=== PATIENT | male | born 1990 | race Caucasian/White ===

== ENCOUNTER 2017-06-06 12:36 | Emergency (ER) | payer MEDICARE, MEDICAID ==
[2017-06-06 12:52] VITALS: BP 115/78
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
== END 2017-06-06 13:30 | disposition home or self-care (01) ==
LOC: ER 12:36
DX: Z20.2 Contact with and (suspected) exposure to infections with a predominantly sexual mode of transmission (principal)
CPT/HCPCS: 99281

== ENCOUNTER 2018-03-08 15:38 | Emergency (ER) | payer MEDICARE, MEDICAID ==
--- NOTE | 2018-03-08 17:32 | ER Document Report ---
ED Medical Screen (RME) - General Chief Complaint: Diarrhea Stated Complaint: ABDOMINAL PAIN Time Seen by Provider: 03/08/18 17:25 Mode of Arrival: Ambulatory Information source: Patient, Parent Notes: 27 yr old male with developmental delays presents with mother kendrick baker of not feeling well and diarrhea I have greeted and performed a rapid initial assessment of this patient. A comprehensive ED assessment and evaluation of the patient, analysis of test results and completion of the medical decision making process will be conducted by additional ED providers. PHYSICAL EXAMINATION: GENERAL: Well-appearing, well-nourished and in no acute distress. HEAD: Atraumatic, normocephalic. EYES: Pupils equal round extraocular movements intact, conjunctiva are normal. ENT: Nares patent NECK: Normal range of motion LUNGS: No respiratory distress Musculoskeletal: Normal range of motion NEUROLOGICAL: pt is unable ot communicate at baseline PSYCH: Normal mood, normal affect. SKIN: Warm, Dry, normal turgor, no rashes or lesions noted. TRAVEL OUTSIDE OF THE [place] IN LAST 30 DAYS: No - Related Data Allergies/Adverse Reactions: amoxicillin trihydrate [From Augmentin] Allergy (Mild, Verified 06/06/17 13:25) rash cefaclor [Cefaclor] Allergy (Mild, Verified 06/06/17 13:25) rash Penicillins Allergy (Mild, Verified 06/06/17 13:25) rash Potassium Clavulanate * [From Augmentin] Allergy (Mild, Verified 06/06/17 13:25) rash codeine Allergy (Verified 03/08/18 17:26) Past Medical History - Social History Chew tobacco use (# tins/day): No Frequency of alcohol use: None Drug Abuse: None - Past Medical History Cardiac Medical History: Denies: Hx Heart Attack, Hx Hypertension Pulmonary Medical History: Reports: Hx Pneumonia Denies: Hx Asthma, Hx Tuberculosis Neurological Medical History: Reports: Hx Seizures - LAST SEIZURE 5 YRS. Denies : Hx Cerebrovascular Accident Renal/ Medical History: Denies: Hx Peritoneal Dialysis GI Medical History: Denies: Hx Hepatitis, Hx Hiatal Hernia, Hx Ulcer Musculoskeltal Medical History: Reports Hx Muscle Spasm, Reports Hx Muscle Weakness, Reports Hx Musculoskeletal Deformity Infectious Medical History: Denies: Hx Hepatitis Past Surgical History: Reports: Hx Abdominal Surgery - PEG Tube, multiple abdominal surgeries rt peg tube for scar tissue., Hx Appendectomy, Hx Open Heart Surgery - repair hole in heart, AN INFANT. Denies: Hx Pacemaker - Immunizations Hx Diphtheria, Pertussis, Tetanus Vaccination: Yes Physical Exam - Vital signs Vitals: Pulse Resp BP Pulse Ox 91 16 110/72 96 03/08/18 15:45 03/08/18 15:45 03/08/18 15:45 03/08/18 15:45 Course - Vital Signs Vital signs: Temp Pulse Resp BP Pulse Ox 91 16 110/72 96 03/08/18 15:45 03/08/18 15:45 03/08/18 15:45 03/08/18 15:45 Doctor's Discharge - Discharge Referrals: NICK PHILLIP PA-C [Primary Care Provider] - Follow up as needed
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
[2018-03-08 20:16] VITALS: BP 118/73
== END 2018-03-08 20:10 | disposition home or self-care (01) ==
LOC: ER 15:38
DX: B35.4 Tinea corporis (principal); L25.9 Unspecified contact dermatitis, unspecified cause; R19.7 Diarrhea, unspecified; G80.9 Cerebral palsy, unspecified; F84.0 Autistic disorder; Z93.1 Gastrostomy status; Z88.0 Allergy status to penicillin; Z88.1 Allergy status to other antibiotic agents; Z88.5 Allergy status to narcotic agent
CPT/HCPCS: 99283

== ENCOUNTER 2019-10-31 09:15 | Inpatient (IN) | payer MEDICARE, MEDICAID ==
[2019-10-31] MEDS ORDERED: NORMAL SALINE 1000 ML 1,000 ML IV ONE (10:12)
[2019-10-31] MEDS ORDERED: ONDANSETRON HCL INJ/PF 4 MG/2 ML SDV IV ONE ×2 (10:12→13:40)
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
[2019-10-31 11:32] LABS: HEMATOCRIT 48.2 % (37.9-51.0); HEMOGLOBIN 17.2 g/dL (13.5-17.0); MEAN CORPUSCULAR HEMOGLOBIN 32.3 pg (27.0-33.4); MEAN CORPUSCULAR HGB CONC 35.7 g/dL (32.0-36.0); MEAN CORPUSCULAR VOLUME 91 fl (80-97); PLATELET COUNT 324 10^3/uL (150-450); RED BLOOD COUNT 5.32 10^6/uL (4.35-5.55); WHITE BLOOD COUNT 14.9 10^3/uL (4.0-10.5)
[2019-10-31 11:37] LABS: ALBUMIN 5.3 g/dL (3.5-5.0); ALKALINE PHOSPHATASE 106 U/L (38-126); ANION GAP 16 (5-19); ASPARTATE AMINO TRANSFERASE 38 U/L (17-59); BILIRUBIN,DIRECT 0.3 mg/dL (0.0-0.4); BILIRUBIN,TOTAL 0.7 mg/dL (0.2-1.3); BLOOD UREA NITROGEN 17 mg/dL (7-20); CALCIUM 10.3 mg/dL (8.4-10.2); CARBON DIOXIDE 25 mmol/L (22-30); CHLORIDE 89 mmol/L (98-107); GLUCOSE 151 mg/dL (75-110); POTASSIUM 4.3 mmol/L (3.6-5.0); TOTAL PROTEIN 8.9 g/dL (6.3-8.2)
[2019-10-31 11:48] LABS: ABSOLUTE LYMPHOCYTES# (MANUAL) 0.4 10^3/uL (0.5-4.7); ABSOLUTE MONOCYTES # (MANUAL) 2.8 10^3/uL (0.1-1.4); BASOPHILS % (MANUAL) 0 % (0-2); EOSINOPHILS % (MANUAL) 0 % (0-6); LYMPHOCYTES % (MANUAL) 3 % (13-45); MONOCYTES % (MANUAL) 19 % (3-13); SEGMENTED NEUTROPHILS % (MAN) 78 % (42-78); TOTAL CELLS COUNTED 100
[2019-10-31 11:49] LABS: PLATELET COMMENT ADEQUATE; RBC MORPHOLOGY COMMENT NORMO-CYTIC/CHROMIC
--- NOTE | 2019-10-31 13:22 | ER Document Report ---
ED General - General Chief Complaint: Vomiting Stated Complaint: VOMITING Time Seen by Provider: 10/31/19 10:09 Information source: Parent, Relative Notes: 28-year-old male with history of severe autism and cerebral palsy presents emergency department with his mother for complaints of vomiting this morning. Patient has a G-tube and does not take anything by mouth. Patient is nonverbal. Mother reports he vomited this morning brown foul-smelling emesis. Mom reports he had at least 4 normal bowel movements yesterday. Reports patient is not acting himself more quiet. Unknown fever. Voiding as normal. Mother reports slight cough that started after he vomited. TRAVEL OUTSIDE OF THE [place] IN LAST 30 DAYS: No - HPI Onset: This morning Onset/Duration: Sudden Quality of pain: Other - Unsure Associated symptoms: Vomiting Exacerbated by: Denies Relieved by: Denies Similar symptoms previously: Yes - History of bowel obstruction Recently seen / treated by doctor: No - Related Data Allergies/Adverse Reactions: amoxicillin trihydrate [From Augmentin] Allergy (Mild, Verified 10/31/19 10:09) rash cefaclor [Cefaclor] Allergy (Mild, Verified 10/31/19 10:09) rash Penicillins Allergy (Mild, Verified 10/31/19 10:09) rash Potassium Clavulanate * [From Augmentin] Allergy (Mild, Verified 10/31/19 10:09) rash codeine Allergy (Verified 10/31/19 10:09) Past Medical History - General Information source: Parent, Relative - Social History Smoking Status: Unknown if Ever Smoked Frequency of alcohol use: None Drug Abuse: None Lives with: Family Family History: Reviewed & Not Pertinent Patient has suicidal ideation: No Patient has homicidal ideation: No - Past Medical History Cardiac Medical History: Denies: Hx Heart Attack, Hx Hypertension Pulmonary Medical History: Reports: Hx Pneumonia Denies: Hx Asthma, Hx Tuberculosis Neurological Medical History: Reports: Hx Seizures - LAST SEIZURE 5 YRS. Denies: Hx Cerebrovascular Accident Renal/ Medical History: Denies: Hx Peritoneal Dialysis GI Medical History: Denies: Hx Hepatitis, Hx Hiatal Hernia, Hx Ulcer Musculoskeletal Medical History: Reports Hx Muscle Spasm, Reports Hx Muscle Weakness, Reports Hx Musculoskeletal Deformity, Reports Other - Cerebral palsy Psychiatric Medical History: Reports: Other - Autism Infectious Medical History: Denies: Hx Hepatitis Past Surgical History: Reports: Hx Abdominal Surgery - PEG Tube, multiple abdominal surgeries rt peg tube for scar tissue., Hx Appendectomy, Hx Open Heart Surgery - repair hole in heart, AN . Denies: Hx Pacemaker - Immunizations Hx Diphtheria, Pertussis, Tetanus Vaccination: Yes Hx Pneumococcal Vaccination: 10/08/13 Review of Systems - Review of Systems Notes: Review HPI for review of systems., All other systems negative Physical Exam - Vital signs Vitals: Temp Pulse Resp BP Pulse Ox 97.5 F 118 H 18 128/64 H 97 10/31/19 09:56 10/31/19 09:56 10/31/19 09:56 10/31/19 09:56 10/31/19 09:56 - General General appearance: Alert In distress: None - HEENT Head: Normocephalic Eyes: Normal Neck: Normal, Supple. No: Lymphadenopathy - Respiratory Respiratory status: No respiratory distress Chest status: Nontender Breath sounds: Normal Chest palpation: Normal - Cardiovascular Rhythm: Regular, Tachycardia Heart sounds: Normal auscultation Murmur: No - Abdominal Inspection: Other - G-tube intact site benign, no erythema, no warmth Distension: No distension Bowel sounds: Normal Tenderness: Nontender Organomegaly: No organomegaly - Back Back: Normal - Neurological Kristy Coma Scale Eye Opening: Spontaneous - Psychological Associated symptoms: Normal affect, Normal mood - Skin Skin Temperature: Warm Skin Moisture: Dry Course - Re-evaluation Re-evalutation: 10/31/19 15:34 28-year-old severely autistic with CP male presents emergency department with his mom for reports he vomited brown emesis this morning with a foul smell. Mom was worried that he may have another bowel obstruction because he has had that in the past. She reports yesterday he had 4 large bowel movements as normal. Patient is n.p.o. takes nothing by mouth. He has a G-tube. CBC shows white count 14.9. Chemistry with sodium 129. CT of the abdomen is suggestive of a small bowel obstruction. CT of the chest shows aspiration pneumonia. Mom requested transfer to [facility] at first. I did contact [facility] contacted Dr. Radha Carrillo who accepted transfer. After that mom changed her mind and requested patient stay here if possible. I contacted Dr. Horne who reports he will be consulting surgeon for small bowel obstruction. Also contacted the hospitalist for admission. Dr. Davis accepted admission. Dr. Davis updated on patient's rectal temperature of 101 with increased tachycardia tachypneic and O2 sat of 89%. Patient was placed on 2 L nasal cannula. LR maintenance fluids ordered. I am worried this patient is becoming septic due to aspiration pneumonia and past medical history. , admitting hospitalist, advised antibiotics meropenem. Lactic acid along with blood cultures have been ordered. Mom updated on plan of care to include fluids antibiotics. Feeding tube hooked to G-tube and drained 500 mils of fluid. Abdomen/Pelvis CT 10/31/19 00:00 IMPRESSION: 1. Findings as above are suggestive of a high-grade obstruction with a focal point of transition in the mid abdomen (image 52 of series 203). There is no pneumatosis or portal venous gas. 2. Pneumobilia. 3. 9 x 9 mm caliceal calculus in the upper pole of the left kidney. Chest CT 10/31/19 13:40 IMPRESSION: Alveolar opacities in a tree-in-bud pattern in the lingula and left lower lobe. Given the distention of the thoracic esophagus correlation for an aspiration bronchopneumonia is recommended. Laboratory 10/31/19 10/31/19 10:44 10:44 WBC 14.9 H RBC 5.32 Hgb 17.2 H Hct 48.2 MCV 91 MCH 32.3 MCHC 35.7 RDW 12.0 Plt Count 324 Lymph % (Auto) Not Reportable Thomas % (Auto) Not Reportable Eos % (Auto) Not Reportable Baso % (Auto) Not Reportable Absolute Neuts (auto) Not Reportable Absolute Lymphs (auto) Not Reportable Absolute Monos (auto) Not Reportable Absolute Eos (auto) Not Reportable Absolute Basos (auto) Not Reportable Total Counted 100 Seg Neutrophils % Not Reportable Seg Neuts % (Manual) 78 Lymphocytes % (Manual) 3 L Monocytes % (Manual) 19 H Eosinophils % (Manual) 0 Basophils % (Manual) 0 Abs Neuts (Manual) 11.6 H Abs Lymphs (Manual) 0.4 L Abs Monocytes (Manual) 2.8 H Absolute Eos (Manual) 0.0 Abs Basophils (Manual) 0.0 Platelet Comment ADEQUATE RBC Morph Comment NORMO-CYTIC/CHROMIC Sodium 129.6 L Potassium 4.3 Chloride 89 L Carbon Dioxide 25 Anion Gap 16 BUN 17 Creatinine 0.47 L Est GFR ( Amer) > 60 Est GFR (MDRD) Non-Af > 60 Glucose 151 H Calcium 10.3 H Total Bilirubin 0.7 Direct Bilirubin 0.3 Neonat Total Bilirubin Not Reportable Neonat Direct Bilirubin Not Reportable Neonat Indirect Bili Not Reportable AST 38 ALT 30 Alkaline Phosphatase 106 Total Protein 8.9 H Albumin 5.3 H Lipase 106.4 10/31/19 16:[address] Horne [address] Dr. Davis in the emergency department to assess patient. Dockery ordered per Dr. Horne suggestion. - Vital Signs Vital signs: Temp Pulse Resp BP Pulse Ox 101.0 F H 132 H 32 H 139/64 H 89 L 10/31/19 15:58 10/31/19 15:58 10/31/19 15:58 10/31/19 15:58 10/31/19 15:58 - Laboratory Result Diagrams: 10/31/19 10:44 10/31/19 10:44 Laboratory results interpreted by me: 10/31/19 10/31/19 10/31/19 10:44 10:44 16:33 WBC 14.9 H Hgb 17.2 H Lymphocytes % (Manual) 3 L Monocytes % (Manual) 19 H Abs Neuts (Manual) 11.6 H Abs Lymphs (Manual) 0.4 L Abs Monocytes (Manual) 2.8 H Sodium 129.6 L Chloride 89 L Creatinine 0.47 L Glucose 151 H Lactic Acid 2.3 H Calcium 10.3 H Total Protein 8.9 H Albumin 5.3 H - Diagnostic Test Radiology reviewed: Image reviewed, Reports reviewed - Consults DR HORNE Time consulted: 16:00 Reason for consultation: 10/31/19 16:14 SBO, Consulted provider: will come to ER DR DAVIS Time consulted: 16:15 Reason for consultation: 10/31/19 16:15 SBO CP AUTISM, PNEUMONIA Consulted provider: will come to ER Discharge - Discharge Clinical Impression: Small bowel obstruction Sepsis Qualifiers: Sepsis type: sepsis due to unspecified organism Sepsis acute organ dysfunction status: unspecified Qualified Code(s): A41.9 - Sepsis, unspecified organism Condition: Stable Disposition: ADMITTED INPATIENT Unit Admitted: [facility]
[2019-10-31] MEDS ORDERED: IBUPROFEN SUSP 100 MG/5 ML ORAL SYRINGE PO ONE (13:41)
--- NOTE | 2019-10-31 14:50 | RADIOLOGY REPORT (SQ) ---
EXAM DESCRIPTION: CT ABD/PELVIS WITH IV ORAL COMPLETED DATE/TIME: 10/31/2019 2:25 pm REASON FOR STUDY: possible obstruction, vomiting COMPARISON: CT of the abdomen pelvis without contrast from 11/18/2013. TECHNIQUE: CT scan of the abdomen and pelvis performed using helical scanning technique with dynamic intravenous contrast injection. No oral contrast. Images reviewed with lung, soft tissue, and bone windows. Reconstructed coronal and sagittal MPR images reviewed. Delayed images for evaluation of the urinary system also acquired. All images stored on PACS. All CT scanners at this facility use dose modulation, iterative reconstruction, and/or weight based d osing when appropriate to reduce radiation dose to as low as reasonably achievable (ALARA). [facility]: Dose Right [facility]: CareDose [facility]: Dose Right [facility]: Teradose 4D [facility]: LogFire CONTRAST TYPE AND DOSE: Contrast/concentration: Isovue 350.00 mg/ml; Total Contrast Delivered: 62.0 ml; Total Saline Delivered: 37.3 ml RENAL FUNCTION: Creatinine 0.47 milligrams/deciliter. RADIATION DOSE: DLP 1548.87 mGy cm. LIMITATIONS: None. FINDINGS: LOWER CHEST: Refer to the separate report of the CT of the chest. LIVER: Pneumobilia. The portal veins are patent. There is no hepatic mass. SPLEEN: No splenomegaly. PANCREAS: No acute abnormality of the pancreas. GALLBLADDER: The gallbladder is either surgically absent or contracted. ADRENAL GLANDS: No abnormality of the adrenal glands RIGHT KIDNEY AND URETER: No solid mass, hydronephrosis, nephrolithiasis, hydroureter or ureterolithia sis. LEFT KIDNEY AND URETER: 9 x 9 mm calculus in an upper pole calyx. There is no solid mass, hydronephr osis, hydroureter or ureterolithiasis. AORTA AND VESSELS: No aneurysm or dissection of the abdominal aorta. The abdominopelvic vasculature is patent. RETROPERITONEUM: No retroperitoneal adenopathy, hemorrhage or mass. BOWEL AND PERITONEAL CAVITY: There is a gastrostomy tube in place. The stomach is dilated. There ar e several fluid-filled and dilated loops of bowel that measure up to 3 cm in diameter ; there is an a brupt point a transition between the dilated and nondilated bowel in the mid abdomen (image 52 of ser ies 203). There is no pneumatosis or portal venous gas. There is also no free intraperitoneal air/f luid or mesenteric/omental inflammation. APPENDIX: Unable to identify the appendix. PELVIS: Urinary bladder is distended. The prostate gland is normal in size. ABDOMINAL WALL: No masses or hernias. BONES: No acute findings. OTHER: No other finding. IMPRESSION: 1. Findings as above are suggestive of a high-grade obstruction with a focal point of tr ansition in the mid abdomen (image 52 of series 203). There is no pneumatosis or portal venous gas. 2. Pneumobilia. 3. 9 x 9 mm caliceal calculus in the upper pole of the left kidney. TECHNICAL DOCUMENTATION: JOB ID: [id number] Quality ID # [id number]: Final reports with documentation of one or more dose reduction techniques (e.g., Au tomated exposure control, adjustment of the mA and/or kV according to patient size, use of iterative reconstruction technique) 2010 [employer]- All Rights Reserved Reading location - IP/workstation name: [email or web address]
--- NOTE | 2019-10-31 14:59 | RADIOLOGY REPORT (SQ) ---
EXAM DESCRIPTION: CT CHEST WITH COMPLETED DATE/TIME: 10/31/2019 2:25 pm REASON FOR STUDY: cough fever COMPARISON: None. TECHNIQUE: CT scan of the chest performed using helical scanning technique with dynamic intravenous contrast injection. Images reviewed with lung, soft tissue and bone windows. Reconstructed coronal and sagittal MPR and MIP images reviewed. All images stored on PACS. All CT scanners at this facility use dose modulation, iterative reconstruction, and/or weight based d osing when appropriate to reduce radiation dose to as low as reasonably achievable (ALARA). [facility]: Dose Right [facility]: CareDose [facility]: Dose Right [facility]: Teradose 4D [facility]: [employer]arki CONTRAST TYPE AND DOSE: 62 mL Omnipaque 350- low osmolar. RENAL FUNCTION: Creatinine 0.47 milligrams/deciliter RADIATION DOSE: CT Rad equipment meets quality standard of care and radiation dose reduction techniq ues were employed. CTDIvol: 11.9 - 12.5 mGy. DLP: 1549 mGy-cm. LIMITATIONS: Evaluation is limited due to motion artifact. FINDINGS: LUNGS AND PLEURA: The trachea main bronchi are patent. There are alveolar opacities in a tree-in-bud pattern in the lingula and left lower lobe. There are no other areas of parenchymal abno rmality. There is also no pleural effusion or pneumothorax. HILAR AND MEDIASTINAL STRUCTURES: The esophagus is distended with fluid up to the thoracic inlet. Th ere is no mediastinal adenopathy or mass. HEART AND VASCULAR STRUCTURES: No cardiomegaly or pericardial effusion. No thoracic aortic dissectio n or aneurysm. HARDWARE: None in the chest. UPPER ABDOMEN: Refer to the separate report of the CT of the abdomen. THYROID AND OTHER SOFT TISSUES: No masses or adenopathy BONES: Dextroconvex scoliotic curvature of the thoracic spine OTHER: No other finding. IMPRESSION: Alveolar opacities in a tree-in-bud pattern in the lingula and left lower lobe. Given t he distention of the thoracic esophagus correlation for an aspiration bronchopneumonia is recommended . TECHNICAL DOCUMENTATION: JOB ID: [id number] Quality ID # [id number]: Final reports with documentation of one or more dose reduction techniques (e.g., Au tomated exposure control, adjustment of the mA and/or kV according to patient size, use of iterative reconstruction technique) 2010 [employer]- All Rights Reserved Reading location - IP/workstation name: [email or web address]
[2019-10-31] MEDS ORDERED: RINGERS SOLUTION,LACTATED 1,000 ML IV PRN (15:44)
[2019-10-31] MEDS ORDERED: MEROPENEM 1 GM VIAL IV ONE (16:05)
--- NOTE | 2019-10-31 16:49 | PDOC CONSULTATION ---
Consultation Consult Date: 10/31/19 Attending physician:: NAYELI RIBEIRO Provider Consulted: LILIANA HORNE Consult reason:: sbo History of Present Illness Admission Date/PCP: SAMIA MONTANO MD History of Present Illness: RASHI TOMPKINS is a 28 year old [id number] history of severe autism and cerebral palsy presents emergency department with his mother for complaints of vomiting this morning. Patient has a G-tube and does not take anything by mouth. Patient is nonverbal. Mother reports he vomited this morning brown foul-smelling emesis. Mom reports he had at least 4 normal bowel movements yesterday. Reports patient is not acting himself more quiet. Unknown fever. Voiding as normal. Mother reports slight cough that started after he vomited. States that he has had numerous bowel obstructions in the past and required previous surgery last one last year at [facility]. Patient's mother now states that he does have some coughing after vomiting this morning. Past Medical History Cardiac Medical History: Denies: Myocardial Infarction, Hypertension Pulmonary Medical History: Reports: Pneumonia Denies: Asthma, Tuberculosis Neurological Medical History: Reports: Seizures - LAST SEIZURE 5 YRS GI Medical History: Denies: Hepatitis, Hiatal Hernia Musculoskeltal Medical History: Reports: Other - Cerebral palsy Psychiatric Medical History: Reports: Other - Autism Hematology: Denies: Anemia, Sickle Cell Disease Past Surgical History Past Surgical History: Reports: Appendectomy, Other - Exploratory laparotomy for small bowel obstructions. PEG tube. Denies: Pacemaker Social History Lives with: Family Smoking Status: Unknown if Ever Smoked Family History Family History: Reviewed & Not Pertinent Parental Family History Reviewed: No Children Family History Reviewed: NA Sibling(s) Family History Reviewed.: NA Medication/Allergy Allergies/Adverse Reactions: amoxicillin trihydrate [From Augmentin] Allergy (Mild, Verified 10/31/19 10:09) rash cefaclor [Cefaclor] Allergy (Mild, Verified 10/31/19 10:09) rash Penicillins Allergy (Mild, Verified 10/31/19 10:09) rash Potassium Clavulanate * [From Augmentin] Allergy (Mild, Verified 10/31/19 10:09) rash codeine Allergy (Verified 10/31/19 10:09) Review of Systems ROS unobtainable: Due to mental status Eyes: ABSENT: as per HPI, visual disturbances, other Ears: ABSENT: as per HPI, hearing changes, other Nose, Mouth, and Throat: ABSENT: as per HPI, headache(s), mouth pain, sore throat, vertigo, other Breasts: ABSENT: as per HPI, other Cardiovascular: PRESENT: chest pain - With deep inspiration Gastrointestinal: PRESENT: other - Dental pain and bloating according to the mother intermittently with legs drawn up Genitourinary: ABSENT: as per HPI, difficulty urinating, dysuria, hematuria, nocturia, other Musculoskeletal: PRESENT: other - Section secondary to cerebral palsy Integumentary: ABSENT: as per HPI, diaphoresis, erythema, lesions, pruritus, rash, wounds, other Neurological: PRESENT: other - Mental status cerebral palsy with developmental delay obtain Hematologic/Lymphatic: ABSENT: easy bleeding, easy bruising Allergic/Immunologic: ABSENT: as per HPI, seasonal rhinorrhea, other Physical Exam Vital Signs: Temp Pulse Resp BP Pulse Ox 101.0 F H 132 H 32 H 139/64 H 89 L 10/31/19 15:58 10/31/19 15:58 10/31/19 15:58 10/31/19 15:58 10/31/19 15:58 Intake & Output 10/30/19 10/31/19 11/01/19 06:59 06:59 06:59 Intake Total 1000 Balance 1000 Weight 54.6 kg General appearance: PRESENT: mild distress Head exam: PRESENT: normocephalic Eye exam: PRESENT: EOMI Ear exam: PRESENT: normal external ear exam Mouth exam: PRESENT: moist Neck exam: PRESENT: full ROM Respiratory exam: PRESENT: clear to auscultation ashu Cardiovascular exam: PRESENT: tachycardia Pulses: PRESENT: normal radial pulses, normal femoral pulses Vascular exam: PRESENT: normal capillary refill Breast: PRESENT: Normal GI/Abdominal exam: PRESENT: distended, hypoactive bowel sounds, soft Rectal exam: PRESENT: deferred Extremities exam: PRESENT: full ROM Musculoskeletal exam: PRESENT: deformity Neurological exam: PRESENT: awake Psychiatric exam: PRESENT: agitated Skin exam: PRESENT: dry Results Laboratory Results: 10/31/19 10:44 10/31/19 10:44 10/31/19 10/31/19 10:44 10:44 WBC 14.9 H RBC 5.32 Hgb 17.2 H Hct 48.2 MCV 91 MCH 32.3 MCHC 35.7 RDW 12.0 Plt Count 324 Seg Neutrophils % Not Reportable Sodium 129.6 L Potassium 4.3 Chloride 89 L Carbon Dioxide 25 Anion Gap 16 BUN 17 Creatinine 0.47 L Est GFR ( Amer) > 60 Glucose 151 H Calcium 10.3 H Total Bilirubin 0.7 AST 38 Alkaline Phosphatase 106 Total Protein 8.9 H Albumin 5.3 H Lipase 106.4 Impressions: Abdomen/Pelvis CT 10/31/19 00:00 IMPRESSION: 1. Findings as above are suggestive of a high-grade obstruction with a focal point of transition in the mid abdomen (image 52 of series 203). There is no pneumatosis or portal venous gas. 2. Pneumobilia. 3. 9 x 9 mm caliceal calculus in the upper pole of the left kidney. Chest CT 10/31/19 13:40 IMPRESSION: Alveolar opacities in a tree-in-bud pattern in the lingula and left lower lobe. Given the distention of the thoracic esophagus correlation for an aspiration bronchopneumonia is recommended. Assessment & Plan - Plan Summary Plan Summary: Patient cerebral palsy with developmental delay status post multiple previous small bowel obstructions now with a gastrostomy tube History of exploratory laparotomy with lysis of adhesions and small bowel resection last year at [facility]. Now presenting with increasing abdominal distention and vomiting however passed for normal bowel movements yesterday. CT scan here shows dilated small bowel loops with air in the colon consistent with a possible transition point in the mid abdomen Surgical recommendations 1 admit the patient for IV hydration. And treatment of aspiration pneumonia 2. G-tube should be placed on intermittent suction. 3. Dockery catheter for over distended urinary bladder seen on CT scan. 4. Surgery will follow
[2019-10-31] MEDS ORDERED: ACETAMINOPHEN 650 MG SUPP.RECT PR PRN (17:02)
[2019-10-31] MEDS ORDERED: LEVALBUTEROL HCL NEB 1.25 MG/3 ML AMPUL NEB PRN (17:02)
[2019-10-31] MEDS ORDERED: METOCLOPRAMIDE HCL INJ/PF 10 MG/2 ML SDV IV PRN (17:09)
[2019-10-31] MEDS ORDERED: ONDANSETRON HCL INJ/PF 4 MG/2 ML SDV IV PRN (17:09)
[2019-10-31] MEDS ORDERED: RINGERS SOLUTION,LACTATED 1,000 ML IV ONE ×2 (17:15→17:21)
[2019-10-31] MEDS ORDERED: LORAZEPAM INJ 2 MG/1 ML VIAL IV PRN (17:17)
[2019-10-31] MEDS ORDERED: RINGERS SOLUTION,LACTATED 500 ML IV ONE (17:21)
--- NOTE | 2019-10-31 17:37 | PDOC H&P ---
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 Patient had had no irregularities in bowel movements for the past several days until yesterday night when patient was reported to have 4 bowel movement. The first 2 were described as formed and of moderate amount while the last 2 with loose movements. Today patient began having bilious nonbloody vomiting and was thus brought for evaluation. Patient's mom notes that patient has been having some cough as well. She denies any changes to his urinary habits per patient is incontinent and usually wets himself. Patient unable to partake in conversation given his severe autism and cerebral palsy. Of note, he takes nothing by mouth and everything goes via G-tube. Noted to have high-grade bowel obstruction, possible pneumonia in ER as well as fever and subsequently referred to hospitalist service for admission. Past Medical History Cardiac Medical History: Denies: Myocardial Infarction, Hypertension Pulmonary Medical History: Reports: Pneumonia Denies: Asthma, Tuberculosis Neurological Medical History: Reports: Seizures - LAST SEIZURE 5 YRS GI Medical History: Denies: Hepatitis, Hiatal Hernia Musculoskeltal Medical History: Reports: Other - Cerebral palsy Psychiatric Medical History: Reports: Other - Autism Hematology: Denies: Anemia, Sickle Cell Disease Past Surgical History Past Surgical History: Reports: Appendectomy, Other - Exploratory laparotomy for small bowel obstructions. PEG tube. Denies: Pacemaker Social History Lives with: Family Smoking Status: Never Smoker Electronic Cigarette use?: No Frequency of Alcohol Use: None Hx Recreational Drug Use: No - Advance Directive Resuscitation Status: Full Code Family History Family History: Reviewed & Not Pertinent, Other Parental Family History Reviewed: Yes Children Family History Reviewed: NA Sibling(s) Family History Reviewed.: NA Medication/Allergy Allergies/Adverse Reactions: amoxicillin trihydrate [From Augmentin] Allergy (Mild, Verified 10/31/19 10:09) rash cefaclor [Cefaclor] Allergy (Mild, Verified 10/31/19 10:09) rash Penicillins Allergy (Mild, Verified 10/31/19 10:09) rash Potassium Clavulanate * [From Augmentin] Allergy (Mild, Verified 10/31/19 10:09) rash codeine Allergy (Verified 10/31/19 10:09) Review of Systems ROS unobtainable: Due to mental status Physical Exam Vital Signs: Temp Pulse Resp BP Pulse Ox 101.0 F H 132 H 32 H 139/64 H 89 L 10/31/19 15:58 10/31/19 15:58 10/31/19 15:58 10/31/19 15:58 10/31/19 15:58 Intake & Output 10/30/19 10/31/19 11/01/19 06:59 06:59 06:59 Intake Total 1000 Balance 1000 Weight 54.6 kg General appearance: PRESENT: no acute distress, cooperative Mouth exam: PRESENT: neck supple Neck exam: ABSENT: JVD Respiratory exam: PRESENT: clear to auscultation ashu, tachypnea - mildly, unlabored. ABSENT: wheezes Cardiovascular exam: PRESENT: +S1, +S2, tachycardia. ABSENT: irregular rhythm GI/Abdominal exam: PRESENT: distended, hyperactive bowel sounds, soft, other - G tube present. ABSENT: firm, guarding, rebound, rigid Extremities exam: ABSENT: pedal edema Musculoskeletal exam: PRESENT: deformity - contracted lower extremities Neurological exam: PRESENT: alert, awake, aphasic - nonverbal, other - does not follow commands Psychiatric exam: ABSENT: agitated, anxious Focused psych exam: ABSENT: internal stimuli Skin exam: ABSENT: jaundice Results Laboratory Results: 10/31/19 10:44 10/31/19 10:44 10/31/19 10/31/19 10:44 10:44 WBC 14.9 H RBC 5.32 Hgb 17.2 H Hct 48.2 MCV 91 MCH 32.3 MCHC 35.7 RDW 12.0 Plt Count 324 Seg Neutrophils % Not Reportable Sodium 129.6 L Potassium 4.3 Chloride 89 L Carbon Dioxide 25 Anion Gap 16 BUN 17 Creatinine 0.47 L Est GFR ( Amer) > 60 Glucose 151 H Calcium 10.3 H Total Bilirubin 0.7 AST 38 Alkaline Phosphatase 106 Total Protein 8.9 H Albumin 5.3 H Lipase 106.4 Impressions: Abdomen/Pelvis CT 10/31/19 00:00 IMPRESSION: 1. Findings as above are suggestive of a high-grade obstruction with a focal point of transition in the mid abdomen (image 52 of series 203). There is no pneumatosis or portal venous gas. 2. Pneumobilia. 3. 9 x 9 mm caliceal calculus in the upper pole of the left kidney. Chest CT 10/31/19 13:40 IMPRESSION: Alveolar opacities in a tree-in-bud pattern in the lingula and left lower lobe. Given the distention of the thoracic esophagus correlation for an aspiration bronchopneumonia is recommended. Assessment and Plan - Diagnosis (1) SBO (small bowel obstruction) Is this a current diagnosis for this admission?: Yes Plan: Patient presents with vomiting and CT scanning showing high-grade obstruction with transition likely mid abdomen. Likely partial sbo. I had conversation with surgicalist who is recommending placing G-tube to suction and conservative management at this time I will continue to follow. Some question about if truly a small bowel obstruction given Bowel movement last night. D5 LR Check lactic acid given fever and tachycardia Monitor electrolytes and replete as needed (2) Fever Qualifiers: Fever type: unspecified Qualified Code(s): R50.9 - Fever, unspecified Is this a current diagnosis for this admission?: Yes Plan: Possibly due to some underlying infection/inflammation. Chest CT does show some trabecular opacities in left lower lobe however it appears only mild. We will currently give antibiotics to cover for pneumonia or intra-abdominal process and check urinalysis, urine culture as well as blood cultures to look for alternative source of fever. Patient is not able to voice symptoms given his severe cognitive impairment. Monitor abdomen closely. (3) Pneumonia Qualifiers: Pneumonia type: aspiration pneumonia Aspiration pneumonia type: due to vomit Laterality: left Lung location: lower lobe of lung Qualified Code(s): J69.0 - Pneumonitis due to inhalation of food and vomit Is this a current diagnosis for this admission?: Yes Plan: Noted on chest CT. However pneumonia seems mild on the imaging to cause this clinical picture of severe tachycardia, fever and leukocytosis. I will start patient on Levaquin and Flagyl for coverage of possible aspiration pneumonia. Check sputum culture. (4) Distended bladder Is this a current diagnosis for this admission?: Yes Plan: Noted incidentally on imaging. Place Dockery. (5) Tachycardia Is this a current diagnosis for this admission?: Yes Plan: Patient has severe tachycardia into the 130s to 140s. Appears dehydrated. Check EKG. Will give IV fluid boluses and run on continuous infusion of fluids. Monitor on telemetry. (6) Seizure disorder Is this a current diagnosis for this admission?: Yes Plan: At home, patient takes oxcarbazepine, carbamazepine, clonazepam and lorazepam all 3 times a day. This is not an ideal regimen given similar classes of medications. While inpatient, I will place patient on only carbamazepine and increased dose rather to 200 mg 3 times daily as well as Ativan only. (7) Cerebral palsy Qualifiers: Cerebral palsy type: unspecified type Qualified Code(s): G80.9 - Cerebral palsy, unspecified Is this a current diagnosis for this admission?: Yes Plan: Patient is n.p.o. and nonverbal at baseline and gets feeding through G tube. Mother reports Nutren 1.5 boluses 4 times a day. Continue seizure prophylaxis. Dietitian consulted. (8) Hyponatremia Is this a current diagnosis for this admission?: Yes Plan: Monitor metabolic panel for improvement with hydration. If hyponatremia persists, will check serum and urine osmolarity. We will also hold off on oxcarbazepine while continuing carbamazepine. Ideally patient should not be on both medications together which he has been on at home, as this increases his risk of SIADH. - Time Time Spent with patient: 35 or more minutes
[2019-10-31] MEDS ORDERED: LORAZEPAM INJ 2 MG/1 ML VIAL IV SCH (22:00)
[2019-10-31] MEDS ORDERED: LEVOFLOXACIN 500 MG/D5W RTU 500 MG/100 ML RTUPB IV SCH (22:00)
--- NOTE | 2019-10-31 22:00 | EKG REPORT ---
SEVERITY:- ABNORMAL ECG - SINUS TACHYCARDIA CONSIDER RIGHT VENTRICULAR HYPERTROPHY INFERIOR Q WAVES, PROBABLY NORMAL VARIATION NONSPECIFIC T ABNORMALITIES, INFERIOR LEADS : Confirmed by: Jossie Bonilla MD 31-Oct-2019 21:59:47
[2019-10-31] MEDS: ACETAMINOPHEN 650 MG SUPP.RECT PR PRN (23:03)
[2019-11-01] MEDS ORDERED: LEVETIRACETAM 1000 MG/NACL-ISO 1,000 MG/100 ML RTUPB IV ONE
[2019-11-01] MEDS ORDERED: METRONIDAZOLE 500 MG/NS RTU 500 MG/100 ML RTUPB IV SCH
[2019-11-01] MEDS ORDERED: MEROPENEM 1 GM VIAL IV SCH
[2019-11-01] MEDS: LORAZEPAM INJ 2 MG/1 ML VIAL IV SCH ×4 (00:12→21:14)
[2019-11-01] MEDS: CARBAMAZEPINE 100 MG TAB.CHEW PEG SCH ×2 (00:35→05:29)
[2019-11-01] MEDS ORDERED: MEROPENEM 1 GM VIAL ONE (00:40)
[2019-11-01] MEDS ORDERED: MEROPENEM 1 GM in NORMAL SALINE 50 ML IV SCH (01:00)
[2019-11-01] MEDS: DEXTROSE 5%-LACTATED RINGERS 1,000 ML IV PRN ×3 (02:28→21:33)
[2019-11-01] MEDS: ACETAMINOPHEN 650 MG SUPP.RECT PR PRN (02:44)
[2019-11-01 06:43] LABS: ALBUMIN 3.4 g/dL (3.5-5.0); ALKALINE PHOSPHATASE 45 U/L (38-126); ANION GAP 11 (5-19); ASPARTATE AMINO TRANSFERASE 36 U/L (17-59); BILIRUBIN,TOTAL 0.5 mg/dL (0.2-1.3); BLOOD UREA NITROGEN 12 mg/dL (7-20); CALCIUM 9.1 mg/dL (8.4-10.2); CARBON DIOXIDE 28 mmol/L (22-30); CHLORIDE 98 mmol/L (98-107); GLUCOSE 117 mg/dL (75-110); PHOSPHORUS 3.4 mg/dL (2.5-4.5); POTASSIUM 3.9 mmol/L (3.6-5.0)
[2019-11-01 07:01] LABS: HEMATOCRIT 41.4 % (37.9-51.0); MEAN CORPUSCULAR HEMOGLOBIN 32.6 pg (27.0-33.4); MEAN CORPUSCULAR HGB CONC 36.4 g/dL (32.0-36.0); MEAN CORPUSCULAR VOLUME 90 fl (80-97); PLATELET COUNT 221 10^3/uL (150-450); RED BLOOD COUNT 4.61 10^6/uL (4.35-5.55); RED CELL DISTRIBUTION WIDTH 12.1 % (11.5-14.0); WHITE BLOOD COUNT 15.8 10^3/uL (4.0-10.5)
[2019-11-01 07:15] LABS: ABSOLUTE LYMPHOCYTES# (MANUAL) 1.3 10^3/uL (0.5-4.7); ABSOLUTE MONOCYTES # (MANUAL) 5.8 10^3/uL (0.1-1.4); BASOPHILS % (MANUAL) 0 % (0-2); EOSINOPHILS % (MANUAL) 0 % (0-6); LYMPHOCYTES % (MANUAL) 6 % (13-45); SEGMENTED NEUTROPHILS % (MAN) 34 % (42-78); TOTAL CELLS COUNTED 100
[2019-11-01 07:17] LABS: OVALOCYTES SLIGHT; POIKILOCYTOSIS SLIGHT; TOXIC GRANULATION 1+
[2019-11-01 07:18] LABS: BAND NEUTROPHILS % (MANUAL) 21 % (3-5); MONOCYTES % (MANUAL) 37 % (3-13)
[2019-11-01 07:21] LABS: PLATELET COMMENT ADEQUATE
[2019-11-01] MEDS ORDERED: VANCOMYCIN HCL INJ 1000 MG VIAL IV SCH (10:00)
[2019-11-01] MEDS ORDERED: METHYLPREDNISOLONE INJ 125 MG/2 ML SDV IV ONE (10:00)
[2019-11-01] MEDS ORDERED: DIPHENHYDRAMINE HCL 50 MG/ML VIAL IV ONE (10:00)
[2019-11-01] MEDS: LEVETIRACETAM 500 MG/NACL-ISO 500 MG/100 ML RTUPB IV SCH ×2 (10:27→21:15)
[2019-11-01 10:56] LABS: PATH REVIEW PATHOLOGIST REVIEWED
[2019-11-01] MEDS: DOCUSATE SODIUM 100 MG/10 ML UDC PEG SCH (11:16)
[2019-11-01] MEDS: ENOXAPARIN SODIUM INJ 40 MG/0.4 ML DISP.SYRIN SUBCUT SCH (12:29)
[2019-11-01] MEDS: MEROPENEM 1 GM in NORMAL SALINE 50 ML IV SCH ×2 (12:35→17:46)
[2019-11-01] MEDS: CARBAMAZEPINE SUSP 200 MG/10 ML UDCUP PO SCH ×2 (13:48→21:14)
[2019-11-01] MEDS: KETOROLAC TROMETHAMINE INJ/PF 30 MG/1 ML SDV IV PRN ×2 (13:48→20:00)
[2019-11-01] MEDS: VANCOMYCIN HCL 1,000 MG in DEXTROSE 5%-WATER 250 ML IV SCH ×2 (13:49→21:15)
--- NOTE | 2019-11-01 14:06 | PDOC PROGRESS REPORT ---
Subjective Progress Note for:: 11/01/19 Subjective:: Overnight, patient's lactic acid continue to trend up. Patient remained tachycardic though heart rate is somewhat better than on presentation. Patient has been receiving fluids. Patient is nonverbal and unable to provide subjective. Reason For Visit: SBO, FEVER PNA Physical Exam Vital Signs: Temp Pulse Resp BP Pulse Ox 99.0 F 116 H 16 108/62 95 11/01/19 12:03 11/01/19 12:03 11/01/19 12:03 11/01/19 12:03 11/01/19 12:03 Intake & Output 10/31/19 11/01/19 11/02/19 06:59 06:59 06:59 Intake Total 2650 1477 Output Total 1000 Balance 2650 477 Weight 52 kg General appearance: PRESENT: no acute distress, cooperative Neck exam: ABSENT: JVD Respiratory exam: PRESENT: rhonchi, tachypnea, unlabored. ABSENT: wheezes Cardiovascular exam: PRESENT: +S1, +S2, tachycardia. ABSENT: irregular rhythm GI/Abdominal exam: PRESENT: distended, soft. ABSENT: firm, guarding, rebound, rigid Neurological exam: PRESENT: alert, awake, motor sensory deficit, aphasic - Nonverbal Results Laboratory Results: 11/01/19 05:55 11/01/19 05:55 10/31/19 10/31/19 11/01/19 16:33 22:13 05:55 WBC RBC Hgb Hct MCV MCH MCHC RDW Plt Count Seg Neutrophils % Sodium Potassium Chloride Carbon Dioxide Anion Gap BUN Creatinine Est GFR ( Amer) Glucose Lactic Acid 2.3 H 2.7 H 3.8 H Calcium Phosphorus Magnesium Total Bilirubin AST Alkaline Phosphatase Total Protein Albumin 11/01/19 11/01/19 05:55 05:55 WBC 15.8 H RBC 4.61 Hgb 15.0 D Hct 41.4 MCV 90 MCH 32.6 MCHC 36.4 H RDW 12.1 Plt Count 221 Seg Neutrophils % Not Reportable Sodium 137.1 Potassium 3.9 Chloride 98 Carbon Dioxide 28 Anion Gap 11 BUN 12 Creatinine 0.37 L Est GFR ( Amer) > 60 Glucose 117 H Lactic Acid Calcium 9.1 Phosphorus 3.4 Magnesium 1.7 Total Bilirubin 0.5 AST 36 Alkaline Phosphatase 45 Total Protein 6.0 L Albumin 3.4 L Impressions: Abdomen/Pelvis CT 10/31/19 00:00 IMPRESSION: 1. Findings as above are suggestive of a high-grade obstruction with a focal point of transition in the mid abdomen (image 52 of series 203). There is no pneumatosis or portal venous gas. 2. Pneumobilia. 3. 9 x 9 mm caliceal calculus in the upper pole of the left kidney. Chest CT 10/31/19 13:40 IMPRESSION: Alveolar opacities in a tree-in-bud pattern in the lingula and left lower lobe. Given the distention of the thoracic esophagus correlation for an aspiration bronchopneumonia is recommended. Assessment and Plan - Diagnosis (1) SBO (small bowel obstruction) Is this a current diagnosis for this admission?: Yes Plan: Patient presents with vomiting and CT scanning showing high-grade obstruction with transition likely mid abdomen. Likely partial sbo. G-tube placed to suction and suctioning a whole lot of fluid Surgicalist following and obtain abdominal series with small bowel follow- through this morning Continue D5 LR I am concerned given lactic acid continues to trend up and persistence of tachycardia. We will continue to trend lactic acid. Monitor electrolytes and replete as needed (2) Fever Qualifiers: Fever type: unspecified Qualified Code(s): R50.9 - Fever, unspecified Is this a current diagnosis for this admission?: Yes Plan: Possibly due to some underlying infection/inflammation. Chest CT does show some trabecular opacities in left lower lobe however it appears only mild. We will currently give antibiotics to cover for pneumonia or intra-abdominal process. Follow-up blood culture. Unfortunately urine sample was unable to be obtained yesterday because of difficulty with catheterization and patient's incontinence. Patient is not able to voice symptoms given his severe cognitive impairment. Monitor abdomen closely. (3) Pneumonia Qualifiers: Pneumonia type: aspiration pneumonia Aspiration pneumonia type: due to vomit Laterality: left Lung location: lower lobe of lung Qualified Code(s): J69.0 - Pneumonitis due to inhalation of food and vomit Is this a current diagnosis for this admission?: Yes Plan: Noted on chest CT. However pneumonia seems mild on the imaging to cause this clinical picture of severe tachycardia, fever and leukocytosis. Antibiotics changed to vancomycin and meropenem for broader coverage. (4) Distended bladder Is this a current diagnosis for this admission?: Yes Plan: Noted incidentally on imaging. Given difficulty in Dockery placement by staff, I will opt to hold off on Dockery placement at this time and monitor with frequent bladder scans every 8 hours. (5) Tachycardia Is this a current diagnosis for this admission?: Yes Plan: EKG showing sinus tachycardia. Rate improved from 140s yesterday to 110-120s today. Possible sepsis or anxiety or pain. Continue IV fluids and pain control. (6) Seizure disorder Is this a current diagnosis for this admission?: Yes Plan: At home, patient takes oxcarbazepine, carbamazepine, clonazepam and lorazepam all 3 times a day. This is not an ideal regimen given similar classes of medications. While inpatient, I will continue patient on only carbamazepine suspension and increased dose rather to 200 mg 3 times daily as well as Ativan only. Patient is also been placed on Keppra IV given SBO. (7) Cerebral palsy Qualifiers: Cerebral palsy type: unspecified type Qualified Code(s): G80.9 - Cerebral palsy, unspecified Is this a current diagnosis for this admission?: Yes Plan: Patient is n.p.o. and nonverbal at baseline and gets feeding through G tube. Mother reports Nutren 1.5 boluses 4 times a day. Continue seizure prophylaxis. Dietitian consulted. (8) Hyponatremia Is this a current diagnosis for this admission?: Yes Plan: Likely secondary to dehydration as has completely resolved with adequate IV fluid hydration. - Time Time Spent with patient: Less than 15 minutes
--- NOTE | 2019-11-01 16:31 | RADIOLOGY REPORT (SQ) ---
EXAM DESCRIPTION: SMALL BOWEL SERIES COMPLETED DATE/TIME: 11/01/2019 4:15 pm REASON FOR STUDY: possible bowel obstruction COMPARISON: None. FLUOROSCOPY TIME: Performed without fluoroscopy. 6 images saved to PACS. LIMITATIONS: None. PROCEDURE: Initial talent scout image of abdomen acquired, followed by administration of Gastrografin throu gh the gastrostomy tube. Serial radiographic images acquired. All images stored on PACS. FINDINGS: ANALYTICAL STATISTICIAN KUB: Dilated gas-filled small bowel. No abnormal calcifications. Soft tissue plane s normal. STOMACH: Small amount of gastroesophageal reflux. Normal distention without abnormality. DUODENUM: Dilated. SMALL BOWEL: Dilated proximal small bowel. Contrast progresses through the small bowel and is prese nt in the distal colon and rectum at 4 hours 15 minutes. OTHER: No other significant finding. IMPRESSION: DILATED SMALL BOWEL. CONTRAST PRESENT IN THE DISTAL COLON AND RECTUM AT 4 HOURS AND 15 MINUTES. SIGNIFICANT MECHANICAL OBSTRUCTION NOT LIKELY TO BE PRESENT. COMMENT: Quality ID [id number]: Final reports for procedures using fluoroscopy that document radiation exp osure indices, or exposure time and number of fluorographic images (if radiation exposure indices are not available) TECHNICAL DOCUMENTATION: JOB ID: [id number] 2010 [employer]- All Rights Reserved Reading location - IP/workstation name: [email or web address]
[2019-11-01 18:08] LABS: HEMATOCRIT 41.1 % (37.9-51.0); HEMOGLOBIN 14.7 g/dL (13.5-17.0); MEAN CORPUSCULAR HEMOGLOBIN 32.6 pg (27.0-33.4); MEAN CORPUSCULAR HGB CONC 35.8 g/dL (32.0-36.0); MEAN CORPUSCULAR VOLUME 91 fl (80-97); PLATELET COUNT 220 10^3/uL (150-450); RED BLOOD COUNT 4.51 10^6/uL (4.35-5.55); RED CELL DISTRIBUTION WIDTH 12.3 % (11.5-14.0)
[2019-11-01 18:30] LABS: ANION GAP 12 (5-19); BLOOD UREA NITROGEN 15 mg/dL (7-20); CALCIUM 9.5 mg/dL (8.4-10.2); CARBON DIOXIDE 29 mmol/L (22-30); CHLORIDE 99 mmol/L (98-107); GLUCOSE 106 mg/dL (75-110); POTASSIUM 3.7 mmol/L (3.6-5.0)
--- NOTE | 2019-11-01 18:47 | PDOC PROGRESS REPORT ---
Subjective Progress Note for:: 11/01/19 Subjective:: No apparent abdominal pains. Reason For Visit: SBO, FEVER PNA Physical Exam Vital Signs: Temp Pulse Resp BP Pulse Ox 97.7 F 130 H 16 117/76 90 L 11/01/19 15:33 11/01/19 15:33 11/01/19 15:33 11/01/19 15:33 11/01/19 15:33 Intake & Output 10/31/19 11/01/19 11/02/19 06:59 06:59 06:59 Intake Total 2650 2230 Output Total 1000 Balance 2650 1230 Weight 52 kg 52 kg Exam: Abdomen is not distended soft with mild tenderness around the umbilical area. Gastrostomy tube is been draining dark greenish material. Results Laboratory Results: 11/01/19 17:59 11/01/19 17:59 10/31/19 11/01/19 11/01/19 22:13 05:55 05:55 WBC 15.8 H RBC 4.61 Hgb 15.0 D Hct 41.4 MCV 90 MCH 32.6 MCHC 36.4 H RDW 12.1 Plt Count 221 Seg Neutrophils % Not Reportable Sodium Potassium Chloride Carbon Dioxide Anion Gap BUN Creatinine Est GFR ( Amer) Glucose Lactic Acid 2.7 H 3.8 H Calcium Phosphorus Magnesium Total Bilirubin AST Alkaline Phosphatase Total Protein Albumin 11/01/19 11/01/19 11/01/19 05:55 15:51 17:59 WBC RBC Hgb Hct MCV MCH MCHC RDW Plt Count Seg Neutrophils % Sodium 137.1 140.0 Potassium 3.9 3.7 Chloride 98 99 Carbon Dioxide 28 29 Anion Gap 11 12 BUN 12 15 Creatinine 0.37 L 0.49 L Est GFR ( Amer) > 60 > 60 Glucose 117 H 106 Lactic Acid 2.2 H Calcium 9.1 9.5 Phosphorus 3.4 Magnesium 1.7 Total Bilirubin 0.5 AST 36 Alkaline Phosphatase 45 Total Protein 6.0 L Albumin 3.4 L 11/01/19 17:59 WBC 16.0 H RBC 4.51 Hgb 14.7 Hct 41.1 MCV 91 MCH 32.6 MCHC 35.8 RDW 12.3 Plt Count 220 Seg Neutrophils % Sodium Potassium Chloride Carbon Dioxide Anion Gap BUN Creatinine Est GFR ( Amer) Glucose Lactic Acid Calcium Phosphorus Magnesium Total Bilirubin AST Alkaline Phosphatase Total Protein Albumin 10/31/19 16:33 Blood Blood Culture (PCR) - Final Staphylococcus Aureus Impressions: Abdomen/Pelvis CT 10/31/19 00:00 IMPRESSION: 1. Findings as above are suggestive of a high-grade obstruction with a focal point of transition in the mid abdomen (image 52 of series 203). There is no pneumatosis or portal venous gas. 2. Pneumobilia. 3. 9 x 9 mm caliceal calculus in the upper pole of the left kidney. Chest CT 10/31/19 13:40 IMPRESSION: Alveolar opacities in a tree-in-bud pattern in the lingula and left lower lobe. Given the distention of the thoracic esophagus correlation for an aspiration bronchopneumonia is recommended. Small Bowel X-Ray 11/01/19 08:33 IMPRESSION: DILATED SMALL BOWEL. CONTRAST PRESENT IN THE DISTAL COLON AND RECTUM AT 4 HOURS AND 15 MINUTES. SIGNIFICANT MECHANICAL OBSTRUCTION NOT LIKELY TO BE PRESENT. Assessment & Plan - Diagnosis (1) Cerebral palsy Qualifiers: Cerebral palsy type: unspecified type Qualified Code(s): G80.9 - Cerebral palsy, unspecified Is this a current diagnosis for this admission?: Yes (2) Distended bladder Is this a current diagnosis for this admission?: Yes (3) Hyponatremia Is this a current diagnosis for this admission?: Yes (4) SBO (small bowel obstruction) Is this a current diagnosis for this admission?: Yes (5) Seizure disorder Is this a current diagnosis for this admission?: Yes (6) Tachycardia Is this a current diagnosis for this admission?: Yes - Time Critical Time spent with patient: 15-24 minutes - Inpatient Certification Medical Necessity: Need For IV Fluids, Need for IV Antibiotics, Risk of Complication if Not Cared For in Hospital - Plan Summary Plan Summary: Had a small bowel follow-through the G tube which showed no small bowel obstruction since the dye got into the large bowel in about 4 hours. Gastrostomy tube placed back to suction when patient came back from x-ray and it drained about 700 cc of greenish material.Patient also had BM after SBFT. Plans: Continue n.p.o. and gastrostomy to gravity tonight. Patient did have a bowel movement according to the nurses. However since the G-tube drained about 700cc will hold off giving tube feedings tonight and possibly start in a.m.
[2019-11-02] MEDS: MEROPENEM 1 GM in NORMAL SALINE 50 ML IV SCH (01:30)
[2019-11-02] MEDS: LORAZEPAM INJ 2 MG/1 ML VIAL IV SCH ×3 (05:25→22:56)
[2019-11-02] MEDS: CARBAMAZEPINE SUSP 200 MG/10 ML UDCUP PO SCH ×3 (05:25→22:56)
[2019-11-02] MEDS: DEXTROSE 5%-LACTATED RINGERS 1,000 ML IV PRN ×3 (05:36→23:48)
[2019-11-02] MEDS: KETOROLAC TROMETHAMINE INJ/PF 30 MG/1 ML SDV IV PRN (07:04)
[2019-11-02 07:13] LABS: ABSOLUTE MONOCYTES (AUTO) 0.9 10^3/uL (0.1-1.4); BASOPHILS % (AUTO) 0.2 % (0-2); EOSINOPHILS % (AUTO) 0.3 % (0-6); HEMATOCRIT 38.1 % (37.9-51.0); HEMOGLOBIN 13.8 g/dL (13.5-17.0); LYMPHOCYTES % (AUTO) 8.4 % (13-45); MEAN CORPUSCULAR HEMOGLOBIN 32.8 pg (27.0-33.4); MEAN CORPUSCULAR HGB CONC 36.2 g/dL (32.0-36.0); MEAN CORPUSCULAR VOLUME 91 fl (80-97); MONOCYTES % (AUTO) 7.2 % (3-13); PLATELET COUNT 195 10^3/uL (150-450); RED BLOOD COUNT 4.21 10^6/uL (4.35-5.55); RED CELL DISTRIBUTION WIDTH 12.3 % (11.5-14.0); SEGMENTED NEUTROPHILS % (AUTO) 83.9 % (42-78); TOTAL CELLS COUNTED % (AUTO) 100 %; WHITE BLOOD COUNT 11.9 10^3/uL (4.0-10.5)
[2019-11-02 08:39] LABS: ALBUMIN 3.2 g/dL (3.5-5.0); ALKALINE PHOSPHATASE 45 U/L (38-126); ANION GAP 11 (5-19); ASPARTATE AMINO TRANSFERASE 31 U/L (17-59); BILIRUBIN,DIRECT 0.3 mg/dL (0.0-0.4); BILIRUBIN,TOTAL 0.5 mg/dL (0.2-1.3); BLOOD UREA NITROGEN 15 mg/dL (7-20); CALCIUM 8.7 mg/dL (8.4-10.2); CARBON DIOXIDE 26 mmol/L (22-30); CHLORIDE 103 mmol/L (98-107); GLUCOSE 106 mg/dL (75-110); POTASSIUM 3.1 mmol/L (3.6-5.0); TOTAL PROTEIN 6.2 g/dL (6.3-8.2)
[2019-11-02] MEDS: LEVETIRACETAM 500 MG/NACL-ISO 500 MG/100 ML RTUPB IV SCH ×2 (09:49→22:56)
[2019-11-02] MEDS: DOCUSATE SODIUM 100 MG/10 ML UDC PEG SCH (09:50)
[2019-11-02] MEDS: ENOXAPARIN SODIUM INJ 40 MG/0.4 ML DISP.SYRIN SUBCUT SCH (09:50)
[2019-11-02] MEDS: CEFTRIAXONE 1 GM/D5W RTU 1 GM/50 ML RTUPB IV SCH (10:17)
--- NOTE | 2019-11-02 11:07 | RADIOLOGY REPORT (SQ) ---
EXAM DESCRIPTION: KUB/ABDOMEN (SINGLE VIEW) COMPLETED DATE/TIME: 11/02/2019 10:57 am REASON FOR STUDY: abdominal pain COMPARISON: None. NUMBER OF VIEWS: One view. TECHNIQUE: Supine radiographic image of the abdomen acquired. LIMITATIONS: None. FINDINGS: BOWEL GAS PATTERN: Dilated central bowel loops. Contrast present in the colon and rectum. CALCIFICATIONS: No suspicious calcifications. SOFT TISSUES: No gross mass or suggestion of organomegaly. HARDWARE: Gastrostomy tube. Surgical clips. BONES: No acute fracture. Chronic scoliosis. No worrisome bone lesions. OTHER: No other significant finding. IMPRESSION: DILATED CENTRAL BOWEL LOOPS. RESIDUAL CONTRAST IN THE COLON AND RECTUM. TECHNICAL DOCUMENTATION: JOB ID: [id number] 2010 [employer]- All Rights Reserved Reading location - IP/workstation name: [email or web address]
[2019-11-02] MEDS: VANCOMYCIN HCL 1,000 MG in DEXTROSE 5%-WATER 250 ML IV SCH ×2 (11:23→22:56)
[2019-11-02] MEDS: METRONIDAZOLE 500 MG/NS RTU 500 MG/100 ML RTUPB IV SCH ×2 (13:26→17:11)
--- NOTE | 2019-11-02 14:49 | PDOC PROGRESS REPORT ---
Subjective Progress Note for:: 11/02/19 Subjective:: 28-year-old male with cerebral palsy, presenting with nausea, vomiting, and distention. Originally his CT scan was suggestive of a small bowel obstruction. The patient currently is stooling. The nursing staff denies any active vomiting. The patient is nonverbal, and unable to relate portions of the recent medical history. Reason For Visit: SBO, FEVER PNA Physical Exam Vital Signs: Temp Pulse Resp BP Pulse Ox 98.1 F 114 H 16 110/72 96 11/02/19 11:42 11/02/19 14:00 11/02/19 11:42 11/02/19 11:42 11/02/19 11:42 Intake & Output 11/01/19 11/02/19 11/03/19 06:59 06:59 06:59 Intake Total 2650 3850 980 Output Total 2750 Balance 2650 1100 980 Weight 52 kg 57.4 kg General appearance: PRESENT: no acute distress Head exam: PRESENT: atraumatic Mouth exam: PRESENT: moist Neck exam: ABSENT: meningismus, tenderness, thyromegaly, tracheal deviation Respiratory exam: PRESENT: unlabored. ABSENT: tachypnea, wheezes Cardiovascular exam: PRESENT: tachycardia GI/Abdominal exam: PRESENT: distended - Mild, soft. ABSENT: firm, guarding, hernia, rebound, rigid, tenderness Rectal exam: PRESENT: deferred Extremities exam: ABSENT: clubbing Neurological exam: PRESENT: awake Psychiatric exam: PRESENT: other - Nonverbal Skin exam: ABSENT: cyanosis, erythema, jaundice Results Laboratory Results: 11/02/19 06:44 11/02/19 08:01 11/01/19 11/01/19 11/01/19 05:55 15:51 17:59 WBC RBC Hgb 15.0 D Hct MCV MCH MCHC RDW Plt Count Seg Neutrophils % Sodium 140.0 Potassium 3.7 Chloride 99 Carbon Dioxide 29 Anion Gap 12 BUN 15 Creatinine 0.49 L Est GFR ( Amer) > 60 Glucose 106 Lactic Acid 2.2 H Calcium 9.5 Magnesium Total Bilirubin AST Alkaline Phosphatase Total Protein Albumin 11/01/19 11/02/19 11/02/19 17:59 06:44 06:44 WBC 16.0 H 11.9 H RBC 4.51 4.21 L Hgb 14.7 13.8 Hct 41.1 38.1 MCV 91 91 MCH 32.6 32.8 MCHC 35.8 36.2 H RDW 12.3 12.3 Plt Count 220 195 Seg Neutrophils % 83.9 H Sodium Potassium Chloride Carbon Dioxide Anion Gap BUN Creatinine Est GFR ( Amer) Glucose Lactic Acid 2.2 H Calcium Magnesium Total Bilirubin AST Alkaline Phosphatase Total Protein Albumin 11/02/19 08:01 WBC RBC Hgb Hct MCV MCH MCHC RDW Plt Count Seg Neutrophils % Sodium 139.5 Potassium 3.1 L Chloride 103 Carbon Dioxide 26 Anion Gap 11 BUN 15 Creatinine 0.40 L Est GFR ( Amer) > 60 Glucose 106 Lactic Acid Calcium 8.7 Magnesium 1.9 Total Bilirubin 0.5 AST 31 Alkaline Phosphatase 45 Total Protein 6.2 L Albumin 3.2 L 10/31/19 16:33 Blood Blood Culture (PCR) - Final Staphylococcus Aureus Impressions: Abdomen/Pelvis CT 10/31/19 00:00 IMPRESSION: 1. Findings as above are suggestive of a high-grade obstruction with a focal point of transition in the mid abdomen (image 52 of series 203). There is no pneumatosis or portal venous gas. 2. Pneumobilia. 3. 9 x 9 mm caliceal calculus in the upper pole of the left kidney. Chest CT 10/31/19 13:40 IMPRESSION: Alveolar opacities in a tree-in-bud pattern in the lingula and left lower lobe. Given the distention of the thoracic esophagus correlation for an aspiration bronchopneumonia is recommended. Small Bowel X-Ray 11/01/19 08:33 IMPRESSION: DILATED SMALL BOWEL. CONTRAST PRESENT IN THE DISTAL COLON AND RECTUM AT 4 HOURS AND 15 MINUTES. SIGNIFICANT MECHANICAL OBSTRUCTION NOT LIKELY TO BE PRESENT. KUB X-Ray 11/02/19 00:00 IMPRESSION: DILATED CENTRAL BOWEL LOOPS. RESIDUAL CONTRAST IN THE COLON AND RECTUM. Assessment & Plan - Diagnosis (1) Nausea and vomiting Qualifiers: Vomiting type: bilious vomiting Qualified Code(s): R11.14 - Bilious vomiting Is this a current diagnosis for this admission?: Yes - Plan Summary Plan Summary: This is a 28-year-old male with recent history of abdominal distention, nausea, and vomiting. His original CT scan was suggestive of a small bowel obstruction. Currently, the patient is stooling. He has a small bowel series which shows passage of air and contrast into the colon. X-rays today show air and contrast within the colon, having moved completely through the small intestine. At this time, I do not believe the patient is suffering from a small bowel or colonic obstruction. The patient still has a leukocytosis, lactic acidosis, and tachycardia. I believe that his source of systemic inflammation resides elsewhere. If the patient does have a UTI or pneumonia, an ileus would certainly be a reasonable accompaniment to this. At this time, no surgical intervention is planned. I will restart tube feedings today, at a slow rate. Hopefully they can be advanced slowly. Continue work-up to identify the source of the patient's sepsis.
--- NOTE | 2019-11-02 15:43 | PDOC PROGRESS REPORT ---
Subjective Progress Note for:: 11/02/19 Subjective:: Patient having bowel movements today. Mostly all very loose stools. No episodes of vomiting overnight or yesterday. Fever seems to have resolved at this time. Patient's mom is agreeable with restarting tube feeds this morning. Patient is nonverbal. Reason For Visit: SBO, FEVER PNA Physical Exam Vital Signs: Temp Pulse Resp BP Pulse Ox 98.1 F 114 H 16 110/72 96 11/02/19 11:42 11/02/19 14:00 11/02/19 11:42 11/02/19 11:42 11/02/19 11:42 Intake & Output 11/01/19 11/02/19 11/03/19 06:59 06:59 06:59 Intake Total 2650 3850 980 Output Total 2750 Balance 2650 1100 980 Weight 52 kg 57.4 kg General appearance: PRESENT: no acute distress, cooperative Neck exam: ABSENT: JVD Respiratory exam: PRESENT: symmetrical, unlabored. ABSENT: tachypnea, wheezes Cardiovascular exam: PRESENT: +S1, +S2, tachycardia. ABSENT: irregular rhythm GI/Abdominal exam: PRESENT: normal bowel sounds, soft, other - G-tube in place. ABSENT: rebound, rigid, tenderness Neurological exam: PRESENT: alert, awake, motor sensory deficit, aphasic - Patient is nonverbal Results Laboratory Results: 11/02/19 06:44 11/02/19 08:01 11/01/19 11/01/19 11/01/19 05:55 15:51 17:59 WBC RBC Hgb 15.0 D Hct MCV MCH MCHC RDW Plt Count Seg Neutrophils % Sodium 140.0 Potassium 3.7 Chloride 99 Carbon Dioxide 29 Anion Gap 12 BUN 15 Creatinine 0.49 L Est GFR ( Amer) > 60 Glucose 106 Lactic Acid 2.2 H Calcium 9.5 Magnesium Total Bilirubin AST Alkaline Phosphatase Total Protein Albumin 11/01/19 11/02/19 11/02/19 17:59 06:44 06:44 WBC 16.0 H 11.9 H RBC 4.51 4.21 L Hgb 14.7 13.8 Hct 41.1 38.1 MCV 91 91 MCH 32.6 32.8 MCHC 35.8 36.2 H RDW 12.3 12.3 Plt Count 220 195 Seg Neutrophils % 83.9 H Sodium Potassium Chloride Carbon Dioxide Anion Gap BUN Creatinine Est GFR ( Amer) Glucose Lactic Acid 2.2 H Calcium Magnesium Total Bilirubin AST Alkaline Phosphatase Total Protein Albumin 11/02/19 08:01 WBC RBC Hgb Hct MCV MCH MCHC RDW Plt Count Seg Neutrophils % Sodium 139.5 Potassium 3.1 L Chloride 103 Carbon Dioxide 26 Anion Gap 11 BUN 15 Creatinine 0.40 L Est GFR ( Amer) > 60 Glucose 106 Lactic Acid Calcium 8.7 Magnesium 1.9 Total Bilirubin 0.5 AST 31 Alkaline Phosphatase 45 Total Protein 6.2 L Albumin 3.2 L 10/31/19 16:33 Blood Blood Culture (PCR) - Final Staphylococcus Aureus Impressions: Abdomen/Pelvis CT 10/31/19 00:00 IMPRESSION: 1. Findings as above are suggestive of a high-grade obstruction with a focal point of transition in the mid abdomen (image 52 of series 203). There is no pneumatosis or portal venous gas. 2. Pneumobilia. 3. 9 x 9 mm caliceal calculus in the upper pole of the left kidney. Chest CT 10/31/19 13:40 IMPRESSION: Alveolar opacities in a tree-in-bud pattern in the lingula and left lower lobe. Given the distention of the thoracic esophagus correlation for an aspiration bronchopneumonia is recommended. Small Bowel X-Ray 11/01/19 08:33 IMPRESSION: DILATED SMALL BOWEL. CONTRAST PRESENT IN THE DISTAL COLON AND RECTUM AT 4 HOURS AND 15 MINUTES. SIGNIFICANT MECHANICAL OBSTRUCTION NOT LIKELY TO BE PRESENT. KUB X-Ray 11/02/19 00:00 IMPRESSION: DILATED CENTRAL BOWEL LOOPS. RESIDUAL CONTRAST IN THE COLON AND RECTUM. Assessment and Plan - Diagnosis (1) Pneumonia Qualifiers: Pneumonia type: aspiration pneumonia Aspiration pneumonia type: due to vomit Laterality: left Lung location: lower lobe of lung Qualified Code(s): J69.0 - Pneumonitis due to inhalation of food and vomit Is this a current diagnosis for this admission?: Yes Plan: Noted on chest CT. However pneumonia seems mild on the imaging to cause this clinical picture of severe tachycardia, fever and leukocytosis. Unfortunately we have been unable to obtain sputum cultures. Day 3 of broad-spectrum antibiotics. Meropenem discontinued given seizure history. Continue vancomycin given MRSA and blood cultures. Continue ceftriaxone for potential pneumonia and Flagyl to cover in case of aspiration. (2) MRSA bacteremia Is this a current diagnosis for this admission?: Yes Plan: 1 set of blood cultures positive for MRSA. Other infectious sites include mild pneumonia on chest CT. No evidence of occult abscesses/infection in the CT of the abdomen. Continue vancomycin. Infectious diseases consulted (3) Tachycardia Is this a current diagnosis for this admission?: Yes Plan: Sinus tachycardia has persisted to now in the 110s. This is despite resolution of fever and hydration. Does not appear to be in any pain. Possible sepsis or anxiety. Continue IV fluids and pain control. Resume tube feeds. (4) Fever Qualifiers: Fever type: unspecified Qualified Code(s): R50.9 - Fever, unspecified Is this a current diagnosis for this admission?: Yes Plan: Currently resolved. Etiologies include pneumonia or potential bacteremia. (5) SBO (small bowel obstruction) Is this a current diagnosis for this admission?: Yes Plan: Patient presents with vomiting and CT scanning showing high-grade obstruction with transition likely mid abdomen. Likely partial sbo. At this point, patient is currently not having small bowel obstruction and is having bowel movements. Possibly resolved bowel obstruction or his bowel distention may have been due to ileus amongst other reasons. Either way this is currently resolved and patient has been restarted on tube feedings this afternoon. (6) Distended bladder Is this a current diagnosis for this admission?: Yes Plan: Noted incidentally on imaging. Bladder scans have shown appropriate voiding with only very little residuals. (7) Seizure disorder Is this a current diagnosis for this admission?: Yes Plan: At home, patient takes oxcarbazepine, carbamazepine, clonazepam and lorazepam all 3 times a day. This is not an ideal regimen given similar classes of medications. While inpatient, I will continue patient on only carbamazepine suspension, started on Keppra and continue Ativan (8) Cerebral palsy Qualifiers: Cerebral palsy type: unspecified type Qualified Code(s): G80.9 - Cerebral palsy, unspecified Is this a current diagnosis for this admission?: Yes Plan: Patient is n.p.o. and nonverbal at baseline and gets feeding through G tube. Continue seizure prophylaxis. Tube feeds restarted today. (9) Hyponatremia Is this a current diagnosis for this admission?: Yes Plan: Resolved. - Time Time Spent with patient: 15-24 minutes
[2019-11-02] MEDS: POTASSIUM CHLORIDE 20 MEQ PACKET PO SCH (22:57)
[2019-11-02 23:37] LABS: APPEARANCE,URINE CLEAR; BILIRUBIN,URINE NEGATIVE (NEGATIVE); COLOR,URINE YELLOW; GLUCOSE, URINE NEGATIVE (NEGATIVE); KETONES,URINE NEGATIVE (NEGATIVE); LEUKOCYTE ESTERASE,URINE NEGATIVE (NEGATIVE); NITRITE,URINE NEGATIVE (NEGATIVE); PROTEIN,URINE NEGATIVE (NEGATIVE); URINE SPECIFIC GRAVITY 1.013; UROBILINOGEN,URINE NEGATIVE mg/dL (<2.0)
[2019-11-03] MEDS: METRONIDAZOLE 500 MG/NS RTU 500 MG/100 ML RTUPB IV SCH ×4 (01:28→17:53)
[2019-11-03 03:22] LABS: C DIFFICILE GDH NEGATIVE (NEGATIVE)
[2019-11-03 05:09] LABS: ABSOLUTE LYMPHOCYTES (AUTO) 0.9 10^3/uL (0.5-4.7); ABSOLUTE MONOCYTES (AUTO) 0.6 10^3/uL (0.1-1.4); ABSOLUTE NEUT (AUTO) 5.8 10^3/uL (1.7-8.2); BASOPHILS % (AUTO) 0.4 % (0-2); EOSINOPHILS % (AUTO) 0.2 % (0-6); HEMATOCRIT 33.2 % (37.9-51.0); HEMOGLOBIN 12.1 g/dL (13.5-17.0); LYMPHOCYTES % (AUTO) 12.7 % (13-45); MEAN CORPUSCULAR HEMOGLOBIN 32.9 pg (27.0-33.4); MEAN CORPUSCULAR HGB CONC 36.5 g/dL (32.0-36.0); MEAN CORPUSCULAR VOLUME 90 fl (80-97); MONOCYTES % (AUTO) 7.9 % (3-13); PLATELET COUNT 186 10^3/uL (150-450); RED BLOOD COUNT 3.68 10^6/uL (4.35-5.55); RED CELL DISTRIBUTION WIDTH 11.2 % (11.5-14.0); SEGMENTED NEUTROPHILS % (AUTO) 78.8 % (42-78); TOTAL CELLS COUNTED % (AUTO) 100 %; WHITE BLOOD COUNT 7.4 10^3/uL (4.0-10.5)
[2019-11-03 05:30] LABS: ALBUMIN 3.2 g/dL (3.5-5.0); ALKALINE PHOSPHATASE 45 U/L (38-126); ANION GAP 9 (5-19); ASPARTATE AMINO TRANSFERASE 27 U/L (17-59); BILIRUBIN,TOTAL 0.2 mg/dL (0.2-1.3); BLOOD UREA NITROGEN 4 mg/dL (7-20); CALCIUM 8.8 mg/dL (8.4-10.2); CARBON DIOXIDE 23 mmol/L (22-30); CHLORIDE 103 mmol/L (98-107); GLUCOSE 105 mg/dL (75-110); POTASSIUM 3.5 mmol/L (3.6-5.0); TOTAL PROTEIN 5.8 g/dL (6.3-8.2)
[2019-11-03] MEDS: DEXTROSE 5%-LACTATED RINGERS 1,000 ML IV PRN (06:42)
[2019-11-03] MEDS: CARBAMAZEPINE SUSP 200 MG/10 ML UDCUP PO SCH ×3 (06:42→22:43)
[2019-11-03] MEDS: LORAZEPAM INJ 2 MG/1 ML VIAL IV SCH ×2 (06:43→13:51)
[2019-11-03] MEDS: POTASSIUM CHLORIDE 20 MEQ PACKET PO SCH ×3 (06:43→22:43)
[2019-11-03] MEDS: DOCUSATE SODIUM 100 MG/10 ML UDC PEG SCH (09:01)
[2019-11-03] MEDS: LEVETIRACETAM 500 MG/NACL-ISO 500 MG/100 ML RTUPB IV SCH (09:04)
[2019-11-03] MEDS: VANCOMYCIN HCL 1,250 MG in DEXTROSE 5%-WATER 250 ML IV SCH ×2 (09:04→17:53)
[2019-11-03] MEDS: CEFTRIAXONE 1 GM/D5W RTU 1 GM/50 ML RTUPB IV SCH (09:04)
[2019-11-03] MEDS: ENOXAPARIN SODIUM INJ 40 MG/0.4 ML DISP.SYRIN SUBCUT SCH (09:04)
--- NOTE | 2019-11-03 09:55 | Progress Note ---
Provider Note Provider Note: [facility] ID Telephone Advice Consultation Chart reviewed. Patient is a [id number] with autism, cerebral palsy, seizure disorder, non verbal, he has a PEG tube for feeding. In 2019 he had surgery for lysis of adhesions. This time he presented with fever and vomiting. CT scan of abdomen and pelvis was suggestive of small bowel obstruction. CT of chest suggestive of aspiration pneumonia. Blood cultures are positive for MRSA in 1 set. He was evaluated by surgery, obstruction has resolved and patient is clinically improving, leukocytosis improved, afebrile now. Renal function sta ble. ID consulted for recommendations. PMH: Seizure disorder Autism Cerebral Palsy PSH: Adhesion lysis Allergies: amoxicillin trihydrate [From Augmentin] Allergy (Mild, Verified 10/31/19 10:09) rash cefaclor [Cefaclor] Allergy (Mild, Verified 10/31/19 10:09) rash Penicillins Allergy (Mild, Verified 10/31/19 10:09) rash Potassium Clavulanate * [From Augmentin] Allergy (Mild, Verified 10/31/19 10:09) rash codeine Allergy (Verified 10/31/19 10:09) iodine Allergy (Verified 11/01/19 00:39) levofloxacin [From Levaquin] Allergy (Verified 11/01/19 00:37) Medications: Carbamazepine [Tegretol Susp 200 mg/10 ml Udcup] 100 mg PEG Q8 10/31/19 Clonazepam [Klonopin 1 mg Tablet] 1.5 mg PEG Q8 10/31/19 Ibuprofen [Motrin 800 mg Tablet] 800 mg PEG Q8HP PRN 10/31/19 Lorazepam [Ativan] 2 mg PEG Q6HP PRN 20 Oxcarbazepine [Trileptal Susp 300 mg/5 ml 250 ml/Bottle] 300 mg PEG Q8 10/31/19 Vital Signs: Temp Pulse Resp BP Pulse Ox 98.1 F 88 16 112/68 100 11/03/19 03:51 11/03/19 07:31 11/03/19 07:31 11/03/19 07:31 11/03/19 07:31 Intake & Output 11/02/19 11/03/19 11/04/19 06:59 06:59 06:59 Intake Total 3850 4962 250 Output Total 2750 500 Balance 1100 4462 250 Weight 57.4 kg 56.9 kg Weight/Height Weight 56.9 kg Height 5 ft 2 in Laboratories: 11/03/19 04:22 11/03/19 04:22 MCV 90 fl (80-97) 11/03/19 04:22 MCH 32.9 pg (27.0-33.4) 11/03/19 04:22 MCHC 36.5 g/dL (32.0-36.0) H 11/03/19 04:22 RDW 11.2 % (11.5-14.0) L 11/03/19 04:22 Seg Neutrophils % 78.8 % (42-78) H 11/03/19 04:22 Chloride 103 mmol/L (98-107) 11/03/19 04:22 Carbon Dioxide 23 mmol/L (22-30) 11/03/19 04:22 Anion Gap 9 (5-19) 11/03/19 04:22 Est GFR ( Amer) > 60 (>60) 11/03/19 04:22 Glucose 105 mg/dL (75-110) 11/03/19 04:22 Lactic Acid 2.2 mmol/L (0.7-2.1) H 11/02/19 06:44 Calcium 8.8 mg/dL (8.4-10.2) 11/03/19 04:22 Phosphorus 3.4 mg/dL (2.5-4.5) 11/01/19 05:55 Magnesium 1.9 mg/dL (1.6-2.3) 11/02/19 08:01 Total Bilirubin 0.2 mg/dL (0.2-1.3) 11/03/19 04:22 AST 27 U/L (17-59) 11/03/19 04:22 Alkaline Phosphatase 45 U/L (38-126) 11/03/19 04:22 Total Protein 5.8 g/dL (6.3-8.2) L 11/03/19 04:22 Albumin 3.2 g/dL (3.5-5.0) L 11/03/19 04:22 Lipase 106.4 U/L (23-300) 10/31/19 10:44 Urine Color YELLOW 11/02/19 23:15 Urine Appearance CLEAR 11/02/19 23:15 Urine pH 9.0 (5.0-9.0) 11/02/19 23:15 Ur Specific [place] 1.013 11/02/19 23:15 Urine Protein NEGATIVE mg/dL (NEGATIVE) 11/02/19 23:15 Urine Glucose (UA) NEGATIVE mg/dL (NEGATIVE) 11/02/19 23:15 Urine Ketones NEGATIVE mg/dL (NEGATIVE) 11/02/19 23:15 Urine Blood SMALL (NEGATIVE) H 11/02/19 23:15 Urine Nitrite NEGATIVE (NEGATIVE) 11/02/19 23:15 Ur Leukocyte Esterase NEGATIVE (NEGATIVE) 11/02/19 23:15 Urine WBC (Auto) 0 /HPF 11/02/19 23:15 Urine RBC (Auto) 2 /HPF 11/02/19 23:15 10/31/19 16:33 Blood Blood Culture (PCR) - Final Staphylococcus Aureus 11/01/2019 NGTD 11/02/2019 NGTD Radiology: Abdomen/Pelvis CT 10/31/19 00:00 IMPRESSION: 1. Findings as above are suggestive of a high-grade obstruction with a focal point of transition in the mid abdomen (image 52 of series 203). There is no pneumatosis or portal venous gas. 2. Pneumobilia. 3. 9 x 9 mm caliceal calculus in the upper pole of the left kidney. Chest CT 10/31/19 13:40 IMPRESSION: Alveolar opacities in a tree-in-bud pattern in the lingula and left lower lobe. Given the distention of the thoracic esophagus correlation for an aspiration bronchopneumonia is recommended. Small Bowel X-Ray 11/01/19 08:33 IMPRESSION: DILATED SMALL BOWEL. CONTRAST PRESENT IN THE DISTAL COLON AND RECTUM AT 4 HOURS AND 15 MINUTES. SIGNIFICANT MECHANICAL OBSTRUCTION NOT LIKELY TO BE PRESENT. KUB X-Ray 11/02/19 00:00 IMPRESSION: DILATED CENTRAL BOWEL LOOPS. RESIDUAL CONTRAST IN THE COLON AND RECTUM. Assessment and Recommendations: Patient evaluated for low grade MRSA bacteremia in the setting of aspiration pneumonia and SBO. SBO has resolved and patient is clinically improving. MRSA was isolated from only 1 set which represents small inoculum. He is unable to collect a sputum sample for cultures, will have to treat empirically for aspiration pneumonia and MRSA. He has multiple allergies to penicillin, cephalosporins, and now levofloxacin. He was switched to ceftriaxone and continues on vancomycin. As SBO has resolved, will recommend 7 days of therapy for pneumonia with ceftriaxone (if tolerated) + metronidazole (counting levofloxacin) and to continue vancomycin to complete 2 weeks from negative blood cultures. TTE recommended. If positive, he will need a longer course (6 weeks), but low suspicion. Please call back if questions. Sylvia Burdick MD [facility] [phone]
--- NOTE | 2019-11-03 13:56 | PDOC PROGRESS REPORT ---
Subjective Progress Note for:: 11/03/19 Subjective:: Appears to be tolerating tube feedings well. Agreed to resume tube feedings slowly. Reason For Visit: SBO, FEVER PNA Physical Exam Vital Signs: Temp Pulse Resp BP Pulse Ox 98.4 F 75 16 119/74 99 11/03/19 11:32 11/03/19 11:32 11/03/19 11:32 11/03/19 11:32 11/03/19 11:32 Intake & Output 11/02/19 11/03/19 11/04/19 06:59 06:59 06:59 Intake Total 3850 4962 1850 Output Total 2750 500 Balance 1100 4462 1850 Weight 57.4 kg 56.9 kg General appearance: PRESENT: no acute distress, well-developed, well-nourished Exam: Abdomen is soft and nontender. Head exam: PRESENT: atraumatic, normocephalic Eye exam: PRESENT: conjunctiva pink, EOMI, PERRLA. ABSENT: scleral icterus Ear exam: PRESENT: normal external ear exam Mouth exam: PRESENT: moist, tongue midline Neck exam: ABSENT: carotid bruit, JVD, lymphadenopathy, thyromegaly Respiratory exam: PRESENT: clear to auscultation ashu. ABSENT: rales, rhonchi, wheezes Cardiovascular exam: PRESENT: RRR. ABSENT: diastolic murmur, rubs, systolic murmur Pulses: PRESENT: normal dorsalis pedis pul Vascular exam: PRESENT: normal capillary refill GI/Abdominal exam: PRESENT: normal bowel sounds, soft. ABSENT: distended, guarding, mass, organolmegaly, rebound, tenderness Rectal exam: PRESENT: deferred Extremities exam: PRESENT: full ROM. ABSENT: calf tenderness, clubbing, pedal edema Neurological exam: PRESENT: alert, awake, oriented to person, oriented to place, oriented to time, oriented to situation, CN II-XII grossly intact. ABSENT: motor sensory deficit Psychiatric exam: PRESENT: appropriate affect, normal mood. ABSENT: homicidal ideation, suicidal ideation Skin exam: PRESENT: dry, intact, warm. ABSENT: cyanosis, rash Results Laboratory Results: 11/03/19 04:22 11/03/19 04:22 11/02/19 11/03/19 11/03/19 23:15 04:22 04:22 WBC 7.4 RBC 3.68 L Hgb 12.1 L Hct 33.2 L MCV 90 MCH 32.9 MCHC 36.5 H RDW 11.2 L Plt Count 186 Seg Neutrophils % 78.8 H Sodium 135.0 L Potassium 3.5 L Chloride 103 Carbon Dioxide 23 Anion Gap 9 BUN 4 L Creatinine 0.35 L Est GFR ( Amer) > 60 Glucose 105 Calcium 8.8 Total Bilirubin 0.2 AST 27 Alkaline Phosphatase 45 Total Protein 5.8 L Albumin 3.2 L Urine Color YELLOW Urine Appearance CLEAR Urine pH 9.0 Ur Specific [place] 1.013 Urine Protein NEGATIVE Urine Glucose (UA) NEGATIVE Urine Ketones NEGATIVE Urine Blood SMALL H Urine Nitrite NEGATIVE Ur Leukocyte Esterase NEGATIVE Urine WBC (Auto) 0 Urine RBC (Auto) 2 10/31/19 16:33 Blood Blood Culture (PCR) - Final Staphylococcus Aureus 10/31/19 16:33 Blood Blood Culture - Final Mrsa (Meth Resis Staph Aureus) Staphylococcus Epidermidis Impressions: Abdomen/Pelvis CT 10/31/19 00:00 IMPRESSION: 1. Findings as above are suggestive of a high-grade obstruction with a focal point of transition in the mid abdomen (image 52 of series 203). There is no pneumatosis or portal venous gas. 2. Pneumobilia. 3. 9 x 9 mm caliceal calculus in the upper pole of the left kidney. Chest CT 10/31/19 13:40 IMPRESSION: Alveolar opacities in a tree-in-bud pattern in the lingula and left lower lobe. Given the distention of the thoracic esophagus correlation for an a spiration bronchopneumonia is recommended. Small Bowel X-Ray 11/01/19 08:33 IMPRESSION: DILATED SMALL BOWEL. CONTRAST PRESENT IN THE DISTAL COLON AND RECTUM AT 4 HOURS AND 15 MINUTES. SIGNIFICANT MECHANICAL OBSTRUCTION NOT LIKELY TO BE PRESENT. KUB X-Ray 11/02/19 00:00 IMPRESSION: DILATED CENTRAL BOWEL LOOPS. RESIDUAL CONTRAST IN THE COLON AND RECTUM. Assessment & Plan - Diagnosis (1) Cerebral palsy Qualifiers: Cerebral palsy type: unspecified type Qualified Code(s): G80.9 - Cerebral palsy, unspecified Is this a current diagnosis for this admission?: Yes (2) Distended bladder Is this a current diagnosis for this admission?: Yes (3) Hyponatremia Is this a current diagnosis for this admission?: Yes (4) SBO (small bowel obstruction) Is this a current diagnosis for this admission?: Yes (5) Seizure disorder Is this a current diagnosis for this admission?: Yes (6) Tachycardia Is this a current diagnosis for this admission?: Yes - Time Time Spent: 30 to 50 Minutes - Plan Summary Plan Summary: The partial small bowel obstruction appears to have been resolved. Continue with gradual increase in tube feedings. We will sign off call for any other concerns.
[2019-11-03] MEDS ORDERED: IBUPROFEN 800 MG TABLET PEG PRN (14:31)
[2019-11-03] MEDS ORDERED: LORAZEPAM 1 MG TABLET PEG PRN (14:31)
--- NOTE | 2019-11-03 14:34 | PDOC PROGRESS REPORT ---
Subjective Progress Note for:: 11/03/19 Subjective:: Patient was started on diet yesterday. No issues at the moment. Having bowel movements. Afebrile. Reason For Visit: SBO, FEVER PNA Physical Exam Vital Signs: Temp Pulse Resp BP Pulse Ox 98.4 F 75 16 119/74 99 11/03/19 11:32 11/03/19 11:32 11/03/19 11:32 11/03/19 11:32 11/03/19 11:32 Intake & Output 11/02/19 11/03/19 11/04/19 06:59 06:59 06:59 Intake Total 3850 4962 1850 Output Total 2750 500 Balance 1100 4462 1850 Weight 57.4 kg 56.9 kg General appearance: PRESENT: no acute distress, cooperative Neck exam: ABSENT: JVD Respiratory exam: PRESENT: clear to auscultation ashu, unlabored. ABSENT: tachypnea, wheezes Cardiovascular exam: PRESENT: RRR, +S1, +S2. ABSENT: tachycardia GI/Abdominal exam: PRESENT: normal bowel sounds, soft. ABSENT: rebound, rigid, tenderness Neurological exam: PRESENT: alert, awake, aphasic, other - Contracted legs Results Laboratory Results: 11/03/19 04:22 11/03/19 04:22 11/02/19 11/03/19 11/03/19 23:15 04:22 04:22 WBC 7.4 RBC 3.68 L Hgb 12.1 L Hct 33.2 L MCV 90 MCH 32.9 MCHC 36.5 H RDW 11.2 L Plt Count 186 Seg Neutrophils % 78.8 H Sodium 135.0 L Potassium 3.5 L Chloride 103 Carbon Dioxide 23 Anion Gap 9 BUN 4 L Creatinine 0.35 L Est GFR ( Amer) > 60 Glucose 105 Calcium 8.8 Total Bilirubin 0.2 AST 27 Alkaline Phosphatase 45 Total Protein 5.8 L Albumin 3.2 L Urine Color YELLOW Urine Appearance CLEAR Urine pH 9.0 Ur Specific Williams 1.013 Urine Protein NEGATIVE Urine Glucose (UA) NEGATIVE Urine Ketones NEGATIVE Urine Blood SMALL H Urine Nitrite NEGATIVE Ur Leukocyte Esterase NEGATIVE Urine WBC (Auto) 0 Urine RBC (Auto) 2 10/31/19 16:33 Blood Blood Culture (PCR) - Final Staphylococcus Aureus 10/31/19 16:33 Blood Blood Culture - Final Mrsa (Meth Resis Staph Aureus) Staphylococcus Epidermidis Impressions: Abdomen/Pelvis CT 10/31/19 00:00 IMPRESSION: 1. Findings as above are suggestive of a high-grade obstruction with a focal point of transition in the mid abdomen (image 52 of series 203). There is no pneumatosis or portal venous gas. 2. Pneumobilia. 3. 9 x 9 mm caliceal calculus in the upper pole of the left kidney. Chest CT 10/31/19 13:40 IMPRESSION: Alveolar opacities in a tree-in-bud pattern in the lingula and left lower lobe. Given the distention of the thoracic esophagus correlation for an aspiration bronchopneumonia is recommended. Small Bowel X-Ray 11/01/19 08:33 IMPRESSION: DILATED SMALL BOWEL. CONTRAST PRESENT IN THE DISTAL COLON AND RECTUM AT 4 HOURS AND 15 MINUTES. SIGNIFICANT MECHANICAL OBSTRUCTION NOT LIKELY TO BE PRESENT. KUB X-Ray 11/02/19 00:00 IMPRESSION: DILATED CENTRAL BOWEL LOOPS. RESIDUAL CONTRAST IN THE COLON AND RECTUM. Assessment and Plan - Diagnosis (1) Pneumonia Qualifiers: Pneumonia type: aspiration pneumonia Aspiration pneumonia type: due to vomit Laterality: left Lung location: lower lobe of lung Qualified Code(s): J69.0 - Pneumonitis due to inhalation of food and vomit Is this a current diagnosis for this admission?: Yes Plan: Unfortunately we have been unable to obtain sputum cultures. Day 4 of broad-spectrum antibiotics. Continue ceftriaxone for potential pneumonia and Flagyl to cover in case of aspiration for 3 more days. (2) MRSA bacteremia Is this a current diagnosis for this admission?: Yes Plan: 1 set of blood cultures positive for MRSA. Other infectious sites include mild pneumonia on chest CT. No evidence of occult abscesses/infection in the CT of the abdomen. Infectious disease consulted and recommending TTE as well as 14 days on vancomycin starting from 11/02/2019 if TTE is negative for vegetation. We will plan for PICC line once blood cultures have been negative for 48 hours. (3) Cerebral palsy Qualifiers: Cerebral palsy type: unspecified type Qualified Code(s): G80.9 - Cerebral palsy, unspecified Is this a current diagnosis for this admission?: Yes Plan: Patient is n.p.o. and nonverbal at baseline and gets feeding through G tube. Continue seizure prophylaxis with carbamazepine. Continue tube feeding. (4) Seizure disorder Is this a current diagnosis for this admission?: Yes Plan: At home, patient takes oxcarbazepine, carbamazepine, clonazepam and lorazepam all 3 times a day. This is not an ideal regimen given similar classes of medications. While inpatient, I will continue patient on only carbamazepine suspension, started on Keppra and continue Ativan (5) Fever Qualifiers: Fever type: unspecified Qualified Code(s): R50.9 - Fever, unspecified Is this a current diagnosis for this admission?: Yes Plan: Currently resolved. (6) Tachycardia Is this a current diagnosis for this admission?: Yes Plan: Sinus tachycardia resolved (7) SBO (small bowel obstruction) Is this a current diagnosis for this admission?: Yes Plan: Resolved (8) Distended bladder Is this a current diagnosis for this admission?: Yes Plan: Urinary retention ruled out. (9) Hyponatremia Is this a current diagnosis for this admission?: Yes - Time Time Spent with patient: 15-24 minutes
[2019-11-03] MEDS: CLONAZEPAM 1 MG TABLET PEG SCH (22:43)
[2019-11-04] MEDS: METRONIDAZOLE 500 MG/NS RTU 500 MG/100 ML RTUPB IV SCH ×4 (01:34→21:43)
[2019-11-04] MEDS: VANCOMYCIN HCL 1,250 MG in DEXTROSE 5%-WATER 250 ML IV SCH ×2 (03:55→11:35)
[2019-11-04 05:38] LABS: ANION GAP 9 (5-19); BLOOD UREA NITROGEN 5 mg/dL (7-20); CARBON DIOXIDE 25 mmol/L (22-30); CHLORIDE 103 mmol/L (98-107); GLUCOSE 88 mg/dL (75-110); POTASSIUM 3.9 mmol/L (3.6-5.0)
[2019-11-04] MEDS: CLONAZEPAM 1 MG TABLET PEG SCH ×3 (06:34→21:43)
[2019-11-04] MEDS: CARBAMAZEPINE SUSP 200 MG/10 ML UDCUP PO SCH ×3 (06:35→21:44)
[2019-11-04] MEDS: CEFTRIAXONE 1 GM/D5W RTU 1 GM/50 ML RTUPB IV SCH (09:46)
[2019-11-04] MEDS: ENOXAPARIN SODIUM INJ 40 MG/0.4 ML DISP.SYRIN SUBCUT SCH (09:46)
[2019-11-04] MEDS: DOCUSATE SODIUM 100 MG/10 ML UDC PEG SCH (09:47)
--- NOTE | 2019-11-04 11:06 | PDOC PROGRESS REPORT ---
Subjective Progress Note for:: 11/04/19 Subjective:: No issues today though patient seems a little bit agitated. Discussed plan with patient's mother about placing a central venous catheter which she is agreeable to and she states that she has managed this in the past for him. Reason For Visit: SBO, FEVER PNA Physical Exam Vital Signs: Temp Pulse Resp BP Pulse Ox 97.2 F 111 H 18 118/78 93 11/04/19 08:38 11/04/19 08:38 11/04/19 08:38 11/04/19 08:38 11/04/19 08:38 Intake & Output 11/03/19 11/04/19 11/05/19 06:59 06:59 06:59 Intake Total 4962 3205 250 Output Total 500 Balance 4462 3205 250 Weight 56.9 kg 57.2 kg General appearance: PRESENT: no acute distress, cooperative Neck exam: ABSENT: JVD Respiratory exam: PRESENT: clear to auscultation ashu, unlabored. ABSENT: tachypnea, wheezes Cardiovascular exam: PRESENT: RRR, +S1, +S2. ABSENT: tachycardia GI/Abdominal exam: PRESENT: soft. ABSENT: rebound, rigid, tenderness Neurological exam: PRESENT: alert, awake, aphasic, other - Nonverbal. Results Laboratory Results: 11/03/19 04:22 11/04/19 04:13 11/04/19 04:13 Sodium 137.1 Potassium 3.9 Chloride 103 Carbon Dioxide 25 Anion Gap 9 BUN 5 L Creatinine 0.47 L Est GFR ( Amer) > 60 Glucose 88 Calcium 9.0 Magnesium 1.8 10/31/19 16:33 Blood Blood Culture (PCR) - Final Staphylococcus Aureus 10/31/19 16:33 Blood Blood Culture - Final Mrsa (Meth Resis Staph Aureus) Staphylococcus Epidermidis Impressions: Abdomen/Pelvis CT 10/31/19 00:00 IMPRESSION: 1. Findings as above are suggestive of a high-grade obstruction with a focal point of transition in the mid abdomen (image 52 of series 203). There is no pneumatosis or portal venous gas. 2. Pneumobilia. 3. 9 x 9 mm caliceal calculus in the upper pole of the left kidney. Chest CT 10/31/19 13:40 IMPRESSION: Alveolar opacities in a tree-in-bud pattern in the lingula and left lower lobe. Given the distention of the thoracic esophagus correlation for an aspiration bronchopneumonia is recommended. Small Bowel X-Ray 11/01/19 08:33 IMPRESSION: DILATED SMALL BOWEL. CONTRAST PRESENT IN THE DISTAL COLON AND RECTUM AT 4 HOURS AND 15 MINUTES. SIGNIFICANT MECHANICAL OBSTRUCTION NOT LIKELY TO BE PRESENT. KUB X-Ray 11/02/19 00:00 IMPRESSION: DILATED CENTRAL BOWEL LOOPS. RESIDUAL CONTRAST IN THE COLON AND RECTUM. Assessment and Plan - Diagnosis (1) Pneumonia Qualifiers: Pneumonia type: aspiration pneumonia Aspiration pneumonia type: due to vomit Laterality: left Lung location: lower lobe of lung Qualified Code(s): J69.0 - Pneumonitis due to inhalation of food and vomit Is this a current diagnosis for this admission?: Yes Plan: Unfortunately we have been unable to obtain sputum cultures. Day 5/7 of broad-spectrum antibiotics. Continue ceftriaxone for potential pneumonia and Flagyl. Will transition to oral upon discharge. (2) MRSA bacteremia Is this a current diagnosis for this admission?: Yes Plan: 1 set of blood cultures positive for MRSA. Other infectious sites include mild pneumonia on chest CT. No evidence of occult abscesses/infection in the CT of the abdomen. Infectious disease consulted and recommending TTE as well as 14 days on vancomycin starting from 11/02/2019 if TTE is negative for vegetation. We will proceed with CVC placement today. Have discussed with radiologist who feels that given patient's propensity to grab at items, it would be safer and more appropriate for placement of a tunneled CVC instead which I am agreeable with. Awaiting Vanco today to determine the dose of vancomycin for patient to be discharged on. (3) Cerebral palsy Qualifiers: Cerebral palsy type: unspecified type Qualified Code(s): G80.9 - Cerebral palsy, unspecified Is this a current diagnosis for this admission?: Yes Plan: Patient is n.p.o. and nonverbal at baseline and gets feeding through G tube. Continue seizure prophylaxis with carbamazepine. Continue tube feeding. (4) Seizure disorder Is this a current diagnosis for this admission?: Yes Plan: At home, patient takes oxcarbazepine, carbamazepine, clonazepam and lorazepam all 3 times a day. This is not an ideal regimen given similar classes of m edications. While inpatient, I will continue patient on only carbamazepine suspension, and continue Ativan (5) Fever Qualifiers: Fever type: unspecified Qualified Code(s): R50.9 - Fever, unspecified Is this a current diagnosis for this admission?: Yes Plan: Currently resolved. (6) Tachycardia Is this a current diagnosis for this admission?: Yes Plan: Sinus tachycardia resolved (7) SBO (small bowel obstruction) Is this a current diagnosis for this admission?: Yes Plan: Resolved (8) Distended bladder Is this a current diagnosis for this admission?: Yes Plan: Urinary retention ruled out. (9) Hyponatremia Is this a current diagnosis for this admission?: Yes - Time Time Spent with patient: 15-24 minutes
[2019-11-04] MEDS ORDERED: LIDOCAINE 0.5% INJ-PF (5 MG/ML) 50 ML SDV ONE (11:19)
[2019-11-04] MEDS ORDERED: BACITRACIN INJ 50,000 UNIT VIAL ONE (11:20)
[2019-11-04] MEDS: LORAZEPAM INJ 2 MG/1 ML VIAL IV PRN ×2 (11:35→19:38)
[2019-11-04] MEDS ORDERED: MIDAZOLAM 2 MG/2 ML INJ ONE (11:54)
[2019-11-04] MEDS ORDERED: FENTANYL CITRATE INJ/PF 100 MCG/2 ML AMPUL ONE (11:55)
[2019-11-04] MEDS: VANCOMYCIN HCL 1,000 MG in DEXTROSE 5%-WATER 250 ML IV SCH (18:00)
[2019-11-05] MEDS: METRONIDAZOLE 500 MG/NS RTU 500 MG/100 ML RTUPB IV SCH ×3 (02:15→12:47)
[2019-11-05] MEDS: LORAZEPAM INJ 2 MG/1 ML VIAL IV PRN (03:22)
[2019-11-05] MEDS: VANCOMYCIN HCL 1,000 MG in DEXTROSE 5%-WATER 250 ML IV SCH ×2 (03:23→11:00)
[2019-11-05] MEDS: CARBAMAZEPINE SUSP 200 MG/10 ML UDCUP PO SCH (06:32)
[2019-11-05] MEDS: CLONAZEPAM 1 MG TABLET PEG SCH ×2 (06:33→13:10)
[2019-11-05] MEDS: ENOXAPARIN SODIUM INJ 40 MG/0.4 ML DISP.SYRIN SUBCUT SCH (09:12)
[2019-11-05] MEDS: DOCUSATE SODIUM 100 MG/10 ML UDC PEG SCH (09:12)
[2019-11-05] MEDS ORDERED: FUROSEMIDE INJ/PF 40 MG/4 ML SDV IV ONE (09:15)
[2019-11-05] MEDS: CEFTRIAXONE 1 GM/D5W RTU 1 GM/50 ML RTUPB IV SCH (09:18)
[2019-11-05] MEDS ORDERED: MIDODRINE HCL 5 MG TABLET PO SCH (10:00)
--- NOTE | 2019-11-05 10:23 | PDOC DISCHARGE SUMMARY ---
Impression - Admit/DC Date/PCP Admission Date/Primary Care Provider: 10/31/19 17:30 SAMIA MONTANO MD Discharge Date: 11/05/19 - Discharge Diagnosis (1) Pneumonia Is this a current diagnosis for this admission?: Yes (2) MRSA bacteremia Is this a current diagnosis for this admission?: Yes (3) Cerebral palsy Is this a current diagnosis for this admission?: Yes (4) Seizure disorder Is this a current diagnosis for this admission?: Yes (5) Fever Is this a current diagnosis for this admission?: Yes (6) Tachycardia Is this a current diagnosis for this admission?: Yes (7) SBO (small bowel obstruction) Is this a current diagnosis for this admission?: Yes (8) Distended bladder Is this a current diagnosis for this admission?: Yes (9) Hyponatremia Is this a current diagnosis for this admission?: Yes - Assessment Summary: On presentation, patient was noted to have some abdominal distention. Vital signs were significant for fever. Labs revealed leukocytosis. Chest imaging revealed pneumonia in his left lung on chest CT. Abdominal CT revealed high- grade small bowel obstruction which was deemed to be partial given patient had some bowel movements. Patient was evaluated by surgery who deemed no surgical intervention needed. Patient's PEG tube was initially placed to suction suctioning out large amounts of fluid [bilious]. Repeat KUBs showed resolution of the bowel obstruction. Patient was restarted on his tube feedings and has been tolerating his diet ever since without any episodes of vomiting. Residuals have remained low including this morning. Patient was also treated for pneumonia which is suspected to be likely bacterial. This was thought to be the source of patient's fever. He received treatment with 5 days of IV ceftriaxone and Flagyl with possible concerns for aspiration. Patient's fever has resolved and patient has been afebrile for the past several days. Patient's blood culture grew MRSA in 1 bottle. Infectious disease was consulted who recommended treatment for MRSA bacteremia. Patient was initially scheduled for IV vancomycin through 6 central venous catheter but could not seat study for central venous catheter placement. Given his cerebral palsy and severe autism is a high risk that patient will pull this catheter out of place especially as he is always reaching for items including items on his body. After conversation with ID, will discharge patient on Linezolid 600mg q12 for 11 days to complete 14 days since negative blood cultures. Echocardiogram was done and preliminary result reviewed. Patient will also be continued on Flagyl for 2 more days to complete treatment for aspiration pneumonia. Patient has been discharged with stool softeners as well. I have also instructed patient's mother to follow-up with her primary care provider to discuss patient's current regimen for cerebral palsy and seizure disorder as he is on both oxcarbazepine and carbamazepine as well as Klonopin and lorazepam. Patient is being discharged safely. - Additional Information Resuscitation Status: Full Code Discharge Diet: As Tolerated Discharge Activity: Activity As Tolerated Referrals: SAMIA MONTANO MD [Primary Care Provider] - Follow up as needed Prescriptions: Docusate Sodium [Colace Udc 100 mg/10 ml Oral Soln] 100 mg PEG DAILY #30 udc Metronidazole [Flagyl 500 mg Tablet] 500 mg PO TID 2 Days #6 tablet Linezolid 600 mg PO BID 11 Days #22 ml Home Medications: Carbamazepine [Tegretol Susp 200 mg/10 ml Udcup] 100 mg PEG Q8 10/31/19 Clonazepam [Klonopin 1 mg Tablet] 1.5 mg PEG Q8 10/31/19 Ibuprofen [Motrin 800 mg Tablet] 800 mg PEG Q8HP PRN 10/31/19 Lorazepam [Ativan] 2 mg PEG Q6HP PRN 10/31/19 Oxcarbazepine [Trileptal Susp 300 mg/5 ml 250 ml/Bottle] 300 mg PEG Q8 10/31/19 Linezolid 600 mg PO BID 11 Days #22 ml 11/04/19 Docusate Sodium [Colace Udc 100 mg/10 ml Oral Soln] 100 mg PEG DAILY #30 udc 11/05/19 Metronidazole [Flagyl 500 mg Tablet] 500 mg PO TID 2 Days #6 tablet 11/05/19 History of Present Illiness History of Present Illness: RASHI TOMPKINS is a 28 year old male with a history of small bowel obstruction with laparotomy, cerebral palsy and autism, asthma, seizure disorder, Tourette's, who presented to the hospital by lens blocker after being observed to have 2 episodes of bilious vomiting. Patient had had no irregularities in bowel movements for the past several days until yesterday night when patient was reported to have 4 bowel movement. The first 2 were described as formed and of moderate amount while the last 2 with loose movements. Today patient began having bilious nonbloody vomiting and was thus brought for evaluation. Patient's mom notes that patient has been having some cough as well. She denies any changes to his urinary habits per patient is incontinent and usually wets himself. Patient unable to partake in conversation given his severe autism and cerebral palsy. Of note, he takes nothing by mouth and everything goes via G-tube. Noted to have high-grade bowel obstruction, possible pneumonia in ER as well as fever and subsequently referred to hospitalist service for admission. Physical Exam Vital Signs: Temp Pulse Resp BP Pulse Ox 97.5 F 78 20 100/71 93 11/05/19 00:52 11/05/19 07:00 11/05/19 00:52 11/05/19 00:52 11/05/19 00:52 Intake & Output 11/04/19 11/05/19 11/06/19 06:59 06:59 06:59 Intake Total 3305 1750 100 Balance 3305 1750 100 Weight 57.2 kg 57.4 kg General appearance: PRESENT: no acute distress, cooperative Neurological exam: PRESENT: alert Psychiatric exam: ABSENT: agitated Results Laboratory Results: WBC 7.4 10^3/uL (4.0-10.5) 11/03/19 04:22 RBC 3.68 10^6/uL (4.35-5.55) L 11/03/19 04:22 Hgb 12.1 g/dL (13.5-17.0) L 11/03/19 04:22 Hct 33.2 % (37.9-51.0) L 11/03/19 04:22 MCV 90 fl (80-97) 11/03/19 04:22 MCH 32.9 pg (27.0-33.4) 11/03/19 04:22 MCHC 36.5 g/dL (32.0-36.0) H 11/03/19 04:22 RDW 11.2 % (11.5-14.0) L 11/03/19 04:22 Plt Count 186 10^3/uL (150-450) 11/03/19 04:22 Lymph % (Auto) 12.7 % (13-45) L 11/03/19 04:22 [place] % (Auto) 7.9 % (3-13) 11/03/19 04:22 Eos % (Auto) 0.2 % (0-6) 11/03/19 04:22 Baso % (Auto) 0.4 % (0-2) 11/03/19 04:22 Absolute Neuts (auto) 5.8 10^3/uL (1.7-8.2) 11/03/19 04:22 Absolute Lymphs (auto) 0.9 10^3/uL (0.5-4.7) 11/03/19 04:22 Absolute Monos (auto) 0.6 10^3/uL (0.1-1.4) 11/03/19 04:22 Absolute Eos (auto) 0.0 10^3/uL (0.0-0.6) 11/03/19 04:22 Absolute Basos (auto) 0.0 10^3/uL (0.0-0.2) 11/03/19 04:22 Total Counted 100 11/01/19 05:55 Seg Neutrophils % 78.8 % (42-78) H 11/03/19 04:22 Seg Neuts % (Manual) 34 % (42-78) L 11/01/19 05:55 Band Neutrophils % 21 % (3-5) H 11/01/19 05:55 Lymphocytes % (Manual) 6 % (13-45) L 11/01/19 05:55 Atypical Lymphs % 2 % (0) 11/01/19 05:55 Monocytes % (Manual) 37 % (3-13) H 11/01/19 05:55 Eosinophils % (Manual) 0 % (0-6) 11/01/19 05:55 Basophils % (Manual) 0 % (0-2) 11/01/19 05:55 Abs Neuts (Manual) 8.7 10^3/uL (1.7-8.2) H 11/01/19 05:55 Abs Lymphs (Manual) 1.3 10^3/uL (0.5-4.7) 11/01/19 05:55 Abs Monocytes (Manual) 5.8 10^3/uL (0.1-1.4) H 11/01/19 05:55 Absolute Eos (Manual) 0.0 10^3/uL (0.0-0.6) 11/01/19 05:55 Abs Basophils (Manual) 0.0 10^3/uL (0.0-0.2) 11/01/19 05:55 Toxic Granulation 1+ 11/01/19 05:55 Platelet Comment ADEQUATE 11/01/19 05:55 Poikilocytosis SLIGHT 11/01/19 05:55 Ovalocytes SLIGHT 11/01/19 05:55 RBC Morph Comment NORMO-CYTIC/CHROMIC 10/31/19 10:44 Sodium 137.1 mmol/L (137-145) 11/04/19 04:13 Potassium 3.9 mmol/L (3.6-5.0) 11/04/19 04:13 Chloride 103 mmol/L (98-107) 11/04/19 04:13 Carbon Dioxide 25 mmol/L (22-30) 11/04/19 04:13 Anion Gap 9 (5-19) 11/04/19 04:13 BUN 5 mg/dL (7-20) L 11/04/19 04:13 Creatinine 0.47 mg/dL (0.52-1.25) L 11/04/19 04:13 Est GFR ( Amer) > 60 (>60) 11/04/19 04:13 Est GFR (MDRD) Non-Af > 60 (>60) 11/04/19 04:13 Glucose 88 mg/dL (75-110) 11/04/19 04:13 Lactic Acid 2.2 mmol/L (0.7-2.1) H 11/02/19 06:44 Calcium 9.0 mg/dL (8.4-10.2) 11/04/19 04:13 Phosphorus 3.4 mg/dL (2.5-4.5) 11/01/19 05:55 Magnesium 1.8 mg/dL (1.6-2.3) 11/04/19 04:13 Total Bilirubin 0.2 mg/dL (0.2-1.3) 11/03/19 04:22 Direct Bilirubin 0.0 mg/dL (0.0-0.4) 11/03/19 04:22 Neonat Total Bilirubin Not Reportable 11/03/19 04:22 Neonat Direct Bilirubin Not Reportable 11/03/19 04:22 Neonat Indirect Bili Not Reportable 11/03/19 04:22 AST 27 U/L (17-59) 11/03/19 04:22 ALT 24 U/L (<50) 11/03/19 04:22 Alkaline Phosphatase 45 U/L (38-126) 11/03/19 04:22 Total Protein 5.8 g/dL (6.3-8.2) L 11/03/19 04:22 Albumin 3.2 g/dL (3.5-5.0) L 11/03/19 04:22 Lipase 106.4 U/L (23-300) 10/31/19 10:44 Urine Color YELLOW 11/02/19 23:15 Urine Appearance CLEAR 11/02/19 23:15 Urine pH 9.0 (5.0-9.0) 11/02/19 23:15 Ur Specific [place] 1.013 11/02/19 23:15 Urine Protein NEGATIVE mg/dL (NEGATIVE) 11/02/19 23:15 Urine Glucose (UA) NEGATIVE mg/dL (NEGATIVE) 11/02/19 23:15 Urine Ketones NEGATIVE mg/dL (NEGATIVE) 11/02/19 23:15 Urine Blood SMALL (NEGATIVE) H 11/02/19 23:15 Urine Nitrite NEGATIVE (NEGATIVE) 11/02/19 23:15 Urine Bilirubin NEGATIVE (NEGATIVE) 11/02/19 23:15 Urine Urobilinogen NEGATIVE mg/dL (<2.0) 11/02/19 23:15 Ur Leukocyte Esterase NEGATIVE (NEGATIVE) 11/02/19 23:15 Urine WBC (Auto) 0 /HPF 11/02/19 23:15 Urine RBC (Auto) 2 /HPF 11/02/19 23:15 Squamous Epi Cells Auto 1 /HPF 11/02/19 23:15 Urine Mucus (Auto) RARE /LPF 11/02/19 23:15 Urine Ascorbic Acid NEGATIVE (NEGATIVE) 11/02/19 23:15 Stl C. Difficile GDH Ag NEGATIVE (NEGATIVE) 11/02/19 21:00 Stl C.difficile Tox A&B NEGATIVE (NEGATIVE) 11/02/19 21:00 Time Trough Drawn 1014 11/04/19 10:14 Vancomycin Trough 20.0 ug/mL (5.0-20.0) 11/04/19 10:14 Slides for Path Review PATHOLOGIST REVIEWED 11/01/19 05:55 Impressions: Abdomen/Pelvis CT 10/31/19 00:00 IMPRESSION: 1. Findings as above are suggestive of a high-grade obstruction with a focal point of transition in the mid abdomen (image 52 of series 203). There is no pneumatosis or portal venous gas. 2. Pneumobilia. 3. 9 x 9 mm caliceal calculus in the upper pole of the left kidney. Chest CT 10/31/19 13:40 IMPRESSION: Alveolar opacities in a tree-in-bud pattern in the lingula and left lower lobe. Given the distention of the thoracic esophagus correlation for an aspiration bronchopneumonia is recommended. Small Bowel X-Ray 11/01/19 08:33 IMPRESSION: DILATED SMALL BOWEL. CONTRAST PRESENT IN THE DISTAL COLON AND RECTUM AT 4 HOURS AND 15 MINUTES. SIGNIFICANT MECHANICAL OBSTRUCTION NOT LIKELY TO BE PRESENT. KUB X-Ray 11/02/19 00:00 IMPRESSION: DILATED CENTRAL BOWEL LOOPS. RESIDUAL CONTRAST IN THE COLON AND RECTUM. Plan Time Spent: Less than 30 Minutes Stroke Is this a Stroke Patient?: No Acute Heart Failure - Is this a Heart Failure Patient?: No
[2019-11-05 13:39] VITALS: BP 96/76
--- NOTE | 2019-11-05 17:45 | XCELERA REPORT ---
[address] [address] Transthoracic Echocardiogram Report Name: RASHI TOMPKINS Age: 28 yrs Gender: Male : 1990 Patient Status: Inpatient Patient Location: [address] [place], [place] [address]A Study Date: 11/04/2019 03:05 PM Height: 62 in Weight: 125 lb BSA: 1.6 m2 Procedure: A two-dimensional transthoracic echocardiogram with color flow and Doppler was performed. The study was technically limited with all images being suboptimal in quality. Images were not obtained from all of the standard acoustic windows due to the limited scope of the study. Reason For Study: MRSA BACTEREMIA / VALVULAR VEGETATIONS. History: MRSA BACTEREMIA / VALVULAR VEGETATIONS. Ordering Physician: CARI GUTIERREZ Performed By: Francie Yousif Interpretation Summary The left ventricle is normal in size. There is normal left ventricular wall thickness. No True apical 2 chamber views obtained.Hence cannot comment on the apical anterior , the basal anterior, the basal inferior and apical inferior patrick.The mid anterior , the mid inferior and the rest of the LV patrick contract normally. .Normal LVEF is normal and is greater than 55% in the limited views. Doppler measurements suggest impaired left ventricular relaxation, which is associated with grade I/IV or mild diastolic dysfunction There is no thrombus. Probably no ASD,VS , or PFO seen The right ventricle is not well visualized secondary to technical limitations Right atrium not well visualized secondary to technical limitations The left atrial size is normal. There is no evidence of mitral valve prolapse. There is no vegetation seen on the mitral valve. There is no mitral valve stenosis. There is a trace amount of mitral regurgitation There is no aortic valvular vegetation. There is no aortic valve stenosis There is no LVOT obstruction. No aortic regurgitation is present. There is no tricuspid stenosis. There is a trace amount of tricuspid regurgitation Tricuspid regurgitation jet envelope not well defined to measure RV systolic pressure accurately. There is no vegetation on the pulmonic valve. There is no pulmonic valvular stenosis. There is no pulmonic valvular regurgitation. The aortic root is not well visualized. The inferior vena cava was not visualized There is no pericardial effusion. MMode/2D Measurements & Calculations RVDd: 2.0 cm LVIDd: 4.4 cm FS: 28.1 % Ao root diam: 3.3 cm IVSd: 0.89 cm LVIDs: 3.2 cm EDV(Teich): 87.1 ml Ao root area: 8.8 cm2 LVPWd: 0.76 cm ESV(Teich): 39.5 ml EF(Teich): 54.6 % Doppler Measurements & Calculations MV E max otilia: MV dec slope: Ao V2 max: LV V1 max P.3 cm/sec 210.4 cm/sec2 91.3 cm/sec 3.9 mmHg MV A max otilia: MV dec time: 0.24 sec Ao max PG: LV V1 max: 57.8 cm/sec 3.3 mmHg 98.2 cm/sec MV E/A: 0.89 PA V2 max: 129.7 cm/sec PA max P.7 mmHg Left Ventricle The left ventricle is normal in size. There is normal left ventricular wall thickness. No True apical 2 chamber views obtained.Hence cannot comment on the apical anterior , the basal anterior, the basal inferior and apical inferior patrick.The mid anterior , the mid inferior and the rest of the LV patrick contract normally. .Normal LVEF is normal and is greater than 55% in the limited views. Doppler measurements suggest impaired left ventricular relaxation, which is associated with grade I/IV or mild diastolic dysfunction. There is no thrombus. Probably no ASD,VS , or PFO seen. Right Ventricle The right ventricle is not well visualized secondary to technical limitations. Atria Right atrium not well visualized secondary to technical limitations. The left atrial size is normal. Mitral Valve There is no evidence of mitral valve prolapse. There is no vegetation seen on the mitral valve. There is no mitral valve stenosis. There is a trace amount of mitral regurgitation. Aortic Valve There is no aortic valvular vegetation. There is no aortic valve stenosis. There is no LVOT obstruction. No aortic regurgitation is present. Tricuspid Valve There is no tricuspid stenosis. There is a trace amount of tricuspid regurgitation. Tricuspid regurgitation jet envelope not well defined to measure RV systolic pressure accurately. Pulmonic Valve There is no vegetation on the pulmonic valve. There is no pulmonic valvular stenosis. There is no pulmonic valvular regurgitation. Great Vessels The aortic root is not well visualized. The inferior vena cava was not visualized. Effusions There is no pericardial effusion. : CARI GUTIERREZ Lakshmi
== END 2019-11-05 14:10 | disposition home or self-care (01) | DRG 388 ==
LOC: ER 09:15 → EH 17:30 → 3N 11-01 02:18
PROVIDERS: ADMIT Internal Medicine; ATTEND Internal Medicine
DX: K56.600 Partial intestinal obstruction, unspecified as to cause (principal); J69.0 Pneumonitis due to inhalation of food and vomit; F84.0 Autistic disorder; E87.1 Hypo-osmolality and hyponatremia; R78.81 Bacteremia; B95.62 Methicillin resistant Staphylococcus aureus infection as the cause of diseases classified elsewhere; Z93.1 Gastrostomy status; G80.9 Cerebral palsy, unspecified; G40.909 Epilepsy, unspecified, not intractable, without status epilepticus; J45.909 Unspecified asthma, uncomplicated; N32.89 Other specified disorders of bladder; F95.2 Tourette's disorder; Z79.899 Other long term (current) drug therapy; Z90.49 Acquired absence of other specified parts of digestive tract; Z88.0 Allergy status to penicillin; Z88.5 Allergy status to narcotic agent; Z88.8 Allergy status to other drugs, medicaments and biological substances
CPT/HCPCS: 36415; 51702; 71260; 74018; 74177; 74250; 80048; 80053; 80202; 81001; 83605; 83690; 83735; 84100; 85025; 87040; 87077; 87150; 87186; 87324; 87449; 93005; 93010; 93306; 96361; 96365; 96375; 96376; 99285; J0696; J1200; J1644; J1650; J1885; J1953; J2060; J2185; J2250; J2405; J2930; J3010; J3370; J3490; J7030; J7060; J7120; J7121

== ENCOUNTER 2019-12-29 13:08 | Inpatient (IN) | payer MEDICARE, MEDICAID ==
--- NOTE | 2019-12-29 13:34 | ER Document Report ---
ED Medical Screen (RME) - General Chief Complaint: Abdominal Pain Stated Complaint: ABDOMINAL PAIN history of multiple bowel blockages removing stool from feeding tube Time Seen by Provider: 12/29/19 13:30 Primary Care Provider: SAMIA MONTANO MD [Primary Care Provider] - Follow up as needed Mode of Arrival: Ambulatory Information source: Parent Notes: 29-year-old male presented to ED for complaint of generalized severe abdominal pain. Mother states that she has already called his primary care doctor. He has a history of multiple bowel blockages. He does have a feeding tube due to cerebral palsy. Mother states that he was complaining of upset stomach yesterday and then vomited up stool. She states that she has been removing stool from his feeding tube all day today. States when she called Samia Montano MD he told her to bring him right into the emergency room and he would be getting admitted. I have ordered CBC chemistry urine and a CAT scan abdomen pelvis with IV and oral contrast. Patient is physically and mentally disabled and mother does answer all questions for him. I have greeted and performed a rapid initial assessment of this patient. A comprehensive ED assessment and evaluation of the patient, analysis of test results and completion of medical decision making process will be conducted by an additional ED providers. TRAVEL OUTSIDE OF THE [place] IN LAST 30 DAYS: No - Related Data Allergies/Adverse Reactions: amoxicillin trihydrate [From Augmentin] Allergy (Mild, Verified 10/31/19 10:09) rash cefaclor [Cefaclor] Allergy (Mild, Verified 10/31/19 10:09) rash Penicillins Allergy (Mild, Verified 10/31/19 10:09) rash Potassium Clavulanate * [From Augmentin] Allergy (Mild, Verified 10/31/19 10:09) rash codeine Allergy (Verified 10/31/19 10:09) iodine Allergy (Verified 11/01/19 00:39) levofloxacin [From Levaquin] Allergy (Verified 11/01/19 00:37) Past Medical History - Past Medical History Cardiac Medical History: Denies: Hx Heart Attack, Hx Hypertension Pulmonary Medical History: Reports: Hx Pneumonia Denies: Hx Asthma, Hx Tuberculosis Neurological Medical History: Reports: Hx Seizures - LAST SEIZURE 5 YRS. Denies: Hx Cerebrovascular Accident Renal/ Medical History: Denies: Hx Peritoneal Dialysis GI Medical History: Denies: Hx Hepatitis, Hx Hiatal Hernia, Hx Ulcer Musculoskeltal Medical History: Reports Hx Muscle Spasm, Reports Hx Muscle Weakness, Reports Hx Musculoskeletal Deformity Psychiatric Medical History: Reports: Hx Depression Infectious Medical History: Denies: Hx Hepatitis Past Surgical History: Reports: Hx Abdominal Surgery - PEG Tube, multiple abdominal surgeries rt peg tube for scar tissue., Hx Appendectomy, Hx Open Heart Surgery - repair hole in heart, AN , Other - Exploratory laparotomy for small bowel obstructions. PEG tube.. Denies: Hx Pacemaker - Immunizations Hx Diphtheria, Pertussis, Tetanus Vaccination: Yes Physical Exam - Vital signs Vitals: Temp Pulse Resp BP Pulse Ox 97.6 F 154 H 28 H 130/88 H 92 12/29/19 13:17 12/29/19 13:17 12/29/19 13:17 12/29/19 13:17 12/29/19 13:17 Course - Vital Signs Vital signs: Temp Pulse Resp BP Pulse Ox 97.6 F 154 H 28 H 130/88 H 92 12/29/19 13:17 12/29/19 13:17 12/29/19 13:17 12/29/19 13:17 12/29/19 13:17 Doctor's Discharge - Discharge Referrals: SAMIA MONTANO MD [Primary Care Provider] - Follow up as needed
[2019-12-29] MEDS ORDERED: NORMAL SALINE 1000 ML 1,000 ML IV ONE ×2 (13:37→16:52)
--- NOTE | 2019-12-29 14:20 | ER Document Report ---
ED GI/ - General Mode of Arrival: Ambulatory Information source: Parent - Mother Cannot obtain history due to: Mentally challenged TRAVEL OUTSIDE OF THE [place] IN LAST 30 DAYS: No <ROGELIO OSUNA - Last Filed: 12/29/19 15:32> <YONNY KEYS - Last Filed: 12/29/19 18:39> - General Chief Complaint: Problem with Feeding Tube Stated Complaint: ABDOMINAL PAIN history of multiple bowel blockages removing stool from feeding tube Time Seen by Provider: 12/29/19 13:30 Primary Care Provider: SAMIA MONTANO MD [Primary Care Provider] - Follow up as needed Notes: 29-year-old man who presents with a unfortunate history of cerebral palsy and autism, asthma, seizure disorder, Tourette's with history of small bowel obstruction in the past. He has a gastrostomy tube which according to his mother started to drain bilious material after he had a vomiting episode. He had been tolerating feedings through the tube as regular until 4 AM this morning when he began having vomiting episodes. The mom notes that he had 2 episodes of bilious vomiting. She then began to suction the NG tube noting that he had a large amount of bilious material coming through the tube. He is brought to the emergency department with concerns for possible small bowel obstruction. (ROGELIO BARR) - Related Data Allergies/Adverse Reactions: amoxicillin trihydrate [From Augmentin] Allergy (Mild, Verified 10/31/19 10:09) rash cefaclor [Cefaclor] Allergy (Mild, Verified 10/31/19 10:09) rash Penicillins Allergy (Mild, Verified 10/31/19 10:09) rash Potassium Clavulanate * [From Augmentin] Allergy (Mild, Verified 10/31/19 10:09) rash codeine Allergy (Verified 10/31/19 10:09) iodine Allergy (Verified 11/01/19 00:39) levofloxacin [From Levaquin] Allergy (Verified 11/01/19 00:37) Past Medical History - General Information source: Parent - Social History Smoking Status: Never Smoker Family History: Reviewed & Not Pertinent Patient has suicidal ideation: No Patient has homicidal ideation: No - Past Medical History Cardiac Medical History: Denies: Hx Heart Attack, Hx Hypertension Pulmonary Medical History: Reports: Hx Pneumonia Denies: Hx Asthma, Hx Tuberculosis Neurological Medical History: Reports: Hx Seizures - LAST SEIZURE 5 YRS. De nies: Hx Cerebrovascular Accident Renal/ Medical History: Denies: Hx Peritoneal Dialysis GI Medical History: Denies: Hx Hepatitis, Hx Hiatal Hernia, Hx Ulcer Musculoskeletal Medical History: Reports Hx Muscle Spasm, Reports Hx Muscle Weakness, Reports Hx Musculoskeletal Deformity Psychiatric Medical History: Reports: Hx Depression Infectious Medical History: Denies: Hx Hepatitis Past Surgical History: Reports: Hx Abdominal Surgery - PEG Tube, multiple abdominal surgeries rt peg tube for scar tissue., Hx Appendectomy, Hx Open Heart Surgery - repair hole in heart, AN , Other - Exploratory laparotomy for small bowel obstructions. PEG tube.. Denies: Hx Pacemaker - Immunizations Hx Diphtheria, Pertussis, Tetanus Vaccination: Yes Hx Pneumococcal Vaccination: 10/08/13 <ROGELIO OSUNA - Last Filed: 12/29/19 15:32> Review of Systems - Review of Systems -: Yes ROS unobtainable due to patient's medical condition - Cerebral palsy and autism <ROGELIO OSUNA - Last Filed: 12/29/19 15:32> Physical Exam <ROGELIO OSUNA - Last Filed: 12/29/19 15:32> - Vital signs Vitals: Temp Pulse Resp BP Pulse Ox 97.6 F 154 H 28 H 130/88 H 92 12/29/19 13:17 12/29/19 13:17 12/29/19 13:17 12/29/19 13:17 12/29/19 13:17 - Notes Notes: PHYSICAL EXAMINATION: Physical Exam: General: Alert responsive 29-year-old male in no acute distress HEENT: NC/AT, pupils equal round and reactive to light, MM moist,nares clear, oropharynx clear, airway patent Neck: supple, no adenopathy, no masses. Good range of motion Lungs: clear, no wheezing, no rales no rhonchi CVS: Regular rate and rhythm no murmur gallop or rub Abdomen: Soft, active, distended, gastrostomy tube in place, abdomen is nontender, no masses Ext: No edema, clubbing or cyanosis. Neuro: Alert and responsive, moving all 4 extremities spontaneously Skin: Intact no open lesions, no rash (ROGELIO OSUNA) Course - Laboratory Result Diagrams: 12/29/19 14:30 04/23/20 14:30 <ROGELIO OSUNA - Last Filed: 12/29/19 15:32> - Laboratory Result Diagrams: 12/29/19 14:30 12/29/19 15:40 <YONNY KEYS - Last Filed: 12/29/19 18:39> - Re-evaluation Re-evalutation: 12/29/19 15:43 Patient apparently had acute abdominal series which does reveal a small bowel obstruction with multiple dilated loops of bowel, no free air. Dr. Page was contacted, he notes that he would like to have the CT scan results before seeing the patient. Once the CT is completed call Dr. Parker back. Patient is receiving contrast via the PEG tube. (ROGELIO OSUNA) 12/29/19 18:30 CBC shows mild leukocytosis at 22.6, he does have hyponatremia with a sodium of 126.9, lactic acid was initially elevated 7.6, it is down to 2.5 approximately 3 hours later and after 2 L of normal saline, lipase is normal, urinalysis has moderate leukocyte esterase, it has been sent for culture along with blood cultures, Tegretol level has been sent. CT scan of the abdomen pelvis reveals both a high-grade mid small bowel obstruction as well as bilateral pneumonia, suspect aspiration pneumonia. Patient's abdomen is benign, no indication that he needs emergent surgery. Discussed with Dr. Page who agrees to consult on the case and come to the emergency department to see the patient. He agrees with my assessment that patient should be admitted by medicine as he is medically complicated and quite complex. Discussed patient with Dr. Wan from the hospitalist service who agrees to admit the patient to his service on the [facility]. Recommend cefepime and vancomycin for possible aspiration pneumonia as well as history of MRSA bacteremia. I agree with Dr. Wan and his request that the patient's mother be allowed to stay with the patient as an integral member of the care team and support person given his history of autism and cerebral palsy. (YONNY KEYS) - Vital Signs Vital signs: Temp Pulse Resp BP Pulse Ox 99.5 F 154 H 26 H 110/66 98 12/29/19 18:02 12/29/19 13:17 12/29/19 18:01 12/29/19 18:01 12/29/19 17:00 - Laboratory Laboratory results interpreted by me: 12/29/19 12/29/19 12/29/19 14:30 14:30 14:50 WBC 22.6 H MCHC 36.1 H Seg Neuts % (Manual) 39 L Band Neutrophils % 47 H Lymphocytes % (Manual) 1 L Monocytes % (Manual) 2 L Metamyelocytes % 9 H Abs Neuts (Manual) 21.5 H Sodium Chloride Creatinine Lactic Acid 7.6 H Urine Protein 100 H Urine Bilirubin SMALL H Urine Urobilinogen 4.0 H Leukocyte Esterase Rfl MODERATE H 12/29/19 12/29/19 15:40 17:50 WBC MCHC Seg Neuts % (Manual) Band Neutrophils % Lymphocytes % (Manual) Monocytes % (Manual) Metamyelocytes % Abs Neuts (Manual) Sodium 126.9 L Chloride 86 L Creatinine 0.38 L Lactic Acid 2.5 H Urine Protein Urine Bilirubin Urine Urobilinogen Leukocyte Esterase Rfl Critical Care Note - Critical Care Note Total time excluding time spent on procedures (mins): 45 <YONNY KEYS - Last Filed: 12/29/19 18:39> Discharge <ROGELIO OSUNA - Last Filed: 12/29/19 15:32> - Discharge Admitting Provider: Savage (Hospitalist) Unit Admitted: [facility] <YONNY KEYS - Last Filed: 12/29/19 18:39> - Discharge Clinical Impression: SBO (small bowel obstruction), Hyponatremia Cerebral palsy Qualifiers: Cerebral palsy type: unspecified type Qualified Code(s): G80.9 - Cerebral palsy, unspecified Aspiration pneumonia Qualifiers: Aspiration pneumonia type: due to gastric secretions Laterality: bilateral Lung location: lower lobe of lung Qualified Code(s): J69.0 - Pneumonitis due to inhalation of food and vomit Condition: Serious Disposition: ADMITTED INPATIENT Referrals: SAMIA MONTANO MD [Primary Care Provider] - Follow up as needed
[2019-12-29] MEDS ORDERED: METHYLPREDNISOLONE INJ 125 MG/2 ML SDV IV ONE (14:21)
[2019-12-29] MEDS ORDERED: DIPHENHYDRAMINE HCL 50 MG/ML VIAL IV ONE (14:22)
--- NOTE | 2019-12-29 14:29 | RADIOLOGY REPORT (SQ) ---
EXAM DESCRIPTION: ACUTE ABDOMEN SERIES IMAGES COMPLETED DATE/TIME: 12/29/2019 1:53 pm REASON FOR STUDY: Stool draining from feeding tube COMPARISON: 11/04/2019 NUMBER OF VIEWS: Three views. TECHNIQUE: Frontal chest, supine abdomen and upright/decubitus abdomen radiographic images acquired. LIMITATIONS: None. FINDINGS: CHEST: Lungs clear of infiltrates. FREE AIR: None. No abnormal gas collections. BOWEL GAS PATTERN: Dilated loops of small bowel with gas fluid levels lower abdomen and right upper q uadrant. CALCIFICATIONS: No suspicious calcifications. HARDWARE: None in the abdomen. SOFT TISSUES: No gross mass or suggestion of organomegaly. BONES: No acute fracture. No worrisome bone lesions. OTHER: Gastrostomy. IMPRESSION: Small bowel obstruction. TECHNICAL DOCUMENTATION: JOB ID: [id number] 2010 [employer]- All Rights Reserved Reading location - IP/workstation name: [email or web address]
[2019-12-29 15:12] LABS: APPEARANCE,URINE SLIGHTLY-CLOUDY; BILIRUBIN,URINE SMALL (NEGATIVE); COLOR,URINE AMBER; GLUCOSE, URINE NEGATIVE (NEGATIVE); KETONES,URINE NEGATIVE (NEGATIVE); PROTEIN,URINE 100 mg/dL (NEGATIVE); URINE SPECIFIC GRAVITY 1.027
[2019-12-29 15:14] LABS: HEMATOCRIT 46.8 % (37.9-51.0); HEMOGLOBIN 16.9 g/dL (13.5-17.0); MEAN CORPUSCULAR HEMOGLOBIN 32.4 pg (27.0-33.4); MEAN CORPUSCULAR HGB CONC 36.1 g/dL (32.0-36.0); MEAN CORPUSCULAR VOLUME 90 fl (80-97); PLATELET COUNT 445 10^3/uL (150-450); RED BLOOD COUNT 5.22 10^6/uL (4.35-5.55); RED CELL DISTRIBUTION WIDTH 12.5 % (11.5-14.0); WHITE BLOOD COUNT 22.6 10^3/uL (4.0-10.5)
[2019-12-29 15:42] LABS: ABSOLUTE LYMPHOCYTES# (MANUAL) 0.7 10^3/uL (0.5-4.7); ABSOLUTE MONOCYTES # (MANUAL) 0.5 10^3/uL (0.1-1.4); BASOPHILS % (MANUAL) 0 % (0-2); EOSINOPHILS % (MANUAL) 0 % (0-6); LYMPHOCYTES % (MANUAL) 1 % (13-45); MONOCYTES % (MANUAL) 2 % (3-13); TOTAL CELLS COUNTED 100
[2019-12-29 15:45] LABS: OVALOCYTES SLIGHT; PLATELET COMMENT ADEQUATE; POIKILOCYTOSIS SLIGHT
[2019-12-29] MEDS ORDERED: ONDANSETRON HCL INJ/PF 4 MG/2 ML SDV IV ONE (15:45)
[2019-12-29 15:47] LABS: METAMYELOCYTES % (MANUAL) 9 % (0-1)
[2019-12-29 15:48] LABS: PLATELET LARGE PRESENT; TOXIC VACUOLATION PRESENT
[2019-12-29 15:50] LABS: BAND NEUTROPHILS % (MANUAL) 47 % (3-5); SEGMENTED NEUTROPHILS % (MAN) 39 % (42-78)
[2019-12-29 16:11] LABS: INTERNATIONAL RATION (INR) 1.16; PARTIAL THROMBOPLASTIN TIME 29.5 SEC (23.5-35.8); PROTHROMBIN TIME 14.9 SEC (11.4-15.4)
[2019-12-29 16:36] LABS: ALBUMIN 4.5 g/dL (3.5-5.0); ALKALINE PHOSPHATASE 70 U/L (38-126); ANION GAP 16 (5-19); ASPARTATE AMINO TRANSFERASE 42 U/L (17-59); BLOOD UREA NITROGEN 17 mg/dL (7-20); CALCIUM 10.1 mg/dL (8.4-10.2); CARBON DIOXIDE 25 mmol/L (22-30); CHLORIDE 86 mmol/L (98-107); GLUCOSE 108 mg/dL (75-110); POTASSIUM 4.4 mmol/L (3.6-5.0); TOTAL PROTEIN 7.7 g/dL (6.3-8.2)
--- NOTE | 2019-12-29 17:26 | RADIOLOGY REPORT (SQ) ---
EXAM DESCRIPTION: CT ABD/PELVIS WITH IV ORAL IMAGES COMPLETED DATE/TIME: 12/29/2019 5:01 pm REASON FOR STUDY: Abdominal pain vomiting stool COMPARISON: CT abdomen pelvis 10/31/2019, 11/01/2019 Abdominal films 12/29/2019, 11/02/2019 CT chest 10/31/2019 TECHNIQUE: CT scan of the abdomen and pelvis performed using helical scanning technique with dynamic intravenous contrast injection. No oral contrast. Images reviewed with lung, soft tissue, and bone windows. Reconstructed coronal and sagittal MPR images reviewed. Delayed images for evaluation of the urinary system also acquired. All images stored on PACS. All CT scanners at this facility use dose modulation, iterative reconstruction, and/or weight based d osing when appropriate to reduce radiation dose to as low as reasonably achievable (ALARA). [facility]: Dose Right [facility]: CareDose [facility]: Dose Right [facility]: Teradose 4D [facility]: Map Decisions CONTRAST TYPE AND DOSE: contrast/concentration: Isovue 300.00 mg/ml; Total Contrast Delivered: 67.0 ml; Total Saline Delivered: 65.0 ml History of iodine allergy. No immediate complication post contrast injection after IV steroid prep RENAL FUNCTION: None required. The patient is less than 50 years old. RADIATION DOSE: CT Rad equipment meets quality standard of care and radiation dose reduction techniq ues were employed. CTDIvol: 10.1 - 13.9 mGy. DLP: 1676 mGy-cm.. LIMITATIONS: None. FINDINGS: Oral contrast was administered through the patient's gastrostomy. There is marked gastric distention and proximal small bowel distention. Distal decompressed small bowel loops in the pelvis , colon is decompressed. Findings are worrisome for high-grade mid small bowel obstruction. LOWER CHEST: Right middle lobe, superior segment right lower lobe, diffuse left lower lobe pneumonia is present. This is more prominent than on CT chest 10/31/2019. There is reflux of oral contrast int o the distal esophagus. Aspiration pneumonia should be considered. LIVER: Normal size. No masses. No dilated ducts. SPLEEN: Normal size. No focal lesions. PANCREAS: No masses. No significant calcifications. No adjacent inflammation or peripancreatic fluid collections. Pancreatic duct not dilated. GALLBLADDER: No identified stones by CT criteria. No inflammatory changes to suggest cholecystitis. ADRENAL GLANDS: No significant masses or asymmetry. RIGHT KIDNEY AND URETER: No solid masses. No significant calcifications. No hydronephrosis or hyd roureter. LEFT KIDNEY AND URETER: No solid masses. 12 mm left upper pole intrarenal nonobstructive kidney sto ne, 1,136 Hounsfield units in density, best shown on coronal image 37. No hydronephrosis or hydrour eter. AORTA AND VESSELS: No aneurysm. No dissection. Renal arteries, SMA, celiac without stenosis. RETROPERITONEUM: No retroperitoneal adenopathy, hemorrhage or masses. BOWEL AND PERITONEAL CAVITY: Old Yinka fundoplication. Gastroesophageal reflux into the distal esop hagus. Gastrostomy tube in good positioning. Distension of stomach and proximal small bowel loops w ith oral contrast. Mid and distal small bowel loops, colon are decompressed. Findings are worrisome for small-bowel obstruction. APPENDIX: Not identified. PELVIS: No mass. No free fluid. Normal bladder. ABDOMINAL WALL: No masses. No hernias. BONES: No significant or acute findings. OTHER: No other significant finding. IMPRESSION: Findings worrisome for small bowel obstruction Gastroesophageal reflux. Bilateral lung base infiltrates worrisome for aspiration pneumonia. TECHNICAL DOCUMENTATION: JOB ID: [id number] Quality ID # [id number]: Final reports with documentation of one or more dose reduction techniques (e.g., Au tomated exposure control, adjustment of the mA and/or kV according to patient size, use of iterative reconstruction technique) 2010 [employer]- All Rights Reserved Reading location - IP/workstation name: [email or web address]
[2019-12-29] MEDS ORDERED: CEFEPIME 2 GM/D5W RTU 2 GM/50 ML RTUPB IV ONE (18:07)
[2019-12-29] MEDS ORDERED: ACETAMINOPHEN 650 MG SUPP.RECT PR PRN (18:36)
[2019-12-29] MEDS ORDERED: ONDANSETRON 4 MG TAB.RAPDIS PO PRN (18:36)
[2019-12-29] MEDS ORDERED: MORPHINE SULFATE 10 MG/ML INJ IV ONE (18:38)
[2019-12-29] MEDS ORDERED: VANCOMYCIN HCL INJ 1000 MG VIAL IV ONE (18:38)
[2019-12-29] MEDS ORDERED: VANCOMYCIN HCL INJ 1000 MG VIAL IV SCH (19:00)
[2019-12-29] MEDS: NORMAL SALINE 1000 ML 1,000 ML IV PRN (19:02)
--- NOTE | 2019-12-29 19:04 | PDOC H&P ---
History of Present Illness Admission Date/PCP: 12/29/19 18:44 SAMIA MONTANO MD History of Present Illness: RASHI TOMPKINS is a 29 year old male with past medical history significant for cerebral palsy, autism spectrum disorder, seizure disorder, Tourette's syndrome, chronic G-tube since who presents with 1 day history of progressive severe worsening vomiting started on morning of admission and resulted in aspiration pneumonitis/pneumonia per CT results in ED. Per patie nt's mother patient has recurrent small bowel obstructions and this is how he typically presents, he has been admitted to the hospital multiple times in the past with similar/same presentation. CT abdomen/pelvis in ED showed high-grade bowel obstruction as well as multilobar right-sided pneumonia. Patient's lactate initially was over 7 but came down to approximately 2 after a few hours in the ED. General surgery was consulted and they will be seeing the patient in the ED and following while inpatient. Patient be admitted to IMCU, started on normal saline for mild hyponatremia, antiseizure medications will be stopped while he is n.p.o. and he will be switched to IV Keppra twice daily in the meantime. We will start vancomycin/cefepime for aspiration pneumonia and a history of MRSA bacteremia in the past. Past Medical History Cardiac Medical History: Denies: Myocardial Infarction, Hypertension Pulmonary Medical History: Reports: Pneumonia Denies: Asthma, Tuberculosis Neurological Medical History: Reports: Seizures - LAST SEIZURE 5 YRS GI Medical History: Denies: Hepatitis, Hiatal Hernia Psychiatric Medical History: Reports: Depression Hematology: Denies: Anemia, Sickle Cell Disease Infectious Medical History: Reports: Methicillin-Resistant Staph Aureus Past Surgical History Past Surgical History: Reports: Appendectomy, Other - Exploratory laparotomy for small bowel obstructions. PEG tube. Denies: Pacemaker Social History Smoking Status: Never Smoker Frequency of Alcohol Use: None Hx Recreational Drug Use: No Hx Prescription Drug Abuse: No - Advance Directive Resuscitation Status: Full Code Surrogate healthcare decision maker:: Mother Family History Family History: Reviewed & Not Pertinent Parental Family History Reviewed: Yes Children Family History Reviewed: NA Sibling(s) Family History Reviewed.: NA Medication/Allergy Home Medications: Carbamazepine [Tegretol Susp 200 mg/10 ml Udcup] 100 mg PEG Q8 10/31/19 Clonazepam [Klonopin 1 mg Tablet] 1.5 mg PEG Q8 10/31/19 Ibuprofen [Motrin 800 mg Tablet] 800 mg PEG Q8HP PRN 10/31/19 Lorazepam [Ativan] 2 mg PEG Q6HP PRN 10/31/19 Oxcarbazepine [Trileptal Susp 300 mg/5 ml 250 ml/Bottle] 300 mg PEG Q8 10/31/19 Linezolid 600 mg PO BID 11 Days #22 ml 11/04/19 Docusate Sodium [Colace Udc 100 mg/10 ml Oral Soln] 100 mg PEG DAILY #30 udc 0 11/05/19 Metronidazole [Flagyl 500 mg Tablet] 500 mg PO TID 2 Days #6 tablet 11/05/19 Allergies/Adverse Reactions: amoxicillin trihydrate [From Augmentin] Allergy (Mild, Verified 10/31/19 10:09) rash cefaclor [Cefaclor] Allergy (Mild, Verified 10/31/19 10:09) rash Penicillins Allergy (Mild, Verified 10/31/19 10:09) rash Potassium Clavulanate * [From Augmentin] Allergy (Mild, Verified 10/31/19 10:09) rash codeine Allergy (Verified 10/31/19 10:09) iodine Allergy (Verified 11/01/19 00:39) levofloxacin [From Levaquin] Allergy (Verified 11/01/19 00:37) Review of Systems ROS unobtainable: Due to mental status Physical Exam Vital Signs: Temp Pulse Resp BP Pulse Ox 99.5 F 154 H 26 H 110/66 98 12/29/19 18:02 12/29/19 13:17 12/29/19 18:01 12/29/19 18:01 12/29/19 17:00 Intake & Output 12/28/19 12/29/19 12/30/19 06:59 06:59 06:59 Intake Total 1000 Balance 1000 Weight 50.1 kg General appearance: PRESENT: no acute distress, thin Head exam: PRESENT: atraumatic, normocephalic Eye exam: PRESENT: conjunctiva pink Mouth exam: PRESENT: moist Respiratory exam: PRESENT: crackles - Perhaps very minimal scant crackles at right lung base otherwise clear. ABSENT: rales, rhonchi, wheezes Cardiovascular exam: PRESENT: tachycardia. ABSENT: diastolic murmur, rubs, systolic murmur GI/Abdominal exam: PRESENT: normal bowel sounds, soft, other - G-tube in left upper quadrant in good position, no skin breakdown around tube and no leakage noted. ABSENT: distended, guarding, mass, organolmegaly, rebound, tenderness Rectal exam: PRESENT: deferred Extremities exam: ABSENT: pedal edema Neurological exam: PRESENT: alert, awake. ABSENT: oriented to person, oriented to place, oriented to time, oriented to situation Psychiatric exam: PRESENT: appropriate affect, normal mood Skin exam: PRESENT: dry, intact, warm Results Laboratory Results: 12/29/19 14:30 12/29/19 15:40 12/29/19 12/29/19 12/29/19 14:30 14:30 14:30 WBC 22.6 H RBC 5.22 Hgb 16.9 Hct 46.8 MCV 90 MCH 32.4 MCHC 36.1 H RDW 12.5 Plt Count 445 Seg Neutrophils % Not Reportable Sodium Cancelled Potassium Cancelled Chloride Cancelled Carbon Dioxide Cancelled Anion Gap Cancelled BUN Cancelled Creatinine Cancelled Est GFR ( Amer) Cancelled Est GFR (Non-Af Amer) Cancelled Glucose Cancelled Lactic Acid Calcium Cancelled Total Bilirubin Cancelled AST Cancelled Alkaline Phosphatase Cancelled Total Protein Cancelled Albumin Cancelled Lipase Cancelled Urine Color MARTHA Urine Appearance SLIGHTLY-CLOUDY Urine pH 5.0 Ur Specific [place] 1.027 Urine Protein 100 H Urine Glucose (UA) NEGATIVE Urine Ketones NEGATIVE Urine Blood NEGATIVE Urine RBC (Auto) 2 12/29/19 12/29/19 12/29/19 14:50 15:40 17:50 WBC RBC Hgb Hct MCV MCH MCHC RDW Plt Count Seg Neutrophils % Sodium 126.9 L Potassium 4.4 Chloride 86 L Carbon Dioxide 25 Anion Gap 16 BUN 17 Creatinine 0.38 L Est GFR ( Amer) > 60 Est GFR (Non-Af Amer) Glucose 108 Lactic Acid 7.6 H 2.5 H Calcium 10.1 Total Bilirubin 1.0 AST 42 Alkaline Phosphatase 70 Total Protein 7.7 Albumin 4.5 Lipase 75.4 Urine Color Urine Appearance Urine pH Ur Specific [place] Urine Protein Urine Glucose (UA) Urine Ketones Urine Blood Urine RBC (Auto) Impressions: Abdomen/Pelvis CT 12/29/19 13:30 IMPRESSION: Findings worrisome for small bowel obstruction Gastroesophageal reflux. Bilateral lung base infiltrates worrisome for aspiration pneumonia. Acute Abdomen Series 12/29/19 13:37 IMPRESSION: Small bowel obstruction. Assessment and Plan - Diagnosis (1) SBO (small bowel obstruction) Is this a current diagnosis for this admission?: Yes Plan: CT abdomen/pelvis consistent with high-grade bowel obstruction, also showed aspiration pneumonia General surgery consulted by ED N.p.o. Hold all oral medications G-tube still in place (2) Aspiration pneumonia Qualifiers: Aspiration pneumonia type: due to gastric secretions Laterality: bilateral Lung location: lower lobe of lung Qualified Code(s): J69.0 - Pneumonitis due to inhalation of food and vomit Is this a current diagnosis for this admission?: Yes Plan: Due to forceful vomiting from bowel obstruction Seen on CT Vancomycin/cefepime; has penicillin allergy per mother Blood cultures; has history of MRSA bacteremia in the past Bronchial hygiene, supplemental oxygen as needed (3) Hyponatremia Is this a current diagnosis for this admission?: Yes Plan: Sodium less than 130 on admission Trend BMP daily Normal saline (4) Nausea and vomiting Qualifiers: Vomiting type: bilious vomiting Qualified Code(s): R11.14 - Bilious vomiting Is this a current diagnosis for this admission?: Yes Plan: Antiemetics (5) Cerebral palsy Qualifiers: Cerebral palsy type: unspecified type Qualified Code(s): G80.9 - Cerebral palsy, unspecified Is this a current diagnosis for this admission?: Yes (6) Seizure disorder Is this a current diagnosis for this admission?: Yes Plan: While n.p.o., hold all AEDs Give Keppra IV twice daily in the meantime restart orals when able IV Ativan as needed for anxiety/agitation/seizure activity - Time Time Spent with patient: 35 or more minutes Medications reviewed and adjusted accordingly: Yes - Inpatient Certification Based on my medical assessment, after consideration of the patient's comorbidities, presenting symptoms, or acuity I expect that the services needed warrant INPATIENT care.: Yes I certify that my determination is in accordance with my understanding of Medicare's requirements for reasonable and necessary INPATIENT services [42 CFR 412.3e].: Yes Medical Necessity: Significant Comorbidiites Make Outpatient Treatment Too Risky, Need Close Monitoring Due to Risk of Patient Decompensation, Need for IV Antibiotics, Risk of Complication if Not Cared For in Hospital, Risk of Diagnosis Which Will Require Inpatient Eval/Care/Monitoring
--- NOTE | 2019-12-29 19:12 | PDOC CONSULTATION ---
Consultation Consult Date: 12/29/19 Provider Consulted: KOBY GOMEZ History of Present Illness Admission Date/PCP: 12/29/19 18:44 SAMIA MONTANO MD Patient complains of: Patient noted with emesis History of Present Illness: RASHI TOMPKINS is a 29 year old male with cerebral palsy with history of multiple small bowel obstructions in the past with 6 prior laparotomies, last one 5 years ago and an episode of small bowel obstruction couple months ago that resolved with conservative measures, now presenting with 1 day history of dark bilious emesis along with abdominal pain. Patient had several bowel movements last night. None today. Patient has a history of aspiration pneumonia in the past as well. Patient has a G-tube in place for his feedings. Past Medical History Past Medical History: Cerebral palsy Cardiac Medical History: Denies: Myocardial Infarction, Hypertension Pulmonary Medical History: Reports: Pneumonia Denies: Asthma, Tuberculosis Neurological Medical History: Reports: Seizures - LAST SEIZURE 5 YRS GI Medical History: Denies: Hepatitis, Hiatal Hernia Psychiatric Medical History: Reports: Depression Hematology: Denies: Anemia, Sickle Cell Disease Past Surgical History Past Surgical History: Reports: Appendectomy, Other - Exploratory laparotomy for small bowel obstructions. Gastrostomy tube Denies: Pacemaker Social History Smoking Status: Never Smoker Frequency of Alcohol Use: None Hx Recreational Drug Use: No Hx Prescription Drug Abuse: No Family History Family History: Reviewed & Not Pertinent Parental Family History Reviewed: No Children Family History Reviewed: No Sibling(s) Family History Reviewed.: No Medication/Allergy Home Medications: Carbamazepine [Tegretol Susp 200 mg/10 ml Udcup] 100 mg PEG Q8 10/31/19 Clonazepam [Klonopin 1 mg Tablet] 1.5 mg PEG Q8 10/31/19 Ibuprofen [Motrin 800 mg Tablet] 800 mg PEG Q8HP PRN 10/31/19 Lorazepam [Ativan] 2 mg PEG Q6HP PRN 10/31/19 Oxcarbazepine [Trileptal Susp 300 mg/5 ml 250 ml/Bottle] 300 mg PEG Q8 10/31/19 Linezolid 600 mg PO BID 11 Days #22 ml 11/04/19 Docusate Sodium [Colace Udc 100 mg/10 ml Oral Soln] 100 mg PEG DAILY #30 udc 11/05/19 Metronidazole [Flagyl 500 mg Tablet] 500 mg PO TID 2 Days #6 tablet 11/05/19 Allergies/Adverse Reactions: amoxicillin trihydrate [From Augmentin] Allergy (Mild, Verified 10/31/19 10:09) rash cefaclor [Cefaclor] Allergy (Mild, Verified 10/31/19 10:09) rash Penicillins Allergy (Mild, Verified 10/31/19 10:09) rash Potassium Clavulanate * [From Augmentin] Allergy (Mild, Verified 10/31/19 10:09) rash codeine Allergy (Verified 10/31/19 10:09) iodine Allergy (Verified 11/01/19 00:39) levofloxacin [From Levaquin] Allergy (Verified 11/01/19 00:37) Physical Exam Vital Signs: Temp Pulse Resp BP Pulse Ox 99.5 F 154 H 26 H 110/66 98 12/29/19 18:02 12/29/19 13:17 12/29/19 18:01 12/29/19 18:01 12/29/19 17:00 Intake & Output 12/28/19 12/29/19 12/30/19 06:59 06:59 06:59 Intake Total 1000 Balance 1000 Weight 50.1 kg General appearance: PRESENT: other - Does not speak. Eye exam: PRESENT: conjunctiva pink Respiratory exam: PRESENT: decreased breath sounds Cardiovascular exam: PRESENT: tachycardia GI/Abdominal exam: PRESENT: other - Abdomen is distended but soft. Unable to determine whether he has tenderness due to his cerebral palsy. There is no obvi ous peritoneal signs. Extremities exam: PRESENT: other - Contractures. Results Laboratory Results: 12/29/19 14:30 12/29/19 15:40 12/29/19 12/29/19 12/29/19 14:30 14:30 14:30 WBC 22.6 H RBC 5.22 Hgb 16.9 Hct 46.8 MCV 90 MCH 32.4 MCHC 36.1 H RDW 12.5 Plt Count 445 Seg Neutrophils % Not Reportable Sodium Cancelled Potassium Cancelled Chloride Cancelled Carbon Dioxide Cancelled Anion Gap Cancelled BUN Cancelled Creatinine Cancelled Est GFR ( Amer) Cancelled Est GFR (Non-Af Amer) Cancelled Glucose Cancelled Lactic Acid Calcium Cancelled Total Bilirubin Cancelled AST Cancelled Alkaline Phosphatase Cancelled Total Protein Cancelled Albumin Cancelled Lipase Cancelled Urine Color MARTHA Urine Appearance SLIGHTLY-CLOUDY Urine pH 5.0 Ur Specific [place] 1.027 Urine Protein 100 H Urine Glucose (UA) NEGATIVE Urine Ketones NEGATIVE Urine Blood NEGATIVE Urine RBC (Auto) 2 12/29/19 12/29/19 12/29/19 14:50 15:40 17:50 WBC RBC Hgb Hct MCV MCH MCHC RDW Plt Count Seg Neutrophils % Sodium 126.9 L Potassium 4.4 Chloride 86 L Carbon Dioxide 25 Anion Gap 16 BUN 17 Creatinine 0.38 L Est GFR ( Amer) > 60 Est GFR (Non-Af Amer) Glucose 108 Lactic Acid 7.6 H 2.5 H Calcium 10.1 Total Bilirubin 1.0 AST 42 Alkaline Phosphatase 70 Total Protein 7.7 Albumin 4.5 Lipase 75.4 Urine Color Urine Appearance Urine pH Ur Specific [place] Urine Protein Urine Glucose (UA) Urine Ketones Urine Blood Urine RBC (Auto) Impressions: Abdomen/Pelvis CT 12/29/19 13:30 IMPRESSION: Findings worrisome for small bowel obstruction Gastroesophageal reflux. Bilateral lung base infiltrates worrisome for aspiration pneumonia. Acute Abdomen Series 12/29/19 13:37 IMPRESSION: Small bowel obstruction. Assessment & Plan - Diagnosis (1) SBO (small bowel obstruction) Is this a current diagnosis for this admission?: Yes Plan: Likely due to adhesions. Patient with multiple prior laparotomies in the past. Would prefer to try conservative management in light of the potential morbidity of a seventh laparotomy. His tachycardia and leukocytosis is concerning; however I do not see evidence of bowel compromise by CT (I have reviewed the CT scan with the on-call radiologist and there is no pneumatosis, no mesenteric swirl, no bowel wall thickening, no free fluid. Furthermore the CT scan looks very similar to his presentation couple of months ago.) and he does have aspira tion pneumonia and he has not received any pain medication and has not been fluid resuscitated yet. Patient also had a very similar presentation with his last small bowel obstruction that was managed successfully conservatively 2 months ago. In consideration of all of the above, I think it would be prudent to try conservative management first with decompression via G-tube, fluid resuscitation, IV pain control, and antibiotics for his pneumonia.
[2019-12-29] MEDS ORDERED: MORPHINE SULFATE 10 MG/ML INJ IV PRN (19:13)
[2019-12-29 19:23] LABS: ANION GAP 15 (5-19); BLOOD UREA NITROGEN 14 mg/dL (7-20); CARBON DIOXIDE 28 mmol/L (22-30); CHLORIDE 86 mmol/L (98-107); GLUCOSE 121 mg/dL (75-110); POTASSIUM 4.1 mmol/L (3.6-5.0)
[2019-12-29] MEDS: ONDANSETRON HCL INJ/PF 4 MG/2 ML SDV IV PRN (20:54)
[2019-12-29] MEDS ORDERED: LEVETIRACETAM INJ/PF 500 MG/5 ML SDV IV SCH (22:00)
[2019-12-29] MEDS: VANCOMYCIN HCL 750 MG in DEXTROSE 5%-WATER 250 ML IV SCH (22:26)
[2019-12-29] MEDS ORDERED: LEVETIRACETAM 500 MG/NACL-ISO 500 MG/100 ML RTUPB IV ONE (22:38)
[2019-12-30] MEDS: CEFEPIME 1 GM/D5W RTU 1 GM/50 ML RTUPB IV SCH ×2 (05:15→19:30)
[2019-12-30 05:26] LABS: HEMATOCRIT 40.8 % (37.9-51.0); MEAN CORPUSCULAR HEMOGLOBIN 32.3 pg (27.0-33.4); MEAN CORPUSCULAR HGB CONC 36.8 g/dL (32.0-36.0); MEAN CORPUSCULAR VOLUME 88 fl (80-97); PLATELET COUNT 333 10^3/uL (150-450); RED BLOOD COUNT 4.66 10^6/uL (4.35-5.55); RED CELL DISTRIBUTION WIDTH 12.3 % (11.5-14.0); WHITE BLOOD COUNT 15.7 10^3/uL (4.0-10.5)
[2019-12-30] MEDS ORDERED: VANCOMYCIN HCL INJ 1000 MG VIAL ONE (05:56)
[2019-12-30] MEDS: VANCOMYCIN HCL 750 MG in DEXTROSE 5%-WATER 250 ML IV SCH ×4 (06:18→22:27)
[2019-12-30 06:31] LABS: ABSOLUTE LYMPHOCYTES# (MANUAL) 0.5 10^3/uL (0.5-4.7); ABSOLUTE MONOCYTES # (MANUAL) 0.9 10^3/uL (0.1-1.4); BAND NEUTROPHILS % (MANUAL) 7 % (3-5); BASOPHILS % (MANUAL) 0 % (0-2); EOSINOPHILS % (MANUAL) 0 % (0-6); LYMPHOCYTES % (MANUAL) 2 % (13-45); MONOCYTES % (MANUAL) 6 % (3-13); SEGMENTED NEUTROPHILS % (MAN) 84 % (42-78); TOTAL CELLS COUNTED 100
[2019-12-30 06:33] LABS: PLATELET COMMENT ADEQUATE
[2019-12-30 06:36] LABS: TOXIC GRANULATION SLIGHT; TOXIC VACUOLATION PRESENT
[2019-12-30] MEDS: ONDANSETRON HCL INJ/PF 4 MG/2 ML SDV IV PRN (06:50)
[2019-12-30 07:30] LABS: ANION GAP 15 (5-19); BLOOD UREA NITROGEN 20 mg/dL (7-20); CALCIUM 9.9 mg/dL (8.4-10.2); CARBON DIOXIDE 26 mmol/L (22-30); CHLORIDE 95 mmol/L (98-107); GLUCOSE 102 mg/dL (75-110); POTASSIUM 3.9 mmol/L (3.6-5.0)
--- NOTE | 2019-12-30 09:12 | RADIOLOGY REPORT (SQ) ---
EXAM DESCRIPTION: ABDOMEN 2 VIEWS IMAGES COMPLETED DATE/TIME: 12/30/2019 8:53 am REASON FOR STUDY: f/u sbo COMPARISON: 12/29/2019 NUMBER OF VIEWS: Two views. TECHNIQUE: Supine and erect/decubitus radiographic images of the abdomen acquired. LIMITATIONS: None. FINDINGS: FREE AIR: None. No abnormal gas collections. LUNG BASES: Persistent left lower lobe consolidation with air bronchograms, stable. BOWEL GAS PATTERN: Persistent but decreased dilated loops of small bowel measuring up to 3.5 cm. CALCIFICATIONS: No suspicious calcifications. SOFT TISSUES: No gross mass or suggestion of organomegaly. HARDWARE: Gastrostomy tube overlies left upper quadrant. BONES: Serpiginous thoracolumbar curvature. No acute findings. OTHER: Contrast within the urinary bladder. Additional ill-defined contrast over the left upper quad rant which is felt to be within the PEG tube dressing. IMPRESSION: Improved but persistent dilated small bowel loops measuring up to 3.5 cm. Persistent left lower lobe consolidation with air bronchograms. TECHNICAL DOCUMENTATION: JOB ID: [id number] 2010 [employer]- All Rights Reserved Reading location - IP/workstation name: [email or web address]
--- NOTE | 2019-12-30 10:10 | PDOC PROGRESS REPORT ---
Subjective Progress Note for:: 12/30/19 Reason For Visit: SBO ASPIRATION PNA VOMITING Physical Exam Vital Signs: Temp Pulse Resp BP Pulse Ox 97.9 F 113 H 22 H 112/79 96 12/30/19 03:27 12/30/19 07:00 12/30/19 03:27 12/30/19 03:27 12/30/19 03:27 Intake & Output 12/29/19 12/30/19 12/31/19 06:59 06:59 06:59 Intake Total 2049 Output Total 1699 Balance 350 Weight 53.2 kg General appearance: PRESENT: no acute distress Head exam: PRESENT: normocephalic Eye exam: PRESENT: EOMI Mouth exam: PRESENT: moist Teeth exam: PRESENT: poor dentation Neck exam: PRESENT: full ROM Respiratory exam: PRESENT: clear to auscultation ashu Cardiovascular exam: PRESENT: RRR Pulses: PRESENT: normal radial pulses, normal femoral pulses Breast: PRESENT: Normal GI/Abdominal exam: PRESENT: soft Rectal exam: PRESENT: deferred Extremities exam: PRESENT: full ROM Musculoskeletal exam: PRESENT: full ROM Neurological exam: PRESENT: other Psychiatric exam: PRESENT: appropriate affect Skin exam: PRESENT: dry Results Laboratory Results: 12/30/19 04:39 12/30/19 04:39 12/29/19 12/29/19 12/29/19 14:30 14:30 14:30 WBC 22.6 H RBC 5.22 Hgb 16.9 Hct 46.8 MCV 90 MCH 32.4 MCHC 36.1 H RDW 12.5 Plt Count 445 Seg Neutrophils % Not Reportable Sodium Cancelled Potassium Cancelled Chloride Cancelled Carbon Dioxide Cancelled Anion Gap Cancelled BUN Cancelled Creatinine Cancelled Est GFR ( Amer) Cancelled Est GFR (Non-Af Amer) Cancelled Glucose Cancelled Lactic Acid Calcium Cancelled Magnesium Total Bilirubin Cancelled AST Cancelled Alkaline Phosphatase Cancelled Total Protein Cancelled Albumin Cancelled Lipase Cancelled Urine Color MARTHA Urine Appearance SLIGHTLY-CLOUDY Urine pH 5.0 Ur Specific [place] 1.027 Urine Protein 100 H Urine Glucose (UA) NEGATIVE Urine Ketones NEGATIVE Urine Blood NEGATIVE Urine RBC (Auto) 2 12/29/19 12/29/19 12/29/19 14:50 15:40 17:50 WBC RBC Hgb Hct MCV MCH MCHC RDW Plt Count Seg Neutrophils % Sodium 126.9 L Potassium 4.4 Chloride 86 L Carbon Dioxide 25 Anion Gap 16 BUN 17 Creatinine 0.38 L Est GFR ( Amer) > 60 Est GFR (Non-Af Amer) Glucose 108 Lactic Acid 7.6 H 2.5 H Calcium 10.1 Magnesium Total Bilirubin 1.0 AST 42 Alkaline Phosphatase 70 Total Protein 7.7 Albumin 4.5 Lipase 75.4 Urine Color Urine Appearance Urine pH Ur Specific [place] Urine Protein Urine Glucose (UA) Urine Ketones Urine Blood Urine RBC (Auto) 12/29/19 12/30/19 12/30/19 18:20 04:39 04:39 WBC 15.7 H RBC 4.66 Hgb 15.0 Hct 40.8 MCV 88 MCH 32.3 MCHC 36.8 H RDW 12.3 Plt Count 333 Seg Neutrophils % Not Reportable Sodium 128.5 L Potassium 4.1 Chloride 86 L Carbon Dioxide 28 Anion Gap 15 BUN 14 Creatinine 0.45 L Est GFR ( Amer) > 60 Est GFR (Non-Af Amer) Glucose 121 H Lactic Acid Calcium 10.0 Magnesium 1.9 Total Bilirubin AST Alkaline Phosphatase Total Protein Albumin Lipase Urine Color Urine Appearance Urine pH Ur Specific [place] Urine Protein Urine Glucose (UA) Urine Ketones Urine Blood Urine RBC (Auto) 12/30/19 04:39 WBC RBC Hgb Hct MCV MCH MCHC RDW Plt Count Seg Neutrophils % Sodium 136.1 L Potassium 3.9 Chloride 95 L Carbon Dioxide 26 Anion Gap 15 BUN 20 Creatinine 0.52 Est GFR ( Amer) > 60 Est GFR (Non-Af Amer) Glucose 102 Lactic Acid Calcium 9.9 Magnesium Total Bilirubin AST Alkaline Phosphatase Total Protein Albumin Lipase Urine Color Urine Appearance Urine pH Ur Specific [place] Urine Protein Urine Glucose (UA) Urine Ketones Urine Blood Urine RBC (Auto) Impressions: Abdomen/Pelvis CT 12/29/19 13:30 IMPRESSION: Findings worrisome for small bowel obstruction Gastroesophageal reflux. Bilateral lung base infiltrates worrisome for aspirati on pneumonia. Acute Abdomen Series 12/29/19 13:37 IMPRESSION: Small bowel obstruction. Abdomen X-Ray 12/30/19 00:00 IMPRESSION: Improved but persistent dilated small bowel loops measuring up to 3.5 cm. Persistent left lower lobe consolidation with air bronchograms. Assessment & Plan - Plan Summary Plan Summary: gtube in place draining approx 700cc overngiht bilious fluid required a cuadra this am for very distended bladder no flatus or stool as yet plan cont gtube drainage npo will cont to follow.
[2019-12-30] MEDS: LORAZEPAM INJ 2 MG/1 ML VIAL IV PRN ×2 (10:27→14:53)
[2019-12-30] MEDS: ENOXAPARIN SODIUM INJ 30 MG/0.3 ML DISP.SYRIN SUBCUT SCH (10:34)
[2019-12-30] MEDS: NORMAL SALINE 1000 ML 1,000 ML IV PRN (11:00)
[2019-12-30] MEDS: LEVETIRACETAM 500 MG/NACL-ISO 500 MG/100 ML RTUPB IV SCH ×2 (12:39→21:35)
[2019-12-30 12:50] LABS: PATH REVIEW PATHOLOGIST REVIEWED
--- NOTE | 2019-12-30 14:04 | ADVANCED CARE ---
- Diagnosis (1) SBO (small bowel obstruction) Diagnosis Current: Yes (2) Aspiration pneumonia Diagnosis Current: Yes (3) Hyponatremia Diagnosis Current: Yes (4) Nausea and vomiting Diagnosis Current: Yes (5) Cerebral palsy Diagnosis Current: Yes (6) Seizure disorder Diagnosis Current: Yes Attendance: Patient and mother Resuscitation Status: Full Code Discussion: All aspects of CODE STATUS discussed including chest compressions/intubation/c ardioversion in the patient's mother who is his power of glaze grinder states she would like him to be full code. Time Spent: 17 minutes
--- NOTE | 2019-12-30 14:10 | PDOC PROGRESS REPORT ---
Subjective Progress Note for:: 12/30/19 Subjective:: 12/30/2019 Patient seems to be doing better today, notably white blood cell count is lower. Still has very high volume output from G-tube suction. Large amount of green mucus material coming out of it. General surgery plans conservative measures rather than taking patient back to surgery to avoid further development of adhesions. UA showed likely infection along with his pneumonia that he was admitted with. Blood and urine cultures are pending. He has not had any seizures since being put on IV Keppra while his oral medications are held. Reason For Visit: SBO ASPIRATION PNA VOMITING Physical Exam Vital Signs: Temp Pulse Resp BP Pulse Ox 97.4 F 127 H 16 119/53 L 93 12/30/19 11:54 12/30/19 11:54 12/30/19 11:54 12/30/19 11:54 12/30/19 11:54 Intake & Output 12/29/19 12/30/19 12/31/19 06:59 06:59 06:59 Intake Total 3050 Output Total 1700 Balance 1350 Weight 53.2 kg General appearance: PRESENT: no acute distress, cooperative, thin Head exam: PRESENT: atraumatic, normocephalic Eye exam: PRESENT: conjunctiva pink Mouth exam: PRESENT: moist Respiratory exam: PRESENT: crackles, unlabored. ABSENT: rales, rhonchi, tachypnea, wheezes Cardiovascular exam: PRESENT: RRR. ABSENT: diastolic murmur, rubs, systolic murmur GI/Abdominal exam: PRESENT: normal bowel sounds, soft, other - G-tube to suction draining green liquid, entry site on abdomen is clean and healed and nontender. ABSENT: distended, guarding, mass, organolmegaly, rebound, tenderness Rectal exam: PRESENT: deferred Extremities exam: ABSENT: pedal edema Neurological exam: PRESENT: alert, awake. ABSENT: oriented to person, oriented to place, oriented to time, oriented to situation Psychiatric exam: PRESENT: appropriate affect, normal mood Skin exam: PRESENT: dry, intact, warm Results Laboratory Results: 12/30/19 04:39 12/30/19 04:39 12/29/19 12/29/19 12/29/19 14:30 14:30 14:30 WBC 22.6 H RBC 5.22 Hgb 16.9 Hct 46.8 MCV 90 MCH 32.4 MCHC 36.1 H RDW 12.5 Plt Count 445 Seg Neutrophils % Not Reportable Sodium Cancelled Potassium Cancelled Chloride Cancelled Carbon Dioxide Cancelled Anion Gap Cancelled BUN Cancelled Creatinine Cancelled Est GFR ( Amer) Cancelled Est GFR (Non-Af Amer) Cancelled Glucose Cancelled Lactic Acid Calcium Cancelled Magnesium Total Bilirubin Cancelled AST Cancelled Alkaline Phosphatase Cancelled Total Protein Cancelled Albumin Cancelled Lipase Cancelled Urine Color MARTHA Urine Appearance SLIGHTLY-CLOUDY Urine pH 5.0 Ur Specific [place] 1.027 Urine Protein 100 H Urine Glucose (UA) NEGATIVE Urine Ketones NEGATIVE Urine Blood NEGATIVE Urine RBC (Auto) 2 12/29/19 12/29/19 12/29/19 14:50 15:40 17:50 WBC RBC Hgb Hct MCV MCH MCHC RDW Plt Count Seg Neutrophils % Sodium 126.9 L Potassium 4.4 Chloride 86 L Carbon Dioxide 25 Anion Gap 16 BUN 17 Creatinine 0.38 L Est GFR ( Amer) > 60 Est GFR (Non-Af Amer) Glucose 108 Lactic Acid 7.6 H 2.5 H Calcium 10.1 Magnesium Total Bilirubin 1.0 AST 42 Alkaline Phosphatase 70 Total Protein 7.7 Albumin 4.5 Lipase 75.4 Urine Color Urine Appearance Urine pH Ur Specific [place] Urine Protein Urine Glucose (UA) Urine Ketones Urine Blood Urine RBC (Auto) 12/29/19 12/30/19 12/30/19 18:20 04:39 04:39 WBC 15.7 H RBC 4.66 Hgb 15.0 Hct 40.8 MCV 88 MCH 32.3 MCHC 36.8 H RDW 12.3 Plt Count 333 Seg Neutrophils % Not Reportable Sodium 128.5 L Potassium 4.1 Chloride 86 L Carbon Dioxide 28 Anion Gap 15 BUN 14 Creatinine 0.45 L Est GFR ( Amer) > 60 Est GFR (Non-Af Amer) Glucose 121 H Lactic Acid Calcium 10.0 Magnesium 1.9 Total Bilirubin AST Alkaline Phosphatase Total Protein Albumin Lipase Urine Color Urine Appearance Urine pH Ur Specific [place] Urine Protein Urine Glucose (UA) Urine Ketones Urine Blood Urine RBC (Auto) 12/30/19 04:39 WBC RBC Hgb Hct MCV MCH MCHC RDW Plt Count Seg Neutrophils % Sodium 136.1 L Potassium 3.9 Chloride 95 L Carbon Dioxide 26 Anion Gap 15 BUN 20 Creatinine 0.52 Est GFR ( Amer) > 60 Est GFR (Non-Af Amer) Glucose 102 Lactic Acid Calcium 9.9 Magnesium Total Bilirubin AST Alkaline Phosphatase Total Protein Albumin Lipase Urine Color Urine Appearance Urine pH Ur Specific [place] Urine Protein Urine Glucose (UA) Urine Ketones Urine Blood Urine RBC (Auto) Impressions: Abdomen/Pelvis CT 12/29/19 13:30 IMPRESSION: Findings worrisome for small bowel obstruction Gastroesophageal reflux. Bilateral lung base infiltrates worrisome for aspiration pneumonia. Acute Abdomen Series 12/29/19 13:37 IMPRESSION: Small bowel obstruction. Abdomen X-Ray 12/30/19 00:00 IMPRESSION: Improved but persistent dilated small bowel loops measuring up to 3.5 cm. Persistent left lower lobe consolidation with air bronchograms. Assessment and Plan - Diagnosis (1) SBO (small bowel obstruction) Is this a current diagnosis for this admission?: Yes Plan: CT abdomen/pelvis consistent with high-grade bowel obstruction, also showed aspiration pneumonia General surgery consulted by ED N.p.o. Hold all oral medications G-tube still in place 12/29/2021 General surgery following, they wanted to try conservative measures and are not planning any immediate surgery Still high output from G-tube with green material, continues to be n.p.o. (2) Aspiration pneumonia Qualifiers: Aspiration pneumonia type: due to gastric secretions Laterality: bilateral Lung location: lower lobe of lung Qualified Code(s): J69.0 - Pneumonitis due to inhalation of food and vomit Is this a current diagnosis for this admission?: Yes Plan: Due to forceful vomiting from bowel obstruction Seen on CT Vancomycin/cefepime; has penicillin allergy per mother Blood cultures; has history of MRSA bacteremia in the past Bronchial hygiene, supplemental oxygen as needed 12/30/2019 WBC lower, tolerating antibiotics very well, continue these to complete 5 to 7 days total (3) Hyponatremia Is this a current diagnosis for this admission?: Yes Plan: Sodium less than 130 on admission Trend BMP daily Normal saline 12/30/2019 Sodium up to 136.1 after getting saline, continue given he is at risk for dehydration Trend BMP (4) Nausea and vomiting Qualifiers: Vomiting type: bilious vomiting Qualified Code(s): R11.14 - Bilious vomiting Is this a current diagnosis for this admission?: Yes Plan: Antiemetics No further vomiting after admission (5) Cerebral palsy Qualifiers: Cerebral palsy type: unspecified type Qualified Code(s): G80.9 - Cerebral palsy, unspecified Is this a current diagnosis for this admission?: Yes (6) Seizure disorder Is this a current diagnosis for this admission?: Yes Plan: While n.p.o., hold all AEDs Give Keppra IV twice daily in the meantime restart orals when able IV Ativan as needed for anxiety/agitation/seizure activity 12/29/2022 No seizures since admission while on IV Keppra - Time Time Spent with patient: 25-34 minutes Medications reviewed and adjusted accordingly: Yes - Inpatient Certification Medical Necessity: Significant Comorbidiites Make Outpatient Treatment Too Risky , Need Close Monitoring Due to Risk of Patient Decompensation, Need for IV Antibiotics, Risk of Complication if Not Cared For in Hospital, Risk of Diagnosis Which Will Require Inpatient Eval/Care/Monitoring
[2019-12-30] MEDS: NYSTATIN CREAM 15 GM TP SCH (19:31)
[2019-12-30 22:19] LABS: VANCOMYCIN,TROUGH 6.2 ug/mL (5.0-20.0)
[2019-12-31] MEDS: NORMAL SALINE 1000 ML 1,000 ML IV PRN ×2 (00:51→12:31)
[2019-12-31] MEDS: LORAZEPAM INJ 2 MG/1 ML VIAL IV PRN ×3 (00:52→23:33)
[2019-12-31] MEDS: VANCOMYCIN HCL 750 MG in DEXTROSE 5%-WATER 250 ML IV SCH (05:51)
[2019-12-31] MEDS: CEFEPIME 1 GM/D5W RTU 1 GM/50 ML RTUPB IV SCH ×2 (05:51→17:35)
[2019-12-31] MEDS: LEVETIRACETAM 500 MG/NACL-ISO 500 MG/100 ML RTUPB IV SCH ×2 (09:00→21:33)
[2019-12-31] MEDS: ENOXAPARIN SODIUM INJ 30 MG/0.3 ML DISP.SYRIN SUBCUT SCH (09:00)
[2019-12-31] MEDS: NYSTATIN CREAM 15 GM TP SCH ×2 (09:00→17:44)
--- NOTE | 2019-12-31 09:22 | RADIOLOGY REPORT (SQ) ---
EXAM DESCRIPTION: KUB/ABDOMEN (SINGLE VIEW) IMAGES COMPLETED DATE/TIME: 12/31/2019 8:42 am REASON FOR STUDY: sbo COMPARISON: 12/30/2019 NUMBER OF VIEWS: One view. TECHNIQUE: Supine radiographic image of the abdomen acquired. LIMITATIONS: None. FINDINGS: BOWEL GAS PATTERN: Pancreas caliber small bowel loops compared to previous. Contrast in t he left quadrant likely related to peg catheter. CALCIFICATIONS: No suspicious calcifications. SOFT TISSUES: No gross mass or suggestion of organomegaly. HARDWARE: None in the abdomen. BONES: No acute fracture. No worrisome bone lesions. OTHER: No other significant finding. IMPRESSION: Slight improvement. TECHNICAL DOCUMENTATION: JOB ID: [id number] 2010 [email or web address] All Rights Reserved Reading location - IP/workstation name: [email or web address]
--- NOTE | 2019-12-31 09:30 | PDOC PROGRESS REPORT ---
Subjective Progress Note for:: 12/31/19 Subjective:: 29-year-old male with multiple abdominal surgeries, now with evidence of small bowel obstruction on CT scan. Patient has his G-tube to suction at the moment. I will place the G-tube to gravity (to diminish his risk of damage to the gastric mucosa). The patient is awake and alert today. He is nonverbal. Per the nursing staff, he has not had a bowel movement overnight. The nursing staff reports that he has no significant complaints. He does not appear to have abdominal pain. He has not vomited. He does have bilious output from his gastrostomy. Reason For Visit: SBO ASPIRATION PNA VOMITING Physical Exam Vital Signs: Temp Pulse Resp BP Pulse Ox 98.9 F 103 H 16 112/74 97 12/31/19 08:05 12/31/19 08:05 12/31/19 08:05 12/31/19 08:05 12/31/19 08:05 Intake & Output 12/30/19 12/31/19 01/01/20 06:59 06:59 06:59 Intake Total 3050 1750 Output Total 1700 1325 Balance 1350 425 Weight 53.2 kg 53 kg General appearance: PRESENT: no acute distress, thin Head exam: PRESENT: atraumatic, normocephalic Eye exam: PRESENT: EOMI, PERRLA. ABSENT: scleral icterus Mouth exam: PRESENT: moist Neck exam: ABSENT: meningismus, tenderness, thyromegaly, tracheal deviation Respiratory exam: PRESENT: unlabored. ABSENT: chest wall tenderness, tachypnea, wheezes Cardiovascular exam: PRESENT: tachycardia - mild Pulses: PRESENT: normal radial pulses Vascular exam: PRESENT: normal capillary refill GI/Abdominal exam: PRESENT: soft, other - Gastrostomy in place. ABSENT: distended, guarding, tenderness Rectal exam: PRESENT: deferred Extremities exam: ABSENT: clubbing Neurological exam: PRESENT: alert, awake Psychiatric exam: ABSENT: agitated, anxious Skin exam: ABSENT: erythema, jaundice Results Laboratory Results: 12/30/19 04:39 12/30/19 21:29 12/30/19 21:29 Creatinine 0.56 Est GFR ( Amer) > 60 Impressions: Abdomen/Pelvis CT 12/29/19 13:30 IMPRESSION: Findings worrisome for small bowel obstruction Gastroesophageal reflux. Bilateral lung base infiltrates worrisome for aspiration pneumonia. Acute Abdomen Series 12/29/19 13:37 IMPRESSION: Small bowel obstruction. Abdomen X-Ray 12/30/19 00:00 IMPRESSION: Improved but persistent dilated small bowel loops measuring up to 3.5 cm. Persistent left lower lobe consolidation with air bronchograms. KUB X-Ray 12/31/19 00:00 IMPRESSION: Slight improvement. Assessment & Plan - Diagnosis (1) SBO (small bowel obstruction) Is this a current diagnosis for this admission?: Yes - Plan Summary Plan Summary: 29-year-old male with small bowel obstruction, seen on CT scan. His KUB this morning still shows dilated small bowel, without significant air in the colon. Continue with G-tube to gravity, in hopes that his small bowel obstruction will resolve conservatively. If no improvement is seen, the patient may require surgical intervention. Surgery will continue to follow this patient very closely with you. Repeat x-ray tomorrow.
--- NOTE | 2019-12-31 12:29 | PDOC PROGRESS REPORT ---
Subjective Progress Note for:: 12/31/19 Subjective:: 12/30/2019 Patient seems to be doing better today, notably white blood cell count is lower. Still has very high volume output from G-tube suction. Large amount of green mucus material coming out of it. General surgery plans conservative measures rather than taking patient back to surgery to avoid further development of adhesions. UA showed likely infection along with his pneumonia that he was admitted with. Blood and urine cultures are pending. He has not had any seizures since being put on IV Keppra while his oral medications are held. 12/31/2019 General surgery following, has now placed the G-tube to gravity instead of suction. Still no bowel movement, they are following actively in case patient needs surgery. Labs are pending. Patient seems to be doing well at baseline mentation and mood per mother. He is unable to voice complaints due to chronic mental disability. Reason For Visit: SBO ASPIRATION PNA VOMITING Physical Exam Vital Signs: Temp Pulse Resp BP Pulse Ox 98.9 F 105 H 18 119/80 96 12/31/19 08:05 12/31/19 12:06 12/31/19 12:06 12/31/19 12:06 12/31/19 12:06 Intake & Output 12/30/19 12/31/19 01/01/20 06:59 06:59 06:59 Intake Total 3050 1750 100 Output Total 1700 1325 Balance 1350 425 100 Weight 53.2 kg 53 kg General appearance: PRESENT: no acute distress, well-developed, well-nourished Head exam: PRESENT: atraumatic, normocephalic Eye exam: PRESENT: conjunctiva pink Mouth exam: PRESENT: moist Respiratory exam: PRESENT: clear to auscultation ashu. ABSENT: rales, rhonchi, wheezes Cardiovascular exam: PRESENT: RRR. ABSENT: diastolic murmur, rubs, systolic murmur GI/Abdominal exam: PRESENT: normal bowel sounds, soft, other - G-tube in place draining green fluid to gravity. ABSENT: distended, guarding, mass, or ganolmegaly, rebound, tenderness Rectal exam: PRESENT: deferred Extremities exam: ABSENT: pedal edema Neurological exam: PRESENT: alert, awake Psychiatric exam: PRESENT: appropriate affect, normal mood Skin exam: PRESENT: dry, intact, warm Results Laboratory Results: 12/30/19 04:39 12/30/19 12/31/19 21:29 09:48 Sodium Cancelled Potassium Cancelled Chloride Cancelled Carbon Dioxide Cancelled Anion Gap Cancelled BUN Cancelled Creatinine 0.56 Cancelled Est GFR ( Amer) > 60 Cancelled Est GFR (Non-Af Amer) Cancelled Glucose Cancelled Calcium Cancelled 12/29/19 14:30 Catheterized Urine Urine Culture - Final NO GROWTH 2 DAYS Impressions: Abdomen/Pelvis CT 12/29/19 13:30 IMPRESSION: Findings worrisome for small bowel obstruction Gastroesophageal reflux. Bilateral lung base infiltrates worrisome for aspiration pneumonia. Acute Abdomen Series 12/29/19 13:37 IMPRESSION: Small bowel obstruction. Abdomen X-Ray 12/30/19 00:00 IMPRESSION: Improved but persistent dilated small bowel loops measuring up to 3.5 cm. Persistent left lower lobe consolidation with air bronchograms. KUB X-Ray 12/31/19 00:00 IMPRESSION: Slight improvement. Assessment and Plan - Diagnosis (1) SBO (small bowel obstruction) Is this a current diagnosis for this admission?: Yes Plan: CT abdomen/pelvis consistent with high-grade bowel obstruction, also showed aspiration pneumonia General surgery consulted by ED N.p.o. Hold all oral medications G-tube still in place 12/29/2021 General surgery following, they wanted to try conservative measures and are not planning any immediate surgery Still high output from G-tube with green material, continues to be n.p.o. 12/30/2021 Still no bowel movement General surgery has placed G-tube to gravity instead of suction, following actively for surgical needs (2) Aspiration pneumonia Qualifiers: Aspiration pneumonia type: due to gastric secretions Laterality: bilateral Lung location: lower lobe of lung Qualified Code(s): J69.0 - Pneumonitis due to inhalation of food and vomit Is this a current diagnosis for this admission?: Yes Plan: Due to forceful vomiting from bowel obstruction Seen on CT Vancomycin/cefepime; has penicillin allergy per mother Blood cultures; has history of MRSA bacteremia in the past Bronchial hygiene, supplemental oxygen as needed 12/30/2019 WBC lower, tolerating antibiotics very well, continue these to complete 5 to 7 days total 12/31/2019 Continues to improve, breathing at/near baseline, lungs essentially clear Possible patient simply had aspiration pneumonitis rather than pneumonia which would appear approximately the same on lab values and imaging Continue antibiotics for total 5 days (3) Hyponatremia Is this a current diagnosis for this admission?: Yes Plan: Sodium less than 130 on admission Trend BMP daily Normal saline 12/30/2019 Sodium up to 136.1 after getting saline, continue given he is at risk for dehydration Trend BMP 12/31/2019 Resolved/resolving (4) Nausea and vomiting Qualifiers: Vomiting type: bilious vomiting Qualified Code(s): R11.14 - Bilious vomiting Is this a current diagnosis for this admission?: Yes (5) Cerebral palsy Qualifiers: Cerebral palsy type: unspecified type Qualified Code(s): G80.9 - Cerebral palsy, unspecified Is this a current diagnosis for this admission?: Yes (6) Seizure disorder Is this a current diagnosis for this admission?: Yes - Time Time Spent with patient: 25-34 minutes Medications reviewed and adjusted accordingly: Yes - Inpatient Certification Based on my medical assessment, after consideration of the patient's comorbidities, presenting symptoms, or acuity I expect that the services needed warrant INPATIENT care.: Yes I certify that my determination is in accordance with my understanding of Medicare's requirements for reasonable and necessary INPATIENT services [42 CFR 412.3e].: Yes Medical Necessity: Significant Comorbidiites Make Outpatient Treatment Too Risky, Need Close Monitoring Due to Risk of Patient Decompensation, Need For IV Fluids, Need for IV Antibiotics, Risk of Complication if Not Cared For in H ospital, Risk of Diagnosis Which Will Require Inpatient Eval/Care/Monitoring
[2019-12-31 12:30] LABS: ANION GAP 10 (5-19); BLOOD UREA NITROGEN 17 mg/dL (7-20); CARBON DIOXIDE 29 mmol/L (22-30); CHLORIDE 97 mmol/L (98-107); GLUCOSE 90 mg/dL (75-110); POTASSIUM 3.1 mmol/L (3.6-5.0)
[2019-12-31] MEDS: VANCOMYCIN HCL 1,500 MG in DEXTROSE 5%-WATER 250 ML IV SCH ×2 (13:45→21:33)
[2020-01-01] MEDS: CEFEPIME 1 GM/D5W RTU 1 GM/50 ML RTUPB IV SCH ×2 (06:07→17:08)
[2020-01-01] MEDS: VANCOMYCIN HCL 1,500 MG in DEXTROSE 5%-WATER 250 ML IV SCH ×3 (06:07→21:23)
[2020-01-01] MEDS: POTASSI CL 20 MEQ/50 ML RIDER 20 MEQ/50 ML RTUPB IV SCH ×2 (08:19→11:31)
[2020-01-01] MEDS: LORAZEPAM INJ 2 MG/1 ML VIAL IV PRN ×2 (08:19→21:23)
--- NOTE | 2020-01-01 09:30 | PDOC PROGRESS REPORT ---
Subjective Progress Note for:: 01/01/20 Subjective:: no changes according to mother thick mucous Reason For Visit: SBO ASPIRATION PNA VOMITING Physical Exam Vital Signs: Temp Pulse Resp BP Pulse Ox 97.8 F 55 L 24 H 113/75 99 01/01/20 07:57 01/01/20 07:57 01/01/20 08:53 01/01/20 07:57 01/01/20 07:57 Intake & Output 12/31/19 01/01/20 01/02/20 06:59 06:59 06:59 Intake Total 1800 1650 0 Output Total 1325 1285 Balance 475 365 0 Weight 53 kg 53.9 kg General appearance: PRESENT: mild distress Head exam: PRESENT: normocephalic Ear exam: PRESENT: normal external ear exam Mouth exam: PRESENT: moist Teeth exam: PRESENT: poor dentation Neck exam: PRESENT: full ROM Respiratory exam: PRESENT: crackles Cardiovascular exam: PRESENT: RRR Pulses: PRESENT: normal radial pulses, normal femoral pulses Vascular exam: PRESENT: normal capillary refill Breast: PRESENT: Normal GI/Abdominal exam: PRESENT: other - abd distended g-tube on graviity drainage + bs Rectal exam: PRESENT: deferred Gentrourinary exam: PRESENT: indwelling catheter Extremities exam: PRESENT: full ROM Musculoskeletal exam: PRESENT: full ROM Neurological exam: PRESENT: aphasic Psychiatric exam: PRESENT: appropriate affect Skin exam: PRESENT: dry Results Laboratory Results: 12/30/19 04:39 12/31/19 11:09 12/31/19 12/31/19 09:48 11:09 Sodium Cancelled 135.8 L Potassium Cancelled 3.1 L Chloride Cancelled 97 L Carbon Dioxide Cancelled 29 Anion Gap Cancelled 10 BUN Cancelled 17 Creatinine Cancelled 0.41 L Est GFR ( Amer) Cancelled > 60 Est GFR (Non-Af Amer) Cancelled Glucose Cancelled 90 Calcium Cancelled 9.0 12/29/19 14:30 Catheterized Urine Urine Culture - Final NO GROWTH 2 DAYS Impressions: Abdomen/Pelvis CT 12/29/19 13:30 IMPRESSION: Findings worrisome for small bowel obstruction Gastroesophageal reflux. Bilateral lung base infiltrates worrisome for aspiration pneumonia. Acute Abdomen Series 12/29/19 13:37 IMPRESSION: Small bowel obstruction. Abdomen X-Ray 12/30/19 00:00 IMPRESSION: Improved but persistent dilated small bowel loops measuring up to 3.5 cm. Persistent left lower lobe consolidation with air bronchograms. KUB X-Ray 12/31/19 00:00 IMPRESSION: Slight improvement. Assessment & Plan - Plan Summary Plan Summary: impression sbo s/p ex lap x5 in the past now with recurrent sbo cont consevative management.
[2020-01-01] MEDS: ENOXAPARIN SODIUM INJ 30 MG/0.3 ML DISP.SYRIN SUBCUT SCH (10:09)
[2020-01-01] MEDS: NYSTATIN CREAM 15 GM TP SCH ×2 (10:09→17:11)
[2020-01-01] MEDS: LEVETIRACETAM 500 MG/NACL-ISO 500 MG/100 ML RTUPB IV SCH ×2 (10:43→21:23)
[2020-01-01 13:58] LABS: VANCOMYCIN,TROUGH 10.2 ug/mL (5.0-20.0)
--- NOTE | 2020-01-01 14:41 | PDOC PROGRESS REPORT ---
Subjective Progress Note for:: 01/01/20 Subjective:: 12/30/2019 Patient seems to be doing better today, notably white blood cell count is lower. Still has very high volume output from G-tube suction. Large amount of green mucus material coming out of it. General surgery plans conservative measures rather than taking patient back to surgery to avoid further development of adhesions. UA showed likely infection along with his pneumonia that he was admitted with. Blood and urine cultures are pending. He has not had any seizures since being put on IV Keppra while his oral medications are held. 12/31/2019 General surgery following, has now placed the G-tube to gravity instead of suction. Still no bowel movement, they are following actively in case patient needs surgery. Labs are pending. Patient seems to be doing well at baseline mentation and mood per mother. He is unable to voice complaints due to chronic mental disability. 01/01/2020 Patient had some mild tachypnea this morning but very likely this was due to anxiety/agitation as his mother has stated he is starting to get more anxious that he is not home. She and the nurse will attempt to walk the patient around the unit today in order to help his bowels move. His mouth is been dry and having some thick saliva, I recommended to the nurse to give him some very small amounts of water and wetting sponges to help with this. Potassium low, replete IV as he is still n.p.o. Blood culture and urine culture negative. Reason For Visit: SBO ASPIRATION PNA VOMITING Physical Exam Vital Signs: Temp Pulse Resp BP Pulse Ox 98.2 F 95 16 111/95 H 92 01/01/20 11:37 01/01/20 11:37 01/01/20 11:37 01/01/20 11:37 01/01/20 11:37 Intake & Output 12/31/19 01/01/20 01/02/20 06:59 06:59 06:59 Intake Total 1800 1750 1364 Output Total 1325 1285 275 Balance 072 379 2693 Weight 53 kg 53.9 kg General appearance: PRESENT: no acute distress, well-developed, well-nourished Head exam: PRESENT: atraumatic, normocephalic Eye exam: PRESENT: conjunctiva pink Mouth exam: PRESENT: moist Respiratory exam: PRESENT: clear to auscultation ashu. ABSENT: rales, rhonchi, wheezes Cardiovascular exam: PRESENT: RRR. ABSENT: diastolic murmur, rubs, systolic murmur GI/Abdominal exam: PRESENT: normal bowel sounds, soft, other - G-tube in place draining small amount of green fluid to gravity. ABSENT: distended, guarding, mass, organolmegaly, rebound, tenderness Neurological exam: PRESENT: alert, awake. ABSENT: oriented to person, oriented to place, oriented to time, oriented to situation Psychiatric exam: PRESENT: appropriate affect, normal mood Skin exam: PRESENT: dry, intact, warm Results Laboratory Results: 12/30/19 04:39 01/01/20 13:17 01/01/20 13:17 Creatinine 0.30 L Est GFR ( Amer) > 60 Impressions: Abdomen/Pelvis CT 12/29/19 13:30 IMPRESSION: Findings worrisome for small bowel obstruction Gastroesophageal reflux. Bilateral lung base infiltrates worrisome for aspiration pneumonia. Acute Abdomen Series 12/29/19 13:37 IMPRESSION: Small bowel obstruction. Abdomen X-Ray 12/30/19 00:00 IMPRESSION: Improved but persistent dilated small bowel loops measuring up to 3.5 cm. Persistent left lower lobe consolidation with air bronchograms. KUB X-Ray 12/31/19 00:00 IMPRESSION: Slight improvement. Assessment and Plan - Diagnosis (1) SBO (small bowel obstruction) Is this a current diagnosis for this admission?: Yes Plan: CT abdomen/pelvis consistent with high-grade bowel obstruction, also showed aspiration pneumonia General surgery consulted by ED N.p.o. Hold all oral medications G-tube still in place 12/29/2021 General surgery following, they wanted to try conservative measures and are not planning any immediate surgery Still high output from G-tube with green material, continues to be n.p.o. 12/30/2021 Still no bowel movement General surgery has placed G-tube to gravity instead of suction, following actively for surgical needs 01/01/2020 No bowel movement, no flatus, good bowel sounds Mother nurse will try to walk patient to get bowels to move today. 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 Bronchial hygiene, supplemental oxygen as needed 12/30/2019 WBC lower, tolerating antibiotics very well, continue these to complete 5 to 7 days total 12/31/2019 Continues to improve, breathing at/near baseline, lungs essentially clear Possible patient simply had aspiration pneumonitis rather than pneumonia which would appear approximately the same on lab values and imaging Continue antibiotics for total 5 days 12/31/2021 Lungs essentially clear at this point Continue antibiotics to complete 5 days (3) Hyponatremia Is this a current diagnosis for this admission?: Yes (4) Nausea and vomiting Qualifiers: Vomiting type: bilious vomiting Qualified Code(s): R11.14 - Bilious vomiting Is this a current diagnosis for this admission?: Yes (5) Cerebral palsy Qualifiers: Cerebral palsy type: unspecified type Qualified Code(s): G80.9 - Cerebral palsy, unspecified Is this a current diagnosis for this admission?: Yes (6) Seizure disorder Is this a current diagnosis for this admission?: Yes - Time Time Spent with patient: 25-34 minutes Medications reviewed and adjusted accordingly: Yes - Inpatient Certification Based on my medical assessment, after consideration of the patient's comorbidities, presenting symptoms, or acuity I expect that the services needed warrant INPATIENT care.: Yes I certify that my determination is in accordance with my understanding of Medicare's requirements for reasonable and necessary INPATIENT services [42 CFR 412.3e].: Yes Medical Necessity: Significant Comorbidiites Make Outpatient Treatment Too Risky, Need Close Monitoring Due to Risk of Patient Decompensation, Need for IV Antibiotics, Risk of Complication if Not Cared For in Hospital, Risk of Diagnosis Which Will Require Inpatient Eval/Care/Monitoring
[2020-01-01] MEDS: NORMAL SALINE 1000 ML 1,000 ML IV PRN (17:12)
[2020-01-02] MEDS: LORAZEPAM INJ 2 MG/1 ML VIAL IV PRN ×4 (00:52→18:16)
[2020-01-02] MEDS: VANCOMYCIN HCL 1,500 MG in DEXTROSE 5%-WATER 250 ML IV SCH ×3 (06:06→22:18)
[2020-01-02] MEDS: CEFEPIME 1 GM/D5W RTU 1 GM/50 ML RTUPB IV SCH ×2 (06:06→18:17)
[2020-01-02 07:34] LABS: ANION GAP 8 (5-19); BLOOD UREA NITROGEN 4 mg/dL (7-20); CALCIUM 8.4 mg/dL (8.4-10.2); CARBON DIOXIDE 22 mmol/L (22-30); CHLORIDE 100 mmol/L (98-107); GLUCOSE 93 mg/dL (75-110); POTASSIUM 3.3 mmol/L (3.6-5.0)
[2020-01-02] MEDS ORDERED: POTASSI CL 20 MEQ/50 ML RIDER 20 MEQ/50 ML RTUPB IV SCH (08:30)
[2020-01-02] MEDS: LEVETIRACETAM 500 MG/NACL-ISO 500 MG/100 ML RTUPB IV SCH ×2 (09:34→21:50)
[2020-01-02] MEDS: NYSTATIN CREAM 15 GM TP SCH ×2 (09:34→18:17)
[2020-01-02] MEDS: ENOXAPARIN SODIUM INJ 30 MG/0.3 ML DISP.SYRIN SUBCUT SCH (09:35)
--- NOTE | 2020-01-02 09:48 | PDOC PROGRESS REPORT ---
Subjective Progress Note for:: 01/02/20 Subjective:: passed stool today Reason For Visit: SBO ASPIRATION PNA VOMITING Physical Exam Vital Signs: Temp Pulse Resp BP Pulse Ox 98.7 F 91 22 H 107/79 100 01/02/20 07:39 01/02/20 07:39 01/02/20 08:00 01/02/20 07:39 01/02/20 07:39 Intake & Output 01/01/20 01/02/20 01/03/20 06:59 06:59 06:59 Intake Total 1800 2100 300 Output Total 1285 2875 Balance 515 -775 300 Weight 53.9 kg 49 kg General appearance: PRESENT: no acute distress Head exam: PRESENT: normocephalic Eye exam: PRESENT: EOMI Mouth exam: PRESENT: moist Neck exam: PRESENT: full ROM Respiratory exam: PRESENT: clear to auscultation ashu Cardiovascular exam: PRESENT: RRR Pulses: PRESENT: normal femoral pulses, normal dorsalis pedis pul Vascular exam: PRESENT: normal capillary refill Breast: PRESENT: Normal GI/Abdominal exam: PRESENT: soft Extremities exam: PRESENT: full ROM Musculoskeletal exam: PRESENT: full ROM Neurological exam: PRESENT: alert Psychiatric exam: PRESENT: appropriate affect Skin exam: PRESENT: dry Results Laboratory Results: 12/30/19 04:39 01/02/20 07:00 01/01/20 01/02/20 13:17 07:00 Sodium 129.7 L Potassium 3.3 L Chloride 100 Carbon Dioxide 22 Anion Gap 8 BUN 4 L Creatinine 0.30 L 0.37 L Est GFR ( Amer) > 60 > 60 Glucose 93 Calcium 8.4 Impressions: Abdomen/Pelvis CT 12/29/19 13:30 IMPRESSION: Findings worrisome for small bowel obstruction Gastroesophageal reflux. Bilateral lung base infiltrates worrisome for aspiration pneumonia. Acute Abdomen Series 12/29/19 13:37 IMPRESSION: Small bowel obstruction. Abdomen X-Ray 12/30/19 00:00 IMPRESSION: Improved but persistent dilated small bowel loops measuring up to 3.5 cm. Persistent left lower lobe consolidation with air bronchograms. KUB X-Ray 12/31/19 00:00 IMPRESSION: Slight improvement. Assessment & Plan - Plan Summary Plan Summary: pt now passing stoo 'no further abd cramping will dc cuadra start tube feeds.
[2020-01-02] MEDS ORDERED: POTASSIUM CHLORIDE 20 MEQ PACKET PEG ONE (10:00)
--- NOTE | 2020-01-02 17:58 | PDOC PROGRESS REPORT ---
Subjective Progress Note for:: 01/02/20 Subjective:: 12/30/2019 Patient seems to be doing better today, notably white blood cell count is lower. Still has very high volume output from G-tube suction. Large amount of green mucus material coming out of it. General surgery plans conservative measures rather than taking patient back to surgery to avoid further development of adhesions. UA showed likely infection along with his pneumonia that he was admitted with. Blood and urine cultures are pending. He has not had any seizures since being put on IV Keppra while his oral medications are held. 12/31/2019 General surgery following, has now placed the G-tube to gravity instead of suction. Still no bowel movement, they are following actively in case patient needs surgery. Labs are pending. Patient seems to be doing well at baseline mentation and mood per mother. He is unable to voice complaints due to chronic mental disability. 01/01/2020 Patient had some mild tachypnea this morning but very likely this was due to anxiety/agitation as his mother has stated he is starting to get more anxious that he is not home. She and the nurse will attempt to walk the patient around the unit today in order to help his bowels move. His mouth is been dry and having some thick saliva, I recommended to the nurse to give him some very small amounts of water and wetting sponges to help with this. Potassium low, replete IV as he is still n.p.o. Blood culture and urine culture negative. 01/02/2020 Dockery catheter removed today per general surgery. Patient has been restarted on tube feedings and will be titrated up gradually as approved by general surgery. Discussed with the patient's mother and nursing today, okay to ambulate as long as he is stable on his feet and is assisted. Had a bowel movement last night, per mother he will have many more once he starts getting feeds again. Potassium is low, we will replete this. Reason For Visit: SBO ASPIRATION PNA VOMITING Physical Exam Vital Signs: Temp Pulse Resp BP Pulse Ox 97.6 F 107 H 19 122/69 97 01/02/20 15:33 01/02/20 15:33 01/02/20 15:33 01/02/20 15:33 01/02/20 15:33 Intake & Output 01/01/20 01/02/20 01/03/20 06:59 06:59 06:59 Intake Total 1800 2100 400 Output Total 1285 2875 750 Balance 515 -775 -350 Weight 53.9 kg 49 kg General appearance: PRESENT: no acute distress, well-developed, well-nourished Head exam: PRESENT: atraumatic, normocephalic Eye exam: PRESENT: conjunctiva pink Mouth exam: PRESENT: moist Respiratory exam: PRESENT: clear to auscultation ashu. ABSENT: rales, rhonchi, wheezes Cardiovascular exam: PRESENT: RRR. ABSENT: diastolic murmur, rubs, systolic murmur GI/Abdominal exam: PRESENT: normal bowel sounds, soft, other - G-tube in place. ABSENT: distended, guarding, mass, organolmegaly, rebound, tenderness Neurological exam: PRESENT: alert, awake Skin exam: PRESENT: dry, intact, warm Results Laboratory Results: 12/30/19 04:39 01/02/20 07:00 01/02/20 07:00 Sodium 129.7 L Potassium 3.3 L Chloride 100 Carbon Dioxide 22 Anion Gap 8 BUN 4 L Creatinine 0.37 L Est GFR ( Amer) > 60 Glucose 93 Calcium 8.4 Impressions: Abdomen/Pelvis CT 12/29/19 13:30 IMPRESSION: Findings worrisome for small bowel obstruction Gastroesophageal reflux. Bilateral lung base infiltrates worrisome for aspiration pneumonia. Acute Abdomen Series 12/29/19 13:37 IMPRESSION: Small bowel obstruction. Abdomen X-Ray 12/30/19 00:00 IMPRESSION: Improved but persistent dilated small bowel loops measuring up to 3.5 cm. Persistent left lower lobe consolidation with air bronchograms. KUB X-Ray 12/31/19 00:00 IMPRESSION: Slight improvement. Assessment and Plan - Diagnosis (1) SBO (small bowel obstruction) Is this a current diagnosis for this admission?: Yes Plan: CT abdomen/pelvis consistent with high-grade bowel obstruction, also showed a spiration pneumonia General surgery consulted by ED N.p.o. Hold all oral medications G-tube still in place 12/29/2021 General surgery following, they wanted to try conservative measures and are not planning any immediate surgery Still high output from G-tube with green material, continues to be n.p.o. 12/30/2021 Still no bowel movement General surgery has placed G-tube to gravity instead of suction, following actively for surgical needs 01/01/2020 No bowel movement, no flatus, good bowel sounds Mother nurse will try to walk patient to get bowels to move today. Surgery still following 01/02/2020 Having bowel movements finally, tube feeds restarted per general surgery (2) Aspiration pneumonia Qualifiers: Aspiration pneumonia type: due to gastric secretions Laterality: bilateral Lung location: lower lobe of lung Qualified Code(s): J69.0 - Pneumonitis due to inhalation of food and vomit Is this a current diagnosis for this admission?: Yes Plan: Due to forceful vomiting from bowel obstruction Seen on CT Vancomycin/cefepime; has penicillin allergy per mother Blood cultures; has history of MRSA bacteremia in the past Bronchial hygiene, supplemental oxygen as needed 12/30/2019 WBC lower, tolerating antibiotics very well, continue these to complete 5 to 7 days total 12/31/2019 Continues to improve, breathing at/near baseline, lungs essentially clear Possible patient simply had aspiration pneumonitis rather than pneumonia which would appear approximately the same on lab values and imaging Continue antibiotics for total 5 days 01/01/2020 Lungs essentially clear at this point Continue antibiotics to complete 5 days 01/02/2020 Lungs are clear, pneumonia likely resolved at this point if it even was pneumonia rather than aspiration pneumonitis Can likely stop antibiotics tomorrow to complete 5-day course (3) Hyponatremia Is this a current diagnosis for this admission?: Yes (4) Nausea and vomiting Qualifiers: Vomiting type: bilious vomiting Qualified Code(s): R11.14 - Bilious vomiting Is this a current diagnosis for this admission?: Yes (5) Cerebral palsy Qualifiers: Cerebral palsy type: unspecified type Qualified Code(s): G80.9 - Cerebral palsy, unspecified Is this a current diagnosis for this admission?: Yes (6) Seizure disorder Is this a current diagnosis for this admission?: Yes - Time Time Spent with patient: 25-34 minutes Medications reviewed and adjusted accordingly: Yes Anticipated discharge: Home - Inpatient Certification Based on my medical assessment, after consideration of the patient's comorbidities, presenting symptoms, or acuity I expect that the services needed warrant INPATIENT care.: Yes I certify that my determination is in accordance with my understanding of Medicare's requirements for reasonable and necessary INPATIENT services [42 CFR 412.3e].: Yes Medical Necessity: Significant Comorbidiites Make Outpatient Treatment Too Risky, Need Close Monitoring Due to Risk of Patient Decompensation, Need For IV Fluids, Risk of Complication if Not Cared For in Hospital, Risk of Diagnosis Which Will Require Inpatient Eval/Care/Monitoring
[2020-01-03] MEDS: LORAZEPAM INJ 2 MG/1 ML VIAL IV PRN ×2 (02:05→05:31)
[2020-01-03] MEDS: NORMAL SALINE 1000 ML 1,000 ML IV PRN (04:07)
[2020-01-03] MEDS: CEFEPIME 1 GM/D5W RTU 1 GM/50 ML RTUPB IV SCH (05:36)
[2020-01-03] MEDS: VANCOMYCIN HCL 1,500 MG in DEXTROSE 5%-WATER 250 ML IV SCH ×2 (06:47→13:34)
[2020-01-03 08:54] LABS: ABSOLUTE EOSINOPHILS # (AUTO) 0.3 10^3/uL (0.0-0.6); ABSOLUTE LYMPHOCYTES (AUTO) 1.5 10^3/uL (0.5-4.7); ABSOLUTE NEUT (AUTO) 7.3 10^3/uL (1.7-8.2); BASOPHILS % (AUTO) 0.4 % (0-2); EOSINOPHILS % (AUTO) 3.1 % (0-6); HEMATOCRIT 38.2 % (37.9-51.0); HEMOGLOBIN 14.2 g/dL (13.5-17.0); LYMPHOCYTES % (AUTO) 15.1 % (13-45); MEAN CORPUSCULAR HEMOGLOBIN 32.4 pg (27.0-33.4); MEAN CORPUSCULAR VOLUME 87 fl (80-97); MONOCYTES % (AUTO) 10.1 % (3-13); PLATELET COUNT 349 10^3/uL (150-450); RED BLOOD COUNT 4.38 10^6/uL (4.35-5.55); RED CELL DISTRIBUTION WIDTH 12.3 % (11.5-14.0); SEGMENTED NEUTROPHILS % (AUTO) 71.3 % (42-78); TOTAL CELLS COUNTED % (AUTO) 100 %; WHITE BLOOD COUNT 10.2 10^3/uL (4.0-10.5)
[2020-01-03 09:12] LABS: MEAN CORPUSCULAR HGB CONC 37.1 g/dL (32.0-36.0)
[2020-01-03] MEDS: LEVETIRACETAM 500 MG/NACL-ISO 500 MG/100 ML RTUPB IV SCH (09:15)
[2020-01-03 09:21] LABS: ANION GAP 12 (5-19); BLOOD UREA NITROGEN 3 mg/dL (7-20); CALCIUM 9.2 mg/dL (8.4-10.2); CARBON DIOXIDE 20 mmol/L (22-30); CHLORIDE 100 mmol/L (98-107); GLUCOSE 129 mg/dL (75-110); POTASSIUM 3.5 mmol/L (3.6-5.0)
[2020-01-03] MEDS: ENOXAPARIN SODIUM INJ 30 MG/0.3 ML DISP.SYRIN SUBCUT SCH (09:32)
[2020-01-03] MEDS: NYSTATIN CREAM 15 GM TP SCH (09:32)
--- NOTE | 2020-01-03 10:07 | PDOC PROGRESS REPORT ---
Subjective Progress Note for:: 01/03/20 Subjective:: This is a 29-year-old male admitted with a bowel obstruction. The patient is currently tolerating tube feeds and having bowel movements. His mother is present in the room this morning, and denies any difficulties with feeding. She reports that he looks and appears at baseline. She denies any fevers, chills, shortness of breath, abdominal or respiratory distress. Reason For Visit: SBO ASPIRATION PNA VOMITING Physical Exam Vital Signs: Temp Pulse Resp BP Pulse Ox 97.6 F 66 19 122/69 97 01/02/20 15:33 01/03/20 07:00 01/02/20 15:33 01/02/20 15:33 01/02/20 15:33 Intake & Output 01/02/20 01/03/20 01/04/20 06:59 06:59 06:59 Intake Total 3100 1550 Output Total 2875 750 Balance 225 800 Weight 49 kg 52.1 kg General appearance: PRESENT: no acute distress, cooperative Head exam: PRESENT: atraumatic, normocephalic Eye exam: PRESENT: EOMI. ABSENT: scleral icterus Neck exam: ABSENT: meningismus, tracheal deviation, tracheostomy Respiratory exam: PRESENT: unlabored. ABSENT: tachypnea, wheezes Cardiovascular exam: ABSENT: tachycardia Pulses: PRESENT: normal radial pulses Vascular exam: PRESENT: normal capillary refill. ABSENT: pallor GI/Abdominal exam: PRESENT: soft, other - aguila button in-place. ABSENT: distended, tenderness Rectal exam: PRESENT: deferred Neurological exam: PRESENT: alert, awake Psychiatric exam: ABSENT: agitated Skin exam: ABSENT: cyanosis, erythema, jaundice Results Laboratory Results: 01/03/20 08:30 01/03/20 08:30 01/03/20 01/03/20 08:30 08:30 WBC 10.2 RBC 4.38 Hgb 14.2 Hct 38.2 MCV 87 MCH 32.4 MCHC 37.1 H RDW 12.3 Plt Count 349 Seg Neutrophils % 71.3 Sodium 131.8 L Potassium 3.5 L Chloride 100 Carbon Dioxide 20 L Anion Gap 12 BUN 3 L Creatinine 0.31 L Est GFR ( Amer) > 60 Glucose 129 H Calcium 9.2 Impressions: Abdomen/Pelvis CT 12/29/19 13:30 IMPRESSION: Findings worrisome for small bowel obstruction Gastroesophageal reflux. Bilateral lung base infiltrates worrisome for aspiration pneumonia. Acute Abdomen Series 12/29/19 13:37 IMPRESSION: Small bowel obstruction. Abdomen X-Ray 12/30/19 00:00 IMPRESSION: Improved but persistent dilated small bowel loops measuring up to 3.5 cm. Persistent left lower lobe consolidation with air bronchograms. KUB X-Ray 12/31/19 00:00 IMPRESSION: Slight improvement. Assessment & Plan - Diagnosis (1) SBO (small bowel obstruction) Is this a current diagnosis for this admission?: Yes - Plan Summary Plan Summary: This is a 29-year-old male admitted with a bowel obstruction. His bowel obstruction appears to have resolved. They have initiated tube feedings, which are going well. The mother reports that he is back to baseline. He is having bowel movements. At this time, no surgical intervention is planned. Disposition per medical team. Surgery will sign off at this time. Please renotify with any questions or concerns.
[2020-01-03 13:36] VITALS: BP 121/70
--- NOTE | 2020-01-03 18:28 | PDOC DISCHARGE SUMMARY ---
Impression - Admit/DC Date/PCP Admission Date/Primary Care Provider: 12/29/19 18:44 SAMIA MONTANO MD Discharge Date: 01/03/20 - Discharge Diagnosis (1) Aspiration pneumonia Is this a current diagnosis for this admission?: Yes (2) Cerebral palsy Is this a current diagnosis for this admission?: Yes (3) Hyponatremia Is this a current diagnosis for this admission?: Yes (4) Nausea and vomiting Is this a current diagnosis for this admission?: Yes (5) SBO (small bowel obstruction) Is this a current diagnosis for this admission?: Yes (6) Seizure disorder Is this a current diagnosis for this admission?: Yes - Assessment Summary: Patient was admitted to the hospital on 28 December with 1 day history of progressive severe vomiting. Patient has had this history before when he had a small bowel obstruction, This appears to have resulted in aspiration pneumonitis or pneumonia. Patient has a history for cerebral palsy, autism, seizure disorder, Tourette's syndrome, chronic G-tube since . According to the patient's mother he has had recurrent small bowel obstructions in the past and this is typically how he presents. She had a surgery consult the day of admission agreed this was probable small bowel obstruction, recent episode about 5 months ago that resolved with conservative measures. Patient has a G-tube in place for his feedings. He felt that this was likely due to adhesions with multiple prior laparotomies in the past. It was recommended to try conservative therapy first with decompression via G-tube fluid resuscitation, IV pain control and antibiotics for pneumonia. Fact patient did improve with conservative therapy. At the time of discharge patient was tolerating tube feedings and having bowel movements. Since mother who was in the room at the time of discharge stated that he was back to his baseline. Patient has had no fever chills shortness of breath or abdominal pain. Patient was cleared for discharge by surgery. The time of discharge I did call in Colace as well as Zofran use PRN. Patient is to follow-up with Dr. Montano in 5 to 10 days. Since mother is very well adapted taking care of her son, seems satisfied with him being discharged home today. Cultures and urine cultures were negative. Patient completed a 5-day course of antibiotics for probable pneumonitis. When patient was admitted his WBCs were 22.6 when he was discharged there were 10.2 Chemistry profile is normal Patient is medically stable for discharge - Additional Information Resuscitation Status: Full Code Discharge Diet: Tube Feeding (Comments), Other (Comments) Discharge Activity: Activity As Tolerated, Balance Activity w/Rest Referrals: SAMIA MONTANO MD [Primary Care Provider] - 01/16/20 10:00 am Prescriptions: Docusate Sodium [Colace 100 mg/10 ml Oral Soln] 5 ml PO BID #480 ml Ondansetron [Zofran Odt 4 mg Tablet] 4 mg PO Q6HP PRN 3 Days #12 tab.rapdis PRN Reason: For Nausea/Vomiting Home Medications: Carbamazepine [Tegretol Susp 200 mg/10 ml Udcup] 200 mg PEG BID 10/31/19 Clonazepam [Klonopin 1 mg Tablet] 1.5 mg PEG Q8HP PRN 10/31/19 Ibuprofen [Motrin 800 mg Tablet] 800 mg PEG Q8HP PRN 10/31/19 Lorazepam [Ativan] 2 mg PEG Q8HP PRN 10/31/19 Oxcarbazepine [Trileptal Susp 300 mg/5 ml 250 ml/Bottle] 600 mg PEG Q8 10/31/19 Acetaminophen [Tylenol 650 mg Supp] 650 mg MD Q4HP PRN supp.rect 01/03/20 Docusate Sodium [Colace 100 mg/10 ml Oral Soln] 5 ml PO BID #480 ml 01/03/20 Ondansetron [Zofran Odt 4 mg Tablet] 4 mg PO Q6HP PRN 3 Days #12 tab.rapdis 01/03/20 History of Present Illiness History of Present Illness: RASHI TOMPKINS is a 29 year old male Physical Exam Vital Signs: Temp Pulse Resp BP Pulse Ox 97.6 F 66 19 121/70 97 01/03/20 13:34 01/03/20 13:34 01/03/20 13:34 01/03/20 13:34 01/03/20 13:34 Intake & Output 01/02/20 01/03/20 01/04/20 06:59 06:59 06:59 Intake Total 3100 1550 100 Output Total 2875 750 Balance 225 800 100 Weight 49 kg 52.1 kg 52.1 kg Results Laboratory Results: WBC 10.2 10^3/uL (4.0-10.5) 01/03/20 08:30 RBC 4.38 10^6/uL (4.35-5.55) 01/03/20 08:30 Hgb 14.2 g/dL (13.5-17.0) 01/03/20 08:30 Hct 38.2 % (37.9-51.0) 01/03/20 08:30 MCV 87 fl (80-97) 01/03/20 08:30 MCH 32.4 pg (27.0-33.4) 01/03/20 08:30 MCHC 37.1 g/dL (32.0-36.0) H 01/03/20 08:30 RDW 12.3 % (11.5-14.0) 01/03/20 08:30 Plt Count 349 10^3/uL (150-450) 01/03/20 08:30 Lymph % (Auto) 15.1 % (13-45) 01/03/20 08:30 [place] % (Auto) 10.1 % (3-13) 01/03/20 08:30 Eos % (Auto) 3.1 % (0-6) 01/03/20 08:30 Baso % (Auto) 0.4 % (0-2) 01/03/20 08:30 Absolute Neuts (auto) 7.3 10^3/uL (1.7-8.2) 01/03/20 08:30 Absolute Lymphs (auto) 1.5 10^3/uL (0.5-4.7) 01/03/20 08:30 Absolute Monos (auto) 1.0 10^3/uL (0.1-1.4) 01/03/20 08:30 Absolute Eos (auto) 0.3 10^3/uL (0.0-0.6) 01/03/20 08:30 Absolute Basos (auto) 0.0 10^3/uL (0.0-0.2) 01/03/20 08:30 Total Counted 100 12/30/19 04:39 Seg Neutrophils % 71.3 % (42-78) 01/03/20 08:30 Seg Neuts % (Manual) 84 % (42-78) H 12/30/19 04:39 Band Neutrophils % 7 % (3-5) H 12/30/19 04:39 Lymphocytes % (Manual) 2 % (13-45) L 12/30/19 04:39 Atypical Lymphs % 1 % (0) 12/30/19 04:39 Monocytes % (Manual) 6 % (3-13) 12/30/19 04:39 Eosinophils % (Manual) 0 % (0-6) 12/30/19 04:39 Basophils % (Manual) 0 % (0-2) 12/30/19 04:39 Metamyelocytes % 9 % (0-1) H 12/29/19 14:30 Abs Neuts (Manual) 14.3 10^3/uL (1.7-8.2) H 12/30/19 04:39 Abs Lymphs (Manual) 0.5 10^3/uL (0.5-4.7) 12/30/19 04:39 Abs Monocytes (Manual) 0.9 10^3/uL (0.1-1.4) 12/30/19 04:39 Absolute Eos (Manual) 0.0 10^3/uL (0.0-0.6) 12/30/19 04:39 Abs Basophils (Manual) 0.0 10^3/uL (0.0-0.2) 12/30/19 04:39 Toxic Granulation SLIGHT 12/30/19 04:39 Toxic Vacuolation PRESENT 12/30/19 04:39 Large Platelets PRESENT 12/29/19 14:30 Platelet Comment ADEQUATE 12/30/19 04:39 Poikilocytosis SLIGHT 12/29/19 14:30 Ovalocytes SLIGHT 12/29/19 14:30 PT 14.9 SEC (11.4-15.4) 12/29/19 14:30 INR 1.16 12/29/19 14:30 APTT 29.5 SEC (23.5-35.8) 12/29/19 14:30 Sodium 131.8 mmol/L (137-145) L 01/03/20 08:30 Potassium 3.5 mmol/L (3.6-5.0) L 01/03/20 08:30 Chloride 100 mmol/L (98-107) 01/03/20 08:30 Carbon Dioxide 20 mmol/L (22-30) L 01/03/20 08:30 Anion Gap 12 (5-19) 01/03/20 08:30 BUN 3 mg/dL (7-20) L 01/03/20 08:30 Creatinine 0.31 mg/dL (0.52-1.25) L 01/03/20 08:30 Est GFR ( Amer) > 60 (>60) 01/03/20 08:30 Est GFR (Non-Af Amer) Cancelled 12/31/19 09:48 Est GFR (MDRD) Non-Af > 60 (>60) 01/03/20 08:30 Glucose 129 mg/dL (75-110) H 01/03/20 08:30 POC Glucose 90 mg/dL (70-110) 01/03/20 12:07 Lactic Acid 2.5 mmol/L (0.7-2.1) H 12/29/19 17:50 Calcium 9.2 mg/dL (8.4-10.2) 01/03/20 08:30 Magnesium 1.9 mg/dL (1.6-2.3) 12/30/19 04:39 Total Bilirubin 1.0 mg/dL (0.2-1.3) 12/29/19 15:40 Direct Bilirubin 0.0 mg/dL (0.0-0.4) 12/29/19 15:40 Neonat Total Bilirubin Not Reportable 12/29/19 15:40 Neonat Direct Bilirubin Not Reportable 12/29/19 15:40 Neonat Indirect Bili Not Reportable 12/29/19 15:40 AST 42 U/L (17-59) 12/29/19 15:40 ALT 37 U/L (<50) 12/29/19 15:40 Alkaline Phosphatase 70 U/L (38-126) 12/29/19 15:40 Total Protein 7.7 g/dL (6.3-8.2) 12/29/19 15:40 Albumin 4.5 g/dL (3.5-5.0) 12/29/19 15:40 Lipase 75.4 U/L (23-300) 12/29/19 15:40 EGFR Cancelled 12/31/19 09:48 Urine Color MARTHA 12/29/19 14:30 Urine Appearance SLIGHTLY-CLOUDY 12/29/19 14:30 Urine pH 5.0 (5.0-9.0) 12/29/19 14:30 Ur Specific [place] 1.027 12/29/19 14:30 Urine Protein 100 mg/dL (NEGATIVE) H 12/29/19 14:30 Urine Glucose (UA) NEGATIVE mg/dL (NEGATIVE) 12/29/19 14:30 Urine Ketones NEGATIVE mg/dL (NEGATIVE) 12/29/19 14:30 Urine Blood NEGATIVE (NEGATIVE) 12/29/19 14:30 Urine Nitrite (Reflex) NEGATIVE (NEGATIVE) 12/29/19 14:30 Urine Bilirubin SMALL (NEGATIVE) H 12/29/19 14:30 Urine Urobilinogen 4.0 mg/dL (<2.0) H 12/29/19 14:30 Leukocyte Esterase Rfl MODERATE (NEGATIVE) H 12/29/19 14:30 Urine RBC (Auto) 2 /HPF 12/29/19 14:30 Urine WBC (Reflex) 65 /HPF 12/29/19 14:30 Urine Mucus (Auto) RARE /LPF 12/29/19 14:30 Urine Ascorbic Acid NEGATIVE (NEGATIVE) 12/29/19 14:30 Time Trough Drawn 1317 01/01/20 13:17 Vancomycin Trough 10.2 ug/mL (5.0-20.0) 01/01/20 13:17 Carbamazepine 3.9 ug/mL (4.0-12.0) L 12/29/19 18:20 Slides for Path Review PATHOLOGIST REVIEWED 12/29/19 14:30 Impressions: Abdomen/Pelvis CT 12/29/19 13:30 IMPRESSION: Findings worrisome for small bowel obstruction Gastroesophageal reflux. Bilateral lung base infiltrates worrisome for aspiration pneumonia. Acute Abdomen Series 12/29/19 13:37 IMPRESSION: Small bowel obstruction. Abdomen X-Ray 12/30/19 00:00 IMPRESSION: Improved but persistent dilated small bowel loops measuring up to 3.5 cm. Persistent left lower lobe consolidation with air bronchograms. KUB X-Ray 12/31/19 00:00 IMPRESSION: Slight improvement. Stroke Is this a Stroke Patient?: No Acute Heart Failure - Is this a Heart Failure Patient?: No
== END 2020-01-03 14:21 | disposition home or self-care (01) | DRG 388 ==
LOC: ER 13:08 → EH 18:44 → 3W 20:35
PROVIDERS: ADMIT Internal Medicine; ATTEND Physician Assistant
DX: K56.51 Intestinal adhesions [bands], with partial obstruction (principal); J69.0 Pneumonitis due to inhalation of food and vomit; E87.1 Hypo-osmolality and hyponatremia; F84.0 Autistic disorder; G80.9 Cerebral palsy, unspecified; G40.909 Epilepsy, unspecified, not intractable, without status epilepticus; F95.2 Tourette's disorder; F32.9 Major depressive disorder, single episode, unspecified; Z93.1 Gastrostomy status; Z79.899 Other long term (current) drug therapy; Z88.6 Allergy status to analgesic agent; Z88.1 Allergy status to other antibiotic agents; Z88.3 Allergy status to other anti-infective agents; Z88.0 Allergy status to penicillin; Z88.8 Allergy status to other drugs, medicaments and biological substances; Z86.14 Personal history of Methicillin resistant Staphylococcus aureus infection
CPT/HCPCS: 36415; 74018; 74019; 74022; 74177; 80048; 80053; 80156; 80202; 81001; 82565; 82962; 83605; 83690; 83735; 85025; 85610; 85730; 87040; 87086; 96361; 96365; 96375; 99284; J0692; J1200; J1650; J1953; J2060; J2270; J2405; J2930; J3370; J3480; J3490; J7030; J7060

== ENCOUNTER 2020-04-27 20:17 | Inpatient (IN) | payer MEDICARE, MEDICAID ==
--- NOTE | 2020-04-27 21:31 | ER Document Report ---
ED General - General Chief Complaint: Vomiting Stated Complaint: POSSIBLE BOWEL OBSTRUCTION Time Seen by Provider: 04/27/20 20:45 Primary Care Provider: SAMIA MONTANO MD [Primary Care Provider] - Follow up as needed Notes: 29-year-old male with past medical history of cerebral palsy, non verbal, autism, asthma, seizure disorder, tourettes with a G-tube presenting with one day of vomiting and dark fluid being drained from his g tube. Was tolerating feedings until today. Last g tube placement was 2 months ago. States he has had multiple abdominal surgeries. Last time these symptoms occurred it was in December and patient had a SBO. Has had episodes of watery diarrhea today. Has had the occassional cough. No fevers, chills. TRAVEL OUTSIDE OF THE [place] IN LAST 30 DAYS: No - Related Data Allergies/Adverse Reactions: amoxicillin trihydrate [From Augmentin] Allergy (Mild, Verified 10/31/19 10:09) rash cefaclor [Cefaclor] Allergy (Mild, Verified 10/31/19 10:09) rash Penicillins Allergy (Mild, Verified 10/31/19 10:09) rash Potassium Clavulanate * [From Augmentin] Allergy (Mild, Verified 10/31/19 10:09) rash codeine Allergy (Verified 10/31/19 10:09) iodine Allergy (Verified 11/01/19 00:39) levofloxacin [From Levaquin] Allergy (Verified 11/01/19 00:37) Past Medical History - Social History Smoking Status: Never Smoker Family History: Reviewed & Not Pertinent - Past Medical History Cardiac Medical History: Denies: Hx Heart Attack, Hx Hypertension Pulmonary Medical History: Reports: Hx Pneumonia Denies: Hx Asthma, Hx Tuberculosis Neurological Medical History: Reports: Hx Seizures. Denies: Hx Cerebrovascular Accident Renal/ Medical History: Denies: Hx Peritoneal Dialysis GI Medical History: Denies: Hx Hepatitis, Hx Hiatal Hernia, Hx Ulcer Musculoskeletal Medical History: Reports Hx Muscle Spasm, Reports Hx Muscle Weakness, Reports Hx Musculoskeletal Deformity Psychiatric Medical History: Reports: Hx Depression Infectious Medical History: Reports: Hx MRSA. Denies: Hx Hepatitis Past Surgical History: Reports: Hx Abdominal Surgery - PEG Tube, multiple abdominal surgeries rt peg tube for scar tissue., Hx Appendectomy, Hx Open Heart Surgery - repair hole in heart, AN , Other - Exploratory laparotomy for small bowel obstructions. Gastrostomy tube. Denies: Hx Pacemaker - Immunizations Hx Diphtheria, Pertussis, Tetanus Vaccination: Yes Hx Pneumococcal Vaccination: 10/08/13 Review of Systems - Review of Systems -: Yes ROS unobtainable due to patient's medical condition Physical Exam - Vital signs Vitals: Temp Pulse Resp BP Pulse Ox 98.1 F 120 H 22 H 118/85 96 04/27/20 20:33 04/27/20 20:33 04/27/20 20:33 04/27/20 20:33 04/27/20 20:33 Interpretation: Tachycardic, Tachypneic. No: Febrile - Notes Notes: Limited due to patients medical condition Adult General: GENERAL: Alert, interacts well. No acute distress HEAD: Normocephalic, atraumatic EYES: Pupils equal, round and reactive to light. Extraocular movements intact. ENT: Oral mucosa moist, Airway patent. Nares patent. NECK: Full range of motion. Supple. Trachea midline. No lymphadenopathy. LUNGS: Clear to auscultation bilaterally, no wheezes, rales, or rhonchi. No respiratory distress. Nontender chest wall. HEART: tachycardic, No murmurs, rubs or gallops. ABDOMEN: Soft, nontender. mildly distended. (-) [place] sign. Decreased bowel sounds present in all 4 quadrants. No rebound, guarding or masses. G tube on left abdomen GENITOURINARY: Deferred EXTREMITIES: Moves all 4 extremities spontaneously. No edema, normal radial and dorsal pedis pulses bilaterally. No cyanosis. BACK: Moves all extremities with full range of motion. NEUROLOGICAL: Alert and active. Non verbal. Cranial nerves II through XII grossly intact. Strength 5/ 5 in all extremities. PSYCH: Normal affect, normal mood. SKIN: Warm, dry, normal turgor. No rashes or lesions noted. Course - Re-evaluation Re-evalutation: 04/27/20 21:52 I will go ahead and order a CT abdomen for patient. He does have brown drainage from G tube. This is new since today. Has not had any episodes of emesis at this time. Is in no acute distress at this time. 04/28/20 00:30 Continues to have brown discharge when pulled out from G tube. Oral contrast was inserted through the g tube. 1 1/[address] scan shows significantly dilated loops of small bowel with associated decompressed loops of small bowel concerning for small bowel obstruction and possible pneumonia. I called Dr. Rivers who agrees to come see the patient. 04/28/20 00:55 Dr. Rivers evaluated the patient. Believes patient has a c diff infection. Recommends patient being admitted and they will observe patient. 04/28/20 01:[address] Crews who is in agreeance with admission. Recommend additional fluids at this time 1L LR. No antibiotic recommended at this time. - Vital Signs Vital signs: Temp Pulse Resp BP Pulse Ox 98.1 F 120 H 72 H 118/85 96 04/27/20 20:33 04/27/20 20:33 04/27/20 20:33 04/27/20 20:33 04/27/20 20:33 - Laboratory Result Diagrams: 04/27/20 21:13 04/27/20 21:13 Laboratory results interpreted by me: 04/27/20 04/27/20 04/27/20 21:13 21:13 22:01 WBC 26.1 H RBC 5.60 H Hgb 17.4 H Plt Count 465 H Seg Neuts % (Manual) 85 H Band Neutrophils % 6 H Lymphocytes % (Manual) 2 L Abs Neuts (Manual) 23.8 H Abs Monocytes (Manual) 1.8 H VBG pH 7.48 H VBG pCO2 17.7 L* VBG HCO3 12.8 L Sodium 128.6 L Chloride 91 L Creatinine 0.50 L Glucose 139 H Calcium 10.7 H Total Protein 8.9 H Albumin 5.4 H Urine Protein Ur Leukocyte Esterase Urine Ascorbic Acid 04/28/20 00:07 WBC RBC Hgb Plt Count Seg Neuts % (Manual) Band Neutrophils % Lymphocytes % (Manual) Abs Neuts (Manual) Abs Monocytes (Manual) VBG pH VBG pCO2 VBG HCO3 Sodium Chloride Creatinine Glucose Calcium Total Protein Albumin Urine Protein 30 H Ur Leukocyte Esterase SMALL H Urine Ascorbic Acid 40 H Discharge - Discharge Clinical Impression: Nausea, Tachypnea, Tachycardia Condition: Serious Disposition: ADMITTED INPATIENT Admitting Provider: Mars (Hospitalist) Unit Admitted: Medical Floor Referrals: SAMIA MONTANO MD [Primary Care Provider] - Follow up as needed
[2020-04-27 21:40] LABS: HEMATOCRIT 49.9 % (37.9-51.0); HEMOGLOBIN 17.4 g/dL (13.5-17.0); MEAN CORPUSCULAR HEMOGLOBIN 31.1 pg (27.0-33.4); MEAN CORPUSCULAR HGB CONC 34.9 g/dL (32.0-36.0); MEAN CORPUSCULAR VOLUME 89 fl (80-97); PLATELET COUNT 465 10^3/uL (150-450); RED CELL DISTRIBUTION WIDTH 12.8 % (11.5-14.0); WHITE BLOOD COUNT 26.1 10^3/uL (4.0-10.5)
[2020-04-27 21:59] LABS: ALBUMIN 5.4 g/dL (3.5-5.0); ALKALINE PHOSPHATASE 92 U/L (38-126); ANION GAP 16 (5-19); ASPARTATE AMINO TRANSFERASE 36 U/L (17-59); BILIRUBIN,DIRECT 0.1 mg/dL (0.0-0.4); BILIRUBIN,TOTAL 0.8 mg/dL (0.2-1.3); BLOOD UREA NITROGEN 19 mg/dL (7-20); CALCIUM 10.7 mg/dL (8.4-10.2); CARBON DIOXIDE 22 mmol/L (22-30); CHLORIDE 91 mmol/L (98-107); GLUCOSE 139 mg/dL (75-110); POTASSIUM 4.5 mmol/L (3.6-5.0); TOTAL PROTEIN 8.9 g/dL (6.3-8.2)
[2020-04-27 22:05] LABS: ABSOLUTE LYMPHOCYTES# (MANUAL) 0.5 10^3/uL (0.5-4.7); ABSOLUTE MONOCYTES # (MANUAL) 1.8 10^3/uL (0.1-1.4); BAND NEUTROPHILS % (MANUAL) 6 % (3-5); BASOPHILS % (MANUAL) 0 % (0-2); EOSINOPHILS % (MANUAL) 0 % (0-6); LYMPHOCYTES % (MANUAL) 2 % (13-45); MONOCYTES % (MANUAL) 7 % (3-13); SEGMENTED NEUTROPHILS % (MAN) 85 % (42-78); TOTAL CELLS COUNTED 100
[2020-04-27 22:06] LABS: PLATELET COMMENT ADEQUATE; RBC MORPHOLOGY COMMENT NORMO-CYTIC/CHROMIC
--- NOTE | 2020-04-27 22:09 | RADIOLOGY REPORT (SQ) ---
EXAM DESCRIPTION: XR CHEST 1 VIEW COMPLETED DATE/TME: 04/27/2020 21:31 CLINICAL HISTORY: 29 years, Male, tachypneic COMPARISON: 01/28/2014 chest NUMBER OF VIEWS: 1 TECHNIQUE: Portable chest LIMITATIONS: None. FINDINGS: The heart size is normal. Surgical clips left upper quadrant. Scoliosis of the thoracic spine as before. Lungs are clear. No pneumothorax IMPRESSION: No acute cardiopulmonary process copyright 2010 [employer]- All Rights Reserved
[2020-04-27 22:12] LABS: VENOUS BLOOD BASE EXCESS -8.3 mmol/L; VENOUS BLOOD HCO3 12.8 mmol/L (20-32); VENOUS BLOOD PH 7.48 (7.30-7.42)
[2020-04-27 22:21] LABS: VENOUS BLOOD PCO2 17.7 mmHg (35-63)
[2020-04-27] MEDS ORDERED: NORMAL SALINE 1000 ML 1,000 ML IV ONE (22:30)
[2020-04-27] MEDS ORDERED: NORMAL SALINE 1000 ML 500 ML IV ONE (22:34)
--- NOTE | 2020-04-28 00:13 | RADIOLOGY REPORT (SQ) ---
EXAM DESCRIPTION: CT ABDOMEN PELVIS WITH IV CONTRAST COMPLETED DATE/TME: 04/27/2020 00:00 CLINICAL HISTORY: nausea, vomiting, concern for SBO COMPARISON: 12/29/2019 TECHNIQUE: CT of the abdomen and pelvis performed following IV administration of 62 mL Omnipaque 350. FINDINGS: Lung Bases: Left basilar opacity concerning for pneumonia. Bones: Scoliotic curvature of the visualized Abdomen: Liver thoracic and lumbar spine. The liver has normal size and density. No intrahepatic biliary dilatation. Gallbladder: No calcified gallstones. Spleen, Pancreas, and Adrenal Glands: The spleen, pancreas, and adrenal glands are unremarkable. Kidneys: No hydronephrosis or obstructing calculus. Nonobstructing superior pole left nephrolithiasis. Vasculature: The aorta and IVC have normal caliber and position. The portal vein is patent. The proximal visceral and renal arteries are patent. Stomach: Large hiatal hernia. Gastrostomy tube in place. Other: No free intraperitoneal air. No free fluid or lymphadenopathy. Pelvis: Bladder: Urinary bladder is unremarkable. Bowel: Dilated loops of small bowel throughout the abdomen with distally decompressed loops of small bowel and decompressed colon. Degenerative changes with is not identified on this study. Appendix: Not identified. Pelvis: Prostate is not enlarged. IMPRESSION: 1. Significantly dilated loops of small bowel with distally decompressed loops of small bowel and colon. Findings concerning for small bowel obstruction. Transition point is not identified on this study. 2. Left basilar airspace opacities concerning for pneumonia. 3. Nonobstructing left nephrolithiasis. This exam was performed according to our departmental dose-optimization program, which includes automated exposure control, adjustment of the mA and/or kV according to patient size and/or use of iterative reconstruction technique.
[2020-04-28 01:01] LABS: APPEARANCE,URINE CLEAR; BILIRUBIN,URINE NEGATIVE (NEGATIVE); COLOR,URINE YELLOW; GLUCOSE, URINE NEGATIVE (NEGATIVE); KETONES,URINE NEGATIVE (NEGATIVE); LEUKOCYTE ESTERASE,URINE SMALL (NEGATIVE); NITRITE,URINE NEGATIVE (NEGATIVE); PROTEIN,URINE 30 mg/dL (NEGATIVE); URINE SPECIFIC GRAVITY 1.047; UROBILINOGEN,URINE NEGATIVE mg/dL (<2.0)
[2020-04-28] MEDS ORDERED: RINGERS SOLUTION,LACTATED 1,000 ML IV ONE (01:20)
--- NOTE | 2020-04-28 01:25 | PDOC CONSULTATION ---
Consultation Consult Date: 04/28/20 Provider Consulted: JORGE HERRMANN Consult reason:: Dark drainage from G-tube and watery diarrhea History of Present Illness Admission Date/PCP: SAMIA MONTANO MD Patient complains of: Dark drainage from G-tube site and watery diarrhea History of Present Illness: RASHI TOMPKINS is a 29 year old male cerebral palsy, non verbal, autism, asthma, seizure disorder, tourettes. The mother reports that she fed her son twice today without problems. However, in the late afternoon the patient presented with dark drainage from the G-tube as well as several episodes of vomiting. Patient has a history of multiple abdominal surgeries done because of episodes of bowel obstruction approximately 4 surgery benign in the past. The patient has undergone G-tube placement 2 months ago.finally, the mother states that the patient has had similar symptoms last December, he presented this hospital, and was treated conservatively with a G-tube drainage and n.p.o. with resolution of the symptoms. Since the patient has been in the emergency room, after a CAT scan with oral contrast he has presented with about 4 bouts of watery diarrhea today. Past Medical History Cardiac Medical History: Denies: Myocardial Infarction, Hypertension Pulmonary Medical History: Reports: Pneumonia Denies: Asthma, Tuberculosis Neurological Medical History: Reports: Seizures GI Medical History: Denies: Hepatitis, Hiatal Hernia Psychiatric Medical History: Reports: Depression Hematology: Denies: Anemia, Sickle Cell Disease Infectious Medical History: Reports: Methicillin-Resistant Staph Aureus Past Surgical History Past Surgical History: Reports: Appendectomy, Other - Exploratory laparotomy for small bowel obstructions. Gastrostomy tube Denies: Pacemaker Social History Smoking Status: Never Smoker Frequency of Alcohol Use: None Hx Recreational Drug Use: No Hx Prescription Drug Abuse: No Family History Family History: Reviewed & Not Pertinent Parental Family History Reviewed: No Children Family History Reviewed: No Sibling(s) Family History Reviewed.: No Medication/Allergy Home Medications: Carbamazepine [Tegretol Susp 200 mg/10 ml Udcup] 200 mg PEG BID 10/31/19 Clonazepam [Klonopin 1 mg Tablet] 1.5 mg PEG Q8HP PRN 10/31/19 Ibuprofen [Motrin 800 mg Tablet] 800 mg PEG Q8HP PRN 20 Lorazepam [Ativan] 2 mg PEG Q8HP PRN 20 Oxcarbazepine [Trileptal Susp 300 mg/5 ml 250 ml/Bottle] 600 mg PEG Q8 10/31/19 Acetaminophen [Tylenol 650 mg Supp] 650 mg [place] Q4HP PRN supp.rect 01/03/20 Docusate Sodium [Colace 100 mg/10 ml Oral Soln] 5 ml PO BID #480 ml 01/03/20 Ondansetron [Zofran Odt 4 mg Tablet] 4 mg PO Q6HP PRN 3 Days #12 tab.rapdis 01/03/20 Allergies/Adverse Reactions: amoxicillin trihydrate [From Augmentin] Allergy (Mild, Verified 10/31/19 10:09) rash cefaclor [Cefaclor] Allergy (Mild, Verified 10/31/19 10:09) rash Penicillins Allergy (Mild, Verified 10/31/19 10:09) rash Potassium Clavulanate * [From Augmentin] Allergy (Mild, Verified 10/31/19 10:09) rash codeine Allergy (Verified 10/31/19 10:09) iodine Allergy (Verified 11/01/19 00:39) levofloxacin [From Levaquin] Allergy (Verified 11/01/19 00:37) Physical Exam Vital Signs: Temp Pulse Resp BP Pulse Ox 98.1 F 120 H 72 H 118/85 96 04/27/20 20:33 04/27/20 20:33 04/27/20 20:33 04/27/20 20:33 04/27/20 20:33 Intake & Output 04/26/20 04/27/20 04/28/20 06:59 06:59 06:59 Weight 53 kg General appearance: PRESENT: no acute distress, thin, other - Severely contracted and mentally delayed, unable to participate to any conversation Head exam: PRESENT: atraumatic Eye exam: PRESENT: EOMI, nystagmus Ear exam: PRESENT: normal external ear exam Mouth exam: PRESENT: dry mucosa, neck supple Teeth exam: PRESENT: poor dentation Respiratory exam: PRESENT: clear to auscultation ashu Cardiovascular exam: PRESENT: RRR, tachycardia Vascular exam: PRESENT: normal capillary refill GI/Abdominal exam: PRESENT: soft - Flat, not tender, not distended, hypoactive bowel sounds, no peritoneal signs, other - Multiple surgical scars along the midline as per previous laparotomies Rectal exam: PRESENT: deferred Musculoskeletal exam: PRESENT: deformity, other - Upper extremities severely contracted; however, he is able to occasionally extend his extremities Neurological exam: PRESENT: awake, aphasic, other - Contractures of upper extremities Skin exam: PRESENT: dry Results Laboratory Results: 04/27/20 21:13 04/27/20 21:13 04/27/20 04/27/20 04/27/20 21:13 21:13 21:13 WBC 26.1 H RBC 5.60 H Hgb 17.4 H Hct 49.9 MCV 89 MCH 31.1 MCHC 34.9 RDW 12.8 Plt Count 465 H Seg Neutrophils % Not Reportable VBG pH VBG pCO2 VBG HCO3 VBG Base Excess Sodium 128.6 L Potassium 4.5 Chloride 91 L Carbon Dioxide 22 Anion Gap 16 BUN 19 Creatinine 0.50 L Est GFR ( Amer) > 60 Glucose 139 H Calcium 10.7 H Magnesium Total Bilirubin 0.8 AST 36 Alkaline Phosphatase 92 Total Protein 8.9 H Albumin 5.4 H Lipase 84.8 TSH 0.57 04/27/20 04/27/20 21:13 22:01 WBC RBC Hgb Hct MCV MCH MCHC RDW Plt Count Seg Neutrophils % VBG pH 7.48 H VBG pCO2 17.7 L* VBG HCO3 12.8 L VBG Base Excess -8.3 Sodium Potassium Chloride Carbon Dioxide Anion Gap BUN Creatinine Est GFR ( Amer) Glucose Calcium Magnesium 2.2 Total Bilirubin AST Alkaline Phosphatase Total Protein Albumin Lipase TSH Impressions: Abdomen/Pelvis CT 04/27/20 00:00 IMPRESSION: 1. Significantly dilated loops of small bowel with distally decompressed loops of small bowel and colon. Findings concerning for small bowel obstruction. Transition point is not identified on this study. 2. Left basilar airspace opacities concerning for pneumonia. 3. Nonobstructing left nephrolithiasis. This exam was performed according to our departmental dose-optimization program, which includes automated exposure control, adjustment of the mA and/or kV according to patient size and/or use of iterative reconstruction technique. Chest X-Ray 04/27/20 21:31 IMPRESSION: No acute cardiopulmonary process copyright 2011 [employer]- All Rights Reserved Assessment & Plan - Diagnosis (1) ileus Is this a current diagnosis for this admission?: Yes (2) Mentally challenged Is this a current diagnosis for this admission?: Yes (3) Cerebral palsy Qualifiers: Cerebral palsy type: unspecified type Qualified Code(s): G80.9 - Cerebral palsy, unspecified (4) Nausea and vomiting Qualifiers: Vomiting type: bilious vomiting Qualified Code(s): R11.14 - Bilious vomiting - Plan Summary Plan Summary: Assessment: Patient with severe cerebral palsy, mentally challenged, and other neurological conditions Drainage of bilious content through the G-tube starting today Multiple episodes of vomiting today Watery diarrhea today after the administration of oral contrast for CT scan CT scan abdomen pelvis significant for dilatation of the small bowel with possible decompressed distal small bowel loop as per possible bowel obstruction Previous history of multiple abdominal operations for small bowel obstruction secondary to adhesions Status post recent G-tube placement (2 months ago) Leukocytosis (26,000), cause unknown Electrolyte abnormalities low sodium sodium and low potassium Abdomen soft not distended and not tender with multiple old surgical scars Plan: Due to the findings on physical exam, CT scan imaging, and history of vomiting with diarrhea tonight, I do not believe the patient suffers from acute episode of small bowel obstruction. Rather, the patient may have either an ileus secondary to unknown cause versus infectious enteritis or colitis. Both conditions can mimic a pattern of mechanical small bowel obstruction on CT scan. Following long conversation with the mother, she is not willing to have her son undergo any abdominal surgical intervention, as this might result in of her severely affected son. In addition, I do not believe the patient suffers from an acute small bowel obstruction as he has been stooling following administration of oral contrast after CAT scan I am recommending admission by the medical service for monitoring, drainage of G-tube by gravity, and administration of cathartics by mouth and per rectum to stimulate the intestine. No acute surgical intervention planned at this time. I will check on the patient tomorrow.
[2020-04-28] MEDS ORDERED: PROMETHAZINE HCL INJ 25 MG/1 ML VIAL IV PRN (01:58)
[2020-04-28] MEDS ORDERED: ONDANSETRON HCL INJ/PF 4 MG/2 ML SDV IV PRN (01:58)
[2020-04-28] MEDS ORDERED: RINGERS SOLUTION,LACTATED 1,000 ML IV PRN (01:58)
[2020-04-28] MEDS ORDERED: LORAZEPAM INJ 2 MG/1 ML VIAL IV PRN (02:04)
[2020-04-28] MEDS ORDERED: MORPHINE SULFATE 10 MG/ML INJ IV PRN ×4 (02:04→02:13)
--- NOTE | 2020-04-28 02:13 | RADIOLOGY REPORT (SQ) ---
ABDOMINAL RADIOGRAPHS: 04/28/2020 1:09 AM CDT COMPARISON: CT of abdomen and pelvis from 04/27/2020 TECHNIQUE: Upright and supine radiographs of the abdomen were obtained. HISTORY: 29-year old with abdominal pain. FINDINGS: There is a scoliotic curvature of the lumbar spine, convex to the left side. There is moderate gaseous distention of the visualized small bowel. A gastrostomy tube tip is seen over the left upper quadrant of the abdomen, likely at the stomach. There is contrast excretion noted at the left kidney and into the urinary bladder. There is mild left hydronephrosis present. No obvious contrast excretion is seen from the right kidney. No free air is seen beneath the hemidiaphragms. No abnormal intraabdominal calcifications are seen. There are no findings to suggest organomegaly. The visualized lung bases appear clear. IMPRESSION: There is moderate gaseous distention of the visualized bowel which may represent evidence of an obstruction or ileus. There is excretion of contrast from the left kidney. There is mild left hydronephrosis present. No obvious excretion is seen at the right kidney.
[2020-04-28] MEDS ORDERED: AZTREONAM INJ 1 GM VIAL IV SCH (02:15)
[2020-04-28] MEDS ORDERED: MAGNESIUM CITRATE 296 ML BOTTLE PO ONE (02:30)
[2020-04-28] MEDS ORDERED: DIAZEPAM INJ 10 MG/2 ML DISP.SYRIN IV PRN (03:27)
--- NOTE | 2020-04-28 04:13 | PDOC H&P ---
History of Present Illness Admission Date/PCP: 04/28/2020 01:27 SAMIA MONTANO MD Patient complains of: Vomiting History of Present Illness: RASHI TOMPKINS is a 29 year old male who presented to the emergency room with a one-day history of vomiting. Patient's mother escorts him and is his primary care provider as he has severe autism and cerebral palsy making it impossible for him to provide information to his history. His mother admits that he has been having abdominal pain and had 2 episodes of vomiting since 04/26/2020. She further admits that his gastrostomy tube drains dark fluid on aspiration. She also admits accompanying symptoms of 3 watery diarrhea stools in the emergency room and an associated occasional nonproductive cough for the last several days. She admits that he had similar symptoms in the past with small bowel obstructions. She has not identified any aggravating or ameliorating factors for his vomiting. In the emergency room he was found to have a white blood count of 26,000 with a left shift and was noted to have a CT scan showing a possible small bowel obstruction although the surgeon consulted by the ER provider did not feel that the patient had a small bowel obstruction upon his review. Patient was also noted to have hyponatremia. The patient's emesis was not tested for blood and no stool specimen had yet been obtained at the time of his admission. He was subsequently admitted to the hospital for further evaluation and treatment. Past Medical History Cardiac Medical History: Denies: Coronary Artery Disease, Hyperlipidema, Hypertension Pulmonary Medical History: Reports: Pneumonia Denies: Asthma, Chronic Obstructive Pulmonary Disease (COPD), Tuberculosis EENT Medical History: Denies: Cataracts, Ears - Hearing aids Neurological Medical History: Reports: Seizures, Other - Tourette's syndrome, cerebral palsy Denies: Multiple Sclerosis Endocrine Medical History: Denies: Diabetes Mellitus Type 1, Diabetes Mellitus Type 2, Hyperthyroidism, Hypothyroidism Renal/ Medical History: Denies: Chronic Kidney Disease, Nephrolithiasis GI Medical History: Reports: Other - Gastrostomy tube placed for feeding Denies: Cirrhosis, Crohn's Disease, Gastroesophageal Reflux Disease, Hepatitis, Hiatal Hernia, Peptic Ulcer Disease, Ulcerative Colitis Musculoskeltal Medical History: Denies: Arthritis, Gout Skin Medical History: Denies: Eczema, Psoriasis Psychiatric Medical History: Reports: Depression, Other - Autism Denies: Alcohol Dependency, Substance Abuse, Tobacco Dependency Traumatic Medical History: Reports: None Hematology: Denies: Anemia, Bleeding Tendencies Infectious Medical History: Reports: Methicillin-Resistant Staph Aureus Past Surgical History Past Surgical History: Reports: Appendectomy, Other - Exploratory laparotomy for small bowel obstructions. Gastrostomy tube. Social History Information Source: Relative, [facility] Records Lives with: Parents Smoking Status: Never Smoker Electronic Cigarette use?: No Frequency of Alcohol Use: None Hx Recreational Drug Use: No Drugs: None Hx Prescription Drug Abuse: No - Advance Directive Resuscitation Status: Full Code Surrogate healthcare decision maker:: Danita Tompkins Family History Family History: denies: CAD, DM, Hypertension, Malignancy Parental Family History Reviewed: Yes Children Family History Reviewed: No Sibling(s) Family History Reviewed.: No Medication/Allergy Home Medications: Carbamazepine [Tegretol Susp 200 mg/10 ml Udcup] 200 mg PEG BID 10/31/19 Clonazepam [Klonopin 1 mg Tablet] 1.5 mg PEG Q8HP PRN 10/31/19 Ibuprofen [Motrin 800 mg Tablet] 800 mg PEG Q8HP PRN 10/31/19 Lorazepam [Ativan] 2 mg PEG Q8HP PRN 10/31/19 Oxcarbazepine [Trileptal Susp 300 mg/5 ml 250 ml/Bottle] 600 mg PEG Q8 10/31/19 Acetaminophen [Tylenol 650 mg Supp] 650 mg [place] Q4HP PRN supp.rect 01/03/20 Docusate Sodium [Colace 100 mg/10 ml Oral Soln] 5 ml PO BID #480 ml 01/03/20 Ondansetron [Zofran Odt 4 mg Tablet] 4 mg PO Q6HP PRN 3 Days #12 tab.rapdis 01/03/20 Allergies/Adverse Reactions: amoxicillin trihydrate [From Augmentin] Allergy (Mild, Verified 10/31/19 10:09) rash cefaclor [Cefaclor] Allergy (Mild, Verified 10/31/19 10:09) rash Penicillins Allergy (Mild, Verified 10/31/19 10:09) rash Potassium Clavulanate * [From Augmentin] Allergy (Mild, Verified 10/31/19 10:09) rash codeine Allergy (Verified 10/31/19 10:09) iodine Allergy (Verified 11/01/19 00:39) levofloxacin [From Levaquin] Allergy (Verified 11/01/19 00:37) Review of Systems ROS unobtainable: Due to mental status - Severe cerebral palsy with autism and Tourette's syndrome Ears: ABSENT: hearing changes Physical Exam Vital Signs: Temp Pulse Resp BP Pulse Ox 98.1 F 120 H 72 H 118/85 96 04/27/20 20:33 04/27/20 20:33 04/27/20 20:33 04/27/20 20:33 04/27/20 20:33 Intake & Output 04/26/20 04/27/20 04/28/20 23:59 23:59 23:59 Intake Total 500 Balance 500 Weight 53 kg General appearance: PRESENT: no acute distress, cooperative Head exam: PRESENT: atraumatic, normocephalic Eye exam: PRESENT: conjunctiva pink. ABSENT: conjunctival injection, scleral icterus Ear exam: PRESENT: normal external ear exam. ABSENT: bleeding, drainage Mouth exam: PRESENT: dry mucosa, neck supple Neck exam: ABSENT: thyromegaly, tracheal deviation Respiratory exam: PRESENT: clear to auscultation ashu, symmetrical, tachypnea, unlabored Cardiovascular exam: PRESENT: RRR, tachycardia. ABSENT: clicks, gallop, rubs Pulses: PRESENT: normal radial pulses, normal dorsalis pedis pul Vascular exam: PRESENT: normal capillary refill. ABSENT: pallor GI/Abdominal exam: PRESENT: distended, hypoactive bowel sounds, soft Rectal exam: PRESENT: deferred Extremities exam: ABSENT: joint swelling, pedal edema Musculoskeletal exam: PRESENT: other - Marked thoracic scoliosis. ABSENT: deformity, dislocation Neurological exam: PRESENT: awake, CN II-XII grossly intact, other - Nonverbal Psychiatric exam: PRESENT: other - Unable to assess due to nonverbal state Skin exam: PRESENT: dry, intact, warm. ABSENT: jaundice, rash, urticaria Results Laboratory Results: 04/27/20 21:13 04/27/20 21:13 04/27/20 04/27/20 04/27/20 21:13 21:13 21:13 WBC 26.1 H RBC 5.60 H Hgb 17.4 H Hct 49.9 MCV 89 MCH 31.1 MCHC 34.9 RDW 12.8 Plt Count 465 H Seg Neutrophils % Not Reportable VBG pH VBG pCO2 VBG HCO3 VBG Base Excess Sodium 128.6 L Potassium 4.5 Chloride 91 L Carbon Dioxide 22 Anion Gap 16 BUN 19 Creatinine 0.50 L Est GFR ( Amer) > 60 Glucose 139 H Calcium 10.7 H Magnesium Total Bilirubin 0.8 AST 36 Alkaline Phosphatase 92 Total Protein 8.9 H Albumin 5.4 H Lipase 84.8 TSH 0.57 Urine Color Urine Appearance Urine pH Ur Specific [place] Urine Protein Urine Glucose (UA) Urine Ketones Urine Blood Urine Nitrite Ur Leukocyte Esterase Urine WBC (Auto) Urine RBC (Auto) 04/27/20 04/27/20 04/28/20 21:13 22:01 00:07 WBC RBC Hgb Hct MCV MCH MCHC RDW Plt Count Seg Neutrophils % VBG pH 7.48 H VBG pCO2 17.7 L* VBG HCO3 12.8 L VBG Base Excess -8.3 Sodium Potassium Chloride Carbon Dioxide Anion Gap BUN Creatinine Est GFR ( Amer) Glucose Calcium Magnesium 2.2 Total Bilirubin AST Alkaline Phosphatase Total Protein Albumin Lipase TSH Urine Color YELLOW Urine Appearance CLEAR Urine pH 6.0 Ur Specific [place] 1.047 Urine Protein 30 H Urine Glucose (UA) NEGATIVE Urine Ketones NEGATIVE Urine Blood NEGATIVE Urine Nitrite NEGATIVE Ur Leukocyte Esterase SMALL H Urine WBC (Auto) 6 Urine RBC (Auto) 2 Impressions: Abdomen/Pelvis CT 04/27/20 00:00 IMPRESSION: 1. Significantly dilated loops of small bowel with distally decompressed loops of small bowel and colon. Findings concerning for small bowel obstruction. Transition point is not identified on this study. 2. Left basilar airspace opacities concerning for pneumonia. 3. Nonobstructing left nephrolithiasis. This exam was performed according to our departmental dose-optimization program, which includes automated exposure control, adjustment of the mA and/or kV according to patient size and/or use of iterative reconstruction technique. Chest X-Ray 04/27/20 21:31 IMPRESSION: No acute cardiopulmonary process copyright 2010 [employer]- All Rights Reserved Assessment and Plan - Diagnosis (1) SBO (small bowel obstruction) Is this a current diagnosis for this admission?: Yes (2) Leukocytosis Qualifiers: Leukocytosis type: bandemia Qualified Code(s): D72.825 - Bandemia Is this a current diagnosis for this admission?: Yes (3) Nausea and vomiting Qualifiers: Vomiting type: bilious vomiting Qualified Code(s): R11.14 - Bilious vo miting Is this a current diagnosis for this admission?: Yes (4) Hyponatremia Is this a current diagnosis for this admission?: Yes (5) Tachycardia Is this a current diagnosis for this admission?: Yes (6) Seizure disorder Is this a current diagnosis for this admission?: Yes (7) Cerebral palsy Qualifiers: Cerebral palsy type: unspecified type Qualified Code(s): G80.9 - Cerebral palsy, unspecified Is this a current diagnosis for this admission?: Yes - Plan Summary Summary: Patient will be admitted to the medical floor he will receive routine supportive and symptomatic cares. He will be treated with IV fluids utilizing lactated Ringer solution at 167 mL/h after receiving a 1000 mL bolus in the ER. He will have stool C. difficile and gastric fluid occult blood evaluations performed. Serial lactic acid levels will be obtained. Blood and urine cultures will be obtained and patient will be started on empiric antibiotic therapy for SIRS. He will receive Ativan 1 mg IV every 4 hours as needed for restlessness or agitation. Surgical service has been consulted by the emergency room provider a nd will be asked to follow the patient. CBCs, metabolic profiles and laboratory and/or radiographic evaluations will be obtained as needed. - Time Time Spent with patient: Less than 15 minutes Medications reviewed and adjusted accordingly: Yes Anticipated Discharge Disposition: Home with Home Health Anticipated Discharge Timeframe: Undetermined - Inpatient Certification Based on my medical assessment, after consideration of the patient's comorbidities, presenting symptoms, or acuity I expect that the services needed warrant INPATIENT care.: Yes I certify that my determination is in accordance with my understanding of Medicare's requirements for reasonable and necessary INPATIENT services [42 CFR 412.3e].: Yes Medical Necessity: Significant Comorbidiites Make Outpatient Treatment Too Ri alberto, Need Close Monitoring Due to Risk of Patient Decompensation, Need For IV Fluids, Risk of Complication if Not Cared For in Hospital
[2020-04-28] MEDS ORDERED: AZTREONAM INJ 1 GM VIAL ONE (05:15)
[2020-04-28] MEDS ORDERED: LACOSAMIDE INJ/PF 200 MG/20 ML SDV IV SCH (06:00)
[2020-04-28] MEDS: HEPARIN SOD (PORCINE) 5,000 UNIT/ML 1 ML VIAL SUBCUT SCH ×3 (06:15→21:30)
[2020-04-28] MEDS: AZTREONAM 1 GM in DEXTROSE 5%-WATER 50 ML IV SCH ×3 (06:17→22:48)
[2020-04-28] MEDS ORDERED: NORMAL SALINE 1000 ML 1,000 ML IV ONE (08:09)
[2020-04-28] MEDS ORDERED: FAMOTIDINE INJ/PF 20 MG/2 ML SDV IV SCH (10:00)
[2020-04-28] MEDS ORDERED: AZITHROMYCIN 500 MG in DEXTROSE 5%-WATER 250 ML IV SCH (10:00)
--- NOTE | 2020-04-28 13:01 | PDOC PROGRESS REPORT ---
Subjective Progress Note for:: 04/28/20 Subjective:: Comfortable, no vomiting reported, no stools reported today Reason For Visit: SMALL BOWEL OBSTRUCTION, SIRS Physical Exam Vital Signs: Temp Pulse Resp BP Pulse Ox 97.7 F 119 H 12 113/74 92 04/28/20 09:00 04/28/20 09:00 04/28/20 09:00 04/28/20 09:00 04/28/20 09:00 Intake & Output 04/27/20 04/28/20 04/29/20 06:59 06:59 06:59 Intake Total 1500 1250 Output Total 1225 Balance 275 1250 Weight 53 kg General appearance: PRESENT: no acute distress, thin, other - Patient non- talkative, however he appears to be in no distress Respiratory exam: PRESENT: clear to auscultation ashu Cardiovascular exam: PRESENT: RRR GI/Abdominal exam: PRESENT: soft, other - Abdomen not distended, not tender Results Laboratory Results: 04/27/20 21:13 04/27/20 21:13 04/27/20 04/27/20 04/27/20 21:13 21:13 21:13 WBC 26.1 H RBC 5.60 H Hgb 17.4 H Hct 49.9 MCV 89 MCH 31.1 MCHC 34.9 RDW 12.8 Plt Count 465 H Seg Neutrophils % Not Reportable VBG pH VBG pCO2 VBG HCO3 VBG Base Excess Sodium 128.6 L Potassium 4.5 Chloride 91 L Carbon Dioxide 22 Anion Gap 16 BUN 19 Creatinine 0.50 L Est GFR ( Amer) > 60 Glucose 139 H Lactic Acid Calcium 10.7 H Magnesium Total Bilirubin 0.8 AST 36 Alkaline Phosphatase 92 Total Protein 8.9 H Albumin 5.4 H Lipase 84.8 TSH 0.57 Urine Color Urine Appearance Urine pH Ur Specific [place] Urine Protein Urine Glucose (UA) Urine Ketones Urine Blood Urine Nitrite Ur Leukocyte Esterase Urine WBC (Auto) Urine RBC (Auto) 04/27/20 04/27/20 04/28/20 21:13 22:01 00:07 WBC RBC Hgb Hct MCV MCH MCHC RDW Plt Count Seg Neutrophils % VBG pH 7.48 H VBG pCO2 17.7 L* VBG HCO3 12.8 L VBG Base Excess -8.3 Sodium Potassium Chloride Carbon Dioxide Anion Gap BUN Creatinine Est GFR ( Amer) Glucose Lactic Acid Calcium Magnesium 2.2 Total Bilirubin AST Alkaline Phosphatase Total Protein Albumin Lipase TSH Urine Color YELLOW Urine Appearance CLEAR Urine pH 6.0 Ur Specific [place] 1.047 Urine Protein 30 H Urine Glucose (UA) NEGATIVE Urine Ketones NEGATIVE Urine Blood NEGATIVE Urine Nitrite NEGATIVE Ur Leukocyte Esterase SMALL H Urine WBC (Auto) 6 Urine RBC (Auto) 2 04/28/20 04/28/20 05:55 11:20 WBC RBC Hgb Hct MCV MCH MCHC RDW Plt Count Seg Neutrophils % VBG pH VBG pCO2 VBG HCO3 VBG Base Excess Sodium Potassium Chloride Carbon Dioxide Anion Gap BUN Creatinine Est GFR ( Amer) Glucose Lactic Acid 2.1 1.3 Calcium Magnesium Total Bilirubin AST Alkaline Phosphatase Total Protein Albumin Lipase TSH Urine Color Urine Appearance Urine pH Ur Specific [place] Urine Protein Urine Glucose (UA) Urine Ketones Urine Blood Urine Nitrite Ur Leukocyte Esterase Urine WBC (Auto) Urine RBC (Auto) Impressions: Abdomen/Pelvis CT 04/27/20 00:00 IMPRESSION: 1. Significantly dilated loops of small bowel with distally decompressed loops of small bowel and colon. Findings concerning for small bowel obstruction. Transition point is not identified on this study. 2. Left basilar airspace opacities concerning for pneumonia. 3. Nonobstructing left nephrolithiasis. This exam was performed according to our departmental dose-optimization program, which includes automated exposure control, adjustment of the mA and/or kV according to patient size and/or use of iterative reconstruction technique. Chest X-Ray 04/27/20 21:31 IMPRESSION: No acute cardiopulmonary process copyright 2011 [employer]- All Rights Reserved Acute Abdomen Series 04/28/20 06:00 IMPRESSION: There is moderate gaseous distention of the visualized bowel which may represent evidence of an obstruction or ileus. There is excretion of contrast from the left kidney. There is mild left hydronephrosis present. No obvious excretion is seen at the right kidney. Assessment & Plan - Diagnosis (1) ileus Is this a current diagnosis for this admission?: Yes (2) Mentally challenged Is this a current diagnosis for this admission?: Yes (3) Cerebral palsy Qualifiers: Cerebral palsy type: unspecified type Qualified Code(s): G80.9 - Cerebral palsy, unspecified Is this a current diagnosis for this admission?: Yes (4) Nausea and vomiting Qualifiers: Vomiting type: bilious vomiting Qualified Code(s): R11.14 - Bilious vomiting Is this a current diagnosis for this admission?: Yes - Time Anticipated Discharge Disposition: Home, Self Care Anticipated Discharge Timeframe: within 72 hours - Plan Summary Plan Summary: Assessment: Hospital day #2 following admission for ileus and constipation Patient appears to be comfortable today Abdomen soft PEG tube output decreased to less than 30 mL's per shift Review of the abdominal obstructive series with the radiologist today reveals a pattern of chronic small bowel dilatation for several years, the current finding does not appear to be different from past abdominal x-rays Stools last night Plan: In agreement with hospice, I will start the patient on magnesium citrate via PEG tube If tolerated, the patient diet can be advanced tonight to clear liquids via PEG tube
[2020-04-28] MEDS: DIAZEPAM INJ 10 MG/2 ML DISP.SYRIN IV PRN (13:42)
--- NOTE | 2020-04-28 13:54 | EKG REPORT ---
SEVERITY:- ABNORMAL ECG - SINUS TACHYCARDIA BRYANT, CONSIDER BIATRIAL ABNORMALITIES LEFT POSTERIOR FASCICULAR BLOCK INFERIOR Q WAVES, PROBABLY NORMAL VARIATION : Confirmed by: Cong Hrerera 28-Apr-2020 13:53:51
[2020-04-28] MEDS: GLYCERIN (PEDIATRIC) SUPP.RECT PR SCH ×2 (14:27→22:49)
[2020-04-28] MEDS: MAGNESIUM CITRATE 296 ML BOTTLE PEG SCH (14:28)
[2020-04-28] MEDS ORDERED: GLYCERIN (ADULT) SUPP.RECT PR SCH (15:00)
--- NOTE | 2020-04-28 17:14 | PDOC PROGRESS REPORT ---
Subjective Progress Note for:: 04/28/20 Subjective:: The patient is a 29-year-old male with known autism and cerebral palsy, most of the information provided by his mother. History reviewed. Upon speaking to the mother she denies that the patient had diarrhea. Chief complaint complaint was vomiting and dark brown fluid draining him from his PEG tube. The abdomen done in the ED showed significantly dilated loops of small bowel with distally decompressed loops of small bowel and colon. Dr. Rivers reviewed the imaging with the radiologist and he stated that this is a chronic problem previously noted on prior CT. Dr. Rivers advised mag citrate no surgical intervention needed at this time. No recent seizure activity, his mother also noted redness around his groin area, and foul-smelling urine Reason For Visit: SMALL BOWEL OBSTRUCTION, SIRS Physical Exam Vital Signs: Temp Pulse Resp BP Pulse Ox 98.2 F 106 H 18 104/61 97 04/28/20 15:54 04/28/20 15:54 04/28/20 15:54 04/28/20 15:54 04/28/20 15:54 Intake & Output 04/27/20 04/28/20 04/29/20 06:59 06:59 06:59 Intake Total 1500 1250 Output Total 1225 Balance 275 1250 Weight 53 kg General appearance: PRESENT: no acute distress, other - Patient is at baseline nonverbal secondary to cerebral palsy Head exam: PRESENT: atraumatic, normocephalic Eye exam: PRESENT: EOMI, PERRLA. ABSENT: conjunctival injection Mouth exam: PRESENT: dry mucosa Neck exam: PRESENT: full ROM Respiratory exam: PRESENT: clear to auscultation ashu, symmetrical, unlabored. ABSENT: accessory muscle use, crackles Cardiovascular exam: PRESENT: RRR, +S1, +S2 - Normal GI/Abdominal exam: PRESENT: diminished bowel sounds, tenderness - Unable to assess if the abdomen is tender since the patient keeps his abdomen tense during the exam, other - PEG tube in place draining brownish fluid. ABSENT: distended Gentrourinary exam: PRESENT: scrotal swelling, other - Patient noted to have intertrigo on his groin. With erythema, swelling, not look concerning for necrotizing fasciitis, Extremities exam: PRESENT: other - Extremity changes distant with cerebral palsy Neurological exam: PRESENT: other - The patient is nonverbal at baseline secondary to cerebral palsy Results Laboratory Results: 04/27/20 21:13 04/27/20 21:13 04/27/20 04/27/20 04/27/20 21:13 21:13 21:13 WBC 26.1 H RBC 5.60 H Hgb 17.4 H Hct 49.9 MCV 89 MCH 31.1 MCHC 34.9 RDW 12.8 Plt Count 465 H Seg Neutrophils % Not Reportable VBG pH VBG pCO2 VBG HCO3 VBG Base Excess Sodium 128.6 L Potassium 4.5 Chloride 91 L Carbon Dioxide 22 Anion Gap 16 BUN 19 Creatinine 0.50 L Est GFR ( Amer) > 60 Glucose 139 H Lactic Acid Calcium 10.7 H Magnesium Total Bilirubin 0.8 AST 36 Alkaline Phosphatase 92 Total Protein 8.9 H Albumin 5.4 H Lipase 84.8 TSH 0.57 Urine Color Urine Appearance Urine pH Ur Specific [place] Urine Protein Urine Glucose (UA) Urine Ketones Urine Blood Urine Nitrite Ur Leukocyte Esterase Urine WBC (Auto) Urine RBC (Auto) 04/27/20 04/27/20 04/28/20 21:13 22:01 00:07 WBC RBC Hgb Hct MCV MCH MCHC RDW Plt Count Seg Neutrophils % VBG pH 7.48 H VBG pCO2 17.7 L* VBG HCO3 12.8 L VBG Base Excess -8.3 Sodium Potassium Chloride Carbon Dioxide Anion Gap BUN Creatinine Est GFR ( Amer) Glucose Lactic Acid Calcium Magnesium 2.2 Total Bilirubin AST Alkaline Phosphatase Total Protein Albumin Lipase TSH Urine Color YELLOW Urine Appearance CLEAR Urine pH 6.0 Ur Specific [place] 1.047 Urine Protein 30 H Urine Glucose (UA) NEGATIVE Urine Ketones NEGATIVE Urine Blood NEGATIVE Urine Nitrite NEGATIVE Ur Leukocyte Esterase SMALL H Urine WBC (Auto) 6 Urine RBC (Auto) 2 04/28/20 04/28/20 04/28/20 05:55 11:20 13:55 WBC RBC Hgb Hct MCV MCH MCHC RDW Plt Count Seg Neutrophils % VBG pH VBG pCO2 VBG HCO3 VBG Base Excess Sodium Potassium Chloride Carbon Dioxide Anion Gap BUN Creatinine Est GFR ( Amer) Glucose Lactic Acid 2.1 1.3 1.3 Calcium Magnesium Total Bilirubin AST Alkaline Phosphatase Total Protein Albumin Lipase TSH Urine Color Urine Appearance Urine pH Ur Specific [place] Urine Protein Urine Glucose (UA) Urine Ketones Urine Blood Urine Nitrite Ur Leukocyte Esterase Urine WBC (Auto) Urine RBC (Auto) Impressions: Abdomen/Pelvis CT 04/27/20 00:00 IMPRESSION: 1. Significantly dilated loops of small bowel with distally decompressed loops of small bowel and colon. Findings concerning for small bowel obstruction. Transition point is not identified on this study. 2. Left basilar airspace opacities concerning for pneumonia. 3. Nonobstructing left nephrolithiasis. This exam was performed according to our departmental dose-optimization program, which includes automated exposure control, adjustment of the mA and/or kV according to patient size and/or use of iterative reconstruction technique. Chest X-Ray 04/27/20 21:31 IMPRESSION: No acute cardiopulmonary process copyright 2011 [employer]- All Rights Reserved Acute Abdomen Series 04/28/20 06:00 IMPRESSION: There is moderate gaseous distention of the visualized bowel which may represent evidence of an obstruction or ileus. There is excretion of contrast from the left kidney. There is mild left hydronephrosis present. No obvious excretion is seen at the right kidney. Assessment and Plan - Diagnosis (1) SBO (small bowel obstruction) Is this a current diagnosis for this admission?: Yes Plan: -Has been admitted several times before due to small bowel obstruction last episode back in October treated conservatively -CT abdomen done in the ED showed dilated small bowel loops -WBC count 26,000, blood cultures pending. White count may be related to vomiting. Will monitor with daily CBC -Patient was started on aztreonam and azithromycin. Azithromycin switched to Flagyl -White count concerning for possible C. difficile however upon speaking to the mother she said he does not have diarrhea -Lactic acid 2.1 trended down to 1.3 -Surgery on board. Ordered mag citrate, continue antibiotics -PEG tube feeding discontinued for now, tube draining to gravity (2) Leukocytosis Qualifiers: Leukocytosis type: bandemia Qualified Code(s): D72.825 - Bandemia Is this a current diagnosis for this admission?: Yes Plan: - WBC 26,000. Concerning for C. difficile although the imaging finding is not consistent with C. difficile and the mother denies that he has diarrhea. Be reactive from his vomiting, still likely from small bowel obstruction. Pneumonia seen on CT not appreciated on chest x-ray -Doubt left lower lung opacity seen on CT is the source of his leukocytosis -Await blood culture -Continue antibiotics aztreonam and Flagyl (3) Intertrigo Is this a current diagnosis for this admission?: Yes Plan: -Noted on the groin area mild erythema no swelling unlikely the source of his high white count -Started on clotrimazole cream (4) Hyponatremia Is this a current diagnosis for this admission?: Yes (5) Cerebral palsy Qualifiers: Cerebral palsy type: unspecified type Qualified Code(s): G80.9 - Cerebral palsy, unspecified Is this a current diagnosis for this admission?: Yes Plan: -Patient is nonverbal. He is completely dependent to his mother (6) Seizure disorder Is this a current diagnosis for this admission?: Yes Plan: -Patient is on carbamazepine and oxcarbazepine for his seizures -No recent seizure episode -Both medications switch to Keppra while patient is not allowed anything per PEG tube -We will switch back to his usual medications once surgery okay - Plan Summary Summary: Patient will be admitted to the medical floor he will receive routine supportive and symptomatic cares. He will be treated with IV fluids utilizing lactated Ringer solution at 167 mL/h after receiving a 1000 mL bolus in the ER. He will have stool C. difficile and gastric fluid occult blood evaluations performed. Serial lactic acid levels will be obtained. Blood and urine cultures will be obtained and patient will be started on empiric antibiotic therapy for SIRS. He will receive Ativan 1 mg IV every 4 hours as needed for restlessness or agitation. Surgical service has been consulted by the emergency room provider and will be asked to follow the patient. CBCs, metabolic profiles and laboratory and/or radiographic evaluations will be obtained as needed. - Time Time Spent with patient: 15-24 minutes Anticipated Discharge Disposition: Home, Self Care Anticipated Discharge Timeframe: He determined - Inpatient Certification Based on my medical assessment, after consideration of the patient's comorbidities, presenting symptoms, or acuity I expect that the services needed warrant INPATIENT care.: Yes I certify that my determination is in accordance with my understanding of Medicare's requirements for reasonable and necessary INPATIENT services [42 CFR 412.3e].: Yes Medical Necessity: Need for IV Antibiotics
[2020-04-28] MEDS ORDERED: METRONIDAZOLE 500 MG/NS RTU 500 MG/100 ML RTUPB IV SCH (18:00)
[2020-04-28] MEDS: RINGERS SOLUTION,LACTATED 1,000 ML IV PRN (18:26)
[2020-04-28 20:07] LABS: C DIFFICILE GDH POSITIVE (NEGATIVE)
[2020-04-28] MEDS ORDERED: AZTREONAM INJ 1 GM VIAL IV PRN (20:31)
[2020-04-28] MEDS ORDERED: DIPHENHYDRAMINE HCL 50 MG/ML VIAL IV PRN (21:20)
[2020-04-28] MEDS: LEVETIRACETAM 500 MG/NACL-ISO 500 MG/100 ML RTUPB IV SCH (21:35)
[2020-04-28] MEDS ORDERED: LEVETIRACETAM 500 MG in NORMAL SALINE 100 ML IV SCH (22:00)
[2020-04-28] MEDS ORDERED: CLOTRIMAZOLE 1% CREAM 15 GM ONE (23:00)
[2020-04-28] MEDS: CLOTRIMAZOLE 1% CREAM 15 GM TP SCH (23:27)
[2020-04-29] MEDS: AZTREONAM 1 GM in DEXTROSE 5%-WATER 50 ML IV SCH ×3 (05:28→21:08)
[2020-04-29] MEDS: CLOTRIMAZOLE 1% CREAM 15 GM TP SCH ×3 (05:29→21:17)
[2020-04-29] MEDS: HEPARIN SOD (PORCINE) 5,000 UNIT/ML 1 ML VIAL SUBCUT SCH ×3 (05:29→21:08)
[2020-04-29 05:58] LABS: ABSOLUTE LYMPHOCYTES (AUTO) 0.7 10^3/uL (0.5-4.7); ABSOLUTE MONOCYTES (AUTO) 1.3 10^3/uL (0.1-1.4); ABSOLUTE NEUT (AUTO) 9.6 10^3/uL (1.7-8.2); BASOPHILS % (AUTO) 0.3 % (0-2); HEMATOCRIT 36.6 % (37.9-51.0); LYMPHOCYTES % (AUTO) 6.2 % (13-45); MEAN CORPUSCULAR HEMOGLOBIN 30.9 pg (27.0-33.4); MEAN CORPUSCULAR HGB CONC 34.6 g/dL (32.0-36.0); MEAN CORPUSCULAR VOLUME 89 fl (80-97); MONOCYTES % (AUTO) 10.9 % (3-13); PLATELET COUNT 268 10^3/uL (150-450); SEGMENTED NEUTROPHILS % (AUTO) 82.6 % (42-78); TOTAL CELLS COUNTED % (AUTO) 100 %; WHITE BLOOD COUNT 11.6 10^3/uL (4.0-10.5)
[2020-04-29 06:08] LABS: ALBUMIN 3.7 g/dL (3.5-5.0); ALKALINE PHOSPHATASE 52 U/L (38-126); ANION GAP 9 (5-19); ASPARTATE AMINO TRANSFERASE 33 U/L (17-59); BILIRUBIN,DIRECT 0.3 mg/dL (0.0-0.4); BILIRUBIN,TOTAL 0.8 mg/dL (0.2-1.3); BLOOD UREA NITROGEN 14 mg/dL (7-20); CALCIUM 8.5 mg/dL (8.4-10.2); CARBON DIOXIDE 26 mmol/L (22-30); CHLORIDE 100 mmol/L (98-107); GLUCOSE 104 mg/dL (75-110); POTASSIUM 3.7 mmol/L (3.6-5.0); TOTAL PROTEIN 6.3 g/dL (6.3-8.2)
[2020-04-29 06:20] LABS: HEMOGLOBIN 12.7 g/dL (13.5-17.0)
[2020-04-29] MEDS ORDERED: IPRATROPIUM/ALBUTEROL 0.5-2.5 MG/3 ML AMPUL NEB ONE (09:09)
[2020-04-29] MEDS ORDERED: FUROSEMIDE INJ/PF 20 MG/2 ML SDV IV ONE (09:09)
[2020-04-29] MEDS ORDERED: FUROSEMIDE INJ/PF 20 MG/2 ML SDV ONE (09:11)
[2020-04-29] MEDS ORDERED: IPRATROPIUM/ALBUTEROL 0.5-2.5 MG/3 ML AMPUL NEB PRN (09:25)
[2020-04-29] MEDS: GLYCERIN (PEDIATRIC) SUPP.RECT PR SCH ×2 (10:12→22:00)
[2020-04-29] MEDS: MAGNESIUM CITRATE 296 ML BOTTLE PEG SCH (10:12)
[2020-04-29] MEDS: LEVETIRACETAM 500 MG/NACL-ISO 500 MG/100 ML RTUPB IV SCH ×2 (10:37→21:11)
[2020-04-29] MEDS: PANTOPRAZOLE SODIUM 40 MG VIAL IV SCH (10:41)
--- NOTE | 2020-04-29 11:13 | RADIOLOGY REPORT (SQ) ---
EXAM DESCRIPTION: CHEST SINGLE VIEW IMAGES COMPLETED DATE/TIME: 04/29/2020 9:07 am REASON FOR STUDY: SOB COMPARISON: 04/27/2020 EXAM PARAMETERS: NUMBER OF VIEWS: One view. TECHNIQUE: Single frontal radiographic view of the chest acquired. RADIATION DOSE: NA LIMITATIONS: None. FINDINGS: LUNGS AND PLEURA: No opacities, masses or pneumothorax. No pleural effusion. MEDIASTINUM AND HILAR STRUCTURES: No masses. Contour normal. HEART AND VASCULAR STRUCTURES: Heart normal in size. Normal vasculature. BONES: Scoliotic curvature of the thoracolumbar spine, stable. HARDWARE: None in the chest. OTHER: None IMPRESSION: NO ACUTE RADIOGRAPHIC FINDING IN THE CHEST. TECHNICAL DOCUMENTATION: JOB ID: [id number] 2010 [employer]- All Rights Reserved Reading location - IP/workstation name: [email or web address]
--- NOTE | 2020-04-29 13:10 | PDOC PROGRESS REPORT ---
Subjective Progress Note for:: 04/29/20 Subjective:: Patient comfortable, without any discomfort, nonverbal but appears content, multiple stools reported by the nurses and the patient's mother Reason For Visit: SMALL BOWEL OBSTRUCTION, SIRS Physical Exam Vital Signs: Temp Pulse Resp BP Pulse Ox 97.9 F 98 24 H 118/74 92 04/29/20 07:33 04/29/20 09:32 04/29/20 09:32 04/29/20 06:47 04/29/20 09:32 Intake & Output 04/28/20 04/29/20 04/30/20 06:59 06:59 06:59 Intake Total 1500 2350 1200 Output Total 1225 Balance 275 2350 1200 Weight 53 kg 53 kg General appearance: PRESENT: no acute distress Respiratory exam: PRESENT: clear to auscultation ashu Cardiovascular exam: PRESENT: RRR GI/Abdominal exam: PRESENT: normal bowel sounds, soft Results Laboratory Results: 04/29/20 04:34 04/29/20 04:34 04/28/20 04/28/20 04/28/20 13:55 18:40 18:40 WBC RBC Hgb Hct MCV MCH MCHC RDW Plt Count Seg Neutrophils % Sodium Potassium Chloride Carbon Dioxide Anion Gap BUN Creatinine Est GFR ( Amer) Glucose Lactic Acid 1.3 Calcium Magnesium Total Bilirubin AST Alkaline Phosphatase Total Protein Albumin Stool for White Cells NO WBCs SEEN Stl C.difficile Tox PCR NEGATIVE 04/29/20 04/29/20 04:34 04:34 WBC 11.6 H RBC 4.10 L Hgb 12.7 L D Hct 36.6 L MCV 89 MCH 30.9 MCHC 34.6 RDW 13.0 Plt Count 268 Seg Neutrophils % 82.6 H Sodium 135.0 L Potassium 3.7 Chloride 100 Carbon Dioxide 26 Anion Gap 9 BUN 14 Creatinine 0.46 L Est GFR ( Amer) > 60 Glucose 104 Lactic Acid Calcium 8.5 Magnesium 2.7 H Total Bilirubin 0.8 AST 33 Alkaline Phosphatase 52 Total Protein 6.3 Albumin 3.7 Stool for White Cells Stl C.difficile Tox PCR Impressions: Abdomen/Pelvis CT 04/27/20 00:00 IMPRESSION: 1. Significantly dilated loops of small bowel with distally decompressed loops of small bowel and colon. Findings concerning for small bowel obstruction. Transition point is not identified on this study. 2. Left basilar airspace opacities concerning for pneumonia. 3. Nonobstructing left nephrolithiasis. This exam was performed according to our departmental dose-optimization program, which includes automated exposure control, adjustment of the mA and/or kV according to patient size and/or use of iterative reconstruction technique. Acute Abdomen Series 04/28/20 06:00 IMPRESSION: There is moderate gaseous distention of the visualized bowel which may represent evidence of an obstruction or ileus. There is excretion of contrast from the left kidney. There is mild left hydronephrosis present. No obvious excretion is seen at the right kidney. Chest X-Ray 04/29/20 00:00 IMPRESSION: NO ACUTE RADIOGRAPHIC FINDING IN THE CHEST. Assessment & Plan - Diagnosis (1) ileus Is this a current diagnosis for this admission?: Yes (2) Mentally challenged Is this a current diagnosis for this admission?: Yes (3) Cerebral palsy Qualifiers: Cerebral palsy type: unspecified type Qualified Code(s): G80.9 - Cerebral palsy, unspecified Is this a current diagnosis for this admission?: Yes (4) Nausea and vomiting Qualifiers: Vomiting type: bilious vomiting Qualified Code(s): R11.14 - Bilious vomiting Is this a current diagnosis for this admission?: Yes - Time Anticipated Discharge Disposition: Home, Self Care Anticipated Discharge Timeframe: As per hospitalist - Plan Summary Plan Summary: Assessment: Patient with cerebral palsy, mentally challenged, Tourette's syndrome, contractures of extremities Resolved ileus and constipation following administration of magnesium citrate and glycerin suppositories Multiple stools reported by the mother and the nurses Abdomen soft Most likely, the patient presents with a chronic narrowing of the small bowel which causes the patient to develop an ileus followed by constipation Plan: Continue current regimen of magnesium citrate until the patient colon is completely cleaned out Continue glycerin suppositories to stimulate the colon Nutrition recommend started via PEG tube as preadmission Patient will require home bowel regimen of a combination of MiraLAX, stool softeners, and glycerin suppositories. I do not recommend the use of fibers for the patient bowel regimen as these can cause a blockage in the area of narrowing of the small bowel I will sign off. Please call me back with questions
--- NOTE | 2020-04-29 19:49 | PDOC PROGRESS REPORT ---
Subjective Progress Note for:: 04/29/20 Subjective:: Patient was seen and examined at bedside. I was called by his nurse because he was tachypneic and desaturating to 88%. Exam showed that he has rales mid to base. He was given 1 dose of IV Lasix 40 mg, neb treatment. IV fluids stopped. He improved Reason For Visit: SMALL BOWEL OBSTRUCTION, SIRS Physical Exam Vital Signs: Temp Pulse Resp BP Pulse Ox 98.1 F 153 H 18 111/78 97 04/29/20 19:33 04/29/20 19:33 04/29/20 19:33 04/29/20 19:33 04/29/20 19:33 Intake & Output 04/28/20 04/29/20 04/30/20 06:59 06:59 06:59 Intake Total 1500 2350 1240 Output Total 1225 Balance 275 2350 1240 Weight 53 kg 53 kg General appearance: PRESENT: mild distress, other - The patient has cerebral palsy, non verbal at baseline Head exam: PRESENT: atraumatic, normocephalic Eye exam: PRESENT: EOMI, PERRLA Mouth exam: PRESENT: moist Teeth exam: PRESENT: dental caries Neck exam: ABSENT: JVD Respiratory exam: PRESENT: crackles, rhonchi, tachypnea Cardiovascular exam: PRESENT: +S1, +S2 - Normal, tachycardia GI/Abdominal exam: PRESENT: diminished bowel sounds, other - PEG tube feeding in place. ABSENT: distended, rebound Musculoskeletal exam: PRESENT: other - Extremities consistent with cerebral palsy Neurological exam: PRESENT: other - Nonverbal, he has coarse tremors consistent with his condition Skin exam: PRESENT: other - Eczema noted on the face, mild macular rash noted on torso which is non-urticarial Results Laboratory Results: 04/29/20 04:34 04/29/20 04:34 04/28/20 04/29/20 04/29/20 18:40 04:34 04:34 WBC 11.6 H RBC 4.10 L Hgb 12.7 L D Hct 36.6 L MCV 89 MCH 30.9 MCHC 34.6 RDW 13.0 Plt Count 268 Seg Neutrophils % 82.6 H Sodium 135.0 L Potassium 3.7 Chloride 100 Carbon Dioxide 26 Anion Gap 9 BUN 14 Creatinine 0.46 L Est GFR ( Amer) > 60 Glucose 104 Calcium 8.5 Magnesium 2.7 H Total Bilirubin 0.8 AST 33 Alkaline Phosphatase 52 Total Protein 6.3 Albumin 3.7 Stl C.difficile Tox PCR NEGATIVE Impressions: Abdomen/Pelvis CT 04/27/20 00:00 IMPRESSION: 1. Significantly dilated loops of small bowel with distally decompressed loops of small bowel and colon. Findings concerning for small bowel obstruction. Transition point is not identified on this study. 2. Left basilar airspace opacities concerning for pneumonia. 3. Nonobstructing left nephrolithiasis. This exam was performed according to our departmental dose-optimization program, which includes automated exposure control, adjustment of the mA and/or kV according to patient size and/or use of iterative reconstruction technique. Acute Abdomen Series 04/28/20 06:00 IMPRESSION: There is moderate gaseous distention of the visualized bowel which may represent evidence of an obstruction or ileus. There is excretion of contrast from the left kidney. There is mild left hydronephrosis present. No obvious excretion is seen at the right kidney. Chest X-Ray 04/29/20 00:00 IMPRESSION: NO ACUTE RADIOGRAPHIC FINDING IN THE CHEST. Assessment and Plan - Diagnosis (1) SBO (small bowel obstruction) Is this a current diagnosis for this admission?: Yes Plan: -Has been admitted several times before due to small bowel obstruction last episode back in October treated conservatively -CT abdomen done in the ED showed dilated small bowel loops -WBC count 26,000>11,000, blood cultures negative. White count may be related to vomiting. Will monitor with daily CBC -Patient was started on aztreonam -Lactic acid 2.1 trended down to 1.3 -Surgery on board. Ordered mag citrate, continue antibiotics -PEG tube feeding discontinued for now, tube draining to gravity (2) Leukocytosis Qualifiers: Leukocytosis type: bandemia Qualified Code(s): D72.825 - Bandemia Is this a current diagnosis for this admission?: Yes Plan: - WBC 26,000>11,000. -Doubt left lower lung opacity seen on CT is the source of his leukocytosis -blood culture negative x 1 -Continue antibiotics aztreonam (3) Intertrigo Is this a current diagnosis for this admission?: Yes Plan: -Noted on the groin area mild erythema no swelling unlikely the source of his high white count -Started on clotrimazole cream (4) Cerebral palsy Qualifiers: Cerebral palsy type: unspecified type Qualified Code(s): G80.9 - Cerebral palsy, unspecified Is this a current diagnosis for this admission?: Yes Plan: -Patient is nonverbal. He is completely dependent to his mother (5) Seizure disorder Is this a current diagnosis for this admission?: Yes Plan: -Patient is on carbamazepine and oxcarbazepine for his seizures -No recent seizure episode -Both medications switch to Keppra while patient is not allowed anything per PEG tube -We will switch back to his usual medications once surgery okay (6) Hypermagnesemia Is this a current diagnosis for this admission?: Yes Plan: - Likely secondary from mag citrate - Mg 2.7 - Plan Summary Summary: Patient will be admitted to the medical floor he will receive routine supportive and symptomatic cares. He will be treated with IV fluids utilizing lactated Ringer solution at 167 mL/h after receiving a 1000 mL bolus in the ER. He will have stool C. difficile and gastric fluid occult blood evaluations performed. Serial lactic acid levels will be obtained. Blood and urine cultures will be obtained and patient will be started on empiric antibiotic therapy for SIRS. He will receive Ativan 1 mg IV every 4 hours as needed for restlessness or agitat ion. Surgical service has been consulted by the emergency room provider and will be asked to follow the patient. CBCs, metabolic profiles and laboratory and/or radiographic evaluations will be obtained as needed. - Time Time Spent with patient: 15-24 minutes Medications reviewed and adjusted accordingly: Yes Anticipated Discharge Disposition: Home, Self Care Anticipated Discharge Timeframe: To be determined - Inpatient Certification Medical Necessity: Need for IV Antibiotics
[2020-04-29] MEDS: DIAZEPAM INJ 10 MG/2 ML DISP.SYRIN IV PRN (21:40)
[2020-04-29 22:01] LABS: ABSOLUTE MONOCYTES (AUTO) 0.9 10^3/uL (0.1-1.4); ABSOLUTE NEUT (AUTO) 5.2 10^3/uL (1.7-8.2); BASOPHILS % (AUTO) 0.2 % (0-2); EOSINOPHILS % (AUTO) 0.1 % (0-6); HEMATOCRIT 37.5 % (37.9-51.0); HEMOGLOBIN 13.1 g/dL (13.5-17.0); LYMPHOCYTES % (AUTO) 14.6 % (13-45); MEAN CORPUSCULAR HEMOGLOBIN 31.7 pg (27.0-33.4); MEAN CORPUSCULAR VOLUME 91 fl (80-97); MONOCYTES % (AUTO) 12.5 % (3-13); PLATELET COUNT 262 10^3/uL (150-450); RED BLOOD COUNT 4.14 10^6/uL (4.35-5.55); RED CELL DISTRIBUTION WIDTH 12.6 % (11.5-14.0); SEGMENTED NEUTROPHILS % (AUTO) 72.6 % (42-78); TOTAL CELLS COUNTED % (AUTO) 100 %; WHITE BLOOD COUNT 7.2 10^3/uL (4.0-10.5)
[2020-04-29] MEDS: ACETAMINOPHEN 650 MG SUPP.RECT PR PRN (22:15)
[2020-04-29 22:36] LABS: ARTERIAL BLOOD BASE EXCESS -15.9 mmol/L; ARTERIAL BLOOD HCO3 16.1 mmol/L (20-24); ARTERIAL BLOOD O2 SATURATION 74.8 % (94-98); ARTERIAL BLOOD PCO2 66.4 mmHg (35-45); ARTERIAL BLOOD PO2 58.9 mmHg (80-100); ARTERIAL BLOOD TOTAL CO2 18.1 mmol/L (23-27)
--- NOTE | 2020-04-29 22:44 | Progress Note ---
Provider Note Provider Note: Critical care: 04/29/2020 Critical care onset time: 21:05 Critical care issue: Seizure Patient was observed to be having an acute tonic-clonic seizure by myself when I responded to his mother's plea for help as she ran into the diaz. Decision was treated with IV Valium which resolved his seizure and he was given his IV Keppra dose early. Patient was noted to have noisy respirations and suctioning of the oropharynx did improve his tachypnea but he was noted to have coarse rales in the right chest. His tachypnea improved again after receiving a nebulizer therapy treatment. He was hypoxic and was initially treated with a nonrebreather mask but as his tachypnea improved his hypoxia also improved. He was also noted to be markedly tachycardic and his fever of 100.3 F axillary was treated with Tylenol and after this treatment in addition to those mentioned above his tachycardia significantly improved. Patient's general improvement is in large part due to the prompt and efficient care he received from the nursing staff and the respiratory therapist. A chest x-ray, a CBC and ABGs were obtained. The patient will be continued on his current therapeutic regiment. Critical care end time: 22:40 Total critical care time: 38 minutes
--- NOTE | 2020-04-29 22:49 | RADIOLOGY REPORT (SQ) ---
EXAM DESCRIPTION: XR CHEST 1 VIEW COMPLETED DATE/TME: 04/29/2020 00:00 CLINICAL HISTORY: 29 years, Male, resp distress COMPARISON: 04/29/2020 chest at 9:53 AM NUMBER OF VIEWS: 1 TECHNIQUE: Portal chest LIMITATIONS: None. FINDINGS: Heart size is normal. Marked dextroconvex scoliosis of the mid to lower thoracic spine. Airspace opacities in each lung base, new from prior. No pneumothorax. Surgical clips in the upper abdomen. IMPRESSION: Worsening airspace opacities in each lung base. copyright 2010 [facility] [employer]- All Rights Reserved
[2020-04-29 22:53] LABS: ARTERIAL BLOOD FIO2 15L
[2020-04-29 23:10] LABS: ALKALINE PHOSPHATASE 57 U/L (38-126); ANION GAP 18 (5-19); ASPARTATE AMINO TRANSFERASE 36 U/L (17-59); BILIRUBIN,DIRECT 0.1 mg/dL (0.0-0.4); BILIRUBIN,TOTAL 0.6 mg/dL (0.2-1.3); BLOOD UREA NITROGEN 16 mg/dL (7-20); CALCIUM 8.8 mg/dL (8.4-10.2); CARBON DIOXIDE 18 mmol/L (22-30); CHLORIDE 100 mmol/L (98-107); GLUCOSE 164 mg/dL (75-110); POTASSIUM 3.6 mmol/L (3.6-5.0); TOTAL PROTEIN 6.8 g/dL (6.3-8.2)
[2020-04-30] MEDS: ACETAMINOPHEN 650 MG SUPP.RECT PR PRN (04:53)
[2020-04-30] MEDS: AZTREONAM 1 GM in DEXTROSE 5%-WATER 50 ML IV SCH ×3 (05:11→21:13)
[2020-04-30] MEDS: HEPARIN SOD (PORCINE) 5,000 UNIT/ML 1 ML VIAL SUBCUT SCH ×3 (05:11→21:15)
[2020-04-30] MEDS: CLOTRIMAZOLE 1% CREAM 15 GM TP SCH ×3 (05:12→21:14)
[2020-04-30] MEDS: DIAZEPAM INJ 10 MG/2 ML DISP.SYRIN IV PRN (08:42)
[2020-04-30] MEDS: PANTOPRAZOLE SODIUM 40 MG VIAL IV SCH (10:10)
[2020-04-30] MEDS: LEVETIRACETAM 500 MG/NACL-ISO 500 MG/100 ML RTUPB IV SCH (10:11)
[2020-04-30] MEDS: GLYCERIN (PEDIATRIC) SUPP.RECT PR SCH ×2 (10:12→21:16)
[2020-04-30 11:34] LABS: ARTERIAL BLOOD BASE EXCESS -2.6 mmol/L; ARTERIAL BLOOD H2CO3 0.92 mmol/L (1.05-1.35); ARTERIAL BLOOD HCO3 20.6 mmol/L (20-24); ARTERIAL BLOOD O2 SATURATION 99.1 % (94-98); ARTERIAL BLOOD PCO2 30.7 mmHg (35-45); ARTERIAL BLOOD PH 7.44 (7.35-7.45); ARTERIAL BLOOD PO2 155.8 mmHg (80-100); ARTERIAL BLOOD TOTAL CO2 21.5 mmol/L (23-27)
[2020-04-30 11:36] LABS: ARTERIAL BLOOD FIO2 100%
[2020-04-30 12:01] LABS: ABSOLUTE LYMPHOCYTES (AUTO) 0.6 10^3/uL (0.5-4.7); ABSOLUTE MONOCYTES (AUTO) 0.6 10^3/uL (0.1-1.4); ABSOLUTE NEUT (AUTO) 7.6 10^3/uL (1.7-8.2); BASOPHILS % (AUTO) 0.1 % (0-2); HEMATOCRIT 36.9 % (37.9-51.0); HEMOGLOBIN 12.8 g/dL (13.5-17.0); LYMPHOCYTES % (AUTO) 6.8 % (13-45); MEAN CORPUSCULAR HEMOGLOBIN 31.7 pg (27.0-33.4); MEAN CORPUSCULAR HGB CONC 34.6 g/dL (32.0-36.0); MEAN CORPUSCULAR VOLUME 92 fl (80-97); MONOCYTES % (AUTO) 7.1 % (3-13); PLATELET COUNT 285 10^3/uL (150-450); RED BLOOD COUNT 4.03 10^6/uL (4.35-5.55); RED CELL DISTRIBUTION WIDTH 12.8 % (11.5-14.0); TOTAL CELLS COUNTED % (AUTO) 100 %; WHITE BLOOD COUNT 8.8 10^3/uL (4.0-10.5)
[2020-04-30 12:08] LABS: ALBUMIN 3.7 g/dL (3.5-5.0); ALKALINE PHOSPHATASE 51 U/L (38-126); ANION GAP 11 (5-19); ASPARTATE AMINO TRANSFERASE 35 U/L (17-59); BILIRUBIN,DIRECT 0.3 mg/dL (0.0-0.4); BILIRUBIN,TOTAL 0.6 mg/dL (0.2-1.3); BLOOD UREA NITROGEN 15 mg/dL (7-20); CALCIUM 8.8 mg/dL (8.4-10.2); CARBON DIOXIDE 20 mmol/L (22-30); CHLORIDE 109 mmol/L (98-107); GLUCOSE 103 mg/dL (75-110); POTASSIUM 3.7 mmol/L (3.6-5.0); TOTAL PROTEIN 6.6 g/dL (6.3-8.2)
[2020-04-30] MEDS: LEVETIRACETAM 1500 MG/NACL-ISO 1,500 MG/100 ML RTUPB IV SCH (18:08)
--- NOTE | 2020-04-30 20:45 | CDI QUERY ---
CDI Query CDI Review: We are seeking further clarification of documentation to reflect the severity of illness of your patient. SBO (small bowel obstruction) Is this a current diagnosis for this admission?: Yes Plan: -Has been admitted several times before due to small bowel obstruction last episode back in October treated conservatively -CT abdomen done in the ED showed dilated small bowel loops -WBC count 26,000>11,000, blood cultures negative. White count may be related to vomiting. Will monitor with daily CBC -Patient was started on aztreonam -Lactic acid 2.1 trended down to 1.3 -Surgery on board. Ordered mag citrate, continue antibiotics -PEG tube feeding discontinued for now, tube draining to gravity Based on your medical judgement, can you further clarify in the Progress Notes if the obstruction is: Partial Complete Incomplete Unable to determine Other Thank you for your consideration. DIRK MoonN RN Clinical [employer] Physician Advisor [email or web address]
--- NOTE | 2020-04-30 21:05 | PDOC PROGRESS REPORT ---
Subjective Progress Note for:: 04/30/20 Subjective:: The patient was seen and examined at bedside. With O2 pike. Per last nights sugar trucker notes, he had 1 episode of grand mal seizure, his first since he was 7 years old. He was given 1 dose of Valium which stopped the seizure. Keppra dose was given earlier. Reason For Visit: SMALL BOWEL OBSTRUCTION, SIRS Physical Exam Vital Signs: Temp Pulse Resp BP Pulse Ox 98.2 F 119 H 24 H 127/68 H 95 04/30/20 15:25 04/30/20 20:26 04/30/20 20:26 04/30/20 15:25 04/30/20 20:26 Intake & Output 04/29/20 04/30/20 05/01/20 06:59 06:59 06:59 Intake Total 2350 1340 200 Output Total 1 Balance 2350 1339 200 Weight 53 kg 53.1 kg General appearance: PRESENT: mild distress, other - Patient has cerebral palsy and is nonverbal at baseline Head exam: PRESENT: atraumatic, normocephalic Eye exam: PRESENT: EOMI, PERRLA Mouth exam: PRESENT: moist Respiratory exam: PRESENT: crackles, rhonchi, tachypnea, wheezes Cardiovascular exam: PRESENT: RRR, +S1, +S2 Pulses: PRESENT: normal radial pulses GI/Abdominal exam: PRESENT: diminished bowel sounds, distended, soft, tenderness. ABSENT: guarding, rebound Extremities exam: PRESENT: other - flapping hand movement that is chronic. Left wrist bent which per mom is not his normal Musculoskeletal exam: PRESENT: deformity, tenderness Neurological exam: PRESENT: other - nor verbal at baseline Skin exam: PRESENT: dry Results Laboratory Results: 04/30/20 09:24 04/30/20 09:24 04/29/20 04/29/20 04/29/20 21:15 22:15 22:48 WBC 7.2 RBC 4.14 L Hgb 13.1 L Hct 37.5 L MCV 91 MCH 31.7 MCHC 35.0 RDW 12.6 Plt Count 262 Seg Neutrophils % 72.6 Carbonic Acid 2.00 H HCO3/H2CO3 Ratio 8:1 ABG pH 7.00 L* ABG pCO2 66.4 H ABG pO2 58.9 L ABG HCO3 16.1 L ABG O2 Saturation 74.8 L ABG Base Excess -15.9 FiO2 15L Sodium 136.2 L Potassium 3.6 Chloride 100 Carbon Dioxide 18 L Anion Gap 18 BUN 16 Creatinine 0.64 Est GFR ( Amer) > 60 Glucose 164 H Lactic Acid Calcium 8.8 Total Bilirubin 0.6 AST 36 Alkaline Phosphatase 57 Total Protein 6.8 Albumin 4.0 04/30/20 04/30/20 04/30/20 09:24 09:24 09:24 WBC 8.8 RBC 4.03 L Hgb 12.8 L Hct 36.9 L MCV 92 MCH 31.7 MCHC 34.6 RDW 12.8 Plt Count 285 Seg Neutrophils % 86.0 H Carbonic Acid HCO3/H2CO3 Ratio ABG pH ABG pCO2 ABG pO2 ABG HCO3 ABG O2 Saturation ABG Base Excess FiO2 Sodium 139.5 Potassium 3.7 Chloride 109 H Carbon Dioxide 20 L Anion Gap 11 BUN 15 Creatinine 0.55 Est GFR ( Amer) > 60 Glucose 103 Lactic Acid 1.0 Calcium 8.8 Total Bilirubin 0.6 AST 35 Alkaline Phosphatase 51 Total Protein 6.6 Albumin 3.7 04/30/20 11:15 WBC RBC Hgb Hct MCV MCH MCHC RDW Plt Count Seg Neutrophils % Carbonic Acid 0.92 L HCO3/H2CO3 Ratio 22:1 ABG pH 7.44 ABG pCO2 30.7 L ABG pO2 155.8 H ABG HCO3 20.6 ABG O2 Saturation 99.1 H ABG Base Excess -2.6 FiO2 100% Sodium Potassium Chloride Carbon Dioxide Anion Gap BUN Creatinine Est GFR ( Amer) Glucose Lactic Acid Calcium Total Bilirubin AST Alkaline Phosphatase Total Protein Albumin Impressions: Abdomen/Pelvis CT 04/27/20 00:00 IMPRESSION: 1. Significantly dilated loops of small bowel with distally decompressed loops of small bowel and colon. Findings concerning for small bowel obstruction. Transition point is not identified on this study. 2. Left basilar airspace opacities concerning for pneumonia. 3. Nonobstructing left nephrolithiasis. This exam was performed according to our departmental dose-optimization program, which includes automated exposure control, adjustment of the mA and/or kV according to patient size and/or use of iterative reconstruction technique. Acute Abdomen Series 04/28/20 06:00 IMPRESSION: There is moderate gaseous distention of the visualized bowel which may represent evidence of an obstruction or ileus. There is excretion of contrast from the left kidney. There is mild left hydronephrosis present. No obvious excretion is seen at the right kidney. Chest X-Ray 04/29/20 00:00 IMPRESSION: Worsening airspace opacities in each lung base. copyright 2010 [employer] [facility] [employer]- All Rights Reserved Assessment and Plan - Diagnosis (1) Seizure disorder Is this a current diagnosis for this admission?: Yes Plan: -Patient is on carbamazepine and oxcarbazepine for his seizures -had 1 grand mal seizure 04/29/20. Trigger will likely be ongoing pneumonia and SBO - GULSHAN araiza spoke to his neurologist Isha Fong [phone] and she advised that if we cannot resume his usual seizure meds, maximize dose of keppra and change valium to ativan -We will switch back to his usual medications once surgery okay (2) SBO (small bowel obstruction) Is this a current diagnosis for this admission?: Yes Plan: -Has been admitted several times before due to small bowel obstruction last episode back in October treated conservatively -CT abdomen done in the ED showed dilated small bowel loops -WBC count 26,000>11,000, blood cultures negative. White count may be related to vomiting. Will monitor with daily CBC -Patient was started on aztreonam -Surgery on board. continue antibiotics. Per Dr. Rivers, patient is a poor surgical candidate - Mag citrate held due to elevated magnesium -PEG tube feeding discontinued for now, tube connected to low intermittent suc tion (3) Leukocytosis Qualifiers: Leukocytosis type: bandemia Qualified Code(s): D72.825 - Bandemia Is this a current diagnosis for this admission?: Yes Plan: - WBC 26,000>11,000>8.8 -repeat CXR worsening left lung opacities -blood culture negative x 2 days -Continue antibiotics aztreonam (4) Cerebral palsy Qualifiers: Cerebral palsy type: unspecified type Qualified Code(s): G80.9 - Cerebral palsy, unspecified Is this a current diagnosis for this admission?: Yes (5) Hypermagnesemia Is this a current diagnosis for this admission?: Yes (6) Abnormal ABGs Is this a current diagnosis for this admission?: Yes Plan: - one ABG result showed a pH of 7.0, pco2 66.4, Po2 58.9, HCO3 16, repeat ABG this morning 7.44, pco2 30.7, Po2 155.8 HCO3 20.6. Likely from grand mall seizure - Time Time Spent with patient: 15-24 minutes Medications reviewed and adjusted accordingly: Yes Anticipated Discharge Disposition: Home, Self Care Anticipated Discharge Timeframe: to be determined
[2020-04-30] MEDS: LORAZEPAM INJ 2 MG/1 ML VIAL IV PRN (21:13)
[2020-05-01] MEDS: LORAZEPAM INJ 2 MG/1 ML VIAL IV PRN (01:28)
[2020-05-01] MEDS: RINGERS SOLUTION,LACTATED 1,000 ML IV PRN (04:25)
[2020-05-01 06:02] LABS: ABSOLUTE NEUT (AUTO) 7.4 10^3/uL (1.7-8.2); BASOPHILS % (AUTO) 0.2 % (0-2); HEMATOCRIT 36.6 % (37.9-51.0); HEMOGLOBIN 12.6 g/dL (13.5-17.0); LYMPHOCYTES % (AUTO) 10.3 % (13-45); MEAN CORPUSCULAR HEMOGLOBIN 31.7 pg (27.0-33.4); MEAN CORPUSCULAR HGB CONC 34.5 g/dL (32.0-36.0); MEAN CORPUSCULAR VOLUME 92 fl (80-97); PLATELET COUNT 342 10^3/uL (150-450); RED BLOOD COUNT 3.98 10^6/uL (4.35-5.55); RED CELL DISTRIBUTION WIDTH 12.8 % (11.5-14.0); SEGMENTED NEUTROPHILS % (AUTO) 78.5 % (42-78); TOTAL CELLS COUNTED % (AUTO) 100 %; WHITE BLOOD COUNT 9.4 10^3/uL (4.0-10.5)
[2020-05-01 06:22] LABS: ALBUMIN 3.9 g/dL (3.5-5.0); ALKALINE PHOSPHATASE 54 U/L (38-126); ANION GAP 16 (5-19); ASPARTATE AMINO TRANSFERASE 39 U/L (17-59); BILIRUBIN,DIRECT 0.3 mg/dL (0.0-0.4); BILIRUBIN,TOTAL 0.8 mg/dL (0.2-1.3); BLOOD UREA NITROGEN 16 mg/dL (7-20); CARBON DIOXIDE 18 mmol/L (22-30); CHLORIDE 111 mmol/L (98-107); GLUCOSE 82 mg/dL (75-110); POTASSIUM 4.3 mmol/L (3.6-5.0); TOTAL PROTEIN 6.5 g/dL (6.3-8.2)
[2020-05-01] MEDS: HEPARIN SOD (PORCINE) 5,000 UNIT/ML 1 ML VIAL SUBCUT SCH ×3 (06:35→22:45)
[2020-05-01] MEDS: LEVETIRACETAM 1500 MG/NACL-ISO 1,500 MG/100 ML RTUPB IV SCH (06:38)
[2020-05-01] MEDS: CLOTRIMAZOLE 1% CREAM 15 GM TP SCH ×3 (06:39→22:45)
[2020-05-01] MEDS: AZTREONAM 1 GM in DEXTROSE 5%-WATER 50 ML IV SCH ×3 (07:15→22:36)
--- NOTE | 2020-05-01 08:32 | RADIOLOGY REPORT (SQ) ---
EXAM DESCRIPTION: HAND LEFT 2 VIEWS IMAGES COMPLETED DATE/TIME: 05/01/2020 1:50 am REASON FOR STUDY: left hand pain COMPARISON: None. EXAM PARAMETERS: NUMBER OF VIEWS: Two view. TECHNIQUE: AP and oblique radiographic images acquired of the left hand. LIMITATIONS: None. FINDINGS: MINERALIZATION: Normal. BONES: No acute fracture or dislocation. No worrisome bone lesions. No significant osteophytes. JOINTS: No erosions. No chung-articular osteopenia. No chondrocalcinosis. SOFT TISSUES: No swelling. No calcifications. OTHER: No other significant finding. IMPRESSION: NEGATIVE STUDY OF THE LEFT HAND. NO ACUTE POST-TRAUMATIC CHANGES. NO EXPLANATION FOR CHARLEY N. TECHNICAL DOCUMENTATION: JOB ID: [id number] 2010 [employer]- All Rights Reserved Reading location - IP/workstation name: [email or web address]
[2020-05-01] MEDS ORDERED: LORAZEPAM INJ 2 MG/1 ML VIAL IV PRN (09:16)
[2020-05-01] MEDS: GLYCERIN (PEDIATRIC) SUPP.RECT PR SCH ×2 (10:41→22:44)
[2020-05-01] MEDS: PANTOPRAZOLE SODIUM 40 MG VIAL IV SCH (10:55)
[2020-05-01] MEDS: OXCARBAZEPINE 300 MG/5 ML SUSP 250ML/BOTTLE PEG SCH ×2 (13:09→22:36)
[2020-05-01] MEDS: ACETAMINOPHEN 650 MG SUPP.RECT PR PRN (16:02)
[2020-05-01] MEDS ORDERED: AZITHROMYCIN 250 MG TABLET PO SCH (21:30)
--- NOTE | 2020-05-01 21:32 | PDOC PROGRESS REPORT ---
Subjective Progress Note for:: 05/01/20 Subjective:: Patient was seen and examined at bedside. According to her mom, no further seizure episode, had a fever, minimal drain on the PEG tube, no further episode of vomiting Reason For Visit: SMALL BOWEL OBSTRUCTION, SIRS Physical Exam Vital Signs: Temp Pulse Resp BP Pulse Ox 99.8 F 119 H 20 130/83 H 96 05/01/20 17:02 05/01/20 19:00 05/01/20 15:40 05/01/20 15:40 05/01/20 15:40 Intake & Output 04/30/20 05/01/20 05/02/20 06:59 06:59 06:59 Intake Total 1340 200 515 Output Total 1 300 Balance 1339 200 215 Weight 53.1 kg 48 kg 48 kg General appearance: PRESENT: other - patient has cerebral palsy and autism and is non verbal at baseline Head exam: PRESENT: atraumatic, normocephalic Eye exam: PRESENT: EOMI, PERRLA Mouth exam: PRESENT: moist Neck exam: ABSENT: JVD, lymphadenopathy Respiratory exam: PRESENT: crackles, rhonchi, symmetrical, unlabored Cardiovascular exam: PRESENT: RRR, +S1, +S2 Vascular exam: PRESENT: normal capillary refill GI/Abdominal exam: PRESENT: distended - Less distended, other - PEG tube with minimal drainage. ABSENT: guarding, rebound Rectal exam: PRESENT: deferred Extremities exam: PRESENT: other - chronic tremors seen on extremity, left wrist bent, no swelling, no tenderness Musculoskeletal exam: PRESENT: other - Findings consistent with cerebral palsy Neurological exam: PRESENT: alert, other - Patient has cerebral palsy nonverbal at baseline Results Laboratory Results: 05/01/20 04:54 05/01/20 04:54 05/01/20 05/01/20 04:54 04:54 WBC 9.4 RBC 3.98 L Hgb 12.6 L Hct 36.6 L MCV 92 MCH 31.7 MCHC 34.5 RDW 12.8 Plt Count 342 Seg Neutrophils % 78.5 H Sodium 144.6 Potassium 4.3 Chloride 111 H Carbon Dioxide 18 L Anion Gap 16 BUN 16 Creatinine 0.56 Est GFR ( Amer) > 60 Glucose 82 Calcium 9.0 Total Bilirubin 0.8 AST 39 Alkaline Phosphatase 54 Total Protein 6.5 Albumin 3.9 04/28/20 18:40 Stool - Stool - Final 04/28/20 18:40 Stool - Stool Stool Culture - Final NO SALMONELLA, SHIGELLA, CAMPYLOBACTER, OR E.COLI 0157 RECOVERED. NEGATIVE FOR SHIGA TOXINS 1&2. Impressions: Abdomen/Pelvis CT 04/27/20 00:00 IMPRESSION: 1. Significantly dilated loops of small bowel with distally decompressed loops of small bowel and colon. Findings concerning for small bowel obstruction. Transition point is not identified on this study. 2. Left basilar airspace opacities concerning for pneumonia. 3. Nonobstructing left nephrolithiasis. This exam was performed according to our departmental dose-optimization program, which includes automated exposure control, adjustment of the mA and/or kV according to patient size and/or use of iterative reconstruction technique. Acute Abdomen Series 04/28/20 06:00 IMPRESSION: There is moderate gaseous distention of the visualized bowel which may represent evidence of an obstruction or ileus. There is excretion of contrast from the left kidney. There is mild left hydronephrosis present. No obvious excretion is seen at the right kidney. Chest X-Ray 04/29/20 00:00 IMPRESSION: Worsening airspace opacities in each lung base. copyright 2010 [employer]- All Rights Reserved Hand X-Ray 05/01/20 00:00 IMPRESSION: NEGATIVE STUDY OF THE LEFT HAND. NO ACUTE POST-TRAUMATIC CHANGES. NO EXPLANATION FOR PAIN. Assessment and Plan - Diagnosis (1) SBO (small bowel obstruction) Is this a current diagnosis for this admission?: Yes Plan: -Has been admitted several times before due to small bowel obstruction last epi sode back in October treated conservatively -CT abdomen done in the ED showed dilated small bowel loops -WBC count 26,000>11,000, blood cultures negative. White count may be related to vomiting. Will monitor with daily CBC -Patient was started on aztreonam -Surgery on board. continue antibiotics. Per Dr. Rivers, patient is a poor surgical candidate - Mag citrate held due to elevated magnesium -Minimal drainage on PEG tube -Abdomen seems less distended today will try to resume PEG tube feeding and his seizure medications. (2) Seizure disorder Is this a current diagnosis for this admission?: Yes Plan: -Patient is on carbamazepine and oxcarbazepine for his seizures -had 1 grand mal seizure 04/29/20. Trigger will likely be ongoing pneumonia and SBO - GULSHAN araiza spoke to his neurologist Isha Fong [phone] and she advised that if we cannot resume his usual seizure meds, maximize dose of keppra and change valium to ativan -tube feeding and seizure medications resumed today. will monitor if he can tolerate - oxcarbazepine and carbamazepine reordered (3) Aspiration pneumonia Qualifiers: Aspiration pneumonia type: due to gastric secretions Laterality: bilateral Lung location: lower lobe of lung Qualified Code(s): J69.0 - Pneumonitis due to inhalation of food and vomit Is this a current diagnosis for this admission?: Yes Plan: -patient had a grand mal seizure 04/29 - ff.up XR showed worsening airspace opacities - continue aztreonam and azithro and O2 support - duoneb (4) Cerebral palsy Qualifiers: Cerebral palsy type: unspecified type Qualified Code(s): G80.9 - Cerebral palsy, unspecified Is this a current diagnosis for this admission?: Yes (5) Hypermagnesemia Is this a current diagnosis for this admission?: Yes (6) Leukocytosis Qualifiers: Leukocytosis type: bandemia Qualified Code(s): D72.825 - Bandemia Is this a current diagnosis for this admission?: Yes - Plan Summary Summary: Patient admitted due to small bowel obstruction. Surgery consulted and recommended conservative management. he had a grand mal seizure on 29 April wh ich might of caused an aspiration event. Chest x-ray showed worsening of infiltrates. On aztreonam and azithro - Time Time Spent with patient: 15-24 minutes Medications reviewed and adjusted accordingly: Yes Anticipated Discharge Disposition: to be determined Anticipated Discharge Timeframe: to be determined
[2020-05-01] MEDS ORDERED: AZITHROMYCIN 250 MG TABLET PEG SCH (21:45)
[2020-05-01] MEDS: AZITHROMYCIN 250 MG TABLET PEG SCH (22:36)
[2020-05-01] MEDS: CARBAMAZEPINE SUSP 200 MG/10 ML UDCUP PEG SCH (22:41)
[2020-05-02 05:57] LABS: ABSOLUTE LYMPHOCYTES (AUTO) 1.4 10^3/uL (0.5-4.7); ABSOLUTE MONOCYTES (AUTO) 0.9 10^3/uL (0.1-1.4); ABSOLUTE NEUT (AUTO) 6.4 10^3/uL (1.7-8.2); BASOPHILS % (AUTO) 0.5 % (0-2); HEMATOCRIT 36.3 % (37.9-51.0); HEMOGLOBIN 12.7 g/dL (13.5-17.0); LYMPHOCYTES % (AUTO) 16.2 % (13-45); MEAN CORPUSCULAR HEMOGLOBIN 31.9 pg (27.0-33.4); MEAN CORPUSCULAR HGB CONC 34.8 g/dL (32.0-36.0); MEAN CORPUSCULAR VOLUME 92 fl (80-97); MONOCYTES % (AUTO) 9.7 % (3-13); PLATELET COUNT 301 10^3/uL (150-450); RED BLOOD COUNT 3.97 10^6/uL (4.35-5.55); RED CELL DISTRIBUTION WIDTH 12.7 % (11.5-14.0); SEGMENTED NEUTROPHILS % (AUTO) 73.6 % (42-78); TOTAL CELLS COUNTED % (AUTO) 100 %; WHITE BLOOD COUNT 8.8 10^3/uL (4.0-10.5)
[2020-05-02 05:59] LABS: ALKALINE PHOSPHATASE 54 U/L (38-126); ANION GAP 10 (5-19); ASPARTATE AMINO TRANSFERASE 42 U/L (17-59); BILIRUBIN,DIRECT 0.4 mg/dL (0.0-0.4); BILIRUBIN,TOTAL 0.6 mg/dL (0.2-1.3); BLOOD UREA NITROGEN 14 mg/dL (7-20); CALCIUM 8.9 mg/dL (8.4-10.2); CARBON DIOXIDE 25 mmol/L (22-30); CHLORIDE 112 mmol/L (98-107); GLUCOSE 99 mg/dL (75-110); POTASSIUM 3.8 mmol/L (3.6-5.0); TOTAL PROTEIN 6.8 g/dL (6.3-8.2)
[2020-05-02] MEDS: HEPARIN SOD (PORCINE) 5,000 UNIT/ML 1 ML VIAL SUBCUT SCH ×3 (07:00→21:36)
[2020-05-02] MEDS: OXCARBAZEPINE 300 MG/5 ML SUSP 250ML/BOTTLE PEG SCH ×3 (07:47→21:38)
[2020-05-02] MEDS: CLOTRIMAZOLE 1% CREAM 15 GM TP SCH ×3 (07:50→21:36)
[2020-05-02] MEDS: AZTREONAM 1 GM in DEXTROSE 5%-WATER 50 ML IV SCH ×3 (07:50→21:36)
[2020-05-02] MEDS: PANTOPRAZOLE SODIUM 40 MG VIAL IV SCH (10:54)
[2020-05-02] MEDS: CARBAMAZEPINE SUSP 200 MG/10 ML UDCUP PEG SCH ×2 (10:55→21:37)
[2020-05-02] MEDS: GLYCERIN (PEDIATRIC) SUPP.RECT PR SCH ×2 (10:56→21:37)
--- NOTE | 2020-05-02 12:13 | PDOC PROGRESS REPORT ---
Subjective Progress Note for:: 05/02/20 Subjective:: Patient is very animated. According to his mother is his dancing to the music. He does shake his arms back and forth and this could be contributing to the tachycardia. Lungs are still congested. Reason For Visit: SMALL BOWEL OBSTRUCTION, SIRS Physical Exam Vital Signs: Temp Pulse Resp BP Pulse Ox 98.7 F 107 H 16 105/68 92 05/02/20 10:00 05/02/20 08:00 05/02/20 08:00 05/02/20 08:00 05/02/20 08:00 Intake & Output 05/01/20 05/02/20 05/03/20 06:59 06:59 06:59 Intake Total 200 715 Output Total 300 Balance 200 415 Weight 48 kg 48 kg General appearance: PRESENT: other - Difficult to assess however his mother believes he is improving. ABSENT: cooperative, well-developed Respiratory exam: PRESENT: rhonchi - Bilaterally, symmetrical, unlabored. ABSENT: tachypnea, wheezes Cardiovascular exam: PRESENT: +S1, +S2, tachycardia. ABSENT: bradycardia, diastolic murmur, irregular rhythm, systolic murmur GI/Abdominal exam: PRESENT: normal bowel sounds, soft, other - PEG tube. Difficult to assess due to patient's motor activity. Rectal exam: PRESENT: deferred Extremities exam: ABSENT: pedal edema, +1 edema Musculoskeletal exam: PRESENT: other - Decreased muscle mass. Sitting in bed with legs crossed. Neurological exam: PRESENT: alert, awake, oriented to person - Per his mother Psychiatric exam: PRESENT: agitated. ABSENT: anxious Focused psych exam: PRESENT: other - Difficult to assess due to cerebral palsy Results Laboratory Results: 05/02/20 05:14 05/02/20 05:14 05/02/20 05/02/20 05:14 05:14 WBC 8.8 RBC 3.97 L Hgb 12.7 L Hct 36.3 L MCV 92 MCH 31.9 MCHC 34.8 RDW 12.7 Plt Count 301 Seg Neutrophils % 73.6 Sodium 147.4 H Potassium 3.8 Chloride 112 H Carbon Dioxide 25 Anion Gap 10 BUN 14 Creatinine 0.53 Est GFR ( Amer) > 60 Glucose 99 Calcium 8.9 Total Bilirubin 0.6 AST 42 Alkaline Phosphatase 54 Total Protein 6.8 Albumin 4.0 04/28/20 18:40 Stool - Stool - Final 04/28/20 18:40 Stool - Stool Stool Culture - Final NO SALMONELLA, SHIGELLA, CAMPYLOBACTER, OR E.COLI 0157 RECOVERED. NEGATIVE FOR SHIGA TOXINS 1&2. Impressions: Abdomen/Pelvis CT 04/27/20 00:00 IMPRESSION: 1. Significantly dilated loops of small bowel with distally decompressed loops of small bowel and colon. Findings concerning for small bowel obstruction. Transition point is not identified on this study. 2. Left basilar airspace opacities concerning for pneumonia. 3. Nonobstructing left nephrolithiasis. This exam was performed according to our departmental dose-optimization program, which includes automated exposure control, adjustment of the mA and/or kV according to patient size and/or use of iterative reconstruction technique. Acute Abdomen Series 04/28/20 06:00 IMPRESSION: There is moderate gaseous distention of the visualized bowel which may represent evidence of an obstruction or ileus. There is excretion of contrast from the left kidney. There is mild left hydronephrosis present. No obvious excretion is seen at the right kidney. Chest X-Ray 04/29/20 00:00 IMPRESSION: Worsening airspace opacities in each lung base. copyright 2011 [employer]- All Rights Reserved Hand X-Ray 05/01/20 00:00 IMPRESSION: NEGATIVE STUDY OF THE LEFT HAND. NO ACUTE POST-TRAUMATIC CHANGES. NO EXPLANATION FOR PAIN. Assessment and Plan - Diagnosis (1) SBO (small bowel obstruction) Is this a current diagnosis for this admission?: Yes Plan: Definitely has bowel sounds. Tube feeds have restarted. The patient has had several bowel movements. (2) Seizure disorder Is this a current diagnosis for this admission?: Yes Plan: Continue current medications (Trileptal and Tegretol). PRN benzodiazepines available. (3) Aspiration pneumonia Qualifiers: Aspiration pneumonia type: due to gastric secretions Laterality: bilateral Lung location: lower lobe of lung Qualified Code(s): J69.0 - Pneumonitis due to inhalation of food and vomit Is this a current diagnosis for this admission?: Yes Plan: Continue current antibiotics. End of treatment for aztreonam is May 05 and azithromycin is May 08. (4) Cerebral palsy Qualifiers: Cerebral palsy type: unspecified type Qualified Code(s): G80.9 - Cerebral palsy, unspecified Is this a current diagnosis for this admission?: Yes Plan: Continue supportive care (5) Hypermagnesemia Is this a current diagnosis for this admission?: Yes Plan: Elevated on admission. Recheck magnesium level tomorrow. (6) Leukocytosis Qualifiers: Leukocytosis type: bandemia Qualified Code(s): D72.825 - Bandemia Is this a current diagnosis for this admission?: Yes Plan: Resolved with antibiotics - Plan Summary Summary: Patient admitted due to small bowel obstruction. Surgery consulted and recommended conservative management. he had a grand mal seizure on 29 April which might of caused an aspiration event. Chest x-ray showed worsening of infiltrates. On aztreonam and azithro - Time Time Spent with patient: 15-24 minutes Medications reviewed and adjusted accordingly: Yes Anticipated Discharge Disposition: Home with Home Health Anticipated Discharge Timeframe: within 48 hours
[2020-05-02] MEDS: AZITHROMYCIN 250 MG TABLET PEG SCH (21:38)
[2020-05-03] MEDS: OXCARBAZEPINE 300 MG/5 ML SUSP 250ML/BOTTLE PEG SCH (05:57)
[2020-05-03] MEDS: AZTREONAM 1 GM in DEXTROSE 5%-WATER 50 ML IV SCH (05:57)
[2020-05-03] MEDS: HEPARIN SOD (PORCINE) 5,000 UNIT/ML 1 ML VIAL SUBCUT SCH (05:57)
[2020-05-03] MEDS: CLOTRIMAZOLE 1% CREAM 15 GM TP SCH (05:59)
[2020-05-03] MEDS ORDERED: RINGERS SOLUTION,LACTATED 1,000 ML IV PRN (06:42)
[2020-05-03 08:04] LABS: ABSOLUTE LYMPHOCYTES (AUTO) 1.1 10^3/uL (0.5-4.7); ABSOLUTE MONOCYTES (AUTO) 0.8 10^3/uL (0.1-1.4); ABSOLUTE NEUT (AUTO) 4.8 10^3/uL (1.7-8.2); BASOPHILS % (AUTO) 0.5 % (0-2); EOSINOPHILS % (AUTO) 0.5 % (0-6); HEMATOCRIT 31.8 % (37.9-51.0); HEMOGLOBIN 11.2 g/dL (13.5-17.0); LYMPHOCYTES % (AUTO) 16.2 % (13-45); MEAN CORPUSCULAR HEMOGLOBIN 32.2 pg (27.0-33.4); MEAN CORPUSCULAR HGB CONC 35.3 g/dL (32.0-36.0); MEAN CORPUSCULAR VOLUME 91 fl (80-97); MONOCYTES % (AUTO) 11.2 % (3-13); PLATELET COUNT 243 10^3/uL (150-450); RED BLOOD COUNT 3.49 10^6/uL (4.35-5.55); RED CELL DISTRIBUTION WIDTH 12.5 % (11.5-14.0); SEGMENTED NEUTROPHILS % (AUTO) 71.6 % (42-78); TOTAL CELLS COUNTED % (AUTO) 100 %; WHITE BLOOD COUNT 6.7 10^3/uL (4.0-10.5)
[2020-05-03 08:20] LABS: ALBUMIN 3.4 g/dL (3.5-5.0); ALKALINE PHOSPHATASE 49 U/L (38-126); ANION GAP 11 (5-19); ASPARTATE AMINO TRANSFERASE 36 U/L (17-59); BILIRUBIN,DIRECT 0.2 mg/dL (0.0-0.4); BILIRUBIN,TOTAL 0.3 mg/dL (0.2-1.3); BLOOD UREA NITROGEN 9 mg/dL (7-20); CALCIUM 8.4 mg/dL (8.4-10.2); CARBON DIOXIDE 24 mmol/L (22-30); CHLORIDE 105 mmol/L (98-107); GLUCOSE 151 mg/dL (75-110); POTASSIUM 3.2 mmol/L (3.6-5.0); TOTAL PROTEIN 5.8 g/dL (6.3-8.2)
[2020-05-03] MEDS: GLYCERIN (PEDIATRIC) SUPP.RECT PR SCH (09:43)
[2020-05-03] MEDS: PANTOPRAZOLE SODIUM 40 MG VIAL IV SCH (09:45)
[2020-05-03] MEDS: CARBAMAZEPINE SUSP 200 MG/10 ML UDCUP PEG SCH (09:47)
--- NOTE | 2020-05-03 11:33 | PDOC DISCHARGE SUMMARY ---
Impression - Admit/DC Date/PCP Admission Date/Primary Care Provider: 04/28/20 01:41 SAMIA MONTANO MD Discharge Date: 05/03/20 - Discharge Diagnosis (1) SBO (small bowel obstruction) Is this a current diagnosis for this admission?: Yes (2) Seizure disorder Is this a current diagnosis for this admission?: Yes (3) Aspiration pneumonia Is this a current diagnosis for this admission?: Yes (4) Cerebral palsy Is this a current diagnosis for this admission?: Yes (5) Hypermagnesemia Is this a current diagnosis for this admission?: Yes (6) Leukocytosis Is this a current diagnosis for this admission?: Yes - Assessment Summary: Patient admitted due to small bowel obstruction. Surgery consulted and recommended conservative management. he had a grand mal seizure on 29 April which might of caused an aspiration event. Chest x-ray showed worsening of infiltrates. On aztreonam and azithro - Additional Information Resuscitation Status: Full Code Discharge Diet: Tube Feeding (Comments) - As before Discharge Activity: Activity As Tolerated Referrals: SAMIA MONTANO MD [Primary Care Provider] - 05/16/20 2:15 pm KALANI CALLAWAY NP-C [NO LOCAL MD] - (Called and left message for office to call patient's mother with date and time of follow-up appointment. Appointment to be made for earliest available date and time.) Prescriptions: Clindamycin HCl 300 mg PEG QID #16 capsule Nystatin [Mycostatin 500,000 Unit/5 ml Susp Udcup] 500,000 unit PO TID #60 ml Home Medications: Carbamazepine [Tegretol Susp 200 mg/10 ml Udcup] 200 mg PEG BID 10/31/19 Clonazepam [Klonopin 1 mg Tablet] 1.5 mg PEG Q8HP PRN 10/31/19 Lorazepam [Ativan] 2 mg PEG Q6HP PRN 10/31/19 Oxcarbazepine [Trileptal Susp 300 mg/5 ml 250 ml/Bottle] 600 mg PEG TID 10/31/19 Clindamycin HCl 300 mg PEG QID #16 capsule 05/03/20 Nystatin [Mycostatin 500,000 Unit/5 ml Susp Udcup] 500,000 unit PO TID #60 ml 05/03/20 History of Present Illiness History of Present Illness: RASHI TOMPKINS is a 29 year old male who presented to the emergency room with a one-day history of vomiting. Patient's mother escorts him and is his primary care provider as he has severe autism and cerebral palsy making it impossible for him to provide information to his history. His mother admits that he has been having abdominal pain and had 2 episodes of vomiting since 04/26/2020. She further admits that his gastrostomy tube drains dark fluid on aspiration. She also admits accompanying symptoms of 3 watery diarrhea stools in the emergency room and an associated occasional nonproductive cough for the last several days. She admits that he had similar symptoms in the past with small bowel obstructions. She has not identified any aggravating or ameliorating factors for his vomiting. In the emergency room he was found to have a white blood count of 26,000 with a left shift and was noted to have a CT scan showing a possible small bowel obstruction although the surgeon consulted by the ER provider did not feel that the patient had a small bowel obstruction upon his review. Patient was also noted to have hyponatremia. The patient's emesis was not tested for blood and no stool specimen had yet been obtained at the time of his admission. He was subsequently admitted to the hospital for further evaluation and treatment. Hospital Course Hospital Course: The patient experienced slow recovery. Ongoing antibiotics and fluids brought about improvement. White blood cell count normalized. The patient's mother was concerned about the possibility of breakthrough seizure. She does intend to have the patient see his neurologist post discharge. He was exhibiting behaviors that are consistent with his return to baseline. With that in mind and after discussion with the patient's mother yesterday the patient is stable for discharge to home. Physical Exam Vital Signs: Temp Pulse Resp BP Pulse Ox 98.7 F 96 18 113/62 93 05/03/20 08:00 05/03/20 08:00 05/03/20 08:00 05/03/20 08:00 05/03/20 00:00 Intake & Output 05/02/20 05/03/20 05/04/20 06:59 06:59 06:59 Intake Total 715 2720 1000 Output Total 300 Balance 415 2720 1000 Weight 48 kg 51.2 kg 51.2 kg General appearance: PRESENT: no acute distress, cooperative Respiratory exam: PRESENT: clear to auscultation ashu, symmetrical, unlabored. ABSENT: tachypnea, wheezes Cardiovascular exam: PRESENT: RRR, +S1, +S2 GI/Abdominal exam: PRESENT: normal bowel sounds, soft, other - PEG tube in place. ABSENT: tenderness Musculoskeletal exam: PRESENT: other - Decreased muscle mass Results Laboratory Results: WBC 6.7 10^3/uL (4.0-10.5) 05/03/20 07:30 RBC 3.49 10^6/uL (4.35-5.55) L 05/03/20 07:30 Hgb 11.2 g/dL (13.5-17.0) L 05/03/20 07:30 Hct 31.8 % (37.9-51.0) L 05/03/20 07:30 MCV 91 fl (80-97) 05/03/20 07:30 MCH 32.2 pg (27.0-33.4) 05/03/20 07:30 MCHC 35.3 g/dL (32.0-36.0) 05/03/20 07:30 RDW 12.5 % (11.5-14.0) 05/03/20 07:30 Plt Count 243 10^3/uL (150-450) 05/03/20 07:30 Lymph % (Auto) 16.2 % (13-45) 05/03/20 07:30 [place] % (Auto) 11.2 % (3-13) 05/03/20 07:30 Eos % (Auto) 0.5 % (0-6) 05/03/20 07:30 Baso % (Auto) 0.5 % (0-2) 05/03/20 07:30 Absolute Neuts (auto) 4.8 10^3/uL (1.7-8.2) 05/03/20 07:30 Absolute Lymphs (auto) 1.1 10^3/uL (0.5-4.7) 05/03/20 07:30 Absolute Monos (auto) 0.8 10^3/uL (0.1-1.4) 05/03/20 07:30 Absolute Eos (auto) 0.0 10^3/uL (0.0-0.6) 05/03/20 07:30 Absolute Basos (auto) 0.0 10^3/uL (0.0-0.2) 05/03/20 07:30 Total Counted 100 04/27/20 21:13 Seg Neutrophils % 71.6 % (42-78) 05/03/20 07:30 Seg Neuts % (Manual) 85 % (42-78) H 04/27/20 21:13 Band Neutrophils % 6 % (3-5) H 04/27/20 21:13 Lymphocytes % (Manual) 2 % (13-45) L 04/27/20 21:13 Monocytes % (Manual) 7 % (3-13) 04/27/20 21:13 Eosinophils % (Manual) 0 % (0-6) 04/27/20 21:13 Basophils % (Manual) 0 % (0-2) 04/27/20 21:13 Abs Neuts (Manual) 23.8 10^3/uL (1.7-8.2) H 04/27/20 21:13 Abs Lymphs (Manual) 0.5 10^3/uL (0.5-4.7) 04/27/20 21:13 Abs Monocytes (Manual) 1.8 10^3/uL (0.1-1.4) H 04/27/20 21:13 Absolute Eos (Manual) 0.0 10^3/uL (0.0-0.6) 04/27/20 21:13 Abs Basophils (Manual) 0.0 10^3/uL (0.0-0.2) 04/27/20 21:13 Platelet Comment ADEQUATE 04/27/20 21:13 RBC Morph Comment NORMO-CYTIC/CHROMIC 04/27/20 21:13 Carbonic Acid 0.92 mmol/L (1.05-1.35) L 04/30/20 11:15 HCO3/H2CO3 Ratio 22:1 04/30/20 11:15 ABG pH 7.44 (7.35-7.45) 04/30/20 11:15 ABG pCO2 30.7 mmHg (35-45) L 04/30/20 11:15 ABG pO2 155.8 mmHg (80-100) H 04/30/20 11:15 ABG HCO3 20.6 mmol/L (20-24) 04/30/20 11:15 ABG Total CO2 21.5 mmol/L (23-27) L 04/30/20 11:15 ABG O2 Saturation 99.1 % (94-98) H 04/30/20 11:15 ABG Base Excess -2.6 mmol/L 04/30/20 11:15 VBG pH 7.48 (7.30-7.42) H 04/27/20 22:01 VBG pCO2 17.7 mmHg (35-63) L* 04/27/20 22:01 VBG HCO3 12.8 mmol/L (20-32) L 04/27/20 22:01 VBG Base Excess -8.3 mmol/L 04/27/20 22:01 FiO2 100% 04/30/20 11:15 Sodium 139.7 mmol/L (137-145) 05/03/20 07:30 Potassium 3.2 mmol/L (3.6-5.0) L 05/03/20 07:30 Chloride 105 mmol/L (98-107) 05/03/20 07:30 Carbon Dioxide 24 mmol/L (22-30) 05/03/20 07:30 Anion Gap 11 (5-19) 05/03/20 07:30 BUN 9 mg/dL (7-20) 05/03/20 07:30 Creatinine 0.43 mg/dL (0.52-1.25) L 05/03/20 07:30 Est GFR ( Amer) > 60 (>60) 05/03/20 07:30 Est GFR (MDRD) Non-Af > 60 (>60) 05/03/20 07:30 Glucose 151 mg/dL (75-110) H 05/03/20 07:30 Lactic Acid 1.0 mmol/L (0.7-2.1) 04/30/20 09:24 Calcium 8.4 mg/dL (8.4-10.2) 05/03/20 07:30 Magnesium 1.9 mg/dL (1.6-2.3) 05/03/20 07:30 Total Bilirubin 0.3 mg/dL (0.2-1.3) 05/03/20 07:30 Direct Bilirubin 0.2 mg/dL (0.0-0.4) 05/03/20 07:30 Neonat Total Bilirubin Not Reportable 05/03/20 07:30 Neonat Direct Bilirubin Not Reportable 05/03/20 07:30 Neonat Indirect Bili Not Reportable 05/03/20 07:30 AST 36 U/L (17-59) 05/03/20 07:30 ALT 26 U/L (<50) 05/03/20 07:30 Alkaline Phosphatase 49 U/L (38-126) 05/03/20 07:30 Total Protein 5.8 g/dL (6.3-8.2) L 05/03/20 07:30 Albumin 3.4 g/dL (3.5-5.0) L 05/03/20 07:30 Lipase 84.8 U/L (23-300) 04/27/20 21:13 TSH 0.57 uIU/mL (0.47-4.68) 04/27/20 21:13 Urine Color YELLOW 04/28/20 00:07 Urine Appearance CLEAR 04/28/20 00:07 Urine pH 6.0 (5.0-9.0) 04/28/20 00:07 Ur Specific [place] 1.047 04/28/20 00:07 Urine Protein 30 mg/dL (NEGATIVE) H 04/28/20 00:07 Urine Glucose (UA) NEGATIVE mg/dL (NEGATIVE) 04/28/20 00:07 Urine Ketones NEGATIVE mg/dL (NEGATIVE) 04/28/20 00:07 Urine Blood NEGATIVE (NEGATIVE) 04/28/20 00:07 Urine Nitrite NEGATIVE (NEGATIVE) 04/28/20 00:07 Urine Bilirubin NEGATIVE (NEGATIVE) 04/28/20 00:07 Urine Urobilinogen NEGATIVE mg/dL (<2.0) 04/28/20 00:07 Ur Leukocyte Esterase SMALL (NEGATIVE) H 04/28/20 00:07 Urine WBC (Auto) 6 /HPF 04/28/20 00:07 Urine RBC (Auto) 2 /HPF 04/28/20 00:07 Squamous Epi Cells Auto <1 /HPF 04/28/20 00:07 Urine Mucus (Auto) OCC /LPF 04/28/20 00:07 Urine Ascorbic Acid 40 (NEGATIVE) H 04/28/20 00:07 Stool for White Cells NO WBCs SEEN 04/28/20 18:40 Stl C. Difficile GDH Ag POSITIVE (NEGATIVE) 04/28/20 18:40 Stl C.difficile Tox A&B NEGATIVE (NEGATIVE) 04/28/20 18:40 Stl C.difficile Tox PCR NEGATIVE (NEGATIVE) 04/28/20 18:40 Impressions: Abdomen/Pelvis CT 04/27/20 00:00 IMPRESSION: 1. Significantly dilated loops of small bowel with distally decompressed loops of small bowel and colon. Findings concerning for small bowel obstruction. Transition point is not identified on this study. 2. Left basilar airspace opacities concerning for pneumonia. 3. Nonobstructing left nephrolithiasis. This exam was performed according to our departmental dose-optimization program, which includes automated exposure control, adjustment of the mA and/or kV according to patient size and/or use of iterative reconstruction technique. Chest X-Ray 04/27/20 21:31 IMPRESSION: No acute cardiopulmonary process copyright 2010 [employer]- All Rights Reserved Acute Abdomen Series 04/28/20 06:00 IMPRESSION: There is moderate gaseous distention of the visualized bowel which may represent evidence of an obstruction or ileus. There is excretion of contrast from the left kidney. There is mild left hydronephrosis present. No obvious excretion is seen at the right kidney. Chest X-Ray 04/29/20 00:00 IMPRESSION: NO ACUTE RADIOGRAPHIC FINDING IN THE CHEST. Chest X-Ray 04/29/20 00:00 IMPRESSION: Worsening airspace opacities in each lung base. copyright 2010 [employer]- All Rights Reserved Hand X-Ray 05/01/20 00:00 IMPRESSION: NEGATIVE STUDY OF THE LEFT HAND. NO ACUTE POST-TRAUMATIC CHANGES. NO EXPLANATION FOR PAIN. Plan Health Concerns: Recurrence of pneumonia. Possibility of breakthrough seizures. Plan of Treatment: Due to multiple allergies reviewed up to date literature and it suggests clindamycin. Otherwise patient will return to his previous medication regimen. Goals: Resolution of pneumonia. Outpatient review by neurology. Time Spent: Greater than 30 Minutes Stroke Is this a Stroke Patient?: No Acute Heart Failure - Is this a Heart Failure Patient?: No
[2020-05-03 15:21] VITALS: BP 124/84
== END 2020-05-03 12:26 | disposition home or self-care (01) | DRG 388 ==
LOC: ER 20:17 → EH 04-28 01:41 → 4W 04-28 03:04
PROVIDERS: ADMIT Emergency Medicine; ATTEND Hospitalist
DX: K56.7 Ileus, unspecified (principal); J69.0 Pneumonitis due to inhalation of food and vomit; A04.72 Enterocolitis due to Clostridium difficile, not specified as recurrent; F84.0 Autistic disorder; E87.1 Hypo-osmolality and hyponatremia; G80.9 Cerebral palsy, unspecified; D72.825 Bandemia; J45.909 Unspecified asthma, uncomplicated; L30.4 Erythema intertrigo; E83.41 Hypermagnesemia; G40.409 Other generalized epilepsy and epileptic syndromes, not intractable, without status epilepticus; F95.2 Tourette's disorder; M62.49 Contracture of muscle, multiple sites; G40.909 Epilepsy, unspecified, not intractable, without status epilepticus; Z93.1 Gastrostomy status
CPT/HCPCS: 36415; 36600; 71045; 74022; 74177; 80053; 81001; 82803; 83605; 83690; 83735; 84443; 85025; 87040; 87045; 87070; 87205; 87324; 87449; 87493; 89055; 93005; 93010; 94640; 96360; 96361; 99285; C9113; C9254; J0456; J1200; J1940; J1953; J2060; J2270; J2550; J3360; J3490; J7030; J7060; J7120; S0028

== ENCOUNTER 2020-09-13 16:21 | Inpatient (IN) | payer MEDICARE, MEDICAID ==
[2020-09-13] MEDS ORDERED: NORMAL SALINE 1000 ML 1,000 ML IV ONE (19:03)
[2020-09-13] MEDS ORDERED: ONDANSETRON HCL INJ/PF 4 MG/2 ML SDV IV ONE (19:03)
--- NOTE | 2020-09-13 19:04 | ER Document Report ---
ED Medical Screen (RME) - General Stated Complaint: ABDOMINAL PAIN Time Seen by Provider: 09/13/20 18:59 Primary Care Provider: SAMIA MONTANO MD [Primary Care Provider] - Follow up as needed Mode of Arrival: Wheelchair Information source: Parent TRAVEL OUTSIDE OF THE [place] IN LAST 30 DAYS: No - HPI Patient complains to provider of: Abdominal pain, vomiting Notes: 09/13/20 19:04 Patient with complaints of vomiting, abdominal distention abdominal pain. Mother is concerned that the patient has another bowel obstruction. He is had this in the past. He vomited once. No fever. Exam: No distress, nontoxic. Mild abdominal distention no focal areas of tenderness. Tachycardia. An initial examination was made on the patient as part of the triage process, and it was determined a more comprehensive evaluation was necessary. Initial orders were placed and patient was transferred to another provider in the ED who assumed care and finished evaluation and plan. - Related Data Allergies/Adverse Reactions: amoxicillin trihydrate [From Augmentin] Allergy (Mild, Verified 09/13/20 18:59) rash cefaclor [Cefaclor] Allergy (Mild, Verified 09/13/20 18:59) rash Penicillins Allergy (Mild, Verified 09/13/20 18:59) rash Potassium Clavulanate * [From Augmentin] Allergy (Mild, Verified 09/13/20 18:59) rash codeine Allergy (Verified 09/13/20 18:59) iodine Allergy (Verified 09/13/20 18:59) levofloxacin [From Levaquin] Allergy (Verified 09/13/20 18:59) Past Medical History - Past Medical History Cardiac Medical History: Denies: Hx Coronary Artery Disease, Hx Heart Attack, Hx Hypercholesterolemia, Hx Hypertension Pulmonary Medical History: Reports: Hx Pneumonia Denies: Hx Asthma, Hx COPD, Hx Tuberculosis Neurological Medical History: Reports: Hx Seizures. Denies: Hx Cerebrovascular Accident Endocrine Medical History: Denies: Hx Diabetes Mellitus Type 1, Hx Diabetes Mellitus Type 2, Hx Hyperthyroidism, Hx Hypothyroidism Renal/ Medical History: Denies: Hx Peritoneal Dialysis GI Medical History: Denies: Hx Cirrhosis, Hx Crohn's Disease, Hx Gastroesophageal Reflux Disease, Hx Hepatitis, Hx Hiatal Hernia, Hx Ulcer, Hx Ulcerative Colitis Musculoskeltal Medical History: Denies Hx Arthritis, Denies Hx Gout, Reports Hx Muscle Spasm, Reports Hx Muscle Weakness, Reports Hx Musculoskeletal Deformity Skin Medical History: Denies Hx Eczema, Denies Hx Psoriasis Psychiatric Medical History: Reports: Hx Depression Infectious Medical History: Reports: Hx MRSA. Denies: Hx Hepatitis Past Surgical History: Reports: Hx Abdominal Surgery - PEG Tube, multiple abdominal surgeries rt peg tube for scar tissue., Hx Appendectomy, Hx Open Heart Surgery - repair hole in heart, [employer], Other - Exploratory laparotomy for small bowel obstructions. Gastrostomy tube.. Denies: Hx Pacemaker - Immunizations Hx Diphtheria, Pertussis, Tetanus Vaccination: Yes Physical Exam - Vital signs Vitals: Temp Pulse Resp BP Pulse Ox 98.1 F 138 H 17 94/76 L 96 09/13/20 16:56 09/13/20 16:56 09/13/20 16:56 09/13/20 16:56 09/13/20 16:56 Course - Vital Signs Vital signs: Temp Pulse Resp BP Pulse Ox 98.1 F 138 H 17 94/76 L 96 09/13/20 16:56 09/13/20 16:56 09/13/20 16:56 09/13/20 16:56 09/13/20 16:56 Doctor's Discharge - Discharge Referrals: SAMIA MONTANO MD [Primary Care Provider] - Follow up as needed
[2020-09-13 19:32] LABS: HEMATOCRIT 46.1 % (37.9-51.0); HEMOGLOBIN 16.4 g/dL (13.5-17.0); MEAN CORPUSCULAR HEMOGLOBIN 30.9 pg (27.0-33.4); MEAN CORPUSCULAR HGB CONC 35.7 g/dL (32.0-36.0); MEAN CORPUSCULAR VOLUME 87 fl (80-97); PLATELET COUNT 434 10^3/uL (150-450); RED BLOOD COUNT 5.33 10^6/uL (4.35-5.55); RED CELL DISTRIBUTION WIDTH 14.2 % (11.5-14.0); WHITE BLOOD COUNT 18.2 10^3/uL (4.0-10.5)
[2020-09-13 19:43] LABS: ALBUMIN 5.1 g/dL (3.5-5.0); ALKALINE PHOSPHATASE 85 U/L (38-126); ANION GAP 14 (5-19); ASPARTATE AMINO TRANSFERASE 36 U/L (17-59); BILIRUBIN,DIRECT 0.2 mg/dL (0.0-0.4); BILIRUBIN,TOTAL 0.7 mg/dL (0.2-1.3); BLOOD UREA NITROGEN 22 mg/dL (7-20); CALCIUM 10.9 mg/dL (8.4-10.2); CARBON DIOXIDE 28 mmol/L (22-30); CHLORIDE 86 mmol/L (98-107); GLUCOSE 135 mg/dL (75-110); POTASSIUM 4.3 mmol/L (3.6-5.0); TOTAL PROTEIN 8.5 g/dL (6.3-8.2)
[2020-09-13 19:54] LABS: ABSOLUTE LYMPHOCYTES# (MANUAL) 0.7 10^3/uL (0.5-4.7); ABSOLUTE MONOCYTES # (MANUAL) 1.8 10^3/uL (0.1-1.4); BAND NEUTROPHILS % (MANUAL) 1 % (3-5); BASOPHILS % (MANUAL) 0 % (0-2); EOSINOPHILS % (MANUAL) 0 % (0-6); LYMPHOCYTES % (MANUAL) 4 % (13-45); MONOCYTES % (MANUAL) 10 % (3-13); PLATELET COMMENT ADEQUATE; RBC MORPHOLOGY COMMENT NORMO-CYTIC/CHROMIC; SEGMENTED NEUTROPHILS % (MAN) 85 % (42-78); TOTAL CELLS COUNTED 100; TOXIC VACUOLATION PRESENT
[2020-09-13] MEDS ORDERED: ONDANSETRON HCL INJ/PF 4 MG/2 ML SDV ONE (22:33)
[2020-09-13] MEDS ORDERED: LORAZEPAM INJ 2 MG/1 ML VIAL IV ONE (22:34)
[2020-09-13] MEDS ORDERED: LEVETIRACETAM 500 MG/NACL-ISO 500 MG/100 ML RTUPB IV ONE (23:17)
[2020-09-13] MEDS ORDERED: CEFTRIAXONE 1 GM/D5W RTU 1 GM/50 ML RTUPB IV ONE (23:26)
--- NOTE | 2020-09-13 23:36 | RADIOLOGY REPORT (SQ) ---
EXAM DESCRIPTION: CT ABDOMEN PELVIS WITHOUT IV CONTRAST COMPLETED DATE/TME: 09/13/2020 23:12 EXAM DESCRIPTION: CT ABDOMEN AND PELVIS WITHOUT CONTRAST CLINICAL HISTORY: abdominal pain/distension, hx of bowel obstruction COMPARISON: 04/27/2020 TECHNIQUE: CT of the abdomen and pelvis without IV contrast. Evaluation of the solid organs and vasculature is suboptimal due to lack of IV contrast. FINDINGS: Lung Bases: Linear left basilar opacities likely related to atelectasis or scarring. Bones: S-shaped scoliosis of the thoracolumbar spine. Abdomen: Liver: The liver has normal size and density. Gallbladder: No calcified gallstones. Spleen, Pancreas, and Adrenal Glands: The spleen, pancreas, and adrenal glands are unremarkable. Kidneys: The kidneys have normal size without evidence of hydronephrosis. No obstructing ureteral calculi. Nonobstructing superior pole left nephrolithiasis Vasculature: An IVC have normal caliber. Stomach: The stomach and duodenum have normal course. Other: No free intraperitoneal air. No free fluid or lymphadenopathy. Pelvis: Bladder: Urinary bladder is unremarkable. Bowel: Redemonstrated dilated loops of proximal small bowel with bowel wall thickening. The distal small bowel is decompressed. The colon is relatively decompressed with minimal air throughout. Air-fluid levels identified in the distended loops of small bowel. Appendix: No identified. Pelvis: Prostate is not enlarged. IMPRESSION: 1. Similar findings to comparison studies with dilated loops of proximal small bowel with mild small bowel wall thickening and distally decompressed loops of small bowel. Findings concerning for small bowel obstruction. Definitive transition point is not identified on this study. 2. Nonobstructing superior pole left nephrolithiasis. 3. Linear left basilar opacities likely related to atelectasis or scar. This exam was performed according to our departmental dose-optimization program, which includes automated exposure control, adjustment of the mA and/or kV according to patient size and/or use of iterative reconstruction technique.
--- NOTE | 2020-09-13 23:46 | RADIOLOGY REPORT (SQ) ---
EXAM DESCRIPTION: XR CHEST 1 VIEW COMPLETED DATE/TME: 09/13/2020 23:23 CLINICAL HISTORY: 29 years, Male, leukocytosis, vomiting COMPARISON: 04/29/2020 chest NUMBER OF VIEWS: 1 TECHNIQUE: Portable chest LIMITATIONS: None. FINDINGS: Heart size normal. Surgical clips left upper quadrant. Severe scoliosis of the thoracic spine. Lungs clear. No pneumothorax IMPRESSION: No acute cardiopulmonary process copyright 2010 [employer]- All Rights Reserved
--- NOTE | 2020-09-14 00:13 | ER Document Report ---
ED GI/ - General Chief Complaint: Abdominal Pain Stated Complaint: ABDOMINAL PAIN Time Seen by Provider: 09/13/20 18:59 Mode of Arrival: Wheelchair TRAVEL OUTSIDE OF THE [place] IN LAST 30 DAYS: No - HPI Notes: 09/14/20 00:08 Patient is a 29-year-old male with a past medical history of autism and cerebral palsy who is nonverbal and presents with abdominal distention. Mother provides the history. She states that 3 days ago symptoms started. He initially had hard stool and liquid stool coming around the stool. Today, he has had no bowel movements. He is also having brown drainage from his G-tube. She states this normally happens when he has an obstruction. He has had 6 surgeries for obstructions in the past. She states he has had a low-grade fever of 99.5. He has not had any of his medication today because she did not want to use the G- tube as it is draining and backed up. He also has a seizure disorder and is on 3 different seizure medications. He has not had any of his seizure medicines today. Patient has been spitting up and they have been suctioning his mouth. 09/14/20 05:59 - Related Data Allergies/Adverse Reactions: amoxicillin trihydrate [From Augmentin] Allergy (Mild, Verified 09/13/20 18:59) rash cefaclor [Cefaclor] Allergy (Mild, Verified 09/13/20 18:59) rash Penicillins Allergy (Mild, Verified 09/13/20 18:59) rash Potassium Clavulanate * [From Augmentin] Allergy (Mild, Verified 09/13/20 18:59) rash codeine Allergy (Verified 09/13/20 18:59) iodine Allergy (Verified 09/13/20 18:59) levofloxacin [From Levaquin] Allergy (Verified 09/13/20 18:59) Home Medications: IBUPROFEN. CLONAZEPAM. LORAZEPAM. OXCARBAZEPINE Past Medical History - General Information source: Parent - Social History Smoking Status: Never Smoker Chew tobacco use (# tins/day): No Frequency of alcohol use: None Drug Abuse: None Family History: denies: CAD, DM, Hypertension, Malignancy Patient has homicidal ideation: No - Past Medical History Cardiac Medical History: Denies: Hx Coronary Artery Disease, Hx Heart Attack, Hx Hypercholesterolemia, Hx Hypertension Pulmonary Medical History: Reports: Hx Pneumonia Denies: Hx Asthma, Hx COPD, Hx Tuberculosis Neurological Medical History: Reports: Hx Seizures. Denies: Hx Cerebrovascular Accident Endocrine Medical History: Denies: Hx Diabetes Mellitus Type 1, Hx Diabetes Mellitus Type 2, Hx Hyperthyroidism, Hx Hypothyroidism Renal/ Medical History: Denies: Hx Peritoneal Dialysis GI Medical History: Denies: Hx Cirrhosis, Hx Crohn's Disease, Hx Gastroesophageal Reflux Disease, Hx Hepatitis, Hx Hiatal Hernia, Hx Ulcer, Hx Ulcerative Colitis Musculoskeletal Medical History: Denies Hx Arthritis, Denies Hx Gout, Reports Hx Muscle Spasm, Reports Hx Muscle Weakness, Reports Hx Musculoskeletal Deformity Skin Medical History: Denies Hx Eczema, Denies Hx Psoriasis Psychiatric Medical History: Reports: Hx Depression Infectious Medical History: Reports: Hx MRSA. Denies: Hx Hepatitis Past Surgical History: Reports: Hx Abdominal Surgery - PEG Tube, multiple abdominal surgeries rt peg tube for scar tissue., Hx Appendectomy, Hx Open Heart Surgery - repair hole in heart, AN , Other - Exploratory laparotomy for small bowel obstructions. Gastrostomy tube.. Denies: Hx Pacemaker - Immunizations Hx Diphtheria, Pertussis, Tetanus Vaccination: Yes Hx Pneumococcal Vaccination: 10/08/13 Review of Systems - Review of Systems Notes: CONSTITUTIONAL: Positive for low-grade fever and fatigue SKIN: Positive for erythema around the scrotal region which normally happens when he has a bowel obstruction according to mom. RESPIRATORY: No cough GASTROINTESTINAL: Positive for loose stool and abdominal distention. MUSCULOSKELETAL: No ecchymosis. NEUROLOGIC: Has history of seizures. HEMATOLOGIC: No unusual bruising or bleeding. PSYCHIATRIC: Unable to assess. Physical Exam - Vital signs Vitals: Temp Pulse Resp BP Pulse Ox 98.1 F 138 H 17 94/76 L 96 09/13/20 16:56 09/13/20 16:56 09/13/20 16:56 09/13/20 16:56 09/13/20 16:56 - General General appearance: Alert In distress: None Notes: VITAL SIGNS: Tachycardic GENERAL: Non-toxic appearance. HEAD: Normal with no signs of head trauma. EYES: Conjunctiva normal, no discharge. EARS: Hearing grossly intact. NOSE: Normal. NECK: Normal range of motion,supple CHEST: Clear breath sounds bilaterally. CARDIAC: Regular rate and rhythm. VASCULAR: No Edema. ABDOMEN: Distended. Abdomen feels firm. No rigidity. No guarding. GASTROINTESTINAL: Unable to auscultate bowel sounds GENITOURINARY: Mild irritation/erythema around scrotal area MUSCULOSKELETAL: Extremities without clubbing, cyanosis or edema. NEUROLOGICAL: Alert. No focal sensory or strength deficits. Nonverbal at baseline. SKIN: Normal appearance with no rashes or lesions. Course - Re-evaluation Re-evalutation: 09/14/20 04:31 Mother initially declined any contrast as she did not like the reaction he had to it before. Patient was discussed with the surgeon, Dr. Rivers, he recommended I obtain another CT scan with dye through the G-tube. This was performed. He has a small bowel obstruction. Patient was treated with morphine, fluids, empiric antibiotics as he did have a leukocytosis and was tachycardic. I do not have a source of infection at this time. It is possible leukocytosis could be reactive. Patient developed hiccups. He was given Reglan as mother was afraid he would aspirate. Surgeon saw the patient in the ER. He recommended that I give him a Fleet enema. He also recommended 1 bottle of magnesium citrate every 2 hours with 5 glasses of water afterwards through the G-tube. He recommended patient be admitted to the hospitalist service. 09/14/20 06:01 - Vital Signs Vital signs: Temp Pulse Resp BP Pulse Ox 98.4 F 118 H 28 H 122/89 H 98 09/14/20 04:33 09/14/20 04:33 09/14/20 04:33 09/14/20 04:33 09/14/20 04:33 - Laboratory Results Result Diagrams: 09/13/20 19:13 09/13/20 19:13 Laboratory Results Interpreted: 09/13/20 09/13/20 09/13/20 19:13 19:13 19:13 WBC 18.2 H RDW 14.2 H Seg Neuts % (Manual) 85 H Band Neutrophils % 1 L Lymphocytes % (Manual) 4 L Abs Neuts (Manual) 15.7 H Abs Monocytes (Manual) 1.8 H Sodium 128.1 L Chloride 86 L BUN 22 H Creatinine 0.47 L Glucose 135 H Lactic Acid 2.6 H Calcium 10.9 H Total Protein 8.5 H Albumin 5.1 H Urine Protein Ur Leukocyte Esterase Urine Ascorbic Acid 09/14/20 09/14/20 00:33 04:16 WBC RDW Seg Neuts % (Manual) Band Neutrophils % Lymphocytes % (Manual) Abs Neuts (Manual) Abs Monocytes (Manual) Sodium Chloride BUN Creatinine Glucose Lactic Acid 2.3 H Calcium Total Protein Albumin Urine Protein 30 H Ur Leukocyte Esterase TRACE H Urine Ascorbic Acid 40 H Critical Laboratory Results Reviewed: No Critical Results - Radiology Results Critical Radiology Results Reviewed: No Critical Results Discharge - Discharge Clinical Impression: Abdominal distension, SBO (small bowel obstruction) Leukocytosis Qualifiers: Leukocytosis type: unspecified Qualified Code(s): D72.829 - Elevated white blood cell count, unspecified Condition: Stable Disposition: ADMITTED INPATIENT Admitting Provider: Savage (Hospitalist) Unit Admitted: Surgical Floor - med surg
[2020-09-14] MEDS ORDERED: METOCLOPRAMIDE HCL INJ/PF 10 MG/2 ML SDV IV ONE (00:24)
[2020-09-14 00:58] LABS: APPEARANCE,URINE CLEAR; BILIRUBIN,URINE NEGATIVE (NEGATIVE); COLOR,URINE YELLOW; GLUCOSE, URINE NEGATIVE (NEGATIVE); KETONES,URINE NEGATIVE (NEGATIVE); LEUKOCYTE ESTERASE,URINE TRACE (NEGATIVE); NITRITE,URINE NEGATIVE (NEGATIVE); PROTEIN,URINE 30 mg/dL (NEGATIVE); URINE SPECIFIC GRAVITY 1.026; UROBILINOGEN,URINE NEGATIVE mg/dL (<2.0)
[2020-09-14] MEDS ORDERED: SODIUM CHLORIDE IV ONE (01:26)
--- NOTE | 2020-09-14 03:16 | RADIOLOGY REPORT (SQ) ---
CT ABDOMEN AND PELVIS WITHOUT INTRAVENOUS CONTRAST: 09/14/2020 2:12 AM PARTS ADMINISTRATOR HISTORY: 29-year old with abdominal pain, concern for small bowel obstruction. COMPARISON: CT of abdomen and pelvis from 09/13/2020 TECHNIQUE: Axial contiguous images were obtained from the lung bases to the proximal femurs without intravenous contrast administered. Sagittal and coronal reconstructions were also obtained and reviewed. This exam was performed according to our departmental dose-optimization program, which includes automated exposure control, adjustment of the mA and/or KV according to the patient's size and/or use of iterative reconstruction technique. FINDINGS: No focal consolidative airspace opacities are seen. No discrete pleural effusions are seen. Evaluation of the solid organs is limited by the lack of intravenous contrast. The visualized hepatic parenchyma demonstrates no focal abnormality. The gallbladder is not visualized and may be surgically absent. The spleen is normal in size. The pancreas is unremarkable. The bilateral adrenal glands are unremarkable. Both kidneys demonstrate no evidence of hydronephrosis. There is a nonobstructive 1 cm calculus at the left kidney. The urinary bladder is mildly distended. The stomach is moderately distended by oral contrast. There is a gastrostomy tube tip projecting at the stomach. There are dilated loops of small bowel. Most of the colon is relatively decompressed. There is some fecal material noted at the colon. There may be a transition point seen at the midline lower pelvis, best seen on image 61 of 97. There is some minimal swirling at the mesentery within this area. No pericolonic inflammatory stranding is seen. The appendix is not visualized. No inflammatory stranding is seen at the right lower quadrant of the abdomen. There is no evidence of pneumoperitoneum or free fluid. The IVC is unremarkable. The visualized portions of the abdominal aorta are within normal limits of size. No significantly enlarged lymph nodes are seen in the abdomen or pelvis. Review of the bone show no evidence of any suspicious lytic or blastic lesions. There is a scoliotic curvature of the thoracic or lumbar spine, convex to the right side. IMPRESSION: There are dilated loops of small bowel with a likely transition point seen at the midline lower pelvis. This is concerning for a small bowel obstruction. This is similar to recent imaging.
[2020-09-14] MEDS ORDERED: MORPHINE SULFATE 10 MG/ML INJ IV ONE (03:34)
[2020-09-14] MEDS ORDERED: MAGNESIUM CITRATE 296 ML BOTTLE PO ONE (04:03)
[2020-09-14] MEDS ORDERED: NA PHOS,M-B/NA PHOS,DI-BA (ADULT) 133 ML ENEMA PR ONE (04:10)
--- NOTE | 2020-09-14 04:38 | PDOC CONSULTATION ---
Consultation Consult Date: 09/14/20 Provider Consulted: JORGE HERRMANN Consult reason:: Constipation History of Present Illness Admission Date/PCP: SAMIA MONTANO MD History of Present Illness: RASHI TOMPKINS is a 29 year old male, nonverbal, history of autism and cerebral palsy, brought to emergency room by mother with a complaint of difficult defecation starting yesterday following a bowel movement with hard thick stool. No nausea or vomiting reported. No blood per rectum reported. No fever. A CT scan abdomen pelvis with oral contrast was done revealing a possibility of distal small bowel obstruction with transition point in the right lower quadrant; however, the appearance of this CAT scan is the same as the one done in December 2019. According to the mother, the patient has had 6 abdominal surgeries for small bowel obstruction. Past Medical History Cardiac Medical History: Denies: Coronary Artery Disease, Myocardial Infarction, Hyperlipidema, Hypertension Pulmonary Medical History: Reports: Pneumonia Denies: Asthma, Chronic Obstructive Pulmonary Disease (COPD), Tuberculosis Neurological Medical History: Reports: Seizures Endocrine Medical History: Denies: Diabetes Mellitus Type 1, Diabetes Mellitus Type 2, Hyperthyroidism, Hypothyroidism GI Medical History: Denies: Cirrhosis, Crohn's Disease, Gastroesophageal Reflux Disease, Hepatitis, Hiatal Hernia, Ulcerative Colitis Musculoskeltal Medical History: Denies: Arthritis, Gout Skin Medical History: Denies: Eczema, Psoriasis Psychiatric Medical History: Reports: Depression Hematology: Denies: Anemia, Sickle Cell Disease, Bleeding Tendencies Infectious Medical History: Reports: Methicillin-Resistant Staph Aureus Past Surgical History Past Surgical History: Reports: Appendectomy, Other - Exploratory laparotomy for small bowel obstructions. Gastrostomy tube. Denies: Pacemaker Social History Smoking Status: Never Smoker Electronic Cigarette use?: No Frequency of Alcohol Use: None Hx Recreational Drug Use: No Drugs: None Hx Prescription Drug Abuse: No Family History Family History: denies: CAD, DM, Hypertension, Malignancy Parental Family History Reviewed: No Children Family History Reviewed: No Sibling(s) Family History Reviewed.: No Medication/Allergy Home Medications: Carbamazepine [Tegretol Susp 200 mg/10 ml Udcup] 200 mg PEG BID 10/31/19 Clonazepam [Klonopin 1 mg Tablet] 1.5 mg PEG Q8HP PRN 10/31/19 Lorazepam [Ativan] 2 mg PEG Q6HP PRN 10/31/19 Oxcarbazepine [Trileptal Susp 300 mg/5 ml 250 ml/Bottle] 600 mg PEG TID 10/31/19 Clindamycin HCl 300 mg PEG QID #16 capsule 05/03/20 Nystatin [Mycostatin 500,000 Unit/5 ml Susp Udcup] 500,000 unit PO TID #60 ml 05/03/20 Allergies/Adverse Reactions: amoxicillin trihydrate [From Augmentin] Allergy (Mild, Verified 09/13/20 18:59) rash cefaclor [Cefaclor] Allergy (Mild, Verified 09/13/20 18:59) rash Penicillins Allergy (Mild, Verified 09/13/20 18:59) rash Potassium Clavulanate * [From Augmentin] Allergy (Mild, Verified 09/13/20 18:59) rash codeine Allergy (Verified 09/13/20 18:59) iodine Allergy (Verified 09/13/20 18:59) levofloxacin [From Levaquin] Allergy (Verified 09/13/20 18:59) Physical Exam Vital Signs: Temp Pulse Resp BP Pulse Ox 98.7 F 138 H 26 H 103/68 99 09/14/20 01:07 09/13/20 16:56 09/14/20 03:01 09/14/20 03:00 09/14/20 02:28 Intake & Output 09/12/20 09/13/20 09/14/20 06:59 06:59 06:59 Intake Total 1620 Balance 1620 Weight 49 kg General appearance: PRESENT: no acute distress, thin, other - Nonverbal, alert awake Head exam: PRESENT: atraumatic Eye exam: PRESENT: nystagmus Mouth exam: PRESENT: neck supple Teeth exam: PRESENT: poor dentation Neck exam: PRESENT: other - Unable to assess Respiratory exam: PRESENT: clear to auscultation ashu Cardiovascular exam: PRESENT: RRR GI/Abdominal exam: PRESENT: soft, other - Not distended, not tender, midline incision with well-healed scar, gastrostomy tube in the left upper quadrant Rectal exam: PRESENT: deferred Musculoskeletal exam: PRESENT: other - Bilateral upper and lower extremity spasticity Neurological exam: PRESENT: alert, other - Patient nonverbal and unable to c ooperate Skin exam: PRESENT: warm Results Laboratory Results: 09/13/20 19:13 09/13/20 19:13 0109/13/20 09/13/20 19:13 19:13 19:13 WBC 18.2 H RBC 5.33 Hgb 16.4 Hct 46.1 MCV 87 MCH 30.9 MCHC 35.7 RDW 14.2 H Plt Count 434 Seg Neutrophils % Not Reportable Sodium 128.1 L Potassium 4.3 Chloride 86 L Carbon Dioxide 28 Anion Gap 14 BUN 22 H Creatinine 0.47 L Est GFR ( Amer) > 60 Glucose 135 H Lactic Acid 2.6 H Calcium 10.9 H Magnesium 2.0 Total Bilirubin 0.7 AST 36 Alkaline Phosphatase 85 Total Protein 8.5 H Albumin 5.1 H Lipase 54.1 Urine Color Urine Appearance Urine pH Ur Specific [place] Urine Protein Urine Glucose (UA) Urine Ketones Urine Blood Urine Nitrite Ur Leukocyte Esterase Urine WBC (Auto) Urine RBC (Auto) 09/14/20 00:33 WBC RBC Hgb Hct MCV MCH MCHC RDW Plt Count Seg Neutrophils % Sodium Potassium Chloride Carbon Dioxide Anion Gap BUN Creatinine Est GFR ( Amer) Glucose Lactic Acid Calcium Magnesium Total Bilirubin AST Alkaline Phosphatase Total Protein Albumin Lipase Urine Color YELLOW Urine Appearance CLEAR Urine pH 6.0 Ur Specific [place] 1.026 Urine Protein 30 H Urine Glucose (UA) NEGATIVE Urine Ketones NEGATIVE Urine Blood NEGATIVE Urine Nitrite NEGATIVE Ur Leukocyte Esterase TRACE H Urine WBC (Auto) 5 Urine RBC (Auto) 4 Impressions: Chest X-Ray 09/13/20 23:07 IMPRESSION: No acute cardiopulmonary process copyright 2011 [employer]- All Rights Reserved Abdomen/Pelvis CT 09/14/20 00:21 IMPRESSION: There are dilated loops of small bowel with a likely transition point seen at the midline lower pelvis. This is concerning for a small bowel obstruction. This is similar to recent imaging. Assessment & Plan - Diagnosis (1) Constipation Qualifiers: Constipation type: slow transit constipation Qualified Code(s): K59.01 - Slow transit constipation Is this a current diagnosis for this admission?: Yes (2) Partial mechanical small bowel obstructi Is this a current diagnosis for this admission?: Yes (3) Cerebral palsy Qualifiers: Cerebral palsy type: spastic quadriplegic Qualified Code(s): G80.0 - Spastic quadriplegic cerebral palsy Is this a current diagnosis for this admission?: Yes - Plan Summary Plan Summary: Assessment: 29-year-old male, nonverbal, autistic, with spasticity Multiple abdominal surgeries including Yinka fundoplication, G-tube placement, and laparotomies for small bowel obstruction History of difficult defecation started yesterday (the patient passed a large hard stool yesterday) Physical exam demonstrates a soft abdomen without distention and no tenderness CT scan abdomen pelvis with oral contrast demonstrates dilatation of the small bowel with decompression of the colon, possible transition point around lower quadrant aspect, as per partial mechanical small bowel obstruction However, this CT scan findings are similar to those of the CT scan of the abdomen done in December 2019 Most likely, the patient is suffering from a recurrent episode of constipation White blood cell count 18.2, unknown cause BUN elevation (22) has per prerenal cause, most likely dehydration Slight elevation of lactic acid 2.6 most likely related to dehydration Plan: Patient be admitted by the hospitalist Aggressive IV hydration Administer mag citrate 1 bottle via G-tube every 2 hours followed by 5 glasses of water each time x3 doses No surgical intervention planned with this patient at this time, as the mother does not wish any intervention and it appears that the patient condition can be treated conservatively
[2020-09-14] MEDS ORDERED: ONDANSETRON 4 MG TAB.RAPDIS PO PRN (05:36)
[2020-09-14] MEDS ORDERED: ACETAMINOPHEN 650 MG SUPP.RECT PR PRN (05:36)
[2020-09-14] MEDS ORDERED: DEXTROSE 50%-WATER 25 GM/50 ML DISP.SYRIN IV PRN ×2 (05:36)
[2020-09-14] MEDS ORDERED: GLUCAGON,HUMAN RECOMB 1 MG INJ SUBCUT PRN (05:36)
[2020-09-14] MEDS ORDERED: DEXTROSE 40% GEL 15 GM TUBE PO PRN ×2 (05:36)
--- NOTE | 2020-09-14 05:50 | PDOC H&P ---
History of Present Illness Admission Date/PCP: 09/14/20 04:44 SAMIA MONTANO MD History of Present Illness: RASHI TOMPKINS is a 29 year old male with past medical history significant for recurrent SBO, cerebral palsy, seizure disorder, autism, functional quadriplegia who presents ED with 2-day history of nausea/vomiting/lethargy/abdominal pain/hard stools with leaking diarrhea c onsistent with many prior episodes of SBO which are recurrent for this patient. CT abdomen/pelvis with contrast showed findings consistent with SBO. General surgery consulted and they have planned to start the patient on scheduled doses of magnesium citrate as well as fleets enemas. They stated patient is not a surgical candidate at this time and any surgical intervention would be extremely high risk for him. Mother is adamant the patient is full code but also states she understands small bowel obstruction is happening more frequently and patient may eventually pass away from this. Patient unable to take any medications by mouth and he is on multiple antiseizure medications. I have converted this to IV Keppra and scheduled Ativan as has been done on previous admissions. Past Medical History Cardiac Medical History: Denies: Coronary Artery Disease, Myocardial Infarction, Hyperlipidema, Hypertension Pulmonary Medical History: Reports: Pneumonia Denies: Asthma, Chronic Obstructive Pulmonary Disease (COPD), Tuberculosis Neurological Medical History: Reports: Seizures Endocrine Medical History: Denies: Diabetes Mellitus Type 1, Diabetes Mellitus Type 2, Hyperthyroidism, Hypothyroidism GI Medical History: Denies: Cirrhosis, Crohn's Disease, Gastroesophageal Reflux Disease, Hepatitis, Hiatal Hernia, Ulcerative Colitis Musculoskeltal Medical History: Denies: Arthritis, Gout Skin Medical History: Denies: Eczema, Psoriasis Psychiatric Medical History: Reports: Depression Hematology: Denies: Anemia, Sickle Cell Disease, Bleeding Tendencies Infectious Medical History: Reports: Methicillin-Resistant Staph Aureus Past Surgical History Past Surgical History: Reports: Appendectomy, Other - Exploratory laparotomy for small bowel obstructions. Gastrostomy tube. Denies: Pacemaker Social History Smoking Status: Never Smoker Electronic Cigarette use?: No Frequency of Alcohol Use: None Hx Recreational Drug Use: No Drugs: None Hx Prescription Drug Abuse: No - Advance Directive Resuscitation Status: Full Code Surrogate healthcare decision maker:: Admitting diagnosis: Small bowel obstruction All aspects of code status discussed with patient/POA including cardioversion, chest compressions, and intubation and the patient/POA indicated they wish to be full code MPOA is designated as: MotherDanita Time spent: Greater than 16 minutes Family History Family History: denies: CAD, DM, Hypertension, Malignancy Parental Family History Reviewed: Yes Children Family History Reviewed: Yes Sibling(s) Family History Reviewed.: Yes Medication/Allergy Home Medications: Carbamazepine [Tegretol Susp 200 mg/10 ml Udcup] 200 mg PEG BID 10/31/19 Clonazepam [Klonopin 1 mg Tablet] 1.5 mg PEG Q8HP PRN 10/31/19 Lorazepam [Ativan] 2 mg PEG Q6HP PRN 10/31/19 Oxcarbazepine [Trileptal Susp 300 mg/5 ml 250 ml/Bottle] 600 mg PEG TID 10/31/19 Clindamycin HCl 300 mg PEG QID #16 capsule 05/03/20 Nystatin [Mycostatin 500,000 Unit/5 ml Susp Udcup] 500,000 unit PO TID #60 ml 05/03/20 Allergies/Adverse Reactions: amoxicillin trihydrate [From Augmentin] Allergy (Mild, Verified 09/13/20 18:59) rash cefaclor [Cefaclor] Allergy (Mild, Verified 09/13/20 18:59) rash Penicillins Allergy (Mild, Verified 09/13/20 18:59) rash Potassium Clavulanate * [From Augmentin] Allergy (Mild, Verified 09/13/20 18:59) rash codeine Allergy (Verified 09/13/20 18:59) iodine Allergy (Verified 09/13/20 18:59) levofloxacin [From Levaquin] Allergy (Verified 09/13/20 18:59) Review of Systems All systems: reviewed and no additional remarkable complaints except as stated - Per HPI otherwise negative Physical Exam Vital Signs: Temp Pulse Resp BP Pulse Ox 98.4 F 118 H 28 H 122/89 H 98 09/14/20 04:33 09/14/20 04:33 09/14/20 04:33 09/14/20 04:33 09/14/20 04:33 Intake & Output 09/12/20 09/13/20 09/14/20 06:59 06:59 06:59 Intake Total 1620 Balance 1620 Weight 49 kg Exam: General appearance: PRESENT: no acute distress, frail and chronically ill- appearing white male Head exam: PRESENT: atraumatic, normocephalic Eye exam: PRESENT: conjunctiva pink. ABSENT: scleral icterus Mouth exam: PRESENT: moist Respiratory exam: PRESENT: clear to auscultation ashu. ABSENT: rales, rhonchi, wheezes Cardiovascular exam: PRESENT: RRR. ABSENT: diastolic murmur, rubs, systolic murmur GI/Abdominal exam: PRESENT: Tenderness, diminished bowel sounds, soft, G-tube in left upper quadrant in good position, no skin breakdown around tube and no leakage noted. ABSENT: distended, guarding, mass, organolmegaly, rebound Neurological exam: PRESENT: alert, awake, nonverbal and cannot assess emelia entation Psychiatric exam: PRESENT: appropriate affect, normal mood Skin exam: PRESENT: dry, intact, warm Results Laboratory Results: 09/13/20 19:13 09/13/20 19:13 09/13/20 09/13/20 09/13/20 19:13 19:13 19:13 WBC 18.2 H RBC 5.33 Hgb 16.4 Hct 46.1 MCV 87 MCH 30.9 MCHC 35.7 RDW 14.2 H Plt Count 434 Seg Neutrophils % Not Reportable Sodium 128.1 L Potassium 4.3 Chloride 86 L Carbon Dioxide 28 Anion Gap 14 BUN 22 H Creatinine 0.47 L Est GFR ( Amer) > 60 Glucose 135 H Lactic Acid 2.6 H Calcium 10.9 H Magnesium 2.0 Total Bilirubin 0.7 AST 36 Alkaline Phosphatase 85 Total Protein 8.5 H Albumin 5.1 H Lipase 54.1 Urine Color Urine Appearance Urine pH Ur Specific [place] Urine Protein Urine Glucose (UA) Urine Ketones Urine Blood Urine Nitrite Ur Leukocyte Esterase Urine WBC (Auto) Urine RBC (Auto) 09/14/20 09/14/20 00:33 04:16 WBC RBC Hgb Hct MCV MCH MCHC RDW Plt Count Seg Neutrophils % Sodium Potassium Chloride Carbon Dioxide Anion Gap BUN Creatinine Est GFR ( Amer) Glucose Lactic Acid 2.3 H Calcium Magnesium Total Bilirubin AST Alkaline Phosphatase Total Protein Albumin Lipase Urine Color YELLOW Urine Appearance CLEAR Urine pH 6.0 Ur Specific [place] 1.026 Urine Protein 30 H Urine Glucose (UA) NEGATIVE Urine Ketones NEGATIVE Urine Blood NEGATIVE Urine Nitrite NEGATIVE Ur Leukocyte Esterase TRACE H Urine WBC (Auto) 5 Urine RBC (Auto) 4 Impressions: Chest X-Ray 09/13/20 23:07 IMPRESSION: No acute cardiopulmonary process copyright 2010 [employer]- All Rights Reserved Abdomen/Pelvis CT 09/14/20 00:21 IMPRESSION: There are dilated loops of small bowel with a likely transition point seen at the midline lower pelvis. This is concerning for a small bowel obstruction. This is similar to recent imaging. Assessment and Plan - Diagnosis (1) SBO (small bowel obstruction) Is this a current diagnosis for this admission?: Yes Plan: CT abdomen/pelvis consistent with bowel obstruction General surgery consulted by ED: Magnesium citrate and fleets enemas, no plans for surgery N.p.o. Hold all oral medications G-tube still in place Recommend patient go no more than 1 day without a bowel movement, discussed with mother at bedside (2) Cerebral palsy Qualifiers: Cerebral palsy type: spastic quadriplegic Qualified Code(s): G80.0 - Spastic quadriplegic cerebral palsy Is this a current diagnosis for this admission?: Yes Plan: Chronic, unchanged (3) Leukocytosis Qualifiers: Leukocytosis type: unspecified Qualified Code(s): D72.829 - Elevated white blood cell count, unspecified Is this a current diagnosis for this admission?: Yes Plan: Likely reactive due to small bowel obstruction and vomiting No evidence of aspiration pneumonia on chest x-ray Watch for aspiration as he has had this in the past with SBO (4) Hyponatremia Is this a current diagnosis for this admission?: Yes Plan: Likely due to poor p.o. intake IV fluids (5) Seizure disorder Is this a current diagnosis for this admission?: Yes Plan: Unable to take p.o. medications Converted seizure meds to IV Keppra and IV Ativan - Time Time Spent with patient: 35 or more minutes Medications reviewed and adjusted accordingly: Yes Anticipated Discharge Disposition: Home, Self Care Anticipated Discharge Timeframe: within 72 hours - Inpatient Certification Based on my medical assessment, after consideration of the patient's comorbi dities, presenting symptoms, or acuity I expect that the services needed warrant INPATIENT care.: Yes I certify that my determination is in accordance with my understanding of Medicare's requirements for reasonable and necessary INPATIENT services [42 CFR 412.3e].: Yes Medical Necessity: Significant Comorbidiites Make Outpatient Treatment Too Risky, Need Close Monitoring Due to Risk of Patient Decompensation, Need For IV Fluids, Risk of Complication if Not Cared For in Hospital, Risk of Diagnosis Which Will Require Inpatient Eval/Care/Monitoring
[2020-09-14] MEDS: LORAZEPAM INJ 2 MG/1 ML VIAL IV SCH ×4 (06:22→23:43)
[2020-09-14] MEDS: MAGNESIUM CITRATE 296 ML BOTTLE PEG SCH ×9 (06:23→21:34)
[2020-09-14 06:33] LABS: HEMATOCRIT 42.2 % (37.9-51.0); HEMOGLOBIN 14.6 g/dL (13.5-17.0); MEAN CORPUSCULAR HEMOGLOBIN 30.6 pg (27.0-33.4); MEAN CORPUSCULAR HGB CONC 34.7 g/dL (32.0-36.0); MEAN CORPUSCULAR VOLUME 88 fl (80-97); PLATELET COUNT 345 10^3/uL (150-450); RED BLOOD COUNT 4.79 10^6/uL (4.35-5.55); RED CELL DISTRIBUTION WIDTH 14.4 % (11.5-14.0); WHITE BLOOD COUNT 16.8 10^3/uL (4.0-10.5)
[2020-09-14 06:50] LABS: ABSOLUTE LYMPHOCYTES# (MANUAL) 1.7 10^3/uL (0.5-4.7); ABSOLUTE MONOCYTES # (MANUAL) 1.3 10^3/uL (0.1-1.4); ANISOCYTOSIS SLIGHT; BAND NEUTROPHILS % (MANUAL) 1 % (3-5); BASOPHILS % (MANUAL) 0 % (0-2); EOSINOPHILS % (MANUAL) 0 % (0-6); LYMPHOCYTES % (MANUAL) 10 % (13-45); MONOCYTES % (MANUAL) 8 % (3-13); PLATELET COMMENT ADEQUATE; SEGMENTED NEUTROPHILS % (MAN) 81 % (42-78); TOTAL CELLS COUNTED 100; TOXIC VACUOLATION PRESENT
[2020-09-14 06:54] LABS: ANION GAP 14 (5-19); BLOOD UREA NITROGEN 18 mg/dL (7-20); CALCIUM 9.6 mg/dL (8.4-10.2); CARBON DIOXIDE 24 mmol/L (22-30); CHLORIDE 94 mmol/L (98-107); GLUCOSE 123 mg/dL (75-110); PHOSPHORUS 3.5 mg/dL (2.5-4.5); POTASSIUM 4.1 mmol/L (3.6-5.0)
[2020-09-14] MEDS: NA PHOS,M-B/NA PHOS,DI-BA (ADULT) 133 ML ENEMA PR SCH ×5 (07:06→21:31)
[2020-09-14] MEDS: RINGERS SOLUTION,LACTATED 1,000 ML IV PRN (07:20)
[2020-09-14] MEDS: ONDANSETRON HCL INJ/PF 4 MG/2 ML SDV IV PRN (08:13)
--- NOTE | 2020-09-14 08:55 | PDOC PROGRESS REPORT ---
Subjective Date:: 09/14/20 Subjective:: c/o vomiting Reason For Visit: RECURRENT SBO, CEREBRAL PALSY, SEIZURE DISORDER Physical Exam Vital Signs: Temp Pulse Resp BP Pulse Ox 98.9 F 123 H 18 116/85 100 09/14/20 06:39 09/14/20 06:39 09/14/20 06:39 09/14/20 06:39 09/14/20 06:39 Intake & Output 09/13/20 09/14/20 09/15/20 06:59 06:59 06:59 Intake Total 1620 Balance 1620 Weight 49.2 kg General appearance: PRESENT: no acute distress Head exam: PRESENT: normocephalic Eye exam: PRESENT: EOMI Ear exam: PRESENT: normal external ear exam Mouth exam: PRESENT: moist Neck exam: PRESENT: full ROM Respiratory exam: PRESENT: clear to auscultation ahsu Cardiovascular exam: PRESENT: RRR Pulses: PRESENT: +2 pedal pulses bilateral Breast: PRESENT: Normal GI/Abdominal exam: PRESENT: diminished bowel sounds, distended Rectal exam: PRESENT: deferred Extremities exam: PRESENT: full ROM Musculoskeletal exam: PRESENT: full ROM Neurological exam: PRESENT: alert, awake Psychiatric exam: PRESENT: unusual affect Skin exam: PRESENT: dry Results Laboratory Results: 09/14/20 06:22 09/14/20 06:22 09/13/20 09/13/20 09/13/20 19:13 19:13 19:13 WBC 18.2 H RBC 5.33 Hgb 16.4 Hct 46.1 MCV 87 MCH 30.9 MCHC 35.7 RDW 14.2 H Plt Count 434 Seg Neutrophils % Not Reportable Sodium 128.1 L Potassium 4.3 Chloride 86 L Carbon Dioxide 28 Anion Gap 14 BUN 22 H Creatinine 0.47 L Est GFR ( Amer) > 60 Glucose 135 H Lactic Acid 2.6 H Calcium 10.9 H Phosphorus Magnesium 2.0 Total Bilirubin 0.7 AST 36 Alkaline Phosphatase 85 Total Protein 8.5 H Albumin 5.1 H Lipase 54.1 Urine Color Urine Appearance Urine pH Ur Specific [place] Urine Protein Urine Glucose (UA) Urine Ketones Urine Blood Urine Nitrite Ur Leukocyte Esterase Urine WBC (Auto) Urine RBC (Auto) 09/14/20 09/14/20 09/14/20 00:33 04:16 06:22 WBC 16.8 H RBC 4.79 Hgb 14.6 Hct 42.2 MCV 88 MCH 30.6 MCHC 34.7 RDW 14.4 H Plt Count 345 Seg Neutrophils % Not Reportable Sodium Potassium Chloride Carbon Dioxide Anion Gap BUN Creatinine Est GFR ( Amer) Glucose Lactic Acid 2.3 H Calcium Phosphorus Magnesium Total Bilirubin AST Alkaline Phosphatase Total Protein Albumin Lipase Urine Color YELLOW Urine Appearance CLEAR Urine pH 6.0 Ur Specific [place] 1.026 Urine Protein 30 H Urine Glucose (UA) NEGATIVE Urine Ketones NEGATIVE Urine Blood NEGATIVE Urine Nitrite NEGATIVE Ur Leukocyte Esterase TRACE H Urine WBC (Auto) 5 Urine RBC (Auto) 4 09/14/20 06:22 WBC RBC Hgb Hct MCV MCH MCHC RDW Plt Count Seg Neutrophils % Sodium 131.5 L Potassium 4.1 Chloride 94 L Carbon Dioxide 24 Anion Gap 14 BUN 18 Creatinine 0.41 L Est GFR ( Amer) > 60 Glucose 123 H Lactic Acid Calcium 9.6 Phosphorus 3.5 Magnesium 2.2 Total Bilirubin AST Alkaline Phosphatase Total Protein Albumin Lipase Urine Color Urine Appearance Urine pH Ur Specific [place] Urine Protein Urine Glucose (UA) Urine Ketones Urine Blood Urine Nitrite Ur Leukocyte Esterase Urine WBC (Auto) Urine RBC (Auto) Impressions: Chest X-Ray 09/13/20 23:07 IMPRESSION: No acute cardiopulmonary process copyright 2011 [employer]- All Rights Reserved Abdomen/Pelvis CT 09/14/20 00:21 IMPRESSION: There are dilated loops of small bowel with a likely transition point seen at the midline lower pelvis. This is concerning for a small bowel obstruction. This is similar to recent imaging. Assessment & Plan - Time Anticipated Discharge Disposition: Home, Self Care Anticipated Discharge Timeframe: Unknown - Plan Summary Plan Summary: Patient with multiple previous admissions for small bowel obstruction was admitted yesterday for recurrent small bowel obstruction. CT scan did show some dilated small bowel loops with a transition point in the pelvis consistent with a possible small bowel obstruction. Patient was seen by surgery admitted to the hospital and ordered magnesium citrate. Patient was managed without an NG tube and or gastrostomy tube decompression This morning the nurse has held his magnesium citrate because of vomiting. Recommendations is to place the gastrostomy tube on intermittent suction. The mother is at bedside and has a connecting tube to the Triston button which is the gastrostomy tube in the left abdominal wall. The mother understands how to connect the extension tube to the Triston button. I have asked the nurse to connect that to intermittent wall suction. We will place the patient on gastric the compression today in hopes of resolving the small bowel section spontaneously as has been done before. Would hold off on magnesium citrate now until we obtained some intestinal decompression.
[2020-09-14] MEDS ORDERED: LEVETIRACETAM INJ/PF 500 MG/5 ML SDV IV SCH (10:00)
[2020-09-14] MEDS: NYSTATIN 500000 UNIT/5 ML UDCUP PO SCH ×3 (10:37→17:50)
[2020-09-14] MEDS: ENOXAPARIN SODIUM INJ 30 MG/0.3 ML DISP.SYRIN SUBCUT SCH (10:37)
[2020-09-14] MEDS: LEVETIRACETAM 500 MG/NACL-ISO 500 MG/100 ML RTUPB IV SCH ×2 (11:16→21:26)
--- NOTE | 2020-09-14 11:31 | RADIOLOGY REPORT (SQ) ---
EXAM DESCRIPTION: ACUTE ABDOMEN SERIES IMAGES COMPLETED DATE/TIME: 09/14/2020 11:14 am REASON FOR STUDY: Follow-up constipation COMPARISON: 04/28/[address] NUMBER OF VIEWS: Three views. TECHNIQUE: Frontal chest, supine abdomen and upright/decubitus abdomen radiographic images acquired. LIMITATIONS: None. FINDINGS: CHEST: Mild left retrocardiac opacities, likely atelectasis or scarring. Gas dilated dist al esophagus, new from prior CT. FREE AIR: None. No abnormal gas collections. BOWEL GAS PATTERN: Persistent gas dilated loops of small large bowel throughout the abdomen in a nons pecific pattern. Similar to prior CT. CALCIFICATIONS: No suspicious calcifications. HARDWARE: Gastrostomy tube overlies left upper quadrant. SOFT TISSUES: No gross mass or suggestion of organomegaly. BONES: Severe serpiginous thoracolumbar curvature. No acute bony findings. OTHER: No other significant finding. IMPRESSION: Gas dilated distal esophagus, new from prior CT. Persistent gas dilated loops of small large bowel throughout the abdomen in a nonspecific pattern, si milar prior same-day CT. TECHNICAL DOCUMENTATION: JOB ID: [id number] [employer]- All Rights Reserved Reading location - IP/workstation name: [email or web address]
--- NOTE | 2020-09-14 13:48 | PDOC PROGRESS REPORT ---
Subjective Date:: 09/14/20 Subjective:: The patient is a 29-year-old male with a past medical history significant for cerebral palsy, seizure disorder, autism, functional quadriplegia and aphasia, and recurrent small bowel obstruction who was admitted on 821 with small bowel obstruction, leukocytosis, hyponatremia, and hypokalemia. Patient was seen on morning rounds with mother at bedside. He is awake and alert; occasionally makes eye contact and follows directions. Otherwise, nonverbal and at baseline mentation per mother. She does note that he continues to have facial grimacining and evidence of discomfort. She states that his nausea/vomiting appears to have improved following start of gastric suctioning; patient has out out ~1.4 L dark brown liquid. ROS is unobtainable. He is not in acute distress at the time of my visit. No questions or concerns per nursing or mother at this time. Reason For Visit: RECURRENT SBO, CEREBRAL PALSY, SEIZURE DISORDER Physical Exam Vital Signs: Temp Pulse Resp BP Pulse Ox 97.3 F 73 16 128/89 H 91 L 09/14/20 07:29 09/14/20 07:29 09/14/20 07:29 09/14/20 07:29 09/14/20 07:29 Intake & Output 09/13/20 09/14/20 09/15/20 06:59 06:59 06:59 Intake Total 1620 100 Balance 1620 100 Weight 49.2 kg General appearance: PRESENT: no acute distress, thin, other - frail and chronically ill-appearing Head exam: PRESENT: atraumatic, normocephalic Eye exam: PRESENT: conjunctiva pink, EOMI, PERRLA. ABSENT: scleral icterus Mouth exam: PRESENT: moist, tongue midline Respiratory exam: PRESENT: clear to auscultation ashu, symmetrical, unlabored, other - room air. ABSENT: rales, rhonchi, wheezes Cardiovascular exam: PRESENT: RRR, +S1, +S2. ABSENT: diastolic murmur, rubs, systolic murmur Pulses: PRESENT: normal dorsalis pedis pul Vascular exam: PRESENT: normal capillary refill GI/Abdominal exam: PRESENT: diminished bowel sounds, distended, soft, tenderness Rectal exam: PRESENT: deferred Extremities exam: PRESENT: full ROM - moves all extremities spontaneously. ABSE NT: calf tenderness, clubbing, pedal edema Neurological exam: PRESENT: alert, awake, CN II-XII grossly intact, other - At baseline mentation per mother. ABSENT: motor sensory deficit Skin exam: PRESENT: dry, intact, warm. ABSENT: cyanosis, rash Results Laboratory Results: 09/14/20 06:22 09/14/20 06:22 09/13/20 09/13/20 09/13/20 19:13 19:13 19:13 WBC 18.2 H RBC 5.33 Hgb 16.4 Hct 46.1 MCV 87 MCH 30.9 MCHC 35.7 RDW 14.2 H Plt Count 434 Seg Neutrophils % Not Reportable Sodium 128.1 L Potassium 4.3 Chloride 86 L Carbon Dioxide 28 Anion Gap 14 BUN 22 H Creatinine 0.47 L Est GFR ( Amer) > 60 Glucose 135 H Lactic Acid 2.6 H Calcium 10.9 H Phosphorus Magnesium 2.0 Total Bilirubin 0.7 AST 36 Alkaline Phosphatase 85 Total Protein 8.5 H Albumin 5.1 H Lipase 54.1 Urine Color Urine Appearance Urine pH Ur Specific [place] Urine Protein Urine Glucose (UA) Urine Ketones Urine Blood Urine Nitrite Ur Leukocyte Esterase Urine WBC (Auto) Urine RBC (Auto) 09/14/20 09/14/20 09/14/20 00:33 04:16 06:22 WBC 16.8 H RBC 4.79 Hgb 14.6 Hct 42.2 MCV 88 MCH 30.6 MCHC 34.7 RDW 14.4 H Plt Count 345 Seg Neutrophils % Not Reportable Sodium Potassium Chloride Carbon Dioxide Anion Gap BUN Creatinine Est GFR ( Amer) Glucose Lactic Acid 2.3 H Calcium Phosphorus Magnesium Total Bilirubin AST Alkaline Phosphatase Total Protein Albumin Lipase Urine Color YELLOW Urine Appearance CLEAR Urine pH 6.0 Ur Specific [place] 1.026 Urine Protein 30 H Urine Glucose (UA) NEGATIVE Urine Ketones NEGATIVE Urine Blood NEGATIVE Urine Nitrite NEGATIVE Ur Leukocyte Esterase TRACE H Urine WBC (Auto) 5 Urine RBC (Auto) 4 09/14/20 06:22 WBC RBC Hgb Hct MCV MCH MCHC RDW Plt Count Seg Neutrophils % Sodium 131.5 L Potassium 4.1 Chloride 94 L Carbon Dioxide 24 Anion Gap 14 BUN 18 Creatinine 0.41 L Est GFR ( Amer) > 60 Glucose 123 H Lactic Acid Calcium 9.6 Phosphorus 3.5 Magnesium 2.2 Total Bilirubin AST Alkaline Phosphatase Total Protein Albumin Lipase Urine Color Urine Appearance Urine pH Ur Specific [place] Urine Protein Urine Glucose (UA) Urine Ketones Urine Blood Urine Nitrite Ur Leukocyte Esterase Urine WBC (Auto) Urine RBC (Auto) Impressions: Chest X-Ray 09/13/20 23:07 IMPRESSION: No acute cardiopulmonary process copyright 2011 [employer]- All Rights Reserved Abdomen/Pelvis CT 09/14/20 00:21 IMPRESSION: There are dilated loops of small bowel with a likely transition point seen at the midline lower pelvis. This is concerning for a small bowel obstruction. This is similar to recent imaging. Acute Abdomen Series 09/14/20 11:00 IMPRESSION: Gas dilated distal esophagus, new from prior CT. Persistent gas dilated loops of small large bowel throughout the abdomen in a nonspecific pattern, similar prior same-day CT. Assessment and Plan - Diagnosis (1) SBO (small bowel obstruction) Is this a current diagnosis for this admission?: Yes Plan: CT abdomen/pelvis consistent with bowel obstruction Patient is admitted to the medical floor. Surgery consulted; primary plan per their expertise N.p.o. Hold all oral medications; transition to IV where appropriate G-tube still in place; currently to wall suction per surgery's instructions. 1.4 L dark round fluid output thus far. Serial fleets enemas per surgery. Antiemetics as needed. Avoid opiates. Follow chemistries. (2) Leukocytosis Qualifiers: Leukocytosis type: unspecified Qualified Code(s): D72.829 - Elevated white blood cell count, unspecified Is this a current diagnosis for this admission?: Yes Plan: Trending down. Afebrile. Likely reactive due to small bowel obstruction and vomiting No evidence of aspiration pneumonia on chest x-ray Watch for aspiration as he has had this in the past with SBO Blood cultures pending. No indications for antibiotics at this time. (3) Hyponatremia Is this a current diagnosis for this admission?: Yes Plan: Improved with IVF. Likely due to poor p.o. intake Continue IV fluids Follow up chemistry. (4) Seizure disorder Is this a current diagnosis for this admission?: Yes Plan: Unable to take p.o. medications Converted seizure meds to IV Keppra and IV Ativan Seizure and fall precautions. (5) Cerebral palsy Qualifiers: Cerebral palsy type: spastic quadriplegic Qualified Code(s): G80.0 - Spastic quadriplegic cerebral palsy Is this a current diagnosis for this admission?: Yes Plan: Chronic, unchanged Supportive care. - Time Time Spent with patient: 25-34 minutes Medications reviewed and adjusted accordingly: Yes Anticipated Discharge Disposition: Home with Home Health Anticipated Discharge Timeframe: TBD
[2020-09-15] MEDS: MAGNESIUM CITRATE 296 ML BOTTLE PEG SCH ×5 (01:14→08:18)
[2020-09-15] MEDS: NA PHOS,M-B/NA PHOS,DI-BA (ADULT) 133 ML ENEMA PR SCH ×6 (02:48→22:22)
[2020-09-15 05:12] LABS: ABSOLUTE LYMPHOCYTES (AUTO) 1.4 10^3/uL (0.5-4.7); ABSOLUTE MONOCYTES (AUTO) 1.3 10^3/uL (0.1-1.4); ABSOLUTE NEUT (AUTO) 8.3 10^3/uL (1.7-8.2); BASOPHILS % (AUTO) 0.3 % (0-2); EOSINOPHILS % (AUTO) 0.1 % (0-6); HEMATOCRIT 36.4 % (37.9-51.0); LYMPHOCYTES % (AUTO) 12.5 % (13-45); MEAN CORPUSCULAR HEMOGLOBIN 30.6 pg (27.0-33.4); MEAN CORPUSCULAR HGB CONC 34.3 g/dL (32.0-36.0); MEAN CORPUSCULAR VOLUME 89 fl (80-97); MONOCYTES % (AUTO) 11.5 % (3-13); PLATELET COUNT 236 10^3/uL (150-450); RED BLOOD COUNT 4.08 10^6/uL (4.35-5.55); RED CELL DISTRIBUTION WIDTH 14.1 % (11.5-14.0); SEGMENTED NEUTROPHILS % (AUTO) 75.6 % (42-78); TOTAL CELLS COUNTED % (AUTO) 100 %; WHITE BLOOD COUNT 10.9 10^3/uL (4.0-10.5)
[2020-09-15 05:15] LABS: HEMOGLOBIN 12.5 g/dL (13.5-17.0)
[2020-09-15 05:30] LABS: ANION GAP 8 (5-19); BLOOD UREA NITROGEN 18 mg/dL (7-20); CALCIUM 8.8 mg/dL (8.4-10.2); CARBON DIOXIDE 30 mmol/L (22-30); CHLORIDE 101 mmol/L (98-107); GLUCOSE 80 mg/dL (75-110); PHOSPHORUS 3.6 mg/dL (2.5-4.5); POTASSIUM 4.3 mmol/L (3.6-5.0)
[2020-09-15] MEDS: LORAZEPAM INJ 2 MG/1 ML VIAL IV SCH ×2 (06:08→12:15)
--- NOTE | 2020-09-15 08:31 | PDOC PROGRESS REPORT ---
Subjective Date:: 09/15/20 Subjective:: Patient comfortable, nonverbal, no evidence of stress, multiple bowel movements reported overnight and this morning Reason For Visit: RECURRENT SBO, CEREBRAL PALSY, SEIZURE DISORDER Physical Exam Vital Signs: Temp Pulse Resp BP Pulse Ox 98.5 F 99 14 111/70 99 09/15/20 07:35 09/15/20 07:35 09/15/20 07:35 09/15/20 07:35 09/15/20 07:35 Intake & Output 09/14/20 09/15/20 09/16/20 06:59 06:59 06:59 Intake Total 1620 1200 Output Total 1550 Balance 1620 -350 Weight 49.2 kg 47.5 kg General appearance: PRESENT: no acute distress, other - Nonverbal GI/Abdominal exam: PRESENT: soft Results Laboratory Results: 09/15/20 04:11 09/15/20 04:11 09/15/20 09/15/20 04:11 04:11 WBC 10.9 H RBC 4.08 L Hgb 12.5 L D Hct 36.4 L MCV 89 MCH 30.6 MCHC 34.3 RDW 14.1 H Plt Count 236 Seg Neutrophils % 75.6 Sodium 139.0 Potassium 4.3 Chloride 101 Carbon Dioxide 30 Anion Gap 8 BUN 18 Creatinine 0.51 L Est GFR ( Amer) > 60 Glucose 80 Calcium 8.8 Phosphorus 3.6 Magnesium 2.9 H 09/13/20 23:50 Blood Blood Culture (PCR) - Final Staphylococcus Species Impressions: Chest X-Ray 09/13/20 23:07 IMPRESSION: No acute cardiopulmonary process copyright 2011 [employer]- All Rights Reserved Abdomen/Pelvis CT 09/14/20 00:21 IMPRESSION: There are dilated loops of small bowel with a likely transition point seen at the midline lower pelvis. This is concerning for a small bowel obstruction. This is similar to recent imaging. Acute Abdomen Series 09/14/20 11:00 IMPRESSION: Gas dilated distal esophagus, new from prior CT. Persistent gas dilated loops of small large bowel throughout the abdomen in a nonspecific pattern, similar prior same-day CT. Assessment & Plan - Diagnosis (1) Constipation Qualifiers: Constipation type: slow transit constipation Qualified Code(s): K59.01 - Slow transit constipation Is this a current diagnosis for this admission?: Yes (2) Cerebral palsy Qualifiers: Cerebral palsy type: spastic quadriplegic Qualified Code(s): G80.0 - Spastic quadriplegic cerebral palsy Is this a current diagnosis for this admission?: Yes - Time Anticipated Discharge Disposition: Home, Self Care Anticipated Discharge Timeframe: As per PCP - Plan Summary Plan Summary: Assessment: Constipation Multiple bowel movements for administration of magnesium citrate Plan: Patient condition on home gastrostomy tube nutritional regimen with tap water flushes Start Colace elixir via G-tube 100 mg twice a day I will sign off. Please call me with questions
[2020-09-15] MEDS ORDERED: ACETAMINOPHEN SOLN 325 MG/10.15 ML UDCUP GT PRN ×2 (09:04→09:21)
[2020-09-15] MEDS: DOCUSATE SODIUM 100 MG/10 ML UDC PEG SCH ×2 (09:40→18:06)
[2020-09-15] MEDS: NYSTATIN 500000 UNIT/5 ML UDCUP PO SCH ×3 (09:45→18:06)
[2020-09-15] MEDS: ENOXAPARIN SODIUM INJ 30 MG/0.3 ML DISP.SYRIN SUBCUT SCH (09:46)
[2020-09-15] MEDS: LEVETIRACETAM 500 MG/NACL-ISO 500 MG/100 ML RTUPB IV SCH (09:47)
--- NOTE | 2020-09-15 10:49 | PDOC PROGRESS REPORT ---
Subjective Date:: 09/15/20 Subjective:: Patient's mother is at the bedside. The patient had a large bowel movement I believe yesterday. With that we are going to initiate tube feeds based on the dietitian's recommendations. The patient is quite active in bed and his mother feels that he is returning to his baseline. Reason For Visit: RECURRENT SBO, CEREBRAL PALSY, SEIZURE DISORDER Physical Exam Vital Signs: Temp Pulse Resp BP Pulse Ox 98.5 F 99 14 111/70 99 09/15/20 08:32 09/15/20 07:35 09/15/20 07:35 09/15/20 07:35 09/15/20 07:35 Intake & Output 09/14/20 09/15/20 09/16/20 06:59 06:59 06:59 Intake Total 1620 1200 Output Total 1550 Balance 1620 -350 Weight 49.2 kg 47.5 kg 47.5 kg General appearance: PRESENT: no acute distress. ABSENT: cooperative - Due to cerebral palsy patient is unable to cooperate with the exam Ear exam: PRESENT: normal external ear exam. ABSENT: bleeding, drainage Respiratory exam: PRESENT: clear to auscultation ashu, symmetrical, unlabored. ABSENT: crackles, prolonged expiratory phas, rales, rhonchi, tachypnea, wheezes Cardiovascular exam: PRESENT: RRR, +S1, +S2, systolic murmur - 2/6. ABSENT: bradycardia, diastolic murmur, irregular rhythm GI/Abdominal exam: PRESENT: normal bowel sounds, soft, other - PEG tube in place. ABSENT: distended, tenderness Rectal exam: PRESENT: deferred Musculoskeletal exam: PRESENT: other - Decreased muscle mass Neurological exam: PRESENT: alert, altered - Patient is nonverbal chronically, awake, aphasic Psychiatric exam: PRESENT: other - Mother reports that he is returning to baseline. He is quite active in bed. Grabbing at my stethoscope and goggles. Focused psych exam: PRESENT: restlessness Results Laboratory Results: 09/15/20 04:11 09/15/20 04:11 09/15/20 09/15/20 04:11 04:11 WBC 10.9 H RBC 4.08 L Hgb 12.5 L D Hct 36.4 L MCV 89 MCH 30.6 MCHC 34.3 RDW 14.1 H Plt Count 236 Seg Neutrophils % 75.6 Sodium 139.0 Potassium 4.3 Chloride 101 Carbon Dioxide 30 Anion Gap 8 BUN 18 Creatinine 0.51 L Est GFR ( Amer) > 60 Glucose 80 Calcium 8.8 Phosphorus 3.6 Magnesium 2.9 H 09/13/20 23:50 Blood Blood Culture (PCR) - Final Staphylococcus Species Impressions: Chest X-Ray 09/13/20 23:07 IMPRESSION: No acute cardiopulmonary process copyright 2010 [employer]- All Rights Reserved Abdomen/Pelvis CT 09/14/20 00:21 IMPRESSION: There are dilated loops of small bowel with a likely transition point seen at the midline lower pelvis. This is concerning for a small bowel obstruction. This is similar to recent imaging. Acute Abdomen Series 09/14/20 11:00 IMPRESSION: Gas dilated distal esophagus, new from prior CT. Persistent gas dilated loops of small large bowel throughout the abdomen in a nonspecific pattern, similar prior same-day CT. Assessment and Plan - Diagnosis (1) SBO (small bowel obstruction) Is this a current diagnosis for this admission?: Yes (2) Leukocytosis Qualifiers: Leukocytosis type: unspecified Qualified Code(s): D72.829 - Elevated white blood cell count, unspecified Is this a current diagnosis for this admission?: Yes (3) Cerebral palsy Qualifiers: Cerebral palsy type: spastic quadriplegic Qualified Code(s): G80.0 - Spastic quadriplegic cerebral palsy Is this a current diagnosis for this admission?: Yes (4) Hypermagnesemia Is this a current diagnosis for this admission?: Yes (5) Hyponatremia Is this a current diagnosis for this admission?: Yes (6) Seizure disorder Is this a current diagnosis for this admission?: Yes - Plan Summary Summary: (1) SBO (small bowel obstruction) (2) Leukocytosis (3) Cerebral palsy (4) Hypermagnesemia (5) Hyponatremia (6) Seizure disorder 09/15/2020 Small bowel obstruction-patient had a large bowel movement. Will resume tube feeds. We will utilize Jevity 1.[address] of his nutrition 1.5. He does bolus tube feeds at home and we will initiate bolus tube feeds but add a smaller volume. Likewise decreased volume for flushes. Leukocytosis-White blood cell count is down to 10.9 from 18. Continue to monitor. Hypomagnesemia-magnesium is 2.9. This may be from all of the magnesium containing cathartics. Will recheck tomorrow. Hyponatremia-serum sodium is now normal. Seizure disorder-resume medications via PEG tube. - Time Time Spent with patient: 15-24 minutes Medications reviewed and adjusted accordingly: Yes Anticipated Discharge Disposition: Home, Self Care Anticipated Discharge Timeframe: within 48 hours
[2020-09-15] MEDS: RINGERS SOLUTION,LACTATED 1,000 ML IV PRN ×2 (14:42→22:27)
[2020-09-15] MEDS: OXCARBAZEPINE 300 MG/5 ML SUSP 250ML/BOTTLE PEG SCH ×2 (18:03→19:20)
[2020-09-15] MEDS: LORAZEPAM 1 MG TABLET PEG PRN (18:48)
[2020-09-15] MEDS: ONDANSETRON HCL INJ/PF 4 MG/2 ML SDV IV PRN (18:50)
[2020-09-15] MEDS ORDERED: LEVETIRACETAM 500 MG/NACL-ISO 500 MG/100 ML RTUPB IV ONE (22:00)
[2020-09-16] MEDS: NA PHOS,M-B/NA PHOS,DI-BA (ADULT) 133 ML ENEMA PR SCH ×3 (02:38→14:22)
[2020-09-16] MEDS: LORAZEPAM 1 MG TABLET PEG PRN ×2 (02:40→09:13)
[2020-09-16 05:26] LABS: ABSOLUTE LYMPHOCYTES (AUTO) 1.1 10^3/uL (0.5-4.7); ABSOLUTE MONOCYTES (AUTO) 0.7 10^3/uL (0.1-1.4); ABSOLUTE NEUT (AUTO) 5.2 10^3/uL (1.7-8.2); BASOPHILS % (AUTO) 0.3 % (0-2); EOSINOPHILS % (AUTO) 0.2 % (0-6); HEMATOCRIT 29.6 % (37.9-51.0); HEMOGLOBIN 10.6 g/dL (13.5-17.0); LYMPHOCYTES % (AUTO) 15.3 % (13-45); MEAN CORPUSCULAR HEMOGLOBIN 31.7 pg (27.0-33.4); MEAN CORPUSCULAR HGB CONC 35.8 g/dL (32.0-36.0); MEAN CORPUSCULAR VOLUME 88 fl (80-97); MONOCYTES % (AUTO) 9.6 % (3-13); PLATELET COUNT 209 10^3/uL (150-450); RED BLOOD COUNT 3.35 10^6/uL (4.35-5.55); RED CELL DISTRIBUTION WIDTH 13.4 % (11.5-14.0); SEGMENTED NEUTROPHILS % (AUTO) 74.6 % (42-78); TOTAL CELLS COUNTED % (AUTO) 100 %; WHITE BLOOD COUNT 6.9 10^3/uL (4.0-10.5)
[2020-09-16] MEDS: RINGERS SOLUTION,LACTATED 1,000 ML IV PRN (06:44)
[2020-09-16 08:25] LABS: ANION GAP 7 (5-19); BLOOD UREA NITROGEN 7 mg/dL (7-20); CARBON DIOXIDE 24 mmol/L (22-30); CHLORIDE 103 mmol/L (98-107); GLUCOSE 88 mg/dL (75-110); POTASSIUM 3.4 mmol/L (3.6-5.0)
[2020-09-16] MEDS: NYSTATIN 500000 UNIT/5 ML UDCUP PO SCH ×2 (09:13→14:26)
[2020-09-16] MEDS: OXCARBAZEPINE 300 MG/5 ML SUSP 250ML/BOTTLE PEG SCH (09:38)
[2020-09-16] MEDS: ENOXAPARIN SODIUM INJ 30 MG/0.3 ML DISP.SYRIN SUBCUT SCH (09:40)
[2020-09-16] MEDS: DOCUSATE SODIUM 100 MG/10 ML UDC PEG SCH (10:00)
--- NOTE | 2020-09-16 14:08 | PDOC DISCHARGE SUMMARY ---
Impression - Admit/DC Date/PCP Admission Date/Primary Care Provider: 09/14/20 04:44 SAMIA MONTANO MD Discharge Date: 09/16/20 - Discharge Diagnosis (1) SBO (small bowel obstruction) Is this a current diagnosis for this admission?: Yes (2) Leukocytosis Is this a current diagnosis for this admission?: Yes (3) Cerebral palsy Is this a current diagnosis for this admission?: Yes (4) Hypermagnesemia Is this a current diagnosis for this admission?: Yes (5) Hyponatremia Is this a current diagnosis for this admission?: Yes (6) Seizure disorder Is this a current diagnosis for this admission?: Yes - Assessment Summary: (1) SBO (small bowel obstruction) (2) Leukocytosis (3) Cerebral palsy (4) Hypermagnesemia (5) Hyponatremia (6) Seizure disorder 09/15/2020 Small bowel obstruction-patient had a large bowel movement. Will resume tube feeds. We will utilize Jevity 1.[address] of his nutrition 1.5. He does bolus tube feeds at home and we will initiate bolus tube feeds but add a smaller volume. Likewise decreased volume for flushes. Leukocytosis-White blood cell count is down to 10.9 from 18. Continue to monitor. Hypomagnesemia-magnesium is 2.9. This may be from all of the magnesium containing cathartics. Will recheck tomorrow. Hyponatremia-serum sodium is now normal. Seizure disorder-resume medications via PEG tube. 09/16/2020 Small bowel obstruction-resolved. Tolerating tube feeds. The patient's mother will incrementally increase the bolus feeds and free water per the dietitians plan. Leukocytosis-resolved Hyponatremia-improved Hypermagnesemia-resolved Seizure disorder-resume home medications at discharge Cerebral palsy-no specific treatment at this time. Return to normal routine at home. - Additional Information Resuscitation Status: Full Code Discharge Diet: Tube Feeding (Comments) Discharge Activity: Activity As Tolerated Referrals: SAMIA MONTANO MD [Primary Care Provider] - Follow up as needed Home Medications: Clonazepam [Klonopin 1 mg Tablet] 2 mg PEG Q6HP PRN 10/31/19 Lorazepam [Ativan] 2 mg PEG Q6HP PRN 10/31/19 Oxcarbazepine [Trileptal Susp 300 mg/5 ml 250 ml/Bottle] 600 mg PEG TID 10/31/19 Ibuprofen [Motrin 800 mg Tablet] 800 mg PEG BIDP PRN 09/14/20 Docusate Sodium [Colace Udc 100 mg/10 ml Oral Soln] 100 mg PEG BID udc 09/16/20 History of Present Illiness History of Present Illness: RASHI TOMPKINS is a 29 year old maleRASHI TOMPKINS is a 29 year old male with past medical history significant for recurrent SBO, cerebral palsy, seizure disorder, autism, functional quadriplegia who presents ED with 2-day history of nausea/vomiting/lethargy/abdominal pain/hard stools with leaking diarrhea consistent with many prior episodes of SBO which are recurrent for this patient. CT abdomen/pelvis with contrast showed findings consistent with SBO. General surgery consulted and they have planned to start the patient on scheduled doses of magnesium citrate as well as fleets enemas. They stated patient is not a surgical candidate at this time and any surgical intervention would be extremely high risk for him. Mother is adamant the patient is full code but also states she understands small bowel obstruction is happening more frequently and patient may eventually pass away from this. Patient unable to take any medications by mouth and he is on multiple antiseizure medications. I have converted this to IV Keppra and scheduled Ativan as has been done on previous admissions. Hospital Course Hospital Course: See above Physical Exam Vital Signs: Temp Pulse Resp BP Pulse Ox 97.7 F 87 21 H 127/90 H 93 09/16/20 08:00 09/16/20 08:00 09/16/20 08:00 09/16/20 08:00 09/16/20 08:00 Intake & Output 09/15/20 09/16/20 09/17/20 06:59 06:59 06:59 Intake Total 1200 2859 Output Total 1550 Balance -350 2859 Weight 47.5 kg 47.3 kg General appearance: PRESENT: mild distress Respiratory exam: PRESENT: clear to auscultation ashu, symmetrical, unlabored. ABSENT: rales, rhonchi, tachypnea, wheezes Cardiovascular exam: PRESENT: RRR, +S1, +S2. ABSENT: bradycardia, diastolic murmur, irregular rhythm, systolic murmur GI/Abdominal exam: PRESENT: normal bowel sounds, soft. ABSENT: tenderness Rectal exam: PRESENT: deferred Extremities exam: ABSENT: pedal edema Musculoskeletal exam: PRESENT: other - Decreased muscle mass. ABSENT: ambulatory Neurological exam: PRESENT: alert, awake, aphasic, other - Chronic significant deficits from cerebral palsy Psychiatric exam: PRESENT: agitated - Slightly agitated but calmed down when his mother told him he would be able to go home Focused psych exam: PRESENT: other - Unable to assess Results Laboratory Results: WBC 6.9 10^3/uL (4.0-10.5) 09/16/20 04:12 RBC 3.35 10^6/uL (4.35-5.55) L 09/16/20 04:12 Hgb 10.6 g/dL (13.5-17.0) L 09/16/20 04:12 Hct 29.6 % (37.9-51.0) L 09/16/20 04:12 MCV 88 fl (80-97) 09/16/20 04:12 MCH 31.7 pg (27.0-33.4) 09/16/20 04:12 MCHC 35.8 g/dL (32.0-36.0) 09/16/20 04:12 RDW 13.4 % (11.5-14.0) 09/16/20 04:12 Plt Count 209 10^3/uL (150-450) 09/16/20 04:12 Lymph % (Auto) 15.3 % (13-45) 09/16/20 04:12 [place] % (Auto) 9.6 % (3-13) 09/16/20 04:12 Eos % (Auto) 0.2 % (0-6) 09/16/20 04:12 Baso % (Auto) 0.3 % (0-2) 09/16/20 04:12 Absolute Neuts (auto) 5.2 10^3/uL (1.7-8.2) 09/16/20 04:12 Absolute Lymphs (auto) 1.1 10^3/uL (0.5-4.7) 09/16/20 04:12 Absolute Monos (auto) 0.7 10^3/uL (0.1-1.4) 09/16/20 04:12 Absolute Eos (auto) 0.0 10^3/uL (0.0-0.6) 09/16/20 04:12 Absolute Basos (auto) 0.0 10^3/uL (0.0-0.2) 09/16/20 04:12 Total Counted 100 09/14/20 06:22 Seg Neutrophils % 74.6 % (42-78) 09/16/20 04:12 Seg Neuts % (Manual) 81 % (42-78) H 09/14/20 06:22 Band Neutrophils % 1 % (3-5) L 09/14/20 06:22 Lymphocytes % (Manual) 10 % (13-45) L 09/14/20 06:22 Monocytes % (Manual) 8 % (3-13) 09/14/20 06:22 Eosinophils % (Manual) 0 % (0-6) 09/14/20 06:22 Basophils % (Manual) 0 % (0-2) 09/14/20 06:22 Abs Neuts (Manual) 13.8 10^3/uL (1.7-8.2) H 09/14/20 06:22 Abs Lymphs (Manual) 1.7 10^3/uL (0.5-4.7) 09/14/20 06:22 Abs Monocytes (Manual) 1.3 10^3/uL (0.1-1.4) 09/14/20 06:22 Absolute Eos (Manual) 0.0 10^3/uL (0.0-0.6) 09/14/20 06:22 Abs Basophils (Manual) 0.0 10^3/uL (0.0-0.2) 09/14/20 06:22 Toxic Vacuolation PRESENT 09/14/20 06:22 Platelet Comment ADEQUATE 09/14/20 06:22 Anisocytosis SLIGHT 09/14/20 06:22 RBC Morph Comment NORMO-CYTIC/CHROMIC 09/13/20 19:13 Sodium 134.4 mmol/L (137-145) L 09/16/20 07:47 Potassium 3.4 mmol/L (3.6-5.0) L 09/16/20 07:47 Chloride 103 mmol/L (98-107) 09/16/20 07:47 Carbon Dioxide 24 mmol/L (22-30) 09/16/20 07:47 Anion Gap 7 (5-19) 09/16/20 07:47 BUN 7 mg/dL (7-20) 09/16/20 07:47 Creatinine 0.34 mg/dL (0.52-1.25) L 09/16/20 07:47 Est GFR ( Amer) > 60 (>60) 09/16/20 07:47 Est GFR (Non-Af Amer) Cancelled 09/16/20 04:12 Est GFR (MDRD) Non-Af > 60 (>60) 09/16/20 07:47 Glucose 88 mg/dL (75-110) 09/16/20 07:47 Lactic Acid 2.3 mmol/L (0.7-2.1) H 09/14/20 04:16 Calcium 9.0 mg/dL (8.4-10.2) 09/16/20 07:47 Phosphorus 3.6 mg/dL (2.5-4.5) 09/15/20 04:11 Magnesium 1.8 mg/dL (1.6-2.3) 09/16/20 07:47 Total Bilirubin 0.7 mg/dL (0.2-1.3) 09/13/20 19:13 Direct Bilirubin 0.2 mg/dL (0.0-0.4) 09/13/20 19:13 Neonat Total Bilirubin Not Reportable 09/13/20 19:13 Neonat Direct Bilirubin Not Reportable 09/13/20 19:13 Neonat Indirect Bili Not Reportable 09/13/20 19:13 AST 36 U/L (17-59) 09/13/20 19:13 ALT 33 U/L (<50) 09/13/20 19:13 Alkaline Phosphatase 85 U/L (38-126) 09/13/20 19:13 Total Protein 8.5 g/dL (6.3-8.2) H 09/13/20 19:13 Albumin 5.1 g/dL (3.5-5.0) H 09/13/20 19:13 Lipase 54.1 U/L (23-300) 09/13/20 19:13 EGFR Cancelled 09/16/20 04:12 Urine Color YELLOW 09/14/20 00:33 Urine Appearance CLEAR 09/14/20 00:33 Urine pH 6.0 (5.0-9.0) 09/14/20 00:33 Ur Specific [place] 1.026 09/14/20 00:33 Urine Protein 30 mg/dL (NEGATIVE) H 09/14/20 00:33 Urine Glucose (UA) NEGATIVE mg/dL (NEGATIVE) 09/14/20 00:33 Urine Ketones NEGATIVE mg/dL (NEGATIVE) 09/14/20 00:33 Urine Blood NEGATIVE (NEGATIVE) 09/14/20 00:33 Urine Nitrite NEGATIVE (NEGATIVE) 09/14/20 00:33 Urine Bilirubin NEGATIVE (NEGATIVE) 09/14/20 00:33 Urine Urobilinogen NEGATIVE mg/dL (<2.0) 09/14/20 00:33 Ur Leukocyte Esterase TRACE (NEGATIVE) H 09/14/20 00:33 Urine WBC (Auto) 5 /HPF 09/14/20 00:33 Urine RBC (Auto) 4 /HPF 09/14/20 00:33 Urine Mucus (Auto) RARE /LPF 09/14/20 00:33 Urine Ascorbic Acid 40 (NEGATIVE) H 09/14/20 00:33 Impressions: Abdomen/Pelvis CT 09/13/20 22:41 IMPRESSION: 1. Similar findings to comparison studies with dilated loops of proximal small bowel with mild small bowel wall thickening and distally decompressed loops of small bowel. Findings concerning for small bowel obstruction. Definitive transition point is not identified on this study. 2. Nonobstructing superior pole left nephrolithiasis. 3. Linear left basilar opacities likely related to atelectasis or scar. This exam was performed according to our departmental dose-optimization program, which includes automated exposure control, adjustment of the mA and/or kV according to patient size and/or use of iterative reconstruction technique. Chest X-Ray 09/13/20 23:07 IMPRESSION: No acute cardiopulmonary process copyright 2011 [employer]- All Rights Reserved Abdomen/Pelvis CT 09/14/20 00:21 IMPRESSION: There are dilated loops of small bowel with a likely transition point seen at the midline lower pelvis. This is concerning for a small bowel obstruction. This is similar to recent imaging. Acute Abdomen Series 09/14/20 11:00 IMPRESSION: Gas dilated distal esophagus, new from prior CT. Persistent gas dilated loops of small large bowel throughout the abdomen in a nonspecific pattern, similar prior same-day CT. Plan Health Concerns: Recurrent small bowel obstruction in cerebral palsy patient with PEG tube Plan of Treatment: Gradually increase tube feeds to return to previous regimen. Increase free water through the PEG tube similarly. Resume home medications and home routine. Discussed the use of Colace or some other stool softener to be adjusted to try and achieve a regular bowel regimen. Time Spent: Greater than 30 Minutes Stroke Is this a Stroke Patient?: No Acute Heart Failure Is this a Heart Failure Patient?: No
[2020-09-16 14:23] VITALS: BP 99/61
== END 2020-09-16 15:25 | disposition home or self-care (01) | DRG 388 ==
LOC: ER 16:21 → EH 09-14 04:44 → 4N 09-14 06:39
PROVIDERS: ADMIT Internal Medicine; ATTEND Hospitalist
DX: K56.690 Other partial intestinal obstruction (principal); G80.0 Spastic quadriplegic cerebral palsy; E87.1 Hypo-osmolality and hyponatremia; F84.0 Autistic disorder; K56.609 Unspecified intestinal obstruction, unspecified as to partial versus complete obstruction; G40.909 Epilepsy, unspecified, not intractable, without status epilepticus; E83.41 Hypermagnesemia; F32.9 Major depressive disorder, single episode, unspecified; K59.01 Slow transit constipation; D72.829 Elevated white blood cell count, unspecified; Z93.1 Gastrostomy status; Z86.14 Personal history of Methicillin resistant Staphylococcus aureus infection; Z79.899 Other long term (current) drug therapy; Z88.1 Allergy status to other antibiotic agents; Z88.6 Allergy status to analgesic agent; Z88.3 Allergy status to other anti-infective agents; Z88.0 Allergy status to penicillin; Z88.8 Allergy status to other drugs, medicaments and biological substances
CPT/HCPCS: 36415; 71045; 74022; 74176; 80048; 80053; 81001; 83605; 83690; 83735; 84100; 85025; 87040; 87077; 87150; 87186; 96361; 96365; 96367; 96375; 99285; J0696; J1650; J1953; J2060; J2270; J2405; J2765; J3490; J7030; J7040; J7120

== ENCOUNTER 2020-09-20 13:17 | Inpatient (IN) | payer MEDICARE, MEDICAID ==
--- NOTE | 2020-09-20 13:57 | ER Document Report ---
ED Medical Screen (RME) - General Chief Complaint: Vomiting Stated Complaint: VOMITING Primary Care Provider: SAMIA MONTANO MD [Primary Care Provider] - Follow up as needed TRAVEL OUTSIDE OF THE [place] IN LAST 30 DAYS: No - HPI Notes: 09/20/20 13:55 Rapid Medical Exam HPI: This is a 29-year-old male with a history of cerebral palsy and recurrent bowel obstructions presents to the ER just after being discharged couple days ago for a small bowel obstruction. Mom says patient developed a fever of 102 this morning and when she suctioned him she noted bowel contents from the respiratory secretions. Patient also began coughing which she says can be a sign of aspiration with him. Last bowel movement was yesterday. She says his abdomen is slightly distended Physical Exam: GENERAL: Well-appearing, well-nourished and in no acute distress. HEAD: Atraumatic, normocephalic. ENT: Moist mucous membranes. RESP: Respirations even and unlabored CV- Regular rate. NEURO: baseline neuro deficits My involvement in this patients care was limited to a rapid initial assessment. A comprehensive ED assessment and evaluation of the patient, analysis of test results, treatment, and completion of the medical decision making process will be performed by other ER providers. - Related Data Allergies/Adverse Reactions: amoxicillin trihydrate [From Augmentin] Allergy (Mild, Verified 09/13/20 18:59) rash cefaclor [Cefaclor] Allergy (Mild, Verified 09/13/20 18:59) rash Penicillins Allergy (Mild, Verified 09/13/20 18:59) rash Potassium Clavulanate * [From Augmentin] Allergy (Mild, Verified 09/13/20 18:59) rash codeine Allergy (Verified 09/13/20 18:59) iodine Allergy (Verified 09/13/20 18:59) levofloxacin [From Levaquin] Allergy (Verified 09/13/20 18:59) Past Medical History - Social History Frequency of alcohol use: None Drug Abuse: None - Past Medical History Cardiac Medical History: Denies: Hx Coronary Artery Disease, Hx Heart Attack, Hx Hypercholesterolemia, Hx Hypertension Pulmonary Medical History: Reports: Hx Pneumonia Denies: Hx Asthma, Hx COPD, Hx Tuberculosis Neurological Medical History: Reports: Hx Seizures. Denies: Hx Cerebrovascular Accident Endocrine Medical History: Denies: Hx Diabetes Mellitus Type 1, Hx Diabetes Mellitus Type 2, Hx Hyperthyroidism, Hx Hypothyroidism Renal/ Medical History: Denies: Hx Peritoneal Dialysis GI Medical History: Denies: Hx Cirrhosis, Hx Crohn's Disease, Hx Gastroesophageal Reflux Disease, Hx Hepatitis, Hx Hiatal Hernia, Hx Ulcer, Hx Ulcerative Colitis Musculoskeltal Medical History: Denies Hx Arthritis, Denies Hx Gout, Reports Hx Muscle Spasm, Reports Hx Muscle Weakness, Reports Hx Musculoskeletal Deformity Skin Medical History: Denies Hx Eczema, Denies Hx Psoriasis Psychiatric Medical History: Reports: Hx Depression Infectious Medical History: Reports: Hx MRSA. Denies: Hx Hepatitis Past Surgical History: Reports: Hx Abdominal Surgery - PEG Tube, multiple abdominal surgeries rt peg tube for scar tissue., Hx Appendectomy, Hx Open Heart Surgery - repair hole in heart, AN , Other - Exploratory laparotomy for small bowel obstructions. Gastrostomy tube.. Denies: Hx Pacemaker - Immunizations Hx Diphtheria, Pertussis, Tetanus Vaccination: Yes Physical Exam - Vital signs Vitals: Temp Pulse Resp BP Pulse Ox 98.2 F 84 16 104/70 97 09/20/20 13:37 09/20/20 13:37 09/20/20 13:37 09/20/20 13:37 09/20/20 13:37 Course - Vital Signs Vital signs: Temp Pulse Resp BP Pulse Ox 98.2 F 84 16 104/70 97 09/20/20 13:37 09/20/20 13:37 09/20/20 13:37 09/20/20 13:37 09/20/20 13:37 Doctor's Discharge - Discharge Referrals: SAMIA MONTANO MD [Primary Care Provider] - Follow up as needed
--- NOTE | 2020-09-20 14:46 | RADIOLOGY REPORT (SQ) ---
EXAM DESCRIPTION: KUB/ABDOMEN (SINGLE VIEW) IMAGES COMPLETED DATE/TIME: 09/20/2020 2:30 pm REASON FOR STUDY: vomiting, recent bowel obstruction COMPARISON: 09/14/2020 NUMBER OF VIEWS: One view. TECHNIQUE: Supine radiographic image of the abdomen acquired. LIMITATIONS: None. FINDINGS: BOWEL GAS PATTERN: There is a dilated loop of small bowel in the right upper quadrant. A small amount of large bowel gas is present. CALCIFICATIONS: No suspicious calcifications. SOFT TISSUES: No gross mass or suggestion of organomegaly. HARDWARE: Gastrostomy tube. BONES: No acute fracture. No worrisome bone lesions. OTHER: No other significant finding. IMPRESSION: Cannot exclude small bowel obstruction. TECHNICAL DOCUMENTATION: JOB ID: [id number] 2010 [employer]- All Rights Reserved Reading location - IP/workstation name: [email or web address]
--- NOTE | 2020-09-20 14:48 | RADIOLOGY REPORT (SQ) ---
EXAM DESCRIPTION: CHEST SINGLE VIEW IMAGES COMPLETED DATE/TIME: 09/20/2020 2:30 pm REASON FOR STUDY: cough, fever. COMPARISON: None. EXAM PARAMETERS: NUMBER OF VIEWS: One view. TECHNIQUE: Single frontal radiographic view of the chest acquired. RADIATION DOSE: NA LIMITATIONS: None. FINDINGS: LUNGS AND PLEURA: There is retrocardiac opacification on the left. The left hemidiaphragm remains well-defined. MEDIASTINUM AND HILAR STRUCTURES: No masses. Contour normal. HEART AND VASCULAR STRUCTURES: Heart normal in size. Normal vasculature. BONES: No acute findings. HARDWARE: None in the chest. OTHER: No other significant finding. IMPRESSION: Cannot exclude a left lower lobe pneumonia. TECHNICAL DOCUMENTATION: JOB ID: [id number] 2010 [employer]- All Rights Reserved Reading location - IP/workstation name: [email or web address]
--- NOTE | 2020-09-20 15:10 | ER Document Report ---
ED GI/ - General Chief Complaint: Vomiting Stated Complaint: VOMITING Time Seen by Provider: 09/20/20 14:03 Primary Care Provider: SAMIA MONTANO MD [Primary Care Provider] - Follow up as needed Notes: CHIEF COMPLAINT: possible bowel obstruction HPI: History is obtained from the mother and the chart secondary to the patient's CP diagnosis. A 29-year-old male brought back to the emergency department with cough and fever last night. Mother was concerned that he may have aspirated his tube feeding. Patient has been having multiple bowel movements when she started the Colace but she is still giving feedings of 240 mL followed by 240 mL of water. ROS: See HPI -history obtained from the mother and chart secondary to patient MR and CP MEDICATIONS: I agree with the patient medications as charted by the RN. ALLERGIES: I agree with the allergies as charted by the RN. PAST MEDICAL HISTORY/PAST SURGICAL HISTORY: Reviewed and agree as charted by RN. SOCIAL HISTORY: Reviewed and agree as charted by RN. FAMILY HISTORY: No significant familial comorbid conditions directly related to patient complaint EXAM: Reviewed vital signs as charted by RN. CONSTITUTIONAL: Alert to name only. Chronically ill-appearing; cachectic- nourished HEAD: Normocephalic; atraumatic EYES: Conjunctivae clear, sclerae non-icteric ENT: normal nose; no rhinorrhea; moist mucous membranes NECK: Supple without meningismus CARD: Mild tachycardia; no murmurs, no clicks, no rubs, no gallops; symmetric distal pulses RESP: Normal chest excursion without splinting or tachypnea; breath sounds clear and equal bilaterally; no wheezes, no rhonchi, no rales, pulse oximetry 96% on room air not hypoxic ABD/GI: Normal bowel sounds; non-distended; soft, non-tender, no rebound, no guarding; no palpable organomegaly or masses. G-tube button present BACK: The back appears normal and is non-tender to palpation, there is no CVA tenderness EXT: Normal ROM in all joints; no cyanosis, no effusions, no edema SKIN: Normal color for age and race; warm; dry; good turgor; no acute lesions noted NEURO: Moves all extremities equally PSYCH: The patient's mood and manner are inappropriate. Grooming and personal hygiene are poor. MDM: 29-year-old male with COPD brought for evaluation of fever with cough last night. Retrocardiac pneumonia on chest x-ray. Questionable bowel obstruction on x-ray the patient is moving his bowels per the mother after use of Colace. Will obtain baseline screening labs. Patient will likely require admission again given his debilitation's The patient was evaluated during the global COVID-19 pandemic and that diagnosis was suspected/considered upon their initial presentation. Their evaluation, t reatment and testing was consistent with current guidelines for patients who present with complaints or symptoms that may be related to COVID-19 TRAVEL OUTSIDE OF THE [place] IN LAST 30 DAYS: No - Related Data Allergies/Adverse Reactions: amoxicillin trihydrate [From Augmentin] Allergy (Mild, Verified 09/13/20 18:59) rash cefaclor [Cefaclor] Allergy (Mild, Verified 09/13/20 18:59) rash Penicillins Allergy (Mild, Verified 09/13/20 18:59) rash Potassium Clavulanate * [From Augmentin] Allergy (Mild, Verified 09/13/20 18:59) rash codeine Allergy (Verified 09/13/20 18:59) iodine Allergy (Verified 09/13/20 18:59) levofloxacin [From Levaquin] Allergy (Verified 09/13/20 18:59) Past Medical History - Social History Smoking Status: Never Smoker Frequency of alcohol use: None Drug Abuse: None Family History: denies: CAD, DM, Hypertension, Malignancy Patient has homicidal ideation: No - Past Medical History Cardiac Medical History: Denies: Hx Coronary Artery Disease, Hx Heart Attack, Hx Hypercholesterolemia, Hx Hypertension Pulmonary Medical History: Reports: Hx Pneumonia Denies: Hx Asthma, Hx COPD, Hx Tuberculosis Neurological Medical History: Reports: Hx Seizures. Denies: Hx Cerebrovascular Accident Endocrine Medical History: Denies: Hx Diabetes Mellitus Type 1, Hx Diabetes Mellitus Type 2, Hx Hyperthyroidism, Hx Hypothyroidism Renal/ Medical History: Denies: Hx Peritoneal Dialysis GI Medical History: Denies: Hx Cirrhosis, Hx Crohn's Disease, Hx Gastroesophageal Reflux Disease, Hx Hepatitis, Hx Hiatal Hernia, Hx Ulcer, Hx Ulcerative Colitis Musculoskeletal Medical History: Denies Hx Arthritis, Denies Hx Gout, Reports Hx Muscle Spasm, Reports Hx Muscle Weakness, Reports Hx Musculoskeletal Deformity Skin Medical History: Denies Hx Eczema, Denies Hx Psoriasis Psychiatric Medical History: Reports: Hx Depression Infectious Medical History: Reports: Hx MRSA. Denies: Hx Hepatitis Past Surgical History: Reports: Hx Abdominal Surgery - PEG Tube, multiple abdominal surgeries rt peg tube for scar tissue., Hx Appendectomy, Hx Open Heart Surgery - repair hole in heart, AN , Other - Exploratory laparotomy for small bowel obstructions. Gastrostomy tube.. Denies: Hx Pacemaker - Immunizations Hx Diphtheria, Pertussis, Tetanus Vaccination: Yes Hx Pneumococcal Vaccination: 10/08/13 Physical Exam - Vital signs Vitals: Temp Pulse Resp BP Pulse Ox 98.2 F 84 16 104/70 97 09/20/20 13:37 09/20/20 13:37 09/20/20 13:37 09/20/20 13:37 09/20/20 13:37 Course - Re-evaluation Re-evalutation: 09/20/20 18:[address] Davis, hospitalist. Patient was discussed, he evaluated the patient. He requests that I speak with Dr. Blaine whatley about the patient. He will call me back to discuss whether he feels like patient needs admission. 09/20/20 18:[address] Davis, hospitalist. He requests a rapid Covid test. He request the nursing hookup suction to the patient's button to decompress his abdomen. He is spoken with surgery. He will admit the patient medical bed observation - Vital Signs Vital signs: Temp Pulse Resp BP Pulse Ox 98.2 F 84 16 104/70 97 09/20/20 13:37 09/20/20 13:37 09/20/20 13:37 09/20/20 13:37 09/20/20 13:37 - Laboratory Results Result Diagrams: 09/20/20 16:18 09/20/20 16:18 Laboratory Results Interpreted: 09/20/20 09/20/20 16:18 16:18 WBC 17.2 H Plt Count 539 H Seg Neuts % (Manual) 80 H Band Neutrophils % 8 H Lymphocytes % (Manual) 6 L Abs Neuts (Manual) 15.1 H Sodium 132.5 L Chloride 95 L BUN 24 H Creatinine 0.46 L Glucose 118 H ALT 53 H Critical Laboratory Results Reviewed: No Critical Results - Radiology Results Critical Radiology Results Reviewed: Yes Attending or Supervising Physician who Reviewed Radiology: LYNDA FRANCIS Discharge - Discharge Clinical Impression: SBO (small bowel obstruction) Aspiration pneumonia Qualifiers: Aspiration pneumonia type: unspecified Laterality: left Lung location: lower lobe of lung Qualified Code(s): J69.0 - Pneumonitis due to inhalation of food and vomit Condition: Fair Disposition: ADMITTED OBSERVATION Admitting Provider: Ryan (Hospitalist) Unit Admitted: Medical Floor Referrals: SAMIA MONTANO MD [Primary Care Provider] - Follow up as needed
[2020-09-20] MEDS ORDERED: DOXYCYCLINE HYCLATE INJ 100 MG VIAL IV ONE (15:19)
[2020-09-20] MEDS ORDERED: CLINDAMYCIN 600 MG/D5W RTU 600 MG/50 ML RTUPB IV ONE (15:19)
[2020-09-20 16:48] LABS: HEMATOCRIT 41.8 % (37.9-51.0); HEMOGLOBIN 14.9 g/dL (13.5-17.0); MEAN CORPUSCULAR HEMOGLOBIN 31.4 pg (27.0-33.4); MEAN CORPUSCULAR HGB CONC 35.8 g/dL (32.0-36.0); MEAN CORPUSCULAR VOLUME 88 fl (80-97); PLATELET COUNT 539 10^3/uL (150-450); RED BLOOD COUNT 4.76 10^6/uL (4.35-5.55); RED CELL DISTRIBUTION WIDTH 13.8 % (11.5-14.0); WHITE BLOOD COUNT 17.2 10^3/uL (4.0-10.5)
[2020-09-20 16:56] LABS: ALBUMIN 4.4 g/dL (3.5-5.0); ALKALINE PHOSPHATASE 79 U/L (38-126); ANION GAP 11 (5-19); ASPARTATE AMINO TRANSFERASE 40 U/L (17-59); BILIRUBIN,DIRECT 0.2 mg/dL (0.0-0.4); BILIRUBIN,TOTAL 0.7 mg/dL (0.2-1.3); BLOOD UREA NITROGEN 24 mg/dL (7-20); CALCIUM 9.9 mg/dL (8.4-10.2); CARBON DIOXIDE 27 mmol/L (22-30); CHLORIDE 95 mmol/L (98-107); GLUCOSE 118 mg/dL (75-110); TOTAL PROTEIN 7.5 g/dL (6.3-8.2)
[2020-09-20 17:18] LABS: ABSOLUTE LYMPHOCYTES# (MANUAL) 1.2 10^3/uL (0.5-4.7); ABSOLUTE MONOCYTES # (MANUAL) 0.9 10^3/uL (0.1-1.4); BAND NEUTROPHILS % (MANUAL) 8 % (3-5); BASOPHILS % (MANUAL) 0 % (0-2); EOSINOPHILS % (MANUAL) 0 % (0-6); LYMPHOCYTES % (MANUAL) 6 % (13-45); MONOCYTES % (MANUAL) 5 % (3-13); POLYCHROMASIA SLIGHT; SEGMENTED NEUTROPHILS % (MAN) 80 % (42-78); TOTAL CELLS COUNTED 100
[2020-09-20 17:20] LABS: PLATELET COMMENT INCREASED
[2020-09-20] MEDS ORDERED: PROMETHAZINE HCL INJ 25 MG/1 ML VIAL IV PRN (18:24)
[2020-09-20] MEDS ORDERED: DEXTROSE 5%-LACTATED RINGERS 1,000 ML IV PRN (18:24)
[2020-09-20] MEDS ORDERED: KETOROLAC TROMETHAMINE INJ/PF 30 MG/1 ML SDV IV PRN (18:29)
--- NOTE | 2020-09-20 18:48 | PDOC H&P ---
History of Present Illness Admission Date/PCP: SAMIA MONTANO MD Patient complains of: Fever, vomiting History of Present Illness: RASHI TOMPKINS is a 29 year old male with history of cerebral palsy and multiple bouts of small bowel obstruction, aspiration pneumonia, presents once again with fever which was noted by patient's mom at home. He has had 3 bouts of fever last one being 102 shortly before coming to the hospital. She did give him some Tylenol right before coming to the hospital. So far here he is afebrile. She also noted that he has been having multiple bouts of vomiting since this morning. Last night he was having diarrhea. He is on the Colace that he was just discharged with. Chest x-ray in the ER shows questionable left haziness in the lower lobe. KUB continues to show dilated bowel loops which appear unchanged from his previous presentation with SBO. Notably at the time they had decided to forego surgical intervention during his last admission. Patient having significant residuals from his PEG tube. Past Medical History Cardiac Medical History: Denies: Coronary Artery Disease, Myocardial Infarction, Hyperlipidema, Hypertension Pulmonary Medical History: Reports: Pneumonia Denies: Asthma, Chronic Obstructive Pulmonary Disease (COPD), Tuberculosis Neurological Medical History: Reports: Seizures Endocrine Medical History: Denies: Diabetes Mellitus Type 1, Diabetes Mellitus Type 2, Hyperthyroidism, Hypothyroidism GI Medical History: Denies: Cirrhosis, Crohn's Disease, Gastroesophageal Reflux Disease, Hepatitis, Hiatal Hernia, Ulcerative Colitis Musculoskeltal Medical History: Denies: Arthritis, Gout Skin Medical History: Denies: Eczema, Psoriasis Psychiatric Medical History: Reports: Depression Hematology: Denies: Anemia, Sickle Cell Disease, Bleeding Tendencies Infectious Medical History: Reports: Methicillin-Resistant Staph Aureus Past Surgical History Past Surgical History: Reports: Appendectomy, Other - Exploratory laparotomy for small bowel obstructions. Gastrostomy tube. Denies: Pacemaker Social History Smoking Status: Never Smoker Frequency of Alcohol Use: None Hx Recreational Drug Use: No Drugs: None Hx Prescription Drug Abuse: No - Advance Directive Resuscitation Status: Full Code Family History Family History: denies: CAD, DM, Hypertension, Malignancy Parental Family History Reviewed: Yes Children Family History Reviewed: Yes Sibling(s) Family History Reviewed.: Yes Medication/Allergy Home Medications: Clonazepam [Klonopin 1 mg Tablet] 2 mg PEG Q6HP PRN 10/31/19 Lorazepam [Ativan] 2 mg PEG Q6HP PRN 10/31/19 Oxcarbazepine [Trileptal Susp 300 mg/5 ml 250 ml/Bottle] 600 mg PEG TID 10/31/19 Ibuprofen [Motrin 800 mg Tablet] 800 mg PEG BIDP PRN 09/14/20 Docusate Sodium [Colace Udc 100 mg/10 ml Oral Soln] 100 mg PEG BID udc 09/16/20 Allergies/Adverse Reactions: amoxicillin trihydrate [From Augmentin] Allergy (Mild, Verified 09/13/20 18:59) rash cefaclor [Cefaclor] Allergy (Mild, Verified 09/13/20 18:59) rash Penicillins Allergy (Mild, Verified 09/13/20 18:59) rash Potassium Clavulanate * [From Augmentin] Allergy (Mild, Verified 09/13/20 18:59) rash codeine Allergy (Verified 09/13/20 18:59) iodine Allergy (Verified 09/13/20 18:59) levofloxacin [From Levaquin] Allergy (Verified 09/13/20 18:59) Review of Systems ROS unobtainable: Due to mental status Physical Exam Vital Signs: Temp Pulse Resp BP Pulse Ox 98.2 F 84 16 104/70 97 09/20/20 13:37 09/20/20 13:37 09/20/20 13:37 09/20/20 13:37 09/20/20 13:37 Intake & Output 09/19/20 09/20/20 09/21/20 06:59 06:59 06:59 Weight 45.8 kg General appearance: PRESENT: no acute distress, cooperative, other - Had an episode of vomiting while I was in the room Head exam: PRESENT: normocephalic Neck exam: ABSENT: JVD Respiratory exam: PRESENT: clear to auscultation ashu, symmetrical, unlabored. ABSENT: tachypnea, wheezes Cardiovascular exam: PRESENT: +S1, +S2, tachycardia. ABSENT: irregular rhythm GI/Abdominal exam: PRESENT: normal bowel sounds, soft, tenderness - Possible but hard to tell, other - Increased residuals from PEG tube. ABSENT: ascites, distended, firm, rebound, rigid Musculoskeletal exam: ABSENT: ambulatory Neurological exam: PRESENT: alert, awake, aphasic Psychiatric exam: ABSENT: agitated, anxious Focused psych exam: ABSENT: pressured speech Skin exam: ABSENT: jaundice Results Laboratory Results: 09/20/20 16:18 09/20/20 16:18 09/20/20 09/20/20 16:18 16:18 WBC 17.2 H RBC 4.76 Hgb 14.9 Hct 41.8 MCV 88 MCH 31.4 MCHC 35.8 RDW 13.8 Plt Count 539 H Seg Neutrophils % Not Reportable Sodium 132.5 L Potassium 5.0 Chloride 95 L Carbon Dioxide 27 Anion Gap 11 BUN 24 H Creatinine 0.46 L Est GFR ( Amer) > 60 Glucose 118 H Calcium 9.9 Total Bilirubin 0.7 AST 40 Alkaline Phosphatase 79 Total Protein 7.5 Albumin 4.4 Impressions: Chest X-Ray 09/20/20 13:52 IMPRESSION: Cannot exclude a left lower lobe pneumonia. KUB X-Ray 09/20/20 13:52 IMPRESSION: Cannot exclude small bowel obstruction. 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 Is this a current diagnosis for this admission?: Yes (4) Fever Qualifiers: Fever type: unspecified Qualified Code(s): R50.9 - Fever, unspecified Is this a current diagnosis for this admission?: Yes (5) Leukocytosis Qualifiers: Leukocytosis type: unspecified Qualified Code(s): D72.829 - Elevated white blood cell count, unspecified Is this a current diagnosis for this admission?: Yes (6) Nausea and vomiting Qualifiers: Vomiting type: bilious vomiting Qualified Code(s): R11.14 - Bilious vomiting Is this a current diagnosis for this admission?: Yes - Plan Summary Summary: Patient was recently discharged with similar issues. He has had multiple bouts of small bowel obstruction. Seems patient's mother had extensive discussion with surgeon on last visit and he decided not to pursue any surgical intervention due to concerns of causing more problems. We will keep patient n.p.o. Chronic PEG tube to suction We will place him on ceftriaxone and Flagyl. Notably he has penicillin allergies but has tolerated cephalosporins in the past. Not febrile here but was febrile at home. Rule out COVID-19 KUB continues to show distended bowel loops We will check C. difficile Antiemetics, prokinetics Lactated Ringer's Blood cultures obtained Continue his antiseizure medication and Ativan IV as needed - Time Time Spent with patient: 35 or more minutes Anticipated Discharge Disposition: Home, Self Care Anticipated Discharge Timeframe: within 48 hours
[2020-09-20] MEDS ORDERED: METOCLOPRAMIDE HCL INJ/PF 10 MG/2 ML SDV IV ONE (19:30)
[2020-09-20] MEDS: CEFTRIAXONE 2 GM/D5W RTU 2 GM/50 ML RTUPB IV SCH (21:05)
[2020-09-20] MEDS: METRONIDAZOLE 500 MG/NS RTU 500 MG/100 ML RTUPB IV SCH (22:11)
[2020-09-20] MEDS: METOCLOPRAMIDE HCL INJ/PF 10 MG/2 ML SDV IV SCH (23:57)
[2020-09-21] MEDS ORDERED: OXCARBAZEPINE 300 MG/5 ML SUSP 250ML/BOTTLE ONE (00:03)
[2020-09-21] MEDS: LORAZEPAM INJ 2 MG/1 ML VIAL IV PRN ×4 (00:42→22:23)
[2020-09-21] MEDS: ONDANSETRON HCL INJ/PF 4 MG/2 ML SDV IV PRN ×2 (00:42→14:32)
[2020-09-21] MEDS: ACETAMINOPHEN 650 MG SUPP.RECT PR PRN ×3 (01:07→04:00)
[2020-09-21] MEDS: OXCARBAZEPINE 300 MG/5 ML SUSP 250ML/BOTTLE PO SCH ×4 (01:13→21:30)
[2020-09-21] MEDS: METRONIDAZOLE 500 MG/NS RTU 500 MG/100 ML RTUPB IV SCH ×4 (03:48→20:50)
[2020-09-21] MEDS: METOCLOPRAMIDE HCL INJ/PF 10 MG/2 ML SDV IV SCH ×3 (05:22→18:13)
[2020-09-21 07:33] LABS: PHOSPHORUS 5.1 mg/dL (2.5-4.5)
[2020-09-21 07:34] LABS: HEMATOCRIT 41.6 % (37.9-51.0); MEAN CORPUSCULAR HEMOGLOBIN 31.4 pg (27.0-33.4); MEAN CORPUSCULAR VOLUME 87 fl (80-97); PLATELET COUNT 421 10^3/uL (150-450); RED BLOOD COUNT 4.77 10^6/uL (4.35-5.55); RED CELL DISTRIBUTION WIDTH 13.9 % (11.5-14.0); WHITE BLOOD COUNT 9.5 10^3/uL (4.0-10.5)
[2020-09-21 09:51] LABS: ALBUMIN 3.2 g/dL (3.5-5.0); ALKALINE PHOSPHATASE 48 U/L (38-126); ANION GAP 8 (5-19); ASPARTATE AMINO TRANSFERASE 27 U/L (17-59); BILIRUBIN,DIRECT 0.2 mg/dL (0.0-0.4); BILIRUBIN,TOTAL 0.4 mg/dL (0.2-1.3); BLOOD UREA NITROGEN 24 mg/dL (7-20); CALCIUM 8.8 mg/dL (8.4-10.2); CARBON DIOXIDE 27 mmol/L (22-30); CHLORIDE 100 mmol/L (98-107); GLUCOSE 132 mg/dL (75-110); TOTAL PROTEIN 5.8 g/dL (6.3-8.2)
[2020-09-21] MEDS: ENOXAPARIN SODIUM INJ 40 MG/0.4 ML DISP.SYRIN SUBCUT SCH (10:02)
[2020-09-21 10:11] LABS: POTASSIUM 3.7 mmol/L (3.6-5.0)
--- NOTE | 2020-09-21 12:58 | PDOC PROGRESS REPORT ---
Subjective Date:: 09/21/20 Subjective:: Patient's mother at bedside states that he was grimacing as if he was having myron n earlier. Really did spike fevers earlier overnight. He has been getting a lot of residuals from his PEG tube suction. The aspirate is darkish brown in color. Blood count however looks adequate. He did have a moderate incontinent loose bowel movement overnight. Patient's mother also made it clear that they would not want to entertain any surgeries regarding his bowel obstruction. Reason For Visit: FEVER,SBO,ASPIRATION PNA Physical Exam Vital Signs: Temp Pulse Resp BP Pulse Ox 98.0 F 102 H 19 95/53 L 96 09/21/20 11:35 09/21/20 11:35 09/21/20 11:35 09/21/20 11:35 09/21/20 07:27 Intake & Output 09/20/20 09/21/20 09/22/20 06:59 06:59 06:59 Intake Total 300 Balance 300 Weight 37.4 kg General appearance: PRESENT: no acute distress, cooperative Respiratory exam: PRESENT: clear to auscultation ashu, symmetrical, unlabored. ABSENT: tachypnea, wheezes Cardiovascular exam: PRESENT: +S1, +S2, tachycardia. ABSENT: irregular rhythm GI/Abdominal exam: PRESENT: hypoactive bowel sounds, soft. ABSENT: distended, firm, guarding, rebound, rigid, tenderness Neurological exam: PRESENT: alert, awake, aphasic Results Laboratory Results: 09/21/20 06:20 09/21/20 09:11 09/20/20 09/20/20 09/21/20 16:18 16:18 06:20 WBC 17.2 H 9.5 RBC 4.76 4.77 Hgb 14.9 15.0 Hct 41.8 41.6 MCV 88 87 MCH 31.4 31.4 MCHC 35.8 36.0 RDW 13.8 13.9 Plt Count 539 H 421 Seg Neutrophils % Not Reportable Sodium 132.5 L Potassium 5.0 Chloride 95 L Carbon Dioxide 27 Anion Gap 11 BUN 24 H Creatinine 0.46 L Est GFR ( Amer) > 60 Glucose 118 H Lactic Acid Calcium 9.9 Phosphorus Magnesium Total Bilirubin 0.7 AST 40 Alkaline Phosphatase 79 Total Protein 7.5 Albumin 4.4 09/21/20 09/21/20 09/21/20 06:20 08:24 09:11 WBC RBC Hgb Hct MCV MCH MCHC RDW Plt Count Seg Neutrophils % Sodium 135.1 L Potassium 3.7 D Chloride 100 Carbon Dioxide 27 Anion Gap 8 BUN 24 H Creatinine 0.46 L Est GFR ( Amer) > 60 Glucose 132 H Lactic Acid 1.4 Calcium 8.8 Phosphorus 5.1 H Magnesium 1.8 Total Bilirubin 0.4 AST 27 Alkaline Phosphatase 48 Total Protein 5.8 L Albumin 3.2 L Impressions: Chest X-Ray 09/20/20 13:52 IMPRESSION: Cannot exclude a left lower lobe pneumonia. KUB X-Ray 09/20/20 13:52 IMPRESSION: Cannot exclude small bowel obstruction. 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 Is this a current diagnosis for this admission?: Yes (4) Fever Qualifiers: Fever type: unspecified Qualified Code(s): R50.9 - Fever, unspecified Is this a current diagnosis for this admission?: Yes (5) Leukocytosis Qualifiers: Leukocytosis type: unspecified Qualified Code(s): D72.829 - Elevated white blood cell count, unspecified Is this a current diagnosis for this admission?: Yes (6) Nausea and vomiting Qualifiers: Vomiting type: bilious vomiting Qualified Code(s): R11.14 - Bilious vomiting Is this a current diagnosis for this admission?: Yes (7) Seizure disorder Is this a current diagnosis for this admission?: Yes - Plan Summary Summary: Patient was recently discharged with similar issues. He has had multiple bouts of small bowel obstruction. Seems patient's mother had extensive discussion with surgeon on last visit and he decided not to pursue any surgical intervention due to concerns of causing more problems. We will keep patient n.p.o. Chronic PEG tube to suction We will place him on ceftriaxone and Flagyl. Notably he has penicillin allerg ies but has tolerated cephalosporins in the past. Not febrile here but was febrile at home. Rule out COVID-19 KUB continues to show distended bowel loops We will check C. difficile Antiemetics, prokinetics Lactated Ringer's Blood cultures obtained Continue his antiseizure medication and Ativan IV as needed 09/21 Aspirate from his G-tube suction is darkish in color. We will check a gastric occult blood. H&H is normal. Seems to be having partial SBO or ileus. Keep off tube feeds for now and he will remain on suction. Electrolytes are stable this morning. Leukocytosis is resolved. Continue antibiotics with ceftriaxone and Flagyl. Still awaiting sample for Cdiff. It was not obtained after his last bowel movement. Follow-up blood cultures Continue lactated Ringer's Monitor electrolytes and renal function. Continue to monitor CBC. - Time Time Spent with patient: 15-24 minutes Anticipated Discharge Disposition: Home, Self Care Anticipated Discharge Timeframe: within 72 hours
[2020-09-21] MEDS: LEVETIRACETAM 500 MG/NACL-ISO 500 MG/100 ML RTUPB IV SCH (13:50)
[2020-09-21] MEDS: CEFTRIAXONE 2 GM/D5W RTU 2 GM/50 ML RTUPB IV SCH (17:11)
[2020-09-21] MEDS: DEXTROSE 5%-LACTATED RINGERS 1,000 ML with POTASSIUM CHLORIDE 20 MEQ IV PRN ×2 (18:14)
[2020-09-22] MEDS: LEVETIRACETAM 500 MG/NACL-ISO 500 MG/100 ML RTUPB IV SCH ×3 (00:08→23:25)
[2020-09-22] MEDS: METOCLOPRAMIDE HCL INJ/PF 10 MG/2 ML SDV IV SCH ×4 (00:09→17:12)
[2020-09-22] MEDS: METRONIDAZOLE 500 MG/NS RTU 500 MG/100 ML RTUPB IV SCH ×4 (02:48→21:10)
[2020-09-22 03:21] LABS: APPEARANCE,URINE CLEAR; BILIRUBIN,URINE NEGATIVE (NEGATIVE); COLOR,URINE DARK YELLOW; GLUCOSE, URINE NEGATIVE (NEGATIVE); KETONES,URINE NEGATIVE (NEGATIVE); LEUKOCYTE ESTERASE,URINE NEGATIVE (NEGATIVE); NITRITE,URINE NEGATIVE (NEGATIVE); PROTEIN,URINE 30 mg/dL (NEGATIVE); URINE SPECIFIC GRAVITY 1.026; UROBILINOGEN,URINE NEGATIVE mg/dL (<2.0)
[2020-09-22] MEDS: OXCARBAZEPINE 300 MG/5 ML SUSP 250ML/BOTTLE PO SCH ×3 (05:36→21:10)
[2020-09-22 05:53] LABS: HEMATOCRIT 29.8 % (37.9-51.0); MEAN CORPUSCULAR HEMOGLOBIN 31.6 pg (27.0-33.4); MEAN CORPUSCULAR HGB CONC 35.7 g/dL (32.0-36.0); MEAN CORPUSCULAR VOLUME 88 fl (80-97); PLATELET COUNT 298 10^3/uL (150-450); RED BLOOD COUNT 3.37 10^6/uL (4.35-5.55); RED CELL DISTRIBUTION WIDTH 13.3 % (11.5-14.0); WHITE BLOOD COUNT 6.2 10^3/uL (4.0-10.5)
[2020-09-22 05:59] LABS: HEMOGLOBIN 10.7 g/dL (13.5-17.0)
[2020-09-22 06:09] LABS: ALKALINE PHOSPHATASE 42 U/L (38-126); ANION GAP 10 (5-19); ASPARTATE AMINO TRANSFERASE 30 U/L (17-59); BILIRUBIN,DIRECT 0.3 mg/dL (0.0-0.4); BILIRUBIN,TOTAL 0.3 mg/dL (0.2-1.3); BLOOD UREA NITROGEN 15 mg/dL (7-20); CALCIUM 8.3 mg/dL (8.4-10.2); CARBON DIOXIDE 24 mmol/L (22-30); CHLORIDE 106 mmol/L (98-107); GLUCOSE 86 mg/dL (75-110); PHOSPHORUS 3.7 mg/dL (2.5-4.5); POTASSIUM 3.6 mmol/L (3.6-5.0); TOTAL PROTEIN 5.4 g/dL (6.3-8.2)
[2020-09-22] MEDS ORDERED: INFLUENZA QUAD (6MOS+) 2020-21 VAC 0.5 ML SYR IM ONE (08:00)
[2020-09-22] MEDS: ONDANSETRON HCL INJ/PF 4 MG/2 ML SDV IV PRN (08:47)
[2020-09-22 08:49] LABS: C DIFFICILE GDH NEGATIVE (NEGATIVE)
[2020-09-22] MEDS: LORAZEPAM INJ 2 MG/1 ML VIAL IV PRN ×2 (08:55→14:20)
[2020-09-22] MEDS: DOCUSATE SODIUM 100 MG/10 ML UDC PO SCH (09:14)
[2020-09-22] MEDS: PANTOPRAZOLE SODIUM 40 MG VIAL IV SCH ×2 (09:21→21:10)
[2020-09-22] MEDS: ENOXAPARIN SODIUM INJ 40 MG/0.4 ML DISP.SYRIN SUBCUT SCH (09:22)
--- NOTE | 2020-09-22 10:33 | RADIOLOGY REPORT (SQ) ---
EXAM DESCRIPTION: KUB/ABDOMEN (SINGLE VIEW) IMAGES COMPLETED DATE/TIME: 09/22/2020 9:31 am REASON FOR STUDY: SBO V ILEUS REASSESSMENT COMPARISON: CT abdomen pelvis 09/14/2020 Abdominal films 04/28/2020, 09/14/2020, 09/20/2020 NUMBER OF VIEWS: One view. TECHNIQUE: Supine radiographic image of the abdomen acquired. LIMITATIONS: None. FINDINGS: BOWEL GAS PATTERN: Nonspecific bowel gas pattern with air in stomach small bowel and colon . Dilated mid epigastric small bowel loop is present. CALCIFICATIONS: 10 mm calcification far left upper quadrant along the upper pole left kidney. SOFT TISSUES: No gross mass or suggestion of organomegaly. HARDWARE: Gastrostomy tube left upper quadrant. BONES: No acute fracture. Convex leftward lumbar curvature. OTHER: No other significant finding. IMPRESSION: Nonspecific bowel gas pattern TECHNICAL DOCUMENTATION: JOB ID: [id number] 2010 [employer]- All Rights Reserved Reading location - IP/workstation name: [id number]
--- NOTE | 2020-09-22 13:56 | PDOC PROGRESS REPORT ---
Subjective Date:: 09/22/20 Reason For Visit: SBO VS ILEUS, PNA, FEVER Physical Exam Vital Signs: Temp Pulse Resp BP Pulse Ox 97.8 F 93 22 H 120/65 100 09/22/20 11:58 09/22/20 11:58 09/22/20 11:58 09/22/20 11:58 09/22/20 08:26 Intake & Output 09/21/20 09/22/20 09/23/20 06:59 06:59 06:59 Intake Total 300 1612 100 Output Total 300 130 Balance 300 1312 -30 Weight 37.4 kg 37.4 kg General appearance: PRESENT: no acute distress, cooperative Neck exam: ABSENT: JVD Respiratory exam: PRESENT: clear to auscultation ashu, symmetrical, unlabored. ABSENT: tachypnea, wheezes Cardiovascular exam: PRESENT: RRR, +S1, +S2. ABSENT: tachycardia GI/Abdominal exam: PRESENT: normal bowel sounds, soft. ABSENT: distended, firm, guarding, rebound, rigid, tenderness Neurological exam: PRESENT: alert, awake, motor sensory deficit, aphasic Psychiatric exam: ABSENT: agitated, anxious Results Laboratory Results: 09/22/20 04:39 09/22/20 04:39 09/22/20 09/22/20 09/22/20 02:35 04:39 04:39 WBC 6.2 RBC 3.37 L Hgb 10.7 L D Hct 29.8 L MCV 88 MCH 31.6 MCHC 35.7 RDW 13.3 Plt Count 298 Sodium 139.9 Potassium 3.6 Chloride 106 Carbon Dioxide 24 Anion Gap 10 BUN 15 Creatinine 0.42 L Est GFR ( Amer) > 60 Glucose 86 Calcium 8.3 L Phosphorus 3.7 Magnesium 1.9 Total Bilirubin 0.3 AST 30 Alkaline Phosphatase 42 Total Protein 5.4 L Albumin 3.0 L Urine Color DARK YELLOW Urine Appearance CLEAR Urine pH 8.0 Ur Specific [place] 1.026 Urine Protein 30 H Urine Glucose (UA) NEGATIVE Urine Ketones NEGATIVE Urine Blood NEGATIVE Urine Nitrite NEGATIVE Ur Leukocyte Esterase NEGATIVE Urine WBC (Auto) 2 Urine RBC (Auto) 0 Impressions: Chest X-Ray 09/20/20 13:52 IMPRESSION: Cannot exclude a left lower lobe pneumonia. 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 Is this a current diagnosis for this admission?: Yes (4) Fever Qualifiers: Fever type: unspecified Qualified Code(s): R50.9 - Fever, unspecified Is this a current diagnosis for this admission?: Yes (5) Leukocytosis Qualifiers: Leukocytosis type: unspecified Qualified Code(s): D72.829 - Elevated white blood cell count, unspecified Is this a current diagnosis for this admission?: Yes (6) Nausea and vomiting Qualifiers: Vomiting type: bilious vomiting Qualified Code(s): R11.14 - Bilious vomiting Is this a current diagnosis for this admission?: Yes (7) Seizure disorder Is this a current diagnosis for this admission?: Yes - Plan Summary Summary: Patient was recently discharged with similar issues. He has had multiple bouts of small bowel obstruction. Seems patient's mother had extensive discussion with surgeon on last visit and he decided not to pursue any surgical intervention due to concerns of causing more problems. We will keep patient n.p.o. Chronic PEG tube to suction We will place him on ceftriaxone and Flagyl. Notably he has penicillin allergies but has tolerated cephalosporins in the past. Not febrile here but was febrile at home. Rule out COVID-19 KUB continues to show distended bowel loops We will check C. difficile Antiemetics, prokinetics Lactated Ringer's Blood cultures obtained Continue his antiseizure medication and Ativan IV as needed 1/15 Aspirate from his G-tube suction is darkish in color. We will check a gastric occult blood. H&H is normal. Seems to be having partial SBO or ileus. Keep off tube feeds for now and he will remain on suction. Electrolytes are stable this morning. Leukocytosis is resolved. Continue antibiotics with ceftriaxone and Flagyl. Still awaiting sample for Cdiff. It was not obtained after his last bowel movement. Follow-up blood cultures Continue lactated Ringer's Monitor electrolytes and renal function. Continue to monitor CBC. 09/22 He is putting out a lot less substance from his from the G-tube suction. Also his nausea vomiting has improved. Had bowel movement this morning. Bowel sounds are more adequate today. I have reviewed the image from the KUB and it looks less dilated in certain areas than on the initial KUB from admission. I will give him another day of bowel rest and continue IV fluids. We will plan to resume tube feeds tomorrow. His hemoglobin did drop but his H&H seems to fluctuate on prior admissions. Gastric occult blood is negative and so far no GI bleed noted. He remains afebrile. Oxygenation is adequate. Continue antibiotics for aspiration pneumonia. Continue IV Keppra in place of Trileptal. Monitor CBC, electrolytes and renal function. - Time Time Spent with patient: 15-24 minutes Anticipated Discharge Disposition: Home, Self Care Anticipated Discharge Timeframe: within 48 hours
[2020-09-22] MEDS: DEXTROSE 5%-LACTATED RINGERS 1,000 ML with POTASSIUM CHLORIDE 20 MEQ IV PRN ×2 (14:20)
[2020-09-22] MEDS: CEFTRIAXONE 2 GM/D5W RTU 2 GM/50 ML RTUPB IV SCH (17:12)
[2020-09-22] MEDS: LORAZEPAM INJ 2 MG/1 ML VIAL IV SCH (23:25)
[2020-09-23] MEDS: METOCLOPRAMIDE HCL INJ/PF 10 MG/2 ML SDV IV SCH ×4 (00:35→17:30)
[2020-09-23] MEDS: ONDANSETRON HCL INJ/PF 4 MG/2 ML SDV IV PRN (01:43)
[2020-09-23] MEDS: METRONIDAZOLE 500 MG/NS RTU 500 MG/100 ML RTUPB IV SCH ×2 (03:55→12:02)
[2020-09-23] MEDS ORDERED: ZIPRASIDONE MESYLATE INJ/PF 20 MG SDV IM ONE (05:00)
[2020-09-23] MEDS: OXCARBAZEPINE 300 MG/5 ML SUSP 250ML/BOTTLE PO SCH (06:58)
[2020-09-23] MEDS ORDERED: LORAZEPAM 1 MG TABLET PEG PRN (10:02)
[2020-09-23] MEDS: LORAZEPAM INJ 2 MG/1 ML VIAL IV SCH (10:05)
[2020-09-23] MEDS: LEVETIRACETAM 500 MG/NACL-ISO 500 MG/100 ML RTUPB IV SCH (10:06)
[2020-09-23] MEDS: ENOXAPARIN SODIUM INJ 40 MG/0.4 ML DISP.SYRIN SUBCUT SCH (10:54)
[2020-09-23 11:17] LABS: MEAN CORPUSCULAR HEMOGLOBIN 31.5 pg (27.0-33.4); MEAN CORPUSCULAR HGB CONC 35.3 g/dL (32.0-36.0); MEAN CORPUSCULAR VOLUME 89 fl (80-97); PLATELET COUNT 355 10^3/uL (150-450); RED CELL DISTRIBUTION WIDTH 13.3 % (11.5-14.0)
[2020-09-23 11:34] LABS: PHOSPHORUS 3.3 mg/dL (2.5-4.5)
[2020-09-23] MEDS: PANTOPRAZOLE SODIUM 40 MG VIAL IV SCH (12:03)
[2020-09-23] MEDS ORDERED: METOCLOPRAMIDE HCL ORAL SOLN 10 MG/10 ML UDCUP PO PRN (14:06)
--- NOTE | 2020-09-23 14:23 | PDOC PROGRESS REPORT ---
Subjective Date:: 09/23/20 Subjective:: Patient got agitated last night. He pulled out several of his IVs. He got very much agitated to the point where he had some be given some Geodon IM. This morning patient's mom was concerned about him not getting his antiseizure medication as his IV has been pulled out several times now. He also was only able to receive a portion of his Flagyl IV this morning before pulling out his IV again. He did have a bowel movement yesterday per chart. I discussed with the mom that we will switch him to medication via his PEG tube especially since the aspirate from his GJ tube is not high anymore. Reason For Visit: SBO VS ILEUS, PNA, FEVER Physical Exam Vital Signs: Temp Pulse Resp BP Pulse Ox 98.1 F 98 18 112/54 L 97 09/23/20 10:00 09/23/20 08:17 09/23/20 08:17 09/23/20 08:17 09/23/20 08:17 Intake & Output 09/22/20 09/23/20 09/24/20 06:59 06:59 06:59 Intake Total 1612 1560 0 Output Total 300 130 Balance 1312 1430 0 Weight 37.4 kg 37 kg General appearance: PRESENT: no acute distress, cooperative Neck exam: ABSENT: JVD Respiratory exam: PRESENT: clear to auscultation ashu, symmetrical, unlabored. ABSENT: tachypnea, wheezes Cardiovascular exam: PRESENT: RRR, +S1, +S2. ABSENT: tachycardia GI/Abdominal exam: PRESENT: normal bowel sounds, soft. ABSENT: rebound, rigid, tenderness Neurological exam: PRESENT: alert, awake, motor sensory deficit, aphasic Psychiatric exam: ABSENT: agitated, anxious Results Laboratory Results: 09/23/20 10:50 09/22/20 04:39 09/23/20 09/23/20 10:50 10:50 WBC 5.0 RBC 3.80 L Hgb 12.0 L Hct 34.0 L MCV 89 MCH 31.5 MCHC 35.3 RDW 13.3 Plt Count 355 Phosphorus 3.3 Magnesium 2.2 09/20/20 16:18 Blood Blood Culture (PCR) - Final Staphylococcus Species 09/20/20 16:18 Blood Blood Culture - Final Staphylococcus Epidermidis Impressions: Chest X-Ray 09/20/20 13:52 IMPRESSION: Cannot exclude a left lower lobe pneumonia. 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 Is this a current diagnosis for this admission?: Yes (4) Fever Qualifiers: Fever type: unspecified Qualified Code(s): R50.9 - Fever, unspecified Is this a current diagnosis for this admission?: Yes (5) Leukocytosis Qualifiers: Leukocytosis type: unspecified Qualified Code(s): D72.829 - Elevated white blood cell count, unspecified Is this a current diagnosis for this admission?: Yes (6) Nausea and vomiting Qualifiers: Vomiting type: bilious vomiting Qualified Code(s): R11.14 - Bilious vomiting Is this a current diagnosis for this admission?: Yes (7) Seizure disorder Is this a current diagnosis for this admission?: Yes - Plan Summary Summary: Patient was recently discharged with similar issues. He has had multiple bouts of small bowel obstruction. Seems patient's mother had extensive discussion with surgeon on last visit and he decided not to pursue any surgical intervention due to concerns of causing more problems. We will keep patient n.p.o. Chronic PEG tube to suction We will place him on ceftriaxone and Flagyl. Notably he has penicillin allergies but has tolerated cephalosporins in the past. Not febrile here but was febrile at home. Rule out COVID-19 KUB continues to show distended bowel loops We will check C. difficile Antiemetics, prokinetics Lactated Ringer's Blood cultures obtained Continue his antiseizure medication and Ativan IV as needed 15 Aspirate from his G-tube suction is darkish in color. We will check a gastric occult blood. H&H is normal. Seems to be having partial SBO or ileus. Keep off tube feeds for now and he will remain on suction. Electrolytes are stable this morning. Leukocytosis is resolved. Continue antibiotics with ceftriaxone and Flagyl. Still awaiting sample for Cdiff. It was not obtained after his last bowel movement. Follow-up blood cultures Continue lactated Ringer's Monitor electrolytes and renal function. Continue to monitor CBC. 09/22 He is putting out a lot less substance from his from the G-tube suction. Also his nausea vomiting has improved. Had bowel movement this morning. Bowel so unds are more adequate today. I have reviewed the image from the KUB and it looks less dilated in certain areas than on the initial KUB from admission. I will give him another day of bowel rest and continue IV fluids. We will plan to resume tube feeds tomorrow. His hemoglobin did drop but his H&H seems to fluctuate on prior admissions. Gastric occult blood is negative and so far no GI bleed noted. He remains afebrile. Oxygenation is adequate. Continue antibiotics for aspiration pneumonia. Continue IV Keppra in place of Trileptal, Ativan 09/23 Maintaining IV access has been an issue with patient. His mom is available to help with calming down but still poses an issue. We will resume using his PEG tube since he has had bowel movements and his bowel sounds are normal today. Moreover the aspirate from his PEG tube suction has lessened remarkably as compared to his initial presentation. I will switch his IV antibiotics to oral formulations to be administered via PEG. We will discontinue IV fluids and place patient on free water flushes for every 4 hours. Resume trileptal and david zos via peg. D/c Keppra. I have also consulted dietitian for recommendations for resumption of tube feeds. Patient's mom states that she does boluses about 5 times a day so we will try to mimic what she does at home but start at a less amount gradually escalate. Reglan/prokinetics via PEG. Protonix. - Time Time Spent with patient: 15-24 minutes Anticipated Discharge Disposition: Home, Self Care Anticipated Discharge Timeframe: within 48 hours
[2020-09-23] MEDS ORDERED: PANTOPRAZOLE SODIUM 40 MG PACKET.DR NG ONE (15:00)
[2020-09-23] MEDS: OXCARBAZEPINE 300 MG/5 ML SUSP 250ML/BOTTLE PEG SCH ×2 (16:29→21:09)
[2020-09-23] MEDS ORDERED: CEFUROXIME 250 MG TABLET PEG SCH (17:00)
[2020-09-23] MEDS: METRONIDAZOLE 500 MG TABLET PEG SCH ×3 (17:30→21:08)
[2020-09-23] MEDS: DOCUSATE SODIUM 100 MG/10 ML UDC PO SCH (17:31)
[2020-09-23] MEDS: ACETAMINOPHEN 325 MG TABLET PO PRN (17:43)
[2020-09-23] MEDS: ACETAMINOPHEN 650 MG SUPP.RECT PR PRN (17:50)
[2020-09-23] MEDS ORDERED: LORAZEPAM INJ 2 MG/1 ML VIAL IV SCH (19:30)
[2020-09-23] MEDS ORDERED: LORAZEPAM INJ 2 MG/1 ML VIAL ONE (21:46)
[2020-09-23] MEDS ORDERED: METOPROLOL TARTRATE PF/INJ 5 MG/5 ML SDV IV ONE (21:55)
[2020-09-23 22:18] LABS: ALBUMIN 4.4 g/dL (3.5-5.0); ALKALINE PHOSPHATASE 52 U/L (38-126); BILIRUBIN,DIRECT 0.2 mg/dL (0.0-0.4); BILIRUBIN,TOTAL 0.4 mg/dL (0.2-1.3); BLOOD UREA NITROGEN 11 mg/dL (7-20); CALCIUM 9.7 mg/dL (8.4-10.2); CHLORIDE 108 mmol/L (98-107); GLUCOSE 172 mg/dL (75-110); POTASSIUM 4.3 mmol/L (3.6-5.0); TOTAL PROTEIN 7.1 g/dL (6.3-8.2)
[2020-09-23 22:24] LABS: ASPARTATE AMINO TRANSFERASE 105 U/L (17-59)
--- NOTE | 2020-09-23 22:38 | RADIOLOGY REPORT (SQ) ---
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 Cardiac and mediastinal contours are stable. Lungs are clear. No pleural effusion or pneumothorax. There is severe dextroscoliotic curvature of the mid to lower thoracic spine. Surgical clips project over the left upper quadrant. IMPRESSION: No acute disease.
[2020-09-23 22:48] LABS: ARTERIAL BLOOD BASE EXCESS -20.6 mmol/L; ARTERIAL BLOOD FIO2 15L; ARTERIAL BLOOD H2CO3 0.72 mmol/L (1.05-1.35); ARTERIAL BLOOD HCO3 7.3 mmol/L (20-24); ARTERIAL BLOOD O2 SATURATION 90.8 % (94-98); ARTERIAL BLOOD PCO2 23.9 mmHg (35-45); ARTERIAL BLOOD PO2 77.4 mmHg (80-100); ARTERIAL BLOOD TOTAL CO2 8.1 mmol/L (23-27)
[2020-09-23 22:51] LABS: ARTERIAL BLOOD PH 7.11 (7.35-7.45)
--- NOTE | 2020-09-23 22:57 | Progress Note ---
Provider Note Provider Note: This is a 29-year-old man with a history of cerebral palsy and seizure disorder who was admitted on account of small bowel obstruction. This evening I was notified by his nurse after he had an episode of seizure which lasted for 5 minutes. Immediately arrived at bedside to assess the patient. Patient looked lethargic and less responsive from his baseline per nursing report and appeared to be in postictal phase. His oxygen saturation was in the lower 70s and pulse rate was 170 to 180 bpm. Due to excessive agitation and movement patient had no IV access during the incident and 2 mg lorazepam was given IM. Patient was placed on nonrebreather and he was saturating upper 80s and lower 90s on 15 L. Patient had had labored breathing and also had coarse crackles bilaterally. IV access was secured and patient was started on IV Keppra. EKG showed sinus tachycardia. CBC, CMP, magnesium, lactic acid level and ABG were ordered and chest x-ray was also obtained. Patient continues to be hypoxic saturating 88 to 92% on nonrebreather at 15 L/min and she was still altered from baseline. pH on ABG was 7.11 which could possibly be due to lactic acid accumulation following the seizure. Other labs are still pending. Patient was started on Unasyn for possible aspiration pneumonitis. Supervisor [employer] was contacted for possible closer observation in ICU setting due to a concern for possible airway compromise and patient being unable to protect his airway. Patient was accepted by ICU team and was transferred for further management.
[2020-09-23] MEDS ORDERED: LEVETIRACETAM 500 MG/NACL-ISO 500 MG/100 ML RTUPB IV ONE (23:00)
[2020-09-23 23:20] LABS: HEMATOCRIT 34.7 % (37.9-51.0); HEMOGLOBIN 11.5 g/dL (13.5-17.0); MEAN CORPUSCULAR HEMOGLOBIN 29.8 pg (27.0-33.4); MEAN CORPUSCULAR HGB CONC 33.2 g/dL (32.0-36.0); MEAN CORPUSCULAR VOLUME 90 fl (80-97); PLATELET COUNT 397 10^3/uL (150-450); RED BLOOD COUNT 3.87 10^6/uL (4.35-5.55); RED CELL DISTRIBUTION WIDTH 13.6 % (11.5-14.0)
[2020-09-23 23:26] LABS: CARBON DIOXIDE < 5 mmol/L (22-30)
[2020-09-23] MEDS ORDERED: SODIUM BICARBONATE 8.4% INJ 50 MEQ/50 ML DISP.SYRIN IV ONE (23:28)
[2020-09-23 23:44] LABS: WHITE BLOOD COUNT 17.2 10^3/uL (4.0-10.5)
[2020-09-23 23:49] LABS: ABSOLUTE LYMPHOCYTES# (MANUAL) 0.5 10^3/uL (0.5-4.7); ABSOLUTE MONOCYTES # (MANUAL) 0.7 10^3/uL (0.1-1.4); BAND NEUTROPHILS % (MANUAL) 3 % (3-5); BASOPHILS % (MANUAL) 0 % (0-2); EOSINOPHILS % (MANUAL) 0 % (0-6); LYMPHOCYTES % (MANUAL) 3 % (13-45); MONOCYTES % (MANUAL) 4 % (3-13); PLATELET COMMENT ADEQUATE; SEGMENTED NEUTROPHILS % (MAN) 90 % (42-78); TOTAL CELLS COUNTED 100; TOXIC VACUOLATION PRESENT
[2020-09-23 23:50] LABS: BURR CELLS SLIGHT; OVALOCYTES SLIGHT; POLYCHROMASIA SLIGHT
--- NOTE | 2020-09-23 23:55 | EKG REPORT ---
SEVERITY:- ABNORMAL ECG - SINUS TACHYCARDIA MULTIPLE VENTRICULAR PREMATURE COMPLEXES BRYANT, CONSIDER BIATRIAL ABNORMALITIES BORDERLINE RIGHT AXIS DEVIATION BORDERLINE Q WAVES IN INFERIOR LEADS INFERIOR Q WAVES, PROBABLY NORMAL VARIATION NONSPECIFIC T ABNORMALITIES, ANT-LAT LEADS PROLONGED QT INTERVAL : Confirmed by: Jossie Bonilla MD 23-Sep-2020 23:55:09
[2020-09-24] MEDS ORDERED: AMPICILLIN SODIUM/SULBACTAM NA 3 GM in NORMAL SALINE 100 ML IV SCH ×2
[2020-09-24] MEDS ORDERED: DEXTROSE 50%-WATER 25 GM/50 ML DISP.SYRIN IV PRN (00:14)
[2020-09-24] MEDS ORDERED: DEXTROSE 40% GEL 15 GM TUBE PO PRN ×2 (00:14)
[2020-09-24] MEDS ORDERED: GLUCAGON,HUMAN RECOMB 1 MG INJ SUBCUT PRN (00:14)
[2020-09-24] MEDS ORDERED: LEVETIRACETAM 1000 MG/NACL-ISO 1,000 MG/100 ML RTUPB IV ONE (00:30)
[2020-09-24] MEDS ORDERED: PIPERACILLIN/TAZOBACTAM 3.375 GM VIAL IV ONE ×2 (00:59→01:15)
[2020-09-24] MEDS: METOCLOPRAMIDE HCL INJ/PF 10 MG/2 ML SDV IV SCH ×4 (01:00→17:52)
[2020-09-24] MEDS: RINGERS SOLUTION,LACTATED 1,000 ML IV PRN (01:01)
[2020-09-24] MEDS ORDERED: AMPICILLIN SOD/SULBACTAM 3 GM VIAL ONE (01:09)
[2020-09-24] MEDS ORDERED: PIPERACILLIN/TAZOBACTAM 3.375 GM VIAL IV SCH (01:15)
[2020-09-24] MEDS ORDERED: PIPERACILLIN SODIUM/TAZOBACTAM 3.375 GM in NORMAL SALINE 100 ML IV ONE (01:15)
--- NOTE | 2020-09-24 01:35 | CRITICAL CARE ADMISSION REPORT ---
HPI Date:: 09/24/20 Time:: 01:09 Reason for ICU Reason:: respiratory failure Admission Date/Time & PCP: Admission Date/Time: 09/21/20 12:49 Primary Care Provider: SAMIA MONTANO MD 09/24/2020 0100 HPI: RASHI TOMPKINS is a 29 year old male with history of cerebral palsy and multiple bouts of small bowel obstruction, aspiration pneumonia, presents once again with fever which was noted by patient's mom at home. He has had 3 bouts of fever last one being 102 shortly before coming to the hospital. She did give him some Tylenol right before coming to the hospital. So far here he is afebrile. She also noted that he has been having multiple bouts of vomiting since this morning. Last night he was having diarrhea. He is on the Colace that he was just discharged with. Chest x-ray in the ER shows questionable left haziness in the lower lobe. KUB continues to show dilated bowel loops which appear unchanged from his previous presentation with SBO. Notably at the time they had decided to forego surgical intervention during his last admission. Patient having significant residuals from his PEG tube. The patient was admitted under the hospitalist services and was showing improvement in condition, owever; today he had pulled out several IV sites and the provider changed his seizure medications to PO. The patient reportedly had a seizure and was given ativan to control the seizure. Per report the patient became hypotensive and was given IVF in which his blood pressure responded to. The patients oxygen requirements increased and he was requiring 100% NRB mask to maintain sats. The labs revealed leukocytosis and an elevated WBC. The patients PH was 7.4 with a bicarb of 7 and his lactic acid was greater than 5. Critical care was consulted for transfer to the ICU as the hospitalist felt he was unable to protect his airway. - Diagnosis/Plan (1) Aspiration pneumonia Qualifiers: Aspiration pneumonia type: unspecified Laterality: left Lung location: lower lobe of lung Qualified Code(s): J69.0 - Pneumonitis due to inhalation of food and vomit Is this a current diagnosis for this admission?: Yes (2) SBO (small bowel obstruction) Is this a current diagnosis for this admission?: Yes (3) Abdominal distension Is this a current diagnosis for this admission?: Yes (4) Abnormal ABGs Is this a current diagnosis for this admission?: Yes (5) Cerebral palsy Qualifiers: Cerebral palsy type: spastic quadriplegic Qualified Code(s): G80.0 - Spastic quadriplegic cerebral palsy Is this a current diagnosis for this admission?: Yes (6) Constipation Qualifiers: Constipation type: slow transit constipation Qualified Code(s): K59.01 - Slow transit constipation Is this a current diagnosis for this admission?: No (7) Distended bladder Is this a current diagnosis for this admission?: No (8) Fever Qualifiers: Fever type: unspecified Qualified Code(s): R50.9 - Fever, unspecified Is this a current diagnosis for this admission?: Yes Past Medical History Cardiac Medical History: Denies: Coronary Artery Disease, Myocardial Infarction, Hyperlipidema, Hypertension Pulmonary Medical History: Reports: Pneumonia Denies: Asthma, Chronic Obstructive Pulmonary Disease (COPD), Tuberculosis Neurological Medical History: Reports: Seizures Endocrine Medical History: Denies: Diabetes Mellitus Type 1, Diabetes Mellitus Type 2, Hyperthyroidism, Hypothyroidism GI Medical History: Denies: Cirrhosis, Crohn's Disease, Gastroesophageal Reflux Disease, Hepatitis, Hiatal Hernia, Ulcerative Colitis Musculoskeltal Medical History: Denies: Arthritis, Gout Skin Medical History: Denies: Eczema, Psoriasis Psychiatric Medical History: Reports: Depression Hematology: Denies: Anemia, Sickle Cell Disease, Bleeding Tendencies Infectious Medical History: Reports: Methicillin-Resistant Staph Aureus Past Surgical History Past Surgical History: Reports: Appendectomy, Other - Exploratory laparotomy for small bowel obstructions. Gastrostomy tube. Denies: Pacemaker Social/Family History - Social History Smoking Status: Never Smoker Frequency of Alcohol Use: None Hx Recreational Drug Use: No Drugs: None Hx Prescription Drug Abuse: No - Medication/Allergies Home Medications: Clonazepam [Klonopin 1 mg Tablet] 2 mg PEG Q6HP PRN 10/31/19 Lorazepam [Ativan] 2 mg PEG Q6HP PRN 10/31/19 Oxcarbazepine [Trileptal Susp 300 mg/5 ml 250 ml/Bottle] 600 mg PEG TID 10/31/19 Ibuprofen [Motrin 800 mg Tablet] 800 mg PEG BIDP PRN 09/14/20 Docusate Sodium [Colace Udc 100 mg/10 ml Oral Soln] 100 mg PEG BID udc 09/16/20 Carbamazepine 10 ml PEG Q12 01/17/21 Allergies/Adverse Reactions: amoxicillin trihydrate [From Augmentin] Allergy (Mild, Verified 09/13/20 18:59) rash cefaclor [Cefaclor] Allergy (Mild, Verified 09/13/20 18:59) rash Penicillins Allergy (Mild, Verified 09/13/20 18:59) rash Potassium Clavulanate * [From Augmentin] Allergy (Mild, Verified 09/13/20 18:59) rash codeine Allergy (Verified 09/13/20 18:59) iodine Allergy (Verified 09/13/20 18:59) levofloxacin [From Levaquin] Allergy (Verified 09/13/20 18:59) Review of Systems ROS unobtainable: Due to mental status Physical Exam Vital Signs: Temp Pulse Resp BP Pulse Ox 99.4 F 123 H 23 H 126/70 H 93 09/23/20 18:50 09/23/20 16:38 09/23/20 16:38 09/23/20 16:38 09/23/20 16:38 Intake & Output 09/22/20 09/23/20 09/24/20 06:59 06:59 06:59 Intake Total 1612 1560 0 Output Total 300 130 Balance 1312 1430 0 Weight 37.4 kg 37 kg 37 kg Weight/Height Weight 37 kg Height 5 ft 2 in General appearance: PRESENT: mild distress Head exam: PRESENT: atraumatic, normocephalic Eye exam: PRESENT: conjunctiva pink Mouth exam: PRESENT: moist Neck exam: PRESENT: full ROM Respiratory exam: PRESENT: decreased breath sounds, rhonchi Cardiovascular exam: PRESENT: +S1, +S2 Pulses: PRESENT: +1 pedal pulses bilateral Extremities exam: PRESENT: other - cerebral palsy Neurological exam: PRESENT: alert, awake Skin exam: PRESENT: dry, intact Laboratory/Radiographs Laboratory Results: 09/23/20 22:53 09/23/20 21:58 09/23/20 09/23/20 09/23/20 10:50 10:50 21:58 WBC 5.0 Cancelled RBC 3.80 L Cancelled Hgb 12.0 L Cancelled Hct 34.0 L Cancelled MCV 89 Cancelled MCH 31.5 Cancelled MCHC 35.3 Cancelled RDW 13.3 Cancelled Plt Count 355 Cancelled Seg Neutrophils % Cancelled Carbonic Acid HCO3/H2CO3 Ratio ABG pH ABG pCO2 ABG pO2 ABG HCO3 ABG O2 Saturation ABG Base Excess FiO2 Sodium Potassium Chloride Carbon Dioxide Anion Gap BUN Creatinine Est GFR ( Amer) Glucose Lactic Acid Calcium Phosphorus 3.3 Magnesium 2.2 Total Bilirubin AST Alkaline Phosphatase Total Protein Albumin 09/23/20 09/23/20 09/23/20 21:58 22:00 22:30 WBC RBC Hgb Hct MCV MCH MCHC RDW Plt Count Seg Neutrophils % Carbonic Acid 0.72 L HCO3/H2CO3 Ratio 10:1 ABG pH 7.11 L* ABG pCO2 23.9 L ABG pO2 77.4 L ABG HCO3 7.3 L ABG O2 Saturation 90.8 L ABG Base Excess -20.6 FiO2 15L Sodium 146.2 H Potassium 4.3 Chloride 108 H Carbon Dioxide < 5 L* Anion Gap Not Reportable BUN 11 Creatinine 0.81 Est GFR ( Amer) > 60 Glucose 172 H Lactic Acid 5.1 H Calcium 9.7 Phosphorus Magnesium 2.9 H Total Bilirubin 0.4 AST 105 H Alkaline Phosphatase 52 Total Protein 7.1 Albumin 4.4 09/23/20 22:53 WBC 17.2 H D RBC 3.87 L Hgb 11.5 L Hct 34.7 L MCV 90 MCH 29.8 MCHC 33.2 RDW 13.6 Plt Count 397 Seg Neutrophils % Not Reportable Carbonic Acid HCO3/H2CO3 Ratio ABG pH ABG pCO2 ABG pO2 ABG HCO3 ABG O2 Saturation ABG Base Excess FiO2 Sodium Potassium Chloride Carbon Dioxide Anion Gap BUN Creatinine Est GFR ( Amer) Glucose Lactic Acid Calcium Phosphorus Magnesium Total Bilirubin AST Alkaline Phosphatase Total Protein Albumin 09/20/20 16:18 Blood Blood Culture (PCR) - Final Staphylococcus Species 09/20/20 16:18 Blood Blood Culture - Final Staphylococcus Epidermidis Impressions: KUB X-Ray 09/22/20 00:00 IMPRESSION: Nonspecific bowel gas pattern Chest X-Ray 09/23/20 00:00 IMPRESSION: No acute disease. Critical Time Critical Time (minutes): 55 -: The care of a critically ill patient is dynamic. This note represents a static moment in the admission process. Orders and treatments may be given simulta neously and urgently, and time is not delivery representative of the treatment process. This patient requires Critical Care secondary to life threatening organ or limb dysfunction. Without Critical Care services, the patient is at risk for increased mortality and morbidity.
[2020-09-24] MEDS: IPRATROPIUM/ALBUTEROL 0.5-2.5 MG/3 ML AMPUL NEB SCH ×4 (02:45→21:09)
--- NOTE | 2020-09-24 04:44 | RADIOLOGY REPORT (SQ) ---
CLINICAL HISTORY: abnormal KUB r/o bowel necrosis COMPARISON: None. 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 FINDINGS: There is a small left pleural effusion. The heart is displaced into the left chest. Abdomen: The liver is normal in appearance. There is no biliary dilatation. The pancreas and spleen are normal in appearance. There is a large mid to upper pole left renal calculus measuring 1.4 cm. Right kidney is unremarkable. Adrenal glands are normal. Gastrostomy appears to be in place. There is no hydronephrosis. Abdominal aorta is normal in course and caliber without aneurysm. There is no free air. There is no retroperitoneal adenopathy. Pelvis: Motion limits evaluation of much of the bowel. There is no gross bowel wall thickening or pneumatosis. Urinary bladder is unremarkable. There is no free fluid. Appendix is not well seen. Skeleton: There are no acute osseous findings. No suspicious bony lesions. IMPRESSION: Limited study. No definite acute inflammatory process in the abdomen or pelvis. Left nephrolithiasis. Displaced heart and mediastinum into the left chest.
[2020-09-24 05:26] LABS: HEMATOCRIT 36.8 % (37.9-51.0); HEMOGLOBIN 12.6 g/dL (13.5-17.0); MEAN CORPUSCULAR HEMOGLOBIN 30.2 pg (27.0-33.4); MEAN CORPUSCULAR HGB CONC 34.3 g/dL (32.0-36.0); MEAN CORPUSCULAR VOLUME 88 fl (80-97); PLATELET COUNT 345 10^3/uL (150-450); RED BLOOD COUNT 4.17 10^6/uL (4.35-5.55); RED CELL DISTRIBUTION WIDTH 13.2 % (11.5-14.0); WHITE BLOOD COUNT 13.3 10^3/uL (4.0-10.5)
[2020-09-24 05:34] LABS: ARTERIAL BLOOD BASE EXCESS 2.5 mmol/L; ARTERIAL BLOOD FIO2 15L; ARTERIAL BLOOD H2CO3 0.91 mmol/L (1.05-1.35); ARTERIAL BLOOD HCO3 24.6 mmol/L (20-24); ARTERIAL BLOOD O2 SATURATION 96.7 % (94-98); ARTERIAL BLOOD PCO2 30.3 mmHg (35-45); ARTERIAL BLOOD PH 7.53 (7.35-7.45); ARTERIAL BLOOD PO2 76.7 mmHg (80-100); ARTERIAL BLOOD TOTAL CO2 25.6 mmol/L (23-27)
[2020-09-24] MEDS ORDERED: PIPERACILLIN SODIUM/TAZOBACTAM 3.375 GM in NORMAL SALINE 100 ML IV SCH ×2 (06:00→09:00)
[2020-09-24] MEDS ORDERED: PANTOPRAZOLE SODIUM 40 MG PACKET.DR NG SCH (06:00)
[2020-09-24 06:02] LABS: ALBUMIN 3.3 g/dL (3.5-5.0); ALKALINE PHOSPHATASE 59 U/L (38-126); ASPARTATE AMINO TRANSFERASE 104 U/L (17-59); BILIRUBIN,DIRECT 0.4 mg/dL (0.0-0.4); BILIRUBIN,TOTAL 0.6 mg/dL (0.2-1.3); BLOOD UREA NITROGEN 9 mg/dL (7-20); CALCIUM 8.2 mg/dL (8.4-10.2); CHLORIDE 107 mmol/L (98-107); CHOLESTEROL 84.22 mg/dL (0-200); GLUCOSE 84 mg/dL (75-110); TOTAL PROTEIN 5.9 g/dL (6.3-8.2); TRIGLYCERIDES 78 mg/dL (<150)
[2020-09-24 06:16] LABS: DIRECT LDL < 30 mg/dL (<100)
[2020-09-24 06:20] LABS: ABSOLUTE LYMPHOCYTES# (MANUAL) 0.7 10^3/uL (0.5-4.7); ABSOLUTE MONOCYTES # (MANUAL) 0.3 10^3/uL (0.1-1.4); BAND NEUTROPHILS % (MANUAL) 6 % (3-5); BASOPHILS % (MANUAL) 0 % (0-2); EOSINOPHILS % (MANUAL) 0 % (0-6); LYMPHOCYTES % (MANUAL) 4 % (13-45); MONOCYTES % (MANUAL) 2 % (3-13); SEGMENTED NEUTROPHILS % (MAN) 87 % (42-78); TOTAL CELLS COUNTED 100
[2020-09-24 06:21] LABS: PLATELET COMMENT ADEQUATE; POLYCHROMASIA SLIGHT
[2020-09-24 06:51] LABS: ANION GAP 13 (5-19)
[2020-09-24 06:52] LABS: CARBON DIOXIDE 21 mmol/L (22-30); POTASSIUM 3.3 mmol/L (3.6-5.0)
--- NOTE | 2020-09-24 07:52 | RADIOLOGY REPORT (SQ) ---
EXAM DESCRIPTION: CHEST SINGLE VIEW IMAGES COMPLETED DATE/TIME: 09/24/2020 5:46 am REASON FOR STUDY: congestion COMPARISON: CT abdomen pelvis 09/24/2020 AP chest 12/22/2020, 09/20/2019 EXAM PARAMETERS: NUMBER OF VIEWS: One view. TECHNIQUE: Single frontal radiographic view of the chest acquired. RADIATION DOSE: NA LIMITATIONS: None. FINDINGS: LUNGS AND PLEURA: There is complete collapse of the left lung. This is new compared to est film 09/23/2020. This finding was called to the ICU, 0740 hours 09/24/2020 to the attending physic meagan Right lung well inflated and clear. No right pleural effusion or pneumothorax. MEDIASTINUM AND HILAR STRUCTURES: Shift of mediastinal structures towards the left HEART AND VASCULAR STRUCTURES: Not well seen BONES: No acute findings. Convex rightward thoracic curvature HARDWARE: None in the chest. OTHER: No other significant finding. IMPRESSION: Left lung collapse with shift of mediastinal structures towards the left. TECHNICAL DOCUMENTATION: JOB ID: [id number] [employer]- All Rights Reserved Reading location - IP/workstation name: [id number]
[2020-09-24] MEDS ORDERED: LEVETIRACETAM 500 MG/NACL-ISO 500 MG/100 ML RTUPB IV SCH (10:00)
--- NOTE | 2020-09-24 10:25 | CDI QUERY ---
CDI Query CDI Review: We are seeking further clarification of documentation to reflect the severity of illness of your patient. Per Provider Note: His oxygen saturation was in the lower 70s and pulse rate was 170 to 180 bpm. Due to excessive agitation and movement patient had no IV access during the incident and 2 mg lorazepam was given IM. Patient was placed on nonrebreather and he was saturating upper 80s and lower 90s on 15 L Patient had had labored breathing and also had coarse crackles bilaterally. Per Critical Care Notes: . The patient reportedly had a seizure and was given ativan to control the seizure. Per report the patient became hypotensive and was given IVF in which his blood pressure responded to. The patients oxygen requirements increased and he was requiring 100% NRB mask to maintain sats. The labs revealed leukocytosis and an elevated WBC. The patients PH was 7.4 with a bicarb of 7 and his lactic acid was greater than 5. Critical care was consulted for transfer to the ICU as the hospitalist felt he was unable to protect his airway. Based on your medical judgement, can you further clarify in the Progress Notes and carry through the Discharge Summary: Acute Respiratory Failure Not Acute Respiratory Failure Other cause (please specify) None of the above / Not applicable Thank you for your consideration. LILIANA Moon RN Clinical [employer] Physician Advisor [email or web address]
[2020-09-24] MEDS: METRONIDAZOLE 500 MG/NS RTU 500 MG/100 ML RTUPB IV SCH ×3 (10:33→17:51)
[2020-09-24] MEDS: DOCUSATE SODIUM 100 MG/10 ML UDC PO SCH (10:39)
[2020-09-24] MEDS: PANTOPRAZOLE SODIUM 40 MG VIAL IV SCH ×2 (10:40→22:21)
[2020-09-24] MEDS: ENOXAPARIN SODIUM INJ 40 MG/0.4 ML DISP.SYRIN SUBCUT SCH (10:40)
[2020-09-24] MEDS: LEVOFLOXACIN 750 MG/D5W RTU 750 MG/150 ML RTUPB IV SCH (10:40)
[2020-09-24] MEDS: LEVETIRACETAM 1000 MG/NACL-ISO 1,000 MG/100 ML RTUPB IV SCH ×2 (10:41→22:36)
--- NOTE | 2020-09-24 16:20 | RADIOLOGY REPORT (SQ) ---
EXAM DESCRIPTION: CHEST SINGLE VIEW IMAGES COMPLETED DATE/TIME: 09/24/2020 3:54 pm REASON FOR STUDY: evaluate left lung collapse COMPARISON: Earlier the same day. EXAM PARAMETERS: NUMBER OF VIEWS: One view. TECHNIQUE: Single frontal radiographic view of the chest acquired. RADIATION DOSE: NA LIMITATIONS: None. FINDINGS: LUNGS AND PLEURA: Left lung is now re-expanded. There is either a mass or infiltrate note d in the left upper lobe. Recommend CT chest for further evaluation. No definite effusions. Right lung field is clear. There is persistent volume loss on the left MEDIASTINUM AND HILAR STRUCTURES: No masses. Contour normal. HEART AND VASCULAR STRUCTURES: Heart normal in size. Normal vasculature. BONES: Stable in appearance with thoracic scoliosis. HARDWARE: None in the chest. OTHER: No other significant finding. IMPRESSION: Left lung is re-expanded there is persistent perihilar infiltrate and probable left uppe r lobe mass in or focal pneumonia. Chest CT is recommended for further evaluation. TECHNICAL DOCUMENTATION: JOB ID: [id number] 2010 [employer]- All Rights Reserved Reading location - IP/workstation name: [email or web address]
[2020-09-24] MEDS: LORAZEPAM INJ 2 MG/1 ML VIAL IV SCH ×3 (17:51→18:16)
--- NOTE | 2020-09-24 18:32 | Progress Note ---
Provider Note Provider Note: Patient downgraded from the ICU down to the floor today. Had a seizure episode last night. Had subsequent aspiration with mucous plugging of the left lungs with subsequent collapse of the left lung. Repeat chest x-ray for the nasal physiotherapy shows improvement and resolution of the left lung collapse. Patient is still quite tachycardic in the 130s. At home, patient is on a strange regimen of Trileptal, Tegretol, as well as every 6 hours Ativan and Klonopin. 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 I have put him on Ativan IV every 6 hours. We will continue the antibiotics for his aspiration pneumonia. Continue IV Keppra until Trileptal is resumed via PEG. Discussed plan with his mom who is agreeable with plan.
[2020-09-24] MEDS ORDERED: LORAZEPAM INJ 2 MG/1 ML VIAL IV ONE (18:33)
[2020-09-25] MEDS: METOCLOPRAMIDE HCL INJ/PF 10 MG/2 ML SDV IV SCH ×5 (00:08→23:14)
[2020-09-25] MEDS: METRONIDAZOLE 500 MG/NS RTU 500 MG/100 ML RTUPB IV SCH ×5 (00:08→23:14)
[2020-09-25] MEDS: LORAZEPAM INJ 2 MG/1 ML VIAL IV SCH ×3 (00:08→12:36)
[2020-09-25] MEDS: ACETAMINOPHEN 650 MG SUPP.RECT PR PRN ×2 (00:09→11:34)
[2020-09-25] MEDS: IPRATROPIUM/ALBUTEROL 0.5-2.5 MG/3 ML AMPUL NEB SCH ×4 (02:18→19:38)
[2020-09-25 05:14] LABS: ABSOLUTE LYMPHOCYTES (AUTO) 1.5 10^3/uL (0.5-4.7); ABSOLUTE MONOCYTES (AUTO) 1.1 10^3/uL (0.1-1.4); ABSOLUTE NEUT (AUTO) 10.5 10^3/uL (1.7-8.2); BASOPHILS % (AUTO) 0.1 % (0-2); HEMATOCRIT 29.9 % (37.9-51.0); LYMPHOCYTES % (AUTO) 11.3 % (13-45); MEAN CORPUSCULAR HEMOGLOBIN 30.5 pg (27.0-33.4); MEAN CORPUSCULAR HGB CONC 34.4 g/dL (32.0-36.0); MEAN CORPUSCULAR VOLUME 89 fl (80-97); MONOCYTES % (AUTO) 8.5 % (3-13); PLATELET COUNT 294 10^3/uL (150-450); RED BLOOD COUNT 3.38 10^6/uL (4.35-5.55); RED CELL DISTRIBUTION WIDTH 13.4 % (11.5-14.0); SEGMENTED NEUTROPHILS % (AUTO) 80.1 % (42-78); TOTAL CELLS COUNTED % (AUTO) 100 %; WHITE BLOOD COUNT 13.1 10^3/uL (4.0-10.5)
[2020-09-25 05:26] LABS: HEMOGLOBIN 10.3 g/dL (13.5-17.0)
[2020-09-25 05:33] LABS: ALKALINE PHOSPHATASE 45 U/L (38-126); ANION GAP 12 (5-19); ASPARTATE AMINO TRANSFERASE 93 U/L (17-59); BILIRUBIN,DIRECT 0.3 mg/dL (0.0-0.4); BILIRUBIN,TOTAL 0.4 mg/dL (0.2-1.3); BLOOD UREA NITROGEN 11 mg/dL (7-20); CALCIUM 8.3 mg/dL (8.4-10.2); CARBON DIOXIDE 21 mmol/L (22-30); CHLORIDE 107 mmol/L (98-107); CHOLESTEROL 75.95 mg/dL (0-200); POTASSIUM 3.7 mmol/L (3.6-5.0); TOTAL PROTEIN 5.3 g/dL (6.3-8.2); TRIGLYCERIDES 66 mg/dL (<150)
[2020-09-25 05:55] LABS: DIRECT LDL < 30 mg/dL (<100)
[2020-09-25 05:56] LABS: GLUCOSE 64 mg/dL (75-110)
[2020-09-25] MEDS: DEXTROSE 50%-WATER 25 GM/50 ML DISP.SYRIN IV PRN (06:05)
[2020-09-25] MEDS ORDERED: ALBUTEROL SULFATE 0.083% NEB 2.5 MG/3 ML AMPUL NEB ONE (10:32)
--- NOTE | 2020-09-25 10:34 | RADIOLOGY REPORT (SQ) ---
EXAM DESCRIPTION: CHEST SINGLE VIEW IMAGES COMPLETED DATE/TIME: 09/25/2020 10:23 am REASON FOR STUDY: SOB COMPARISON: 09/24/2020 NUMBER OF VIEWS: One view. TECHNIQUE: Single frontal radiographic image of the chest acquired. LIMITATIONS: None. FINDINGS: LUNGS AND PLEURA: Stable appearance. MEDIASTINUM AND HILAR STRUCTURES: Stable heart size and mediastinal structures. HEART AND VASCULAR STRUCTURES: Stable appearance. BONES: No acute findings. HARDWARE: None in the chest. OTHER: No other significant finding. IMPRESSION: STABLE APPEARANCE OF THE CHEST. TECHNICAL DOCUMENTATION: JOB ID: [id number] 2010 [employer]- All Rights Reserved Reading location - IP/workstation name: [email or web address]
[2020-09-25] MEDS: PANTOPRAZOLE SODIUM 40 MG VIAL IV SCH ×2 (10:43→21:14)
[2020-09-25] MEDS: LEVOFLOXACIN 750 MG/D5W RTU 750 MG/150 ML RTUPB IV SCH (10:43)
[2020-09-25] MEDS: ENOXAPARIN SODIUM INJ 40 MG/0.4 ML DISP.SYRIN SUBCUT SCH (10:43)
[2020-09-25] MEDS: DOCUSATE SODIUM 100 MG/10 ML UDC PO SCH (10:50)
[2020-09-25] MEDS: LEVETIRACETAM 1000 MG/NACL-ISO 1,000 MG/100 ML RTUPB IV SCH ×2 (11:34→21:30)
[2020-09-25] MEDS: RINGERS SOLUTION,LACTATED 1,000 ML IV PRN (12:43)
[2020-09-25 14:24] LABS: ARTERIAL BLOOD BASE EXCESS -1.6 mmol/L; ARTERIAL BLOOD H2CO3 1.59 mmol/L (1.05-1.35); ARTERIAL BLOOD HCO3 25.5 mmol/L (20-24); ARTERIAL BLOOD O2 SATURATION 99.3 % (94-98); ARTERIAL BLOOD PCO2 52.8 mmHg (35-45); ARTERIAL BLOOD PO2 203.8 mmHg (80-100); ARTERIAL BLOOD TOTAL CO2 27.1 mmol/L (23-27)
[2020-09-25 14:25] LABS: ARTERIAL BLOOD FIO2 15L
--- NOTE | 2020-09-25 15:17 | PDOC PROGRESS REPORT ---
Subjective Date:: 09/25/20 Subjective:: Patient was seen and examined at bedside. Per previous provider note, patient wa s transferred back from the ICU last night. When I saw him this morning, the patient is tachypneic with a RR of 40s, O2 sat 72%. Patient has coarse crackles. Attempt was made to suction him orally and nasally but was unable to adequately suction him. ICU was called and I spoke to Dr. Stoner who agreed to take the patient back to the ICU Reason For Visit: METABOLIC ACIDOSIS,RESP FAILURE Physical Exam Vital Signs: Temp Pulse Resp BP Pulse Ox 101.7 F H 126 H 32 H 95/58 L 99 09/25/20 14:12 09/25/20 14:14 09/25/20 14:14 09/25/20 14:00 09/25/20 14:14 Intake & Output 09/24/20 09/25/20 09/26/20 06:59 06:59 06:59 Intake Total 0 1650 200 Output Total 0 95 Balance 0 1650 105 Weight 42.2 kg 50.2 kg General appearance: PRESENT: hard of hearing, severe distress, thin, other Head exam: PRESENT: atraumatic, normocephalic Eye exam: PRESENT: PERRLA Mouth exam: PRESENT: moist Neck exam: ABSENT: JVD, meningismus Respiratory exam: PRESENT: crackles - Coarse crackles, rales, symmetrical Cardiovascular exam: PRESENT: +S1, +S2, tachycardia Pulses: PRESENT: +2 pedal pulses bilateral GI/Abdominal exam: PRESENT: normal bowel sounds, soft, other - PEG tube Musculoskeletal exam: PRESENT: other - muskuloskeletal exam findings consistent with cerebral palsy Neurological exam: PRESENT: awake, other - findings consistent with cerebral palsy Skin exam: PRESENT: normal color Results Laboratory Results: 09/25/20 04:49 09/25/20 04:49 09/25/20 09/25/20 09/25/20 04:49 04:49 04:49 WBC 13.1 H RBC 3.38 L Hgb 10.3 L D Hct 29.9 L MCV 89 MCH 30.5 MCHC 34.4 RDW 13.4 Plt Count 294 Seg Neutrophils % 80.1 H Carbonic Acid HCO3/H2CO3 Ratio ABG pH ABG pCO2 ABG pO2 ABG HCO3 ABG O2 Saturation ABG Base Excess FiO2 Sodium 139.8 Potassium 3.7 Chloride 107 Carbon Dioxide 21 L Anion Gap 12 BUN 11 Creatinine 0.42 L Est GFR ( Amer) > 60 Glucose 64 L Calcium 8.3 L Magnesium 2.0 Total Bilirubin 0.4 AST 93 H Alkaline Phosphatase 45 Total Protein 5.3 L Albumin 3.0 L Triglycerides 66 Cholesterol 75.95 LDL Cholesterol Direct < 30 VLDL Cholesterol 13.0 HDL Cholesterol 36 L Free T3 pg/mL 2.91 09/25/20 14:06 WBC RBC Hgb Hct MCV MCH MCHC RDW Plt Count Seg Neutrophils % Carbonic Acid 1.59 H HCO3/H2CO3 Ratio 16:1 ABG pH 7.30 L ABG pCO2 52.8 H ABG pO2 203.8 H ABG HCO3 25.5 H ABG O2 Saturation 99.3 H ABG Base Excess -1.6 FiO2 15L Sodium Potassium Chloride Carbon Dioxide Anion Gap BUN Creatinine Est GFR ( Amer) Glucose Calcium Magnesium Total Bilirubin AST Alkaline Phosphatase Total Protein Albumin Triglycerides Cholesterol LDL Cholesterol Direct VLDL Cholesterol HDL Cholesterol Free T3 pg/mL Impressions: KUB X-Ray 09/22/20 00:00 IMPRESSION: Nonspecific bowel gas pattern Abdomen/Pelvis CT 09/23/20 23:56 IMPRESSION: Limited study. No definite acute inflammatory process in the abdomen or pelvis. Left nephrolithiasis. Displaced heart and mediastinum into the left chest. Chest X-Ray 09/25/20 00:00 IMPRESSION: STABLE APPEARANCE OF THE CHEST. Assessment and Plan - Diagnosis (3) Aspiration pneumonia Qualifiers: Aspiration pneumonia type: due to gastric secretions Laterality: left Lung location: lower lobe of lung Qualified Code(s): J69.0 - Pneumonitis due to inhalation of food and vomit Is this a current diagnosis for this admission?: Yes (4) SBO (small bowel obstruction) Is this a current diagnosis for this admission?: Yes (5) Cerebral palsy Qualifiers: Cerebral palsy type: spastic quadriplegic Qualified Code(s): G80.0 - Spastic quadriplegic cerebral palsy Is this a current diagnosis for this admission?: Yes (6) Fever Qualifiers: Fever type: unspecified Qualified Code(s): R50.9 - Fever, unspecified Is this a current diagnosis for this admission?: Yes (7) Leukocytosis Qualifiers: Leukocytosis type: unspecified Qualified Code(s): D72.829 - Elevated white blood cell count, unspecified Is this a current diagnosis for this admission?: Yes (8) Seizure disorder Is this a current diagnosis for this admission?: Yes - Plan Summary Summary: Patient was recently discharged with similar issues. He has had multiple bouts of small bowel obstruction. Seems patient's mother had extensive discussion with surgeon on last visit and he decided not to pursue any surgical intervention due to concerns of causing more problems. Patient was transferred out of the ICU September 24, 2020 after being observed for less than 24 hours for acute respiratory failure secondary to mucous plugging. This morning he was noted to be tachypneic with a respiratory rate of 45 and O2 sat of 72% he is noted to have coarse crackles. Attempt was made to suction him intranasally and also poor oral but was unable to fully perform pulmonary toilet. I discussed with his mother possible need for intubation to protect his airway and she affirmed his full CODE STATUS. He is currently on 100% nonrebreather saturating 92% with a respiratory rate of 45% I am worried that with his high respiratory rate and aspiration pneumonia he will develop respiratory fatigue and will eventually need intubation. Dr. Stoner was consulted who agreed to retransfer patient back to the ICU for closer monitoring. >35 minutes spent on critical care for this patient who has acute on chronic respiratory failure due to mucus plugging from aspiration pneumonia. He is requiring 15L on non rebreather with RR 45. he is ICU appropriate - Time Time Spent with patient: 35 or more minutes Anticipated Discharge Disposition: Home with Home Health Anticipated Discharge Timeframe: tbd
--- NOTE | 2020-09-25 15:34 | PDOC CRITICAL CARE PROG REPORT ---
General Date:: 09/25/20 Resuscitation Status: Full Code Reason for ICU Addmission:: respiratory failure - Medications: Medications reviewed and adjusted accordingly: Yes Vasopressors:: None Sedation:: None Physical Exam Vital Signs: Temp Pulse Resp BP Pulse Ox 101.7 F H 126 H 32 H 95/58 L 99 09/25/20 14:12 09/25/20 14:14 09/25/20 14:14 09/25/20 14:00 09/25/20 14:14 Intake & Output 09/24/20 09/25/20 09/26/20 06:59 06:59 06:59 Intake Total 0 1650 200 Output Total 0 95 Balance 0 1650 105 Weight 42.2 kg 50.2 kg Weight/Height Weight 50.2 kg Height 5 ft 3 in General appearance: PRESENT: severe distress Head exam: PRESENT: atraumatic, normocephalic Eye exam: PRESENT: other - Pinpoint pupils Mouth exam: PRESENT: dry mucosa Neck exam: PRESENT: full ROM Respiratory exam: PRESENT: accessory muscle use, rhonchi Cardiovascular exam: PRESENT: tachycardia Pulses: PRESENT: normal radial pulses GI/Abdominal exam: PRESENT: normal bowel sounds Extremities exam: PRESENT: other - contracted Musculoskeletal exam: PRESENT: deformity Psychiatric exam: PRESENT: agitated Laboratory/Radiographs Laboratory Results: 09/25/20 04:49 09/25/20 04:49 09/25/20 09/25/20 09/25/20 04:49 04:49 04:49 WBC 13.1 H RBC 3.38 L Hgb 10.3 L D Hct 29.9 L MCV 89 MCH 30.5 MCHC 34.4 RDW 13.4 Plt Count 294 Seg Neutrophils % 80.1 H Carbonic Acid HCO3/H2CO3 Ratio ABG pH ABG pCO2 ABG pO2 ABG HCO3 ABG O2 Saturation ABG Base Excess FiO2 Sodium 139.8 Potassium 3.7 Chloride 107 Carbon Dioxide 21 L Anion Gap 12 BUN 11 Creatinine 0.42 L Est GFR ( Amer) > 60 Glucose 64 L Calcium 8.3 L Magnesium 2.0 Total Bilirubin 0.4 AST 93 H Alkaline Phosphatase 45 Total Protein 5.3 L Albumin 3.0 L Triglycerides 66 Cholesterol 75.95 LDL Cholesterol Direct < 30 VLDL Cholesterol 13.0 HDL Cholesterol 36 L Free T3 pg/mL 2.91 09/25/20 14:06 WBC RBC Hgb Hct MCV MCH MCHC RDW Plt Count Seg Neutrophils % Carbonic Acid 1.59 H HCO3/H2CO3 Ratio 16:1 ABG pH 7.30 L ABG pCO2 52.8 H ABG pO2 203.8 H ABG HCO3 25.5 H ABG O2 Saturation 99.3 H ABG Base Excess -1.6 FiO2 15L Sodium Potassium Chloride Carbon Dioxide Anion Gap BUN Creatinine Est GFR ( Amer) Glucose Calcium Magnesium Total Bilirubin AST Alkaline Phosphatase Total Protein Albumin Triglycerides Cholesterol LDL Cholesterol Direct VLDL Cholesterol HDL Cholesterol Free T3 pg/mL Impressions: KUB X-Ray 09/22/20 00:00 IMPRESSION: Nonspecific bowel gas pattern Abdomen/Pelvis CT 09/23/20 23:56 IMPRESSION: Limited study. No definite acute inflammatory process in the abdomen or pelvis. Left nephrolithiasis. Displaced heart and mediastinum into the left chest. Chest X-Ray 09/25/20 00:00 IMPRESSION: STABLE APPEARANCE OF THE CHEST. All labs, radiographs, diagnostic studies and EKGs were personally reviewed: Yes In addition, reports of radiographic and diagnostic studies were read: Yes Assessment and Plan - Diagnosis (1) Aspiration pneumonia Qualifiers: Aspiration pneumonia type: due to gastric secretions Laterality: left Lung location: lower lobe of lung Qualified Code(s): J69.0 - Pneumonitis due to inhalation of food and vomit Is this a current diagnosis for this admission?: Yes Plan: Continue Levaquin and flagyl keep HOB > 30 degrees (2) Acute respiratory failure with hypoxia Is this a current diagnosis for this admission?: Yes Plan: Currently on 6L NC maintaining sats in the mid 90's wean as tolerated Treat aspiration PNA Needs frequent NT suctioning Avoid sedating meds as possible (3) Cerebral palsy Qualifiers: Cerebral palsy type: spastic quadriplegic Qualified Code(s): G80.0 - Spastic quadriplegic cerebral palsy Is this a current diagnosis for this admission?: Yes (4) Seizure disorder Is this a current diagnosis for this admission?: Yes [facility] Critical Time Critical Time (minutes): 70 Level of Care: ICU -: 1. The care of a critical patient is a dynamic process. This note is a service representative synopsis but static in nature. The timeframe for treatments given in order is not necessarily the actual time these treatments may have been done. 2. This patient requires critical care secondary to ongoing requirements for therapy not offered or safe outside the critical care environment. Transfer to a lower level of care will result in altered life or limb morbidity and mortality. 3. Multidisciplinary rounds completed. 4. ABCDE bundle addressed.
[2020-09-25] MEDS: ACETAMINOPHEN 325 MG TABLET PO PRN (23:00)
[2020-09-25] MEDS: CLONAZEPAM 1 MG TABLET PEG PRN (23:00)
[2020-09-26] MEDS: RINGERS SOLUTION,LACTATED 1,000 ML IV PRN (01:25)
[2020-09-26] MEDS: IPRATROPIUM/ALBUTEROL 0.5-2.5 MG/3 ML AMPUL NEB SCH ×4 (02:32→21:02)
[2020-09-26 04:37] LABS: ABSOLUTE LYMPHOCYTES (AUTO) 1.1 10^3/uL (0.5-4.7); ABSOLUTE NEUT (AUTO) 7.2 10^3/uL (1.7-8.2); BASOPHILS % (AUTO) 0.4 % (0-2); EOSINOPHILS % (AUTO) 0.1 % (0-6); HEMATOCRIT 27.2 % (37.9-51.0); HEMOGLOBIN 9.3 g/dL (13.5-17.0); MEAN CORPUSCULAR HEMOGLOBIN 30.5 pg (27.0-33.4); MEAN CORPUSCULAR HGB CONC 34.2 g/dL (32.0-36.0); MEAN CORPUSCULAR VOLUME 89 fl (80-97); MONOCYTES % (AUTO) 10.3 % (3-13); PLATELET COUNT 262 10^3/uL (150-450); RED BLOOD COUNT 3.05 10^6/uL (4.35-5.55); RED CELL DISTRIBUTION WIDTH 13.3 % (11.5-14.0); SEGMENTED NEUTROPHILS % (AUTO) 77.2 % (42-78); TOTAL CELLS COUNTED % (AUTO) 100 %; WHITE BLOOD COUNT 9.3 10^3/uL (4.0-10.5)
[2020-09-26] MEDS: METRONIDAZOLE 500 MG/NS RTU 500 MG/100 ML RTUPB IV SCH ×4 (06:47→23:15)
[2020-09-26] MEDS ORDERED: METOCLOPRAMIDE HCL ORAL SOLN 10 MG/10 ML UDCUP ONE (06:49)
[2020-09-26] MEDS ORDERED: METOCLOPRAMIDE HCL INJ/PF 10 MG/2 ML SDV ONE (06:55)
[2020-09-26] MEDS: METOCLOPRAMIDE HCL INJ/PF 10 MG/2 ML SDV IV SCH ×4 (07:03→23:15)
--- NOTE | 2020-09-26 09:05 | PDOC CRITICAL CARE PROG REPORT ---
General Date:: 09/26/20 ICU Day:: 2 Resuscitation Status: Full Code Reason for ICU Addmission:: respiratory failure - Medications: Vasopressors:: None Sedation:: None Physical Exam Vital Signs: Temp Pulse Resp BP Pulse Ox 99.9 F 82 25 H 103/71 94 09/26/20 05:08 09/26/20 08:17 09/26/20 08:17 09/26/20 01:00 09/26/20 08:17 Intake & Output 09/25/20 09/26/20 09/27/20 06:59 06:59 06:59 Intake Total 1650 1600 Output Total 0 606 135 Balance 1650 994 -135 Weight 50.2 kg 51.4 kg Weight/Height Weight 51.4 kg Height 5 ft 2 in General appearance: PRESENT: thin Head exam: PRESENT: atraumatic, normocephalic Eye exam: PRESENT: PERRLA Mouth exam: PRESENT: moist Neck exam: PRESENT: full ROM Respiratory exam: PRESENT: clear to auscultation ashu Cardiovascular exam: PRESENT: RRR, +S1, +S2, tachycardia GI/Abdominal exam: PRESENT: normal bowel sounds Gentrourinary exam: PRESENT: indwelling catheter Extremities exam: PRESENT: other - contracted Musculoskeletal exam: PRESENT: deformity, other - flaccid secondary to Cerebal Palsy Laboratory/Radiographs Laboratory Results: 09/26/20 04:11 09/25/20 04:49 09/25/20 09/26/20 14:06 04:11 WBC 9.3 RBC 3.05 L Hgb 9.3 L Hct 27.2 L MCV 89 MCH 30.5 MCHC 34.2 RDW 13.3 Plt Count 262 Seg Neutrophils % 77.2 Carbonic Acid 1.59 H HCO3/H2CO3 Ratio 16:1 ABG pH 7.30 L ABG pCO2 52.8 H ABG pO2 203.8 H ABG HCO3 25.5 H ABG O2 Saturation 99.3 H ABG Base Excess -1.6 FiO2 15L 09/20/20 19:40 Blood Blood Culture - Final NO GROWTH IN 5 DAYS Impressions: KUB X-Ray 09/22/20 00:00 IMPRESSION: Nonspecific bowel gas pattern Abdomen/Pelvis CT 09/23/20 23:56 IMPRESSION: Limited study. No definite acute inflammatory process in the abdomen or pelvis. Left nephrolithiasis. Displaced heart and mediastinum into the left chest. Chest X-Ray 09/25/20 00:00 IMPRESSION: STABLE APPEARANCE OF THE CHEST. All labs, radiographs, diagnostic studies and EKGs were personally reviewed: Yes In addition, reports of radiographic and diagnostic studies were read: Yes Assessment and Plan - Diagnosis (1) Aspiration pneumonia Qualifiers: Aspiration pneumonia type: due to gastric secretions Laterality: left Lung location: lower lobe of lung Qualified Code(s): J69.0 - Pneumonitis due to inhalation of food and vomit Is this a current diagnosis for this admission?: Yes Plan: Continue Levaquin and flagyl keep HOB > 30 degrees (2) Acute respiratory failure with hypoxia Is this a current diagnosis for this admission?: Yes Plan: O2 sats 92-94% on room air Treat aspiration PNA Needs frequent NT suctioning Avoid sedating meds as possible (3) Cerebral palsy Qualifiers: Cerebral palsy type: spastic quadriplegic Qualified Code(s): G80.0 - Spastic quadriplegic cerebral palsy Is this a current diagnosis for this admission?: Yes (4) Seizure disorder Is this a current diagnosis for this admission?: Yes Plan: Continue Keppra Critical Time Critical Time (minutes): 45 Level of Care: ICU -: 1. The care of a critical patient is a dynamic process. This note is a enrollment representative synopsis but static in nature. The timeframe for treatments given in order is not necessarily the actual time these treatments may have been done. 2. This patient requires critical care secondary to ongoing requirements for therapy not offered or safe outside the critical care environment. Transfer to a lower level of care will result in altered life or limb morbidity and mortality. 3. Multidisciplinary rounds completed. 4. ABCDE bundle addressed.
[2020-09-26] MEDS: DOCUSATE SODIUM 100 MG/10 ML UDC PO SCH (09:50)
[2020-09-26] MEDS: LEVOFLOXACIN 750 MG/D5W RTU 750 MG/150 ML RTUPB IV SCH (09:50)
[2020-09-26] MEDS: ENOXAPARIN SODIUM INJ 40 MG/0.4 ML DISP.SYRIN SUBCUT SCH (09:51)
[2020-09-26] MEDS: PANTOPRAZOLE SODIUM 40 MG VIAL IV SCH ×2 (09:51→21:54)
[2020-09-26] MEDS: LEVETIRACETAM 1000 MG/NACL-ISO 1,000 MG/100 ML RTUPB IV SCH ×2 (10:00→21:54)
[2020-09-26] MEDS ORDERED: LORAZEPAM INJ 2 MG/1 ML VIAL ONE (11:57)
[2020-09-26] MEDS ORDERED: LORAZEPAM INJ 2 MG/1 ML VIAL IV ONE (12:30)
[2020-09-26 16:57] LABS: ALBUMIN 2.9 g/dL (3.5-5.0); ALKALINE PHOSPHATASE 47 U/L (38-126); ANION GAP 13 (5-19); ASPARTATE AMINO TRANSFERASE 143 U/L (17-59); BILIRUBIN,DIRECT 0.3 mg/dL (0.0-0.4); BILIRUBIN,TOTAL 0.5 mg/dL (0.2-1.3); BLOOD UREA NITROGEN 6 mg/dL (7-20); CALCIUM 8.1 mg/dL (8.4-10.2); CARBON DIOXIDE 20 mmol/L (22-30); CHLORIDE 106 mmol/L (98-107); POTASSIUM 3.4 mmol/L (3.6-5.0); TOTAL PROTEIN 5.3 g/dL (6.3-8.2)
[2020-09-26 16:59] LABS: GLUCOSE 67 mg/dL (75-110)
[2020-09-26] MEDS: DEXTROSE 50%-WATER 25 GM/50 ML DISP.SYRIN IV PRN ×2 (17:19→21:11)
--- NOTE | 2020-09-26 19:03 | Progress Note ---
Provider Note Provider Note: Spoke with Dr. Martines and sign out given in agreement to accept the patient to room 318.
[2020-09-26] MEDS: DEXTROSE 5%-WATER 1000 ML 1,000 ML IV PRN (20:10)
[2020-09-26] MEDS: CLONAZEPAM 1 MG TABLET PEG PRN (23:40)
[2020-09-27] MEDS: IPRATROPIUM/ALBUTEROL 0.5-2.5 MG/3 ML AMPUL NEB SCH ×4 (02:20→20:57)
[2020-09-27] MEDS: METOCLOPRAMIDE HCL INJ/PF 10 MG/2 ML SDV IV SCH ×3 (05:51→18:11)
[2020-09-27] MEDS: METRONIDAZOLE 500 MG/NS RTU 500 MG/100 ML RTUPB IV SCH ×2 (05:51→15:15)
[2020-09-27 05:55] LABS: ALBUMIN 3.2 g/dL (3.5-5.0); ALKALINE PHOSPHATASE 47 U/L (38-126); ANION GAP 13 (5-19); ASPARTATE AMINO TRANSFERASE 268 U/L (17-59); BILIRUBIN,DIRECT 0.3 mg/dL (0.0-0.4); BILIRUBIN,TOTAL 0.6 mg/dL (0.2-1.3); BLOOD UREA NITROGEN 3 mg/dL (7-20); CALCIUM 8.4 mg/dL (8.4-10.2); CARBON DIOXIDE 21 mmol/L (22-30); CHLORIDE 104 mmol/L (98-107); GLUCOSE 91 mg/dL (75-110); POTASSIUM 3.5 mmol/L (3.6-5.0); TOTAL PROTEIN 5.9 g/dL (6.3-8.2)
[2020-09-27 07:43] LABS: ABSOLUTE LYMPHOCYTES (AUTO) 0.8 10^3/uL (0.5-4.7); ABSOLUTE MONOCYTES (AUTO) 0.8 10^3/uL (0.1-1.4); ABSOLUTE NEUT (AUTO) 9.4 10^3/uL (1.7-8.2); BASOPHILS % (AUTO) 0.4 % (0-2); HEMOGLOBIN 11.3 g/dL (13.5-17.0); LYMPHOCYTES % (AUTO) 7.2 % (13-45); MEAN CORPUSCULAR HEMOGLOBIN 29.8 pg (27.0-33.4); MEAN CORPUSCULAR HGB CONC 34.3 g/dL (32.0-36.0); MEAN CORPUSCULAR VOLUME 87 fl (80-97); MONOCYTES % (AUTO) 7.6 % (3-13); PLATELET COUNT 417 10^3/uL (150-450); RED BLOOD COUNT 3.81 10^6/uL (4.35-5.55); RED CELL DISTRIBUTION WIDTH 13.4 % (11.5-14.0); SEGMENTED NEUTROPHILS % (AUTO) 84.8 % (42-78); TOTAL CELLS COUNTED % (AUTO) 100 %; WHITE BLOOD COUNT 11.1 10^3/uL (4.0-10.5)
[2020-09-27] MEDS: LEVOFLOXACIN 750 MG/D5W RTU 750 MG/150 ML RTUPB IV SCH (09:45)
[2020-09-27] MEDS: LEVETIRACETAM 1000 MG/NACL-ISO 1,000 MG/100 ML RTUPB IV SCH ×2 (09:45→21:31)
[2020-09-27] MEDS: DOCUSATE SODIUM 100 MG/10 ML UDC PO SCH (09:46)
[2020-09-27] MEDS: PANTOPRAZOLE SODIUM 40 MG VIAL IV SCH ×2 (09:46→21:32)
[2020-09-27] MEDS: ENOXAPARIN SODIUM INJ 40 MG/0.4 ML DISP.SYRIN SUBCUT SCH (09:46)
[2020-09-27] MEDS: ACETAMINOPHEN 650 MG SUPP.RECT PR PRN ×3 (11:39→22:31)
[2020-09-27] MEDS: CLONAZEPAM 1 MG TABLET PEG PRN (15:14)
[2020-09-27] MEDS ORDERED: VANCOMYCIN HCL 0 MG in DEXTROSE 5%-WATER 250 ML IV NR (17:00)
--- NOTE | 2020-09-27 17:28 | PDOC PROGRESS REPORT ---
Subjective Date:: 09/27/20 Subjective:: Patient was seen and examined at bedside. Per previous provider note, patient wa s transferred back from the ICU last night. When I saw him this morning, the patient is tachypneic with a RR of 40s, O2 sat 72%. Patient has coarse crackles. Attempt was made to suction him orally and nasally but was unable to adequately suction him. ICU was called and I spoke to Dr. Stoner who agreed to take the patient back to the ICU 09/27/20 The patient was seen and examined at bedside. HE was transferred back from the ICU last night after staying there for 2 days due to desaturation and tachypnea. Patient was continued on abx and was provided frequent suctioning, O2 sats improved to low 90s however still has copious secretions requiring frequent suctioning. I have spoken to his mom regarding his risk for frequent aspiration and risk of intubation. She understands this however wants him to remain full code. Reason For Visit: METABOLIC ACIDOSIS,RESP FAILURE Physical Exam Vital Signs: Temp Pulse Resp BP Pulse Ox 101.6 F H 122 H 22 H 140/75 H 98 09/27/20 16:07 09/27/20 13:34 09/27/20 13:34 09/27/20 12:10 09/27/20 13:34 Intake & Output 09/26/20 09/27/20 09/28/20 06:59 06:59 06:59 Intake Total 1750 2218 350 Output Total 606 2445 500 Balance 1144 -227 -150 Weight 51.4 kg 49.1 kg 49.1 kg General appearance: PRESENT: thin, other - moderate distress Head exam: PRESENT: atraumatic, normocephalic Eye exam: PRESENT: EOMI, PERRLA Mouth exam: PRESENT: moist Neck exam: PRESENT: full ROM Respiratory exam: PRESENT: crackles, rales, rhonchi, symmetrical, unlabored, wheezes Cardiovascular exam: PRESENT: RRR, +S1, +S2 Pulses: PRESENT: +2 pedal pulses bilateral GI/Abdominal exam: PRESENT: normal bowel sounds, soft. ABSENT: rebound, tenderness Extremities exam: PRESENT: full ROM Musculoskeletal exam: PRESENT: full ROM Neurological exam: PRESENT: alert, awake, other - cerebral palsy patient, non verbal with nystagmus. ABSENT: oriented to person, oriented to place, oriented to time, oriented to situation Psychiatric exam: PRESENT: normal mood Skin exam: PRESENT: normal color Results Laboratory Results: 09/27/20 07:19 09/27/20 05:12 09/26/20 09/27/20 09/27/20 16:28 05:12 05:12 WBC Cancelled RBC Cancelled Hgb Cancelled Hct Cancelled MCV Cancelled MCH Cancelled MCHC Cancelled RDW Cancelled Plt Count Cancelled Seg Neutrophils % Cancelled Sodium 139.0 138.3 Potassium 3.4 L 3.5 L Chloride 106 104 Carbon Dioxide 20 L 21 L Anion Gap 13 13 BUN 6 L 3 L Creatinine 0.39 L 0.37 L Est GFR ( Amer) > 60 > 60 Glucose 67 L 91 Calcium 8.1 L 8.4 Total Bilirubin 0.5 0.6 AST 143 H 268 H Alkaline Phosphatase 47 47 Total Protein 5.3 L 5.9 L Albumin 2.9 L 3.2 L 09/27/20 07:19 WBC 11.1 H RBC 3.81 L Hgb 11.3 L Hct 33.0 L MCV 87 MCH 29.8 MCHC 34.3 RDW 13.4 Plt Count 417 Seg Neutrophils % 84.8 H Sodium Potassium Chloride Carbon Dioxide Anion Gap BUN Creatinine Est GFR ( Amer) Glucose Calcium Total Bilirubin AST Alkaline Phosphatase Total Protein Albumin Impressions: KUB X-Ray 09/22/20 00:00 IMPRESSION: Nonspecific bowel gas pattern Abdomen/Pelvis CT 09/23/20 23:56 IMPRESSION: Limited study. No definite acute inflammatory process in the abdomen or pelvis. Left nephrolithiasis. Displaced heart and mediastinum into the left chest. Chest X-Ray 09/25/20 00:00 IMPRESSION: STABLE APPEARANCE OF THE CHEST. Assessment and Plan - Diagnosis (1) Acute respiratory failure with hypoxia Is this a current diagnosis for this admission?: Yes Plan: - 2/2 aspiration pneumonia - received 5 days of levaquin and flagyl. I have switched him to zosyn and vanc - continue O2 support - he may benefit from tracheostomy for better suctioning of secretions. It does not prevent him from developing aspiration pneumonia but it may allow us to suction him better. Will discuss this with his mom as this is a relatively invasive procedure. (2) Mucus plugging of bronchi Is this a current diagnosis for this admission?: Yes Plan: - 2/2 copious secretions from pneumonia - caused left lung collapse which has since re expanded - continue suctioning - will discuss tracheostomy with his mother (3) Aspiration pneumonia Qualifiers: Aspiration pneumonia type: due to gastric secretions Laterality: left Lung location: lower lobe of lung Qualified Code(s): J69.0 - Pneumonitis due to inhalation of food and vomit Is this a current diagnosis for this admission?: Yes Plan: - abx switched to zosyn and vanc - with his CP he will always be at risk for aspiration pneumonia and he has a lready 4 bouts of this in the past year. With each bout it will get progressively harder to treat him. 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 - Spas tic quadriplegic cerebral palsy Is this a current diagnosis for this admission?: Yes (6) Fever Qualifiers: Fever type: unspecified Qualified Code(s): R50.9 - Fever, unspecified Is this a current diagnosis for this admission?: Yes (7) Leukocytosis Qualifiers: Leukocytosis type: unspecified Qualified Code(s): D72.829 - Elevated white blood cell count, unspecified Is this a current diagnosis for this admission?: Yes (8) Seizure disorder Is this a current diagnosis for this admission?: Yes Plan: Continue Keppra IV - also on klonopin - Time Time Spent with patient: 25-34 minutes Medications reviewed and adjusted accordingly: Yes Anticipated Discharge Disposition: Home, Self Care Anticipated Discharge Timeframe: tbd
[2020-09-27] MEDS: DEXTROSE 5%-WATER 1000 ML 1,000 ML IV PRN (18:14)
[2020-09-27] MEDS ORDERED: PIPERACILLIN/TAZOBACTAM 3.375 GM VIAL IV SCH (22:00)
[2020-09-27] MEDS: PIPERACILLIN SODIUM/TAZOBACTAM 3.375 GM in NORMAL SALINE 100 ML IV SCH (22:31)
[2020-09-27] MEDS: VANCOMYCIN HCL 750 MG in DEXTROSE 5%-WATER 250 ML IV SCH (23:24)
[2020-09-28] MEDS: METOCLOPRAMIDE HCL INJ/PF 10 MG/2 ML SDV IV SCH ×4 (01:00→17:20)
[2020-09-28] MEDS: IPRATROPIUM/ALBUTEROL 0.5-2.5 MG/3 ML AMPUL NEB SCH ×4 (02:54→21:13)
[2020-09-28] MEDS: PIPERACILLIN SODIUM/TAZOBACTAM 3.375 GM in NORMAL SALINE 100 ML IV SCH ×3 (05:17→21:44)
[2020-09-28] MEDS: CLONAZEPAM 1 MG TABLET PEG PRN ×2 (09:50→23:07)
[2020-09-28] MEDS: LEVETIRACETAM 1000 MG/NACL-ISO 1,000 MG/100 ML RTUPB IV SCH ×2 (09:50→21:44)
--- NOTE | 2020-09-28 11:19 | RADIOLOGY REPORT (SQ) ---
EXAM DESCRIPTION: PICC INSERTION IMAGES COMPLETED DATE/TIME: 09/28/2020 10:57 am REASON FOR STUDY: IV access for TPN COMPARISON: None. FLUOROSCOPY TIME: 8 seconds. 1 image saved to PACS. TECHNIQUE: Fluoroscopic and Ultrasound Guided PICC Placement. LIMITATIONS: None. PROCEDURE: After written consent and assessment were obtained, the patient was brought into the fluo roscopy room and placed supine on the table. Ultrasound evaluation of potential access sites were per formed. After successfully identifying a patent right basilic vein, the right arm was prepped and santos ped in a sterile fashion along with the ultrasound probe. The entry site was anesthetized with 1% lid ocaine. A 21 gauge 7 cm needle was advanced through the skin and into the basilic vein under live ult rasound guidance. An ultrasound image was saved to PACS confirming access site. A .018 inch guide w yoanna was then inserted through the needle and into the venous system. The needle was then removed and an 11 blade scalpel was used to make a 1 cm skin incision. A 5 Fr peel-away sheath was advanced over the wire and into the venous system. A measurement was then made using the existing wire and live fl uoroscopic guidance. The wire was then removed and trimmed. The PICC was advanced through the peel-aw ay sheath and into the venous system. The peel-away sheath was removed and the catheter was adhered t o the patients arm with a stat lock. The catheter was then aspirated and flushed and a sterile bandag e was placed over the access site. A fluoroscopic spot image was saved to PACS confirming the cathet er tip within the superior vena cava. IMPRESSION: SUCCESSFUL PLACEMENT OF A 5 FR DUAL LUMEN 31 CM PICC IN THE RIGHT BASILIC VEIN. COMMENT: Patient medication list reviewed: Yes- Quality ID# 130:Eligible professional attests to doc umenting in the medical record they obtained, updated, or reviewed the patient's current medications. . Quality ID 145: Final reports for procedures using fluoroscopy that document radiation exposure jacobo layton, or exposure time and number of fluorographic images (if radiation exposure indices are not avail able) Quality ID #76: The patient was prepped and draped using maximum sterile barrier technique including cap, mask, sterile gown, sterile gloves, a large sterile sheet, hand hygiene, and 2% Chlorhexidine fo r cutaneous antisepsis. When ultrasound is used, sterile ultrasound techniques are followed requiring sterile gel and sterile probes. TECHNICAL DOCUMENTATION: JOB ID: [id number] 2010 [employer]- All Rights Reserved rev Reading location - IP/workstation name: [id number]
[2020-09-28] MEDS: DOCUSATE SODIUM 100 MG/10 ML UDC PO SCH (11:24)
[2020-09-28] MEDS: PANTOPRAZOLE SODIUM 40 MG VIAL IV SCH (11:25)
[2020-09-28] MEDS: ENOXAPARIN SODIUM INJ 40 MG/0.4 ML DISP.SYRIN SUBCUT SCH (11:25)
[2020-09-28] MEDS: VANCOMYCIN HCL 750 MG in DEXTROSE 5%-WATER 250 ML IV SCH ×2 (11:29→23:07)
[2020-09-28] MEDS ORDERED: DEXTROSE 10%-WATER 1,000 ML IV PRN (15:00)
[2020-09-28] MEDS: ACETAMINOPHEN 325 MG TABLET PO PRN (15:30)
--- NOTE | 2020-09-28 15:40 | PDOC PROGRESS REPORT ---
Subjective Date:: 09/28/20 Subjective:: Patient was seen and examined at bedside. Per previous provider note, patient wa s transferred back from the ICU last night. When I saw him this morning, the patient is tachypneic with a RR of 40s, O2 sat 72%. Patient has coarse crackles. Attempt was made to suction him orally and nasally but was unable to adequately suction him. ICU was called and I spoke to Dr. Stoner who agreed to take the patient back to the ICU 09/27/20 The patient was seen and examined at bedside. HE was transferred back from the ICU last night after staying there for 2 days due to desaturation and tachypnea. Patient was continued on abx and was provided frequent suctioning, O2 sats improved to low 90s however still has copious secretions requiring frequent suctioning. I have spoken to his mom regarding his risk for frequent aspiration and risk of intubation. She understands this however wants him to remain full code. 09/28/20 The patient was seen and examined at bedside. He appears more comfortable today. Respiratory therapist was able to properly suction him which greatly helped with managing his secretions. Abx switched to zosyn and vanc. No seizure episode. I discussed the tracheostomy with his mom and she said she does not want to go thru it for now but is open to consider it if really needed. Reason For Visit: METABOLIC ACIDOSIS,RESP FAILURE Physical Exam Vital Signs: Temp Pulse Resp BP Pulse Ox 100.2 F 97 24 H 112/72 95 09/28/20 11:55 09/28/20 11:55 09/28/20 11:55 09/28/20 11:55 09/28/20 11:55 Intake & Output 09/27/20 09/28/20 09/29/20 06:59 06:59 06:59 Intake Total 2218 1604 350 Output Total 9395 1625 350 Weight 49.1 kg 46.4 kg 46.4 kg General appearance: PRESENT: cooperative, mild distress, thin Head exam: PRESENT: atraumatic, normocephalic Eye exam: PRESENT: EOMI, PERRLA Mouth exam: PRESENT: moist Neck exam: PRESENT: full ROM Respiratory exam: PRESENT: crackles, rales, rhonchi, symmetrical Cardiovascular exam: PRESENT: RRR, +S1, +S2 Pulses: PRESENT: +2 pedal pulses bilateral GI/Abdominal exam: PRESENT: normal bowel sounds, soft. ABSENT: rebound, tenderness Extremities exam: PRESENT: full ROM Musculoskeletal exam: PRESENT: full ROM Neurological exam: PRESENT: alert, awake, other - cerebral palsy changes. ABSENT: oriented to person, oriented to place, oriented to time, oriented to situation Psychiatric exam: PRESENT: normal mood Skin exam: PRESENT: normal color Results Laboratory Results: 09/27/20 07:19 09/27/20 05:12 09/22/20 21:03 Blood Blood Culture - Final NO GROWTH IN 5 DAYS 09/22/20 20:08 Blood Blood Culture - Final NO GROWTH IN 5 DAYS Impressions: KUB X-Ray 09/22/20 00:00 IMPRESSION: Nonspecific bowel gas pattern Abdomen/Pelvis CT 09/23/20 23:56 IMPRESSION: Limited study. No definite acute inflammatory process in the abdomen or pelvis. Left nephrolithiasis. Displaced heart and mediastinum into the left chest. Chest X-Ray 09/25/20 00:00 IMPRESSION: STABLE APPEARANCE OF THE CHEST. PICC Line Insertion 09/28/20 00:00 IMPRESSION: SUCCESSFUL PLACEMENT OF A 5 FR DUAL LUMEN 31 CM PICC IN THE RIGHT BASILIC VEIN. Assessment and Plan - Diagnosis (1) Acute respiratory failure with hypoxia Is this a current diagnosis for this admission?: Yes Plan: - 2/2 aspiration pneumonia - received 5 days of levaquin and flagyl. I have switched him to zosyn and vanc - continue O2 support - he may benefit from tracheostomy for better suctioning of secretions. It does not prevent him from developing aspiration pneumonia but it may allow us to suction him better. mom opted not to have a tracheostomy for now. He may still need this in the future (2) Mucus plugging of bronchi Is this a current diagnosis for this admission?: Yes Plan: - 2/2 copious secretions from pneumonia - caused left lung collapse which has since re expanded - continue suctioning - Patients mom opted not to do tracheostomy for now. (3) Aspiration pneumonia Qualifiers: Aspiration pneumonia type: due to gastric secretions Laterality: left Lung location: lower lobe of lung Qualified Code(s): J69.0 - Pneumonitis due to inhalation of food and vomit Is this a current diagnosis for this admission?: Yes Plan: - abx switched to zosyn and vanc - with his CP he will always be at risk for aspiration pneumonia and he has already 4 bouts of this in the past year. With each bout it will get progressively harder to treat him. 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 - Spastic quadriplegic cerebral palsy Is this a current diagnosis for this admission?: Yes (6) Fever Qualifiers: Fever type: unspecified Qualified Code(s): R50.9 - Fever, unspecified Is this a current diagnosis for this admission?: Yes (7) Leukocytosis Qualifiers: Leukocytosis type: unspecified Qualified Code(s): D72.829 - Elevated white blood cell count, unspecified Is this a current diagnosis for this admission?: Yes (8) Seizure disorder Is this a current diagnosis for this admission?: Yes Plan: Continue Keppra IV - also on klonopin - Time Time Spent with patient: 25-34 minutes Medications reviewed and adjusted accordingly: Yes Anticipated Discharge Disposition: Home, Self Care Anticipated Discharge Timeframe: tbd
[2020-09-28] MEDS: INSULIN REG, HUMAN 100 UNIT/ML 3 ML VIAL (PYX) SUBCUT SCH (18:38)
[2020-09-28 20:30] LABS: HEMATOCRIT 27.2 % (37.9-51.0); HEMOGLOBIN 9.6 g/dL (13.5-17.0); INTERNATIONAL RATION (INR) 1.37; MEAN CORPUSCULAR HEMOGLOBIN 30.5 pg (27.0-33.4); MEAN CORPUSCULAR HGB CONC 35.5 g/dL (32.0-36.0); MEAN CORPUSCULAR VOLUME 86 fl (80-97); PLATELET COUNT 332 10^3/uL (150-450); RED BLOOD COUNT 3.16 10^6/uL (4.35-5.55); RED CELL DISTRIBUTION WIDTH 13.1 % (11.5-14.0); WHITE BLOOD COUNT 11.7 10^3/uL (4.0-10.5)
[2020-09-29] MEDS: INSULIN REG, HUMAN 100 UNIT/ML 3 ML VIAL (PYX) SUBCUT SCH ×4 (00:55→19:10)
[2020-09-29] MEDS: METOCLOPRAMIDE HCL INJ/PF 10 MG/2 ML SDV IV SCH ×4 (00:59→19:00)
[2020-09-29] MEDS: IPRATROPIUM/ALBUTEROL 0.5-2.5 MG/3 ML AMPUL NEB SCH ×4 (01:54→20:34)
[2020-09-29] MEDS: DEXTROSE 5%-WATER 1000 ML 1,000 ML IV PRN (03:36)
[2020-09-29] MEDS: PIPERACILLIN SODIUM/TAZOBACTAM 3.375 GM in NORMAL SALINE 100 ML IV SCH ×3 (06:46→21:52)
[2020-09-29] MEDS: AMINO ACIDS 5 %/DEXTROSE 20 % 1,000 ML IV PRN (08:22)
[2020-09-29 09:12] LABS: ALBUMIN 2.5 g/dL (3.5-5.0); ALKALINE PHOSPHATASE 44 U/L (38-126); ANION GAP 6 (5-19); ASPARTATE AMINO TRANSFERASE 55 U/L (17-59); BILIRUBIN,DIRECT 0.2 mg/dL (0.0-0.4); BILIRUBIN,TOTAL 0.4 mg/dL (0.2-1.3); BLOOD UREA NITROGEN 4 mg/dL (7-20); CALCIUM 7.7 mg/dL (8.4-10.2); CARBON DIOXIDE 28 mmol/L (22-30); CHLORIDE 96 mmol/L (98-107); GLUCOSE 231 mg/dL (75-110); PHOSPHORUS 2.6 mg/dL (2.5-4.5)
[2020-09-29 09:19] LABS: PREALBUMIN 10.8 mg/dL (17.6-36.0)
[2020-09-29 09:31] LABS: POTASSIUM 2.6 mmol/L (3.6-5.0)
[2020-09-29] MEDS ORDERED: POTASSI CL 20 MEQ/50 ML RIDER 40 MEQ/100 ML RTUPB IV ONE (09:48)
[2020-09-29] MEDS ORDERED: POTASSI CL 20 MEQ/50 ML RIDER 20 MEQ/50 ML RTUPB IV ONE (09:49)
[2020-09-29] MEDS: DOCUSATE SODIUM 100 MG/10 ML UDC PO SCH (10:09)
[2020-09-29] MEDS: ENOXAPARIN SODIUM INJ 40 MG/0.4 ML DISP.SYRIN SUBCUT SCH (10:09)
[2020-09-29] MEDS: CLONAZEPAM 1 MG TABLET PEG PRN ×2 (13:42→20:25)
--- NOTE | 2020-09-29 13:50 | PDOC PROGRESS REPORT ---
Subjective Date:: 09/29/20 Subjective:: Patient was seen and examined at bedside. Per previous provider note, patient wa s transferred back from the ICU last night. When I saw him this morning, the patient is tachypneic with a RR of 40s, O2 sat 72%. Patient has coarse crackles. Attempt was made to suction him orally and nasally but was unable to adequately suction him. ICU was called and I spoke to Dr. Stoner who agreed to take the patient back to the ICU 09/27/20 The patient was seen and examined at bedside. HE was transferred back from the ICU last night after staying there for 2 days due to desaturation and tachypnea. Patient was continued on abx and was provided frequent suctioning, O2 sats improved to low 90s however still has copious secretions requiring frequent suctioning. I have spoken to his mom regarding his risk for frequent aspiration and risk of intubation. She understands this however wants him to remain full code. 09/28/20 The patient was seen and examined at bedside. He appears more comfortable today. Respiratory therapist was able to properly suction him which greatly helped with managing his secretions. Abx switched to zosyn and vanc. No seizure episode. I discussed the tracheostomy with his mom and she said she does not want to go thru it for now but is open to consider it if really needed. 09/29/20 The patient was seen and examined at bedside.Appears comfortable on the bed, not tachypneic. NO seizure episode, afebrile. On TPN. Reason For Visit: METABOLIC ACIDOSIS,RESP FAILURE Physical Exam Vital Signs: Temp Pulse Resp BP Pulse Ox 98.6 F 98 18 109/66 98 09/29/20 08:29 09/29/20 08:30 09/29/20 08:30 09/29/20 08:29 09/29/20 08:30 Intake & Output 09/28/20 09/29/20 09/30/20 06:59 06:59 06:59 Intake Total 1604 1337 353 Output Total 1625 1100 Balance -21 237 353 Weight 46.4 kg 49 kg 49 kg General appearance: PRESENT: no acute distress, cooperative Head exam: PRESENT: atraumatic, normocephalic Eye exam: PRESENT: EOMI, PERRLA Mouth exam: PRESENT: moist Respiratory exam: PRESENT: crackles, rhonchi, symmetrical, unlabored Cardiovascular exam: PRESENT: RRR, +S1, +S2 Pulses: PRESENT: +2 pedal pulses bilateral GI/Abdominal exam: PRESENT: normal bowel sounds, soft. ABSENT: rebound, tenderness Extremities exam: PRESENT: full ROM Musculoskeletal exam: PRESENT: other - quadriplegic, spastic consistent with cerebral palsy Results Laboratory Results: 09/28/20 19:07 09/29/20 08:30 09/28/20 09/28/20 09/29/20 19:07 19:07 08:30 WBC 11.7 H RBC 3.16 L Hgb 9.6 L Hct 27.2 L MCV 86 MCH 30.5 MCHC 35.5 RDW 13.1 Plt Count 332 Sodium 130.0 L Potassium 2.6 L* Chloride 96 L Carbon Dioxide 28 Anion Gap 6 BUN 4 L Creatinine 0.37 L Est GFR ( Amer) > 60 Glucose 231 H Calcium 7.7 L Phosphorus 2.6 Magnesium 1.5 L Total Bilirubin 0.4 AST 55 Alkaline Phosphatase 44 Total Protein 5.0 L Albumin 2.5 L Prealbumin 10.8 L Triglycerides 67 Impressions: KUB X-Ray 09/22/20 00:00 IMPRESSION: Nonspecific bowel gas pattern Abdomen/Pelvis CT 09/23/20 23:56 IMPRESSION: Limited study. No definite acute inflammatory process in the abdomen or pelvis. Left nephrolithiasis. Displaced heart and mediastinum into the left chest. Chest X-Ray 09/25/20 00:00 IMPRESSION: STABLE APPEARANCE OF THE CHEST. PICC Line Insertion 09/28/20 00:00 IMPRESSION: SUCCESSFUL PLACEMENT OF A 5 FR DUAL LUMEN 31 CM PICC IN THE RIGHT BASILIC VEIN. Assessment and Plan - Diagnosis (1) Acute respiratory failure with hypoxia Is this a current diagnosis for this admission?: Yes Plan: - 2/2 aspiration pneumonia - received 5 days of levaquin and flagyl. I have switched him to zosyn and vanc - continue O2 support wean off as tolerated - he may benefit from tracheostomy for better suctioning of secretions. It does not prevent him from developing aspiration pneumonia but it may allow us to suction him better. mom opted not to have a tracheostomy for now. He may still need this in the future (2) Mucus plugging of bronchi Is this a current diagnosis for this admission?: Yes Plan: - 2/2 copious secretions from pneumonia - caused left lung collapse which has since re expanded - continue suctioning - continue abx - Patients mom opted not to do tracheostomy for now. (3) Aspiration pneumonia Qualifiers: Aspiration pneumonia type: due to gastric secretions Laterality: left Lung location: lower lobe of lung Qualified Code(s): J69.0 - Pneumonitis due to inhalation of food and vomit Is this a current diagnosis for this admission?: Yes Plan: - abx switched to zosyn and vanc - no growth blood culture - with his CP he will always be at risk for aspiration pneumonia and he has already 4 bouts of this in the past year. With each bout it will get progressively harder to treat him. His mom is aware of this and has stated that "I know he's getting near" however he still wants him full code - keep HOB > 30 degrees - TPN for nutrition for now. Will resume peg tube feeding once he's less tachypneic (4) SBO (small bowel obstruction) Is this a current diagnosis for this admission?: Yes Plan: - has not had any tube feeding since admission which was 6 days ago due to aspiration risk -on tpn - no BM yet (5) Cerebral palsy Qualifiers: Cerebral palsy type: spastic quadriplegic Qualified Code(s): G80.0 - Spastic quadriplegic cerebral palsy Is this a current diagnosis for this admission?: Yes (6) Fever Qualifiers: Fever type: unspecified Qualified Code(s): R50.9 - Fever, unspecified Is this a current diagnosis for this admission?: Yes (7) Leukocytosis Qualifiers: Leukocytosis type: unspecified Qualified Code(s): D72.829 - Elevated white blood cell count, unspecified Is this a current diagnosis for this admission?: Yes (8) Seizure disorder Is this a current diagnosis for this admission?: Yes Plan: Continue Keppra IV - also on klonopin - Time Time Spent with patient: 25-34 minutes Medications reviewed and adjusted accordingly: Yes Anticipated Discharge Disposition: Home, Self Care Anticipated Discharge Timeframe: tbd
[2020-09-29] MEDS ORDERED: ACETYLCYSTEINE 20% SOLN 800 MG/4 ML VIAL.NEB ONE (14:23)
[2020-09-29] MEDS: LEVETIRACETAM 1000 MG/NACL-ISO 1,000 MG/100 ML RTUPB IV SCH ×2 (15:48→21:11)
[2020-09-29] MEDS: POTASSIUM CHLORIDE 20 MEQ/50 ML RTU IV SCH ×2 (16:03→16:04)
[2020-09-29] MEDS: MAGNESIUM SULFATE/D5W 1 GM/100 ML RTUPB IV SCH ×2 (16:30→17:30)
[2020-09-29] MEDS: VANCOMYCIN HCL 750 MG in DEXTROSE 5%-WATER 250 ML IV SCH ×2 (19:11→20:44)
[2020-09-29] MEDS: ACETYLCYSTEINE 10% NEB 400 MG/4 ML VIAL NEB SCH (20:34)
[2020-09-30] MEDS: METOCLOPRAMIDE HCL INJ/PF 10 MG/2 ML SDV IV SCH ×4 (00:32→18:35)
[2020-09-30] MEDS: INSULIN REG, HUMAN 100 UNIT/ML 3 ML VIAL (PYX) SUBCUT SCH ×4 (00:36→18:32)
[2020-09-30] MEDS: IPRATROPIUM/ALBUTEROL 0.5-2.5 MG/3 ML AMPUL NEB SCH ×4 (02:13→20:36)
[2020-09-30] MEDS: PIPERACILLIN SODIUM/TAZOBACTAM 3.375 GM in NORMAL SALINE 100 ML IV SCH ×3 (05:29→23:52)
[2020-09-30] MEDS: VANCOMYCIN HCL 750 MG in DEXTROSE 5%-WATER 250 ML IV SCH ×2 (06:35→18:34)
[2020-09-30 08:09] LABS: ABSOLUTE EOSINOPHILS # (AUTO) 0.1 10^3/uL (0.0-0.6); ABSOLUTE LYMPHOCYTES (AUTO) 1.3 10^3/uL (0.5-4.7); ABSOLUTE MONOCYTES (AUTO) 0.6 10^3/uL (0.1-1.4); BASOPHILS % (AUTO) 0.4 % (0-2); EOSINOPHILS % (AUTO) 1.6 % (0-6); HEMATOCRIT 31.7 % (37.9-51.0); HEMOGLOBIN 10.9 g/dL (13.5-17.0); LYMPHOCYTES % (AUTO) 18.4 % (13-45); MEAN CORPUSCULAR HEMOGLOBIN 30.1 pg (27.0-33.4); MEAN CORPUSCULAR HGB CONC 34.2 g/dL (32.0-36.0); MEAN CORPUSCULAR VOLUME 88 fl (80-97); MONOCYTES % (AUTO) 8.7 % (3-13); PLATELET COUNT 359 10^3/uL (150-450); RED BLOOD COUNT 3.61 10^6/uL (4.35-5.55); SEGMENTED NEUTROPHILS % (AUTO) 70.9 % (42-78); TOTAL CELLS COUNTED % (AUTO) 100 %; WHITE BLOOD COUNT 7.1 10^3/uL (4.0-10.5)
[2020-09-30] MEDS: ACETYLCYSTEINE 10% NEB 400 MG/4 ML VIAL NEB SCH ×2 (09:17→20:36)
[2020-09-30 09:58] LABS: ALBUMIN 2.9 g/dL (3.5-5.0); ALKALINE PHOSPHATASE 48 U/L (38-126); ANION GAP 6 (5-19); ASPARTATE AMINO TRANSFERASE 90 U/L (17-59); BILIRUBIN,DIRECT 0.1 mg/dL (0.0-0.4); BILIRUBIN,TOTAL 0.3 mg/dL (0.2-1.3); BLOOD UREA NITROGEN 4 mg/dL (7-20); CALCIUM 8.1 mg/dL (8.4-10.2); CARBON DIOXIDE 26 mmol/L (22-30); CHLORIDE 106 mmol/L (98-107); GLUCOSE 87 mg/dL (75-110); TOTAL PROTEIN 5.8 g/dL (6.3-8.2)
[2020-09-30 10:09] LABS: POTASSIUM 2.9 mmol/L (3.6-5.0)
[2020-09-30] MEDS: AMINO ACIDS 5 %/DEXTROSE 20 % 1,000 ML IV PRN (10:54)
[2020-09-30] MEDS: LEVETIRACETAM 1000 MG/NACL-ISO 1,000 MG/100 ML RTUPB IV SCH ×2 (10:54→22:48)
[2020-09-30] MEDS: DOCUSATE SODIUM 100 MG/10 ML UDC PO SCH (10:55)
[2020-09-30] MEDS: ENOXAPARIN SODIUM INJ 40 MG/0.4 ML DISP.SYRIN SUBCUT SCH (10:55)
[2020-09-30] MEDS: CLONAZEPAM 1 MG TABLET PEG PRN ×3 (11:29→23:01)
[2020-09-30] MEDS: POTASSI CL 20 MEQ/50 ML RIDER 20 MEQ/50 ML RTUPB IV SCH ×4 (11:31→20:44)
--- NOTE | 2020-09-30 12:34 | PDOC PROGRESS REPORT ---
Subjective Date:: 09/30/20 Subjective:: Patient was seen and examined at bedside. Per previous provider note, patient wa s transferred back from the ICU last night. When I saw him this morning, the patient is tachypneic with a RR of 40s, O2 sat 72%. Patient has coarse crackles. Attempt was made to suction him orally and nasally but was unable to adequately suction him. ICU was called and I spoke to Dr. Stoner who agreed to take the patient back to the ICU 09/27/20 The patient was seen and examined at bedside. HE was transferred back from the ICU last night after staying there for 2 days due to desaturation and tachypnea. Patient was continued on abx and was provided frequent suctioning, O2 sats improved to low 90s however still has copious secretions requiring frequent suctioning. I have spoken to his mom regarding his risk for frequent aspiration and risk of intubation. She understands this however wants him to remain full code. 09/28/20 The patient was seen and examined at bedside. He appears more comfortable today. Respiratory therapist was able to properly suction him which greatly helped with managing his secretions. Abx switched to zosyn and vanc. No seizure episode. I discussed the tracheostomy with his mom and she said she does not want to go thru it for now but is open to consider it if really needed. 09/29/20 The patient was seen and examined at bedside.Appears comfortable on the bed, not tachypneic. NO seizure episode, afebrile. On TPN. 09/30/20 The patient was seen and examined at bedside. According to his mom he seems to be breathing much better with his secretions more manageable. He is not tachypneic anymore ad ABC count has improved. I think his PEG tube feeding can be resumed tomorrow if he continues to improve. He has not had any seizure episode since admission. Reason For Visit: METABOLIC ACIDOSIS,RESP FAILURE Physical Exam Vital Signs: Temp Pulse Resp BP Pulse Ox 97.4 F 75 18 102/62 98 09/30/20 04:26 09/30/20 09:17 09/30/20 09:17 09/30/20 04:26 09/30/20 09:17 Intake & Output 09/29/20 09/30/20 10/01/20 06:59 06:59 06:59 Intake Total 1337 1153 Output Total 1100 1175 Balance 237 -22 Weight 49 kg 45.4 kg General appearance: PRESENT: no acute distress, thin, other Head exam: PRESENT: atraumatic, normocephalic Eye exam: PRESENT: EOMI, PERRLA Mouth exam: PRESENT: moist Neck exam: PRESENT: full ROM Respiratory exam: PRESENT: crackles, symmetrical, unlabored Cardiovascular exam: PRESENT: RRR, +S1, +S2 Musculoskeletal exam: PRESENT: other - spastic quadriplegic Neurological exam: PRESENT: awake, other - changes consistent with cerebral palsy. ABSENT: oriented to person, oriented to place, oriented to time Skin exam: PRESENT: normal color Results Laboratory Results: 09/30/20 07:13 09/30/20 09:20 09/30/20 09/30/20 09/30/20 06:00 07:13 07:13 WBC Cancelled 7.1 RBC Cancelled 3.61 L Hgb Cancelled 10.9 L Hct Cancelled 31.7 L MCV Cancelled 88 MCH Cancelled 30.1 MCHC Cancelled 34.2 RDW Cancelled 13.0 Plt Count Cancelled 359 Seg Neutrophils % Cancelled 70.9 Sodium Cancelled Potassium Cancelled Chloride Cancelled Carbon Dioxide Cancelled Anion Gap Cancelled BUN Cancelled Creatinine Cancelled Est GFR ( Amer) Cancelled Est GFR (Non-Af Amer) Cancelled Glucose Cancelled Calcium Cancelled Total Bilirubin Cancelled AST Cancelled Alkaline Phosphatase Cancelled Total Protein Cancelled Albumin Cancelled 09/30/20 09:20 WBC RBC Hgb Hct MCV MCH MCHC RDW Plt Count Seg Neutrophils % Sodium 137.8 Potassium 2.9 L* Chloride 106 Carbon Dioxide 26 Anion Gap 6 BUN 4 L Creatinine 0.35 L Est GFR ( Amer) > 60 Est GFR (Non-Af Amer) Glucose 87 Calcium 8.1 L Total Bilirubin 0.3 AST 90 H Alkaline Phosphatase 48 Total Protein 5.8 L Albumin 2.9 L Impressions: KUB X-Ray 09/22/20 00:00 IMPRESSION: Nonspecific bowel gas pattern Abdomen/Pelvis CT 09/23/20 23:56 IMPRESSION: Limited study. No definite acute inflammatory process in the abdomen or pelvis. Left nephrolithiasis. Displaced heart and mediastinum into the left chest. Chest X-Ray 09/25/20 00:00 IMPRESSION: STABLE APPEARANCE OF THE CHEST. PICC Line Insertion 09/28/20 00:00 IMPRESSION: SUCCESSFUL PLACEMENT OF A 5 FR DUAL LUMEN 31 CM PICC IN THE RIGHT BASILIC VEIN. Assessment and Plan - Diagnosis (1) Acute respiratory failure with hypoxia Is this a current diagnosis for this admission?: Yes Plan: - 2/2 aspiration pneumonia - D2 of Vanc and zosyn - he may benefit from tracheostomy for better suctioning of secretions. It does not prevent him from developing aspiration pneumonia but it may allow us to suction him better. mom opted not to have a tracheostomy for now. He may still need this in the future (2) Mucus plugging of bronchi Is this a current diagnosis for this admission?: Yes Plan: - 2/2 copious secretions from pneumonia - caused left lung collapse which has since re expanded - continue suctioning - continue abx - Patients mom opted not to do tracheostomy for now. (3) Aspiration pneumonia Qualifiers: Aspiration pneumonia type: due to gastric secretions Laterality: left Lung location: lower lobe of lung Qualified Code(s): J69.0 - Pneumonitis due to inhalation of food and vomit Is this a current diagnosis for this admission?: Yes Plan: - D2 of vanc and zosyn, before that received rocephin, levaquin and flagyl - no growth blood culture - with his CP he will always be at risk for aspiration pneumonia and he has already 4 bouts of this in the past year. With each bout it will get progressively harder to treat him. His mom is aware of this and has stated that "I know he's getting near" however he still wants him full code - keep HOB > 30 degrees - TPN for nutrition for now. If his secretions are much better tomorrow morning, he can be switched back to tube feeding. (4) SBO (small bowel obstruction) Is this a current diagnosis for this admission?: Yes Plan: - has not had any tube feeding since admission which was 6 days ago due to aspiration risk -on tpn - no BM yet but he also has not been given anything by PEG. His abdomen is soft and he is not vomiting. PEG tube feeding can likely be resumed tomorrow. 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 Qualified Code(s): G80.0 - Spastic quadriplegic cerebral palsy Is this a current diagnosis for this admission?: Yes (7) Fever Qualifiers: Fever type: unspecified Qualified Code(s): R50.9 - Fever, unspecified Is this a current diagnosis for this admission?: Yes Plan: - due aspiration pneumonia (8) Leukocytosis Qualifiers: Leukocytosis type: unspecified Qualified Code(s): D72.829 - Elevated white blood cell count, unspecified Is this a current diagnosis for this admission?: Yes Plan: - WBC 11.7 resolved - due to aspiration pneumonia (9) Seizure disorder Is this a current diagnosis for this admission?: Yes Plan: Continue Keppra IV - also on klonopin - Time Time Spent with patient: 25-34 minutes Medications reviewed and adjusted accordingly: Yes Anticipated Discharge Disposition: Home, Self Care Anticipated Discharge Timeframe: within 48 hours
[2020-10-01] MEDS: INSULIN REG, HUMAN 100 UNIT/ML 3 ML VIAL (PYX) SUBCUT SCH ×4 (01:30→18:44)
[2020-10-01] MEDS: IPRATROPIUM/ALBUTEROL 0.5-2.5 MG/3 ML AMPUL NEB SCH ×4 (01:42→20:32)
[2020-10-01] MEDS: METOCLOPRAMIDE HCL INJ/PF 10 MG/2 ML SDV IV SCH ×5 (02:18→23:42)
[2020-10-01] MEDS: PIPERACILLIN SODIUM/TAZOBACTAM 3.375 GM in NORMAL SALINE 100 ML IV SCH ×2 (05:35→15:41)
[2020-10-01 06:36] LABS: INTERNATIONAL RATION (INR) 1.06
[2020-10-01] MEDS: ACETYLCYSTEINE 10% NEB 400 MG/4 ML VIAL NEB SCH ×2 (08:27→20:32)
[2020-10-01 08:30] LABS: ABSOLUTE EOSINOPHILS # (AUTO) 0.1 10^3/uL (0.0-0.6); ABSOLUTE MONOCYTES (AUTO) 0.6 10^3/uL (0.1-1.4); ABSOLUTE NEUT (AUTO) 3.9 10^3/uL (1.7-8.2); BASOPHILS % (AUTO) 0.4 % (0-2); EOSINOPHILS % (AUTO) 2.1 % (0-6); HEMATOCRIT 30.8 % (37.9-51.0); HEMOGLOBIN 10.4 g/dL (13.5-17.0); LYMPHOCYTES % (AUTO) 17.1 % (13-45); MEAN CORPUSCULAR HEMOGLOBIN 29.6 pg (27.0-33.4); MEAN CORPUSCULAR HGB CONC 33.7 g/dL (32.0-36.0); MEAN CORPUSCULAR VOLUME 88 fl (80-97); MONOCYTES % (AUTO) 10.3 % (3-13); PLATELET COUNT 392 10^3/uL (150-450); RED BLOOD COUNT 3.51 10^6/uL (4.35-5.55); RED CELL DISTRIBUTION WIDTH 13.2 % (11.5-14.0); SEGMENTED NEUTROPHILS % (AUTO) 70.1 % (42-78); TOTAL CELLS COUNTED % (AUTO) 100 %; WHITE BLOOD COUNT 5.6 10^3/uL (4.0-10.5)
[2020-10-01 08:34] LABS: ALBUMIN 2.7 g/dL (3.5-5.0); ALKALINE PHOSPHATASE 41 U/L (38-126); ANION GAP 5 (5-19); ASPARTATE AMINO TRANSFERASE 95 U/L (17-59); BILIRUBIN,DIRECT 0.2 mg/dL (0.0-0.4); BILIRUBIN,TOTAL 0.4 mg/dL (0.2-1.3); BLOOD UREA NITROGEN 6 mg/dL (7-20); CALCIUM 8.2 mg/dL (8.4-10.2); CARBON DIOXIDE 27 mmol/L (22-30); CHLORIDE 107 mmol/L (98-107); GLUCOSE 116 mg/dL (75-110); PHOSPHORUS 2.8 mg/dL (2.5-4.5); POTASSIUM 3.5 mmol/L (3.6-5.0); TOTAL PROTEIN 5.5 g/dL (6.3-8.2)
[2020-10-01 09:56] LABS: VANCOMYCIN,TROUGH < 5.0 ug/mL (5.0-20.0)
[2020-10-01] MEDS ORDERED: FAT EMULSIONS 250 ML IV SCH (10:00)
[2020-10-01] MEDS: ENOXAPARIN SODIUM INJ 40 MG/0.4 ML DISP.SYRIN SUBCUT SCH (10:55)
[2020-10-01] MEDS: VANCOMYCIN HCL 750 MG in DEXTROSE 5%-WATER 250 ML IV SCH ×2 (11:56→18:49)
[2020-10-01] MEDS: DOCUSATE SODIUM 100 MG/10 ML UDC PO SCH (12:03)
[2020-10-01] MEDS: AMINO ACIDS 5 %/DEXTROSE 20 % 1,000 ML IV PRN (12:04)
[2020-10-01] MEDS: CLONAZEPAM 1 MG TABLET PEG PRN ×2 (12:18→21:18)
[2020-10-01] MEDS: LEVETIRACETAM 1000 MG/NACL-ISO 1,000 MG/100 ML RTUPB IV SCH ×2 (12:22→23:42)
--- NOTE | 2020-10-01 14:31 | PDOC PROGRESS REPORT ---
Subjective Subjective:: Per Previous Physician: "Patient was seen and examined at bedside. Per previous provider note, patient was transferred back from the ICU last night. When I saw him this morning, the patient is tachypneic with a RR of 40s, O2 sat 72%. Patient has coarse crackles. Attempt was made to suction him orally and nasally but was unable to adequately suction him. ICU was called and I spoke to Dr. Stoner who agreed to take the pa tient back to the ICU 09/27/20 The patient was seen and examined at bedside. HE was transferred back from the ICU last night after staying there for 2 days due to desaturation and tachypnea. Patient was continued on abx and was provided frequent suctioning, O2 sats improved to low 90s however still has copious secretions requiring frequent suctioning. I have spoken to his mom regarding his risk for frequent aspiration and risk of intubation. She understands this however wants him to remain full code. 09/28/20 The patient was seen and examined at bedside. He appears more comfortable today. Respiratory therapist was able to properly suction him which greatly helped with managing his secretions. Abx switched to zosyn and vanc. No seizure episode. I discussed the tracheostomy with his mom and she said she does not want to go thru it for now but is open to consider it if really needed. 09/29/20 The patient was seen and examined at bedside.Appears comfortable on the bed, not tachypneic. NO seizure episode, afebrile. On TPN. 09/30/20 The patient was seen and examined at bedside. According to his mom he seems to be breathing much better with his secretions more manageable. He is not t achypneic anymore ad ABC count has improved. I think his PEG tube feeding can be resumed tomorrow if he continues to improve. He has not had any seizure episode since admission. " 10/01/20 Patient seems to be more somnolent according to his mother and compared to my previous encounters I would agree with this assessment. 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 If EEG does not show ongoing seizure activity, he is likely on too many sedatives for seizure control and we can lower his Klonopin or Keppra. Will restart PEG tube feeds today as he is not vomiting and he is now having bowel movements. Discussed with RT to start CPT. We can stop TPN after tube feeding has been successfully restarted without vomiting for several hours. Reason For Visit: METABOLIC ACIDOSIS,RESP FAILURE Physical Exam Vital Signs: Temp Pulse Resp BP Pulse Ox 97.5 F 92 20 123/71 100 10/01/20 09:12 10/01/20 09:59 10/01/20 09:59 10/01/20 08:23 10/01/20 09:59 Intake & Output 09/30/20 10/01/20 10/02/20 06:59 06:59 06:59 Intake Total 1153 900 100 Output Total 1175 Balance -22 900 100 Weight 45.4 kg 46 kg Exam: General appearance: PRESENT: no acute distress, frail and chronically ill- appearing white male, a bit somnolent today Head exam: PRESENT: atraumatic, normocephalic Eye exam: PRESENT: conjunctiva pink. ABSENT: scleral icterus Mouth exam: PRESENT: moist Respiratory exam: PRESENT: clear to auscultation ashu. ABSENT: rales, rhonchi, wheezes Cardiovascular exam: PRESENT: RRR. ABSENT: diastolic murmur, rubs, systolic murmur GI/Abdominal exam: PRESENT: Nontender, normal bowel sounds, soft, G-tube in left upper quadrant in good position, no skin breakdown around tube and no leakage noted. ABSENT: distended, guarding, mass, organolmegaly, rebound Neurological exam: PRESENT: Mostly alert, awake, nonverbal and cannot assess orientation Psychiatric exam: PRESENT: appropriate affect, normal mood Skin exam: PRESENT: dry, intact, warm Results Laboratory Results: 10/01/20 08:00 10/01/20 08:00 10/01/20 10/01/20 10/01/20 06:00 06:15 08:00 WBC Cancelled 5.6 RBC Cancelled 3.51 L Hgb Cancelled 10.4 L Hct Cancelled 30.8 L MCV Cancelled 88 MCH Cancelled 29.6 MCHC Cancelled 33.7 RDW Cancelled 13.2 Plt Count Cancelled 392 Seg Neutrophils % Cancelled 70.1 Sodium Cancelled Potassium Cancelled Chloride Cancelled Carbon Dioxide Cancelled Anion Gap Cancelled BUN Cancelled Creatinine Cancelled Est GFR ( Amer) Cancelled Est GFR (Non-Af Amer) Cancelled Glucose Cancelled Calcium Cancelled Phosphorus Cancelled Magnesium Cancelled Total Bilirubin Cancelled AST Cancelled Alkaline Phosphatase Cancelled Total Protein Cancelled Albumin Cancelled Prealbumin Cancelled 10/01/20 08:00 WBC RBC Hgb Hct MCV MCH MCHC RDW Plt Count Seg Neutrophils % Sodium 139.3 Potassium 3.5 L Chloride 107 Carbon Dioxide 27 Anion Gap 5 BUN 6 L Creatinine 0.30 L Est GFR ( Amer) > 60 Est GFR (Non-Af Amer) Glucose 116 H Calcium 8.2 L Phosphorus 2.8 Magnesium 2.0 Total Bilirubin 0.4 AST 95 H Alkaline Phosphatase 41 Total Protein 5.5 L Albumin 2.7 L Prealbumin 19.0 Impressions: KUB X-Ray 09/22/20 00:00 IMPRESSION: Nonspecific bowel gas pattern Abdomen/Pelvis CT 09/23/20 23:56 IMPRESSION: Limited study. No definite acute inflammatory process in the abdomen or pelvis. Left nephrolithiasis. Displaced heart and mediastinum into the left chest. Chest X-Ray 09/25/20 00:00 IMPRESSION: STABLE APPEARANCE OF THE CHEST. PICC Line Insertion 09/28/20 00:00 IMPRESSION: SUCCESSFUL PLACEMENT OF A 5 FR DUAL LUMEN 31 CM PICC IN THE RIGHT BASILIC VEIN. Assessment and Plan - Diagnosis (1) Acute respiratory failure with hypoxia Is this a current diagnosis for this admission?: Yes (2) Aspiration pneumonia Qualifiers: Aspiration pneumonia type: due to gastric secretions Laterality: left Lung location: lower lobe of lung Qualified Code(s): J69.0 - Pneumonitis due to inhalation of food and vomit Is this a current diagnosis for this admission?: Yes (3) Mucus plugging of bronchi Is this a current diagnosis for this admission?: Yes (4) SBO (small bowel obstruction) Is this a current diagnosis for this admission?: Yes (5) Cerebral palsy Qualifiers: Cerebral palsy type: spastic quadriplegic Qualified Code(s): G80.0 - Spastic quadriplegic cerebral palsy Is this a current diagnosis for this admission?: Yes (6) Hypokalemia Is this a current diagnosis for this admission?: Yes (7) Seizure disorder Is this a current diagnosis for this admission?: Yes - Plan Summary Summary: (1) Acute respiratory failure with hypoxia Is this a current diagnosis for this admission?: Yes Plan: Per Previous Physician: "- 2/2 aspiration pneumonia - D2 of Vanc and zosyn - he may benefit from tracheostomy for better suctioning of secretions. It does not prevent him from developing aspiration pneumonia but it may allow us to suction him better. mom opted not to have a tracheostomy for now. He may still need this in the future" Complete antibiotic course for total 10 to 14 days RT following, initiated CPT Gradual improvement (2) Mucus plugging of bronchi Is this a current diagnosis for this admission?: Yes Plan: Per Previous Physician: "- 2/2 copious secretions from pneumonia - caused left lung collapse which has since re expanded - continue suctioning - continue abx - Patients mom opted not to do tracheostomy for now." (3) Aspiration pneumonia Qualifiers: Aspiration pneumonia type: due to gastric secretions Laterality: left L [place] location: lower lobe of lung Qualified Code(s): J69.0 - Pneumonitis due to inhalation of food and vomit Is this a current diagnosis for this admission?: Yes Plan: Per Previous Physician: "- D2 of vanc and zosyn, before that received rocephin, levaquin and flagyl - no growth blood culture - with his CP he will always be at risk for aspiration pneumonia and he has already 4 bouts of this in the past year. With each bout it will get progressively harder to treat him. His mom is aware of this and has stated that "I know he's getting near" however he still wants him full code - keep HOB > 30 degrees - TPN for nutrition for now. If his secretions are much better tomorrow morning, he can be switched back to tube feeding." Antibiotics as above TPN stopped 10/01 after initiating PEG tube feeds successfully without vomiting; very slow gradual increase in tube feed rate (4) SBO (small bowel obstruction) Is this a current diagnosis for this admission?: Yes Plan: Per Previous Physician: "- has not had any tube feeding since admission which was 6 days ago due to aspiration risk -on tpn - no BM yet but he also has not been given anything by PEG. His abdomen is soft and he is not vomiting. PEG tube feeding can likely be resumed tomorrow. " Having regular bowel movements as of overnight 09/30 Mother counseled to not allow patient to go more than 1 day without a bowel movement and to initiate laxatives when needed (5) Hypokalemia Is this a current diagnosis for this admission?: Yes Plan: Per Previous Physician: "K 2.6>2.9 replaced via IV - TPN potassium supplements also increased" (6) Cerebral palsy Qualifiers: Cerebral palsy type: spastic quadriplegic Qualified Code(s): G80.0 - Spastic quadriplegic cerebral palsy Is this a current diagnosis for this admission?: Yes Stable (7) Fever Qualifiers: Fever type: unspecified Qualified Code(s): R50.9 - Fever, unspecified Is this a current diagnosis for this admission?: Yes Plan: - due aspiration pneumonia (8) Seizure disorder Is this a current diagnosis for this admission?: Yes Plan: On IV Keppra and Klonopin while n.p.o. as per multiple previous admissions Had a seizure prompting ICU admission and treatment of aspiration pneumonia, no further obvious grand mal seizure activity EEG to rule out NCS May need to reduce sedating antiseizure medications if somnolence persists and EEG is negative for seizure - Time Time Spent with patient: 25-34 minutes Medications reviewed and adjusted accordingly: Yes Anticipated Discharge Disposition: Home, Self Care Anticipated Discharge Timeframe: within 72 hours - Inpatient Certification Based on my medical assessment, after consideration of the patient's comorbidities, presenting symptoms, or acuity I expect that the services needed warrant INPATIENT care.: Yes I certify that my determination is in accordance with my understanding of Medicare's requirements for reasonable and necessary INPATIENT services [42 CFR 412.3e].: Yes Medical Necessity: Significant Comorbidiites Make Outpatient Treatment Too Risky, Need Close Monitoring Due to Risk of Patient Decompensation
[2020-10-01 15:52] LABS: HEMATOCRIT 30.9 % (37.9-51.0); HEMOGLOBIN 10.8 g/dL (13.5-17.0); MEAN CORPUSCULAR HEMOGLOBIN 30.8 pg (27.0-33.4); MEAN CORPUSCULAR VOLUME 88 fl (80-97); PLATELET COUNT 439 10^3/uL (150-450); RED CELL DISTRIBUTION WIDTH 12.9 % (11.5-14.0); WHITE BLOOD COUNT 6.5 10^3/uL (4.0-10.5)
--- NOTE | 2020-10-01 18:35 | NEURO WORKBENCH EEG REPORT ---
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 This EEG was requested for concern of NCS. EEG Interpretation This EEG was recorded in the awake, drowsy, and sleep states. The awake EEG is characterized by a poorly-organized background without a well-developed posterior dominant rhythm. The remainder of the background was characterized by a combination of theta and delta with a mixture of alpha and prominent beta frequencies. Drowsiness was characterized by slowing of the background rhythms. Vertex waves were poorly formed but sleep spindles were well noted in the midline head regions with villalta frontally. Photic stimulation resulted in no significant changes. There were no epileptiform abnormalities nor seizures noted. The EKG showed a regular rhythm. EEG Classification * Generalized background slowing * Prominent beta EEG Impression This EEG is abnormal. It is consistent with diffuse cerebral dysfunction. Prominent beta may be seen with certain medications e.g. benzodiazepines. There were no seizures noted. INTERPRETING NEUROLOGIST: Stephanie Reynoso MD, FRCPC Board Certified in Neurology, with special qualification in Child Neurology, and in Clinical Neurophysiology [facility]
[2020-10-02] MEDS: PIPERACILLIN SODIUM/TAZOBACTAM 3.375 GM in NORMAL SALINE 100 ML IV SCH ×4 (00:16→22:43)
[2020-10-02] MEDS: INSULIN REG, HUMAN 100 UNIT/ML 3 ML VIAL (PYX) SUBCUT SCH ×4 (00:20→17:06)
[2020-10-02] MEDS: IPRATROPIUM/ALBUTEROL 0.5-2.5 MG/3 ML AMPUL NEB SCH ×4 (02:16→21:00)
[2020-10-02] MEDS: VANCOMYCIN HCL 750 MG in DEXTROSE 5%-WATER 250 ML IV SCH ×3 (02:59→17:36)
[2020-10-02] MEDS: METOCLOPRAMIDE HCL INJ/PF 10 MG/2 ML SDV IV SCH ×3 (05:47→17:36)
[2020-10-02] MEDS: ACETYLCYSTEINE 10% NEB 400 MG/4 ML VIAL NEB SCH ×2 (08:52→21:00)
--- NOTE | 2020-10-02 09:18 | RADIOLOGY REPORT (SQ) ---
EXAM DESCRIPTION: CHEST SINGLE VIEW IMAGES COMPLETED DATE/TIME: 10/02/2020 9:05 am REASON FOR STUDY: follow up aspiration PNA progress; portable CXR COMPARISON: 09/25/2020. EXAM PARAMETERS: NUMBER OF VIEWS: One view. TECHNIQUE: Single frontal radiographic view of the chest acquired. RADIATION DOSE: NA LIMITATIONS: None. FINDINGS: LUNGS AND PLEURA: Patchy infiltrate in the left lung, unchanged. Right lung clear. MEDIASTINUM AND HILAR STRUCTURES: No masses. Contour normal. HEART AND VASCULAR STRUCTURES: Heart normal in size. Normal vasculature. BONES: No acute findings. Scoliosis. HARDWARE: None in the chest. Clips in the upper abdomen. OTHER: No other significant finding. IMPRESSION: NO CHANGE IN APPEARANCE OF THE CHEST. TECHNICAL DOCUMENTATION: JOB ID: [id number] 2010 [employer]- All Rights Reserved Reading location - IP/workstation name: [email or web address]
[2020-10-02] MEDS: DOCUSATE SODIUM 100 MG/10 ML UDC PO SCH (11:09)
[2020-10-02] MEDS: LEVETIRACETAM 1000 MG/NACL-ISO 1,000 MG/100 ML RTUPB IV SCH (11:11)
[2020-10-02] MEDS: ENOXAPARIN SODIUM INJ 40 MG/0.4 ML DISP.SYRIN SUBCUT SCH (11:11)
--- NOTE | 2020-10-02 13:58 | PDOC PROGRESS REPORT ---
Subjective Subjective:: Per Previous Physician: "Patient was seen and examined at bedside. Per previous provider note, patient was transferred back from the ICU last night. When I saw him this morning, the patient is tachypneic with a RR of 40s, O2 sat 72%. Patient has coarse crackles. Attempt was made to suction him orally and nasally but was unable to adequately suction him. ICU was called and I spoke to Dr. Stoner who agreed to take the pa tient back to the ICU 09/27/20 The patient was seen and examined at bedside. HE was transferred back from the ICU last night after staying there for 2 days due to desaturation and tachypnea. Patient was continued on abx and was provided frequent suctioning, O2 sats improved to low 90s however still has copious secretions requiring frequent suctioning. I have spoken to his mom regarding his risk for frequent aspiration and risk of intubation. She understands this however wants him to remain full code. 09/28/20 The patient was seen and examined at bedside. He appears more comfortable today. Respiratory therapist was able to properly suction him which greatly helped with managing his secretions. Abx switched to zosyn and vanc. No seizure episode. I discussed the tracheostomy with his mom and she said she does not want to go thru it for now but is open to consider it if really needed. 09/29/20 The patient was seen and examined at bedside.Appears comfortable on the bed, not tachypneic. NO seizure episode, afebrile. On TPN. 09/30/20 The patient was seen and examined at bedside. According to his mom he seems to be breathing much better with his secretions more manageable. He is not t achypneic anymore ad ABC count has improved. I think his PEG tube feeding can be resumed tomorrow if he continues to improve. He has not had any seizure episode since admission. " 10/01/20 Patient seems to be more somnolent according to his mother and compared to my previous encounters I would agree with this assessment. 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 If EEG does not show ongoing seizure activity, he is likely on too many sedatives for seizure control and we can lower his Klonopin or Keppra. Will restart PEG tube feeds today as he is not vomiting and he is now having bowel movements. Discussed with RT to start CPT. We can stop TPN after tube feeding has been successfully restarted without vomiting for several hours. 10/02 Patient's PEG feeds were not restarted yesterday as I had instructed although nutrition was consulted and they did give recommendations. I discussed the plan with the new nurse today and she will be restarting tube feeding at a very slow rate with a very gradual increase as the patient tolerates it. Chest x-ray done shows approximately same congestion and infiltrates. Mother states patient is more alert today and more interactive. He seems to be improving. EEG showed no seizures. We will stop Keppra IV today and change him back to his oral antiseizure medications. Patient's mother states that she is willing to bring in the patient's home meds if we do not carry them in our formulary. Reason For Visit: METABOLIC ACIDOSIS,RESP FAILURE Physical Exam Vital Signs: Temp Pulse Resp BP Pulse Ox 97.3 F 89 18 102/57 L 97 10/02/20 07:27 10/02/20 08:52 10/02/20 08:52 10/02/20 07:15 10/02/20 08:52 Intake & Output 10/01/20 10/02/20 10/03/20 06:59 06:59 06:59 Intake Total 900 1200 350 Balance 900 1200 350 Weight 46 kg 45.8 kg 45.8 kg Exam: General appearance: PRESENT: no acute distress, frail and chronically ill- appearing white male, appears to be more alert and interactive Head exam: PRESENT: atraumatic, normocephalic Eye exam: PRESENT: conjunctiva pink. ABSENT: scleral icterus Mouth exam: PRESENT: moist Respiratory exam: PRESENT: clear to auscultation ashu. ABSENT: rales, rhonchi, wheezes Cardiovascular exam: PRESENT: RRR. ABSENT: diastolic murmur, rubs, systolic murmur GI/Abdominal exam: PRESENT: Nontender, normal bowel sounds, soft, G-tube in left upper quadrant in good position, no skin breakdown around tube and no leakage noted. ABSENT: distended, guarding, mass, organolmegaly, rebound Neurological exam: PRESENT: alert, awake, nonverbal and cannot assess orientation Psychiatric exam: PRESENT: appropriate affect, normal mood Skin exam: PRESENT: dry, intact, warm Results Laboratory Results: 10/01/20 15:29 10/01/20 08:00 10/01/20 10/01/20 15:29 15:29 WBC 6.5 RBC 3.50 L Hgb 10.8 L Hct 30.9 L MCV 88 MCH 30.8 MCHC 35.0 RDW 12.9 Plt Count 439 Triglycerides 128 Impressions: KUB X-Ray 09/22/20 00:00 IMPRESSION: Nonspecific bowel gas pattern Abdomen/Pelvis CT 09/23/20 23:56 IMPRESSION: Limited study. No definite acute inflammatory process in the abdomen or pelvis. Left nephrolithiasis. Displaced heart and mediastinum into the left chest. PICC Line Insertion 09/28/20 00:00 IMPRESSION: SUCCESSFUL PLACEMENT OF A 5 FR DUAL LUMEN 31 CM PICC IN THE RIGHT BASILIC VEIN. Chest X-Ray 10/02/20 00:00 IMPRESSION: NO CHANGE IN APPEARANCE OF THE CHEST. Assessment and Plan - Diagnosis (1) Acute respiratory failure with hypoxia Is this a current diagnosis for this admission?: Yes (2) Aspiration pneumonia Qualifiers: Aspiration pneumonia type: due to gastric secretions Laterality: left Lung location: lower lobe of lung Qualified Code(s): J69.0 - Pneumonitis due to inhalation of food and vomit Is this a current diagnosis for this admission?: Yes (3) Mucus plugging of bronchi Is this a current diagnosis for this admission?: Yes (4) SBO (small bowel obstruction) Is this a current diagnosis for this admission?: Yes (5) Cerebral palsy Qualifiers: Cerebral palsy type: spastic quadriplegic Qualified Code(s): G80.0 - Spastic quadriplegic cerebral palsy Is this a current diagnosis for this admission?: Yes (6) Hypokalemia Is this a current diagnosis for this admission?: Yes (7) Seizure disorder Is this a current diagnosis for this admission?: Yes - Plan Summary Summary: (1) Acute respiratory failure with hypoxia Is this a current diagnosis for this admission?: Yes Plan: Per Previous Physician: "- 2/2 aspiration pneumonia - D2 of Vanc and zosyn - he may benefit from tracheostomy for better suctioning of secretions. It does not prevent him from developing aspiration pneumonia but it may allow us to suction him better. mom opted not to have a tracheostomy for now. He may still need this in the future" Complete antibiotic course for total 10 to 14 days RT following, initiated CPT Gradual improvement (2) Mucus plugging of bronchi Is this a current diagnosis for this admission?: Yes Plan: Per Previous Physician: "- 2/2 copious secretions from pneumonia - caused left lung collapse which has since re expanded - continue suctioning - continue abx - Patients mom opted not to do tracheostomy for now." May benefit from Mucomyst and nebulizer at home (3) Aspiration pneumonia Qualifiers: Aspiration pneumonia type: due to gastric secretions Laterality: left Lung location: lower lobe of lung Qualified Code(s): J69.0 - Pneumonitis due to inhalation of food and vomit Is this a current diagnosis for this admission?: Yes Plan: Per Previous Physician: "- D2 of vanc and zosyn, before that received rocephin, levaquin and flagyl - no growth blood culture - with his CP he will always be at risk for aspiration pneumonia and he has already 4 bouts of this in the past year. With each bout it will get progressively harder to treat him. His mom is aware of this and has stated that "I know he's getting near" however he still wants him full code - keep HOB > 30 degrees - TPN for nutrition for now. If his secretions are much better tomorrow morning, he can be switched back to tube feeding." Antibiotics as above TPN stopped 10/02 after initiating PEG tube feeds successfully without vomiting; very slow gradual increase in tube feed rate (4) SBO (small bowel obstruction) Is this a current diagnosis for this admission?: Yes Plan: Per Previous Physician: "- has not had any tube feeding since admission which was 6 days ago due to aspiration risk -on tpn - no BM yet but he also has not been given anything by PEG. His abdomen is soft and he is not vomiting. PEG tube feeding can likely be resumed tomorrow. " Having regular bowel movements as of overnight 09/30 Mother counseled to not allow patient to go more than 1 day without a bowel movement and to initiate laxatives when needed (5) Hypokalemia Is this a current diagnosis for this admission?: Yes Plan: Per Previous Physician: "K 2.6>2.9 replaced via IV - TPN potassium supplements also increased" (6) Cerebral palsy Qualifiers: Cerebral palsy type: spastic quadriplegic Qualified Code(s): G80.0 - Spastic quadriplegic cerebral palsy Is this a current diagnosis for this admission?: Yes Stable (7) Fever Qualifiers: Fever type: unspecified Qualified Code(s): R50.9 - Fever, unspecified Is this a current diagnosis for this admission?: Yes Plan: - due aspiration pneumonia (8) Seizure disorder Is this a current diagnosis for this admission?: Yes Plan: On IV Keppra and Klonopin while n.p.o. as per multiple previous admissions Had a seizure prompting ICU admission and treatment of aspiration pneumonia, no further obvious grand mal seizure activity EEG to rule out NCS Stop IV Keppra, restart home AEDs, mother agrees to bring in home meds if we do not carry them here - Time Time Spent with patient: 25-34 minutes Medications reviewed and adjusted accordingly: Yes Anticipated Discharge Disposition: Home with Home Health Anticipated Discharge Timeframe: within 72 hours - Inpatient Certification Based on my medical assessment, after consideration of the patient's comorbidities, presenting symptoms, or acuity I expect that the services needed warrant INPATIENT care.: Yes I certify that my determination is in accordance with my understanding of Medicare's requirements for reasonable and necessary INPATIENT services [42 CFR 412.3e].: Yes Medical Necessity: Significant Comorbidiites Make Outpatient Treatment Too R isky, Need Close Monitoring Due to Risk of Patient Decompensation, Need for IV Antibiotics, Risk of Complication if Not Cared For in Hospital, Risk of Diagnosis Which Will Require Inpatient Eval/Care/Monitoring
[2020-10-02] MEDS: OXCARBAZEPINE 300 MG/5 ML SUSP 250ML/BOTTLE PEG SCH (17:35)
[2020-10-02] MEDS: CLONAZEPAM 1 MG TABLET PEG PRN (17:39)
[2020-10-02 19:00] LABS: ABSOLUTE EOSINOPHILS # (AUTO) 0.1 10^3/uL (0.0-0.6); ABSOLUTE LYMPHOCYTES (AUTO) 1.5 10^3/uL (0.5-4.7); ABSOLUTE MONOCYTES (AUTO) 0.9 10^3/uL (0.1-1.4); ABSOLUTE NEUT (AUTO) 5.5 10^3/uL (1.7-8.2); BASOPHILS % (AUTO) 0.5 % (0-2); EOSINOPHILS % (AUTO) 1.6 % (0-6); HEMATOCRIT 32.9 % (37.9-51.0); HEMOGLOBIN 11.2 g/dL (13.5-17.0); LYMPHOCYTES % (AUTO) 18.5 % (13-45); MEAN CORPUSCULAR HEMOGLOBIN 29.9 pg (27.0-33.4); MEAN CORPUSCULAR HGB CONC 34.2 g/dL (32.0-36.0); MEAN CORPUSCULAR VOLUME 88 fl (80-97); MONOCYTES % (AUTO) 11.2 % (3-13); PLATELET COUNT 448 10^3/uL (150-450); RED BLOOD COUNT 3.75 10^6/uL (4.35-5.55); RED CELL DISTRIBUTION WIDTH 13.3 % (11.5-14.0); SEGMENTED NEUTROPHILS % (AUTO) 68.2 % (42-78); TOTAL CELLS COUNTED % (AUTO) 100 %; WHITE BLOOD COUNT 8.1 10^3/uL (4.0-10.5)
[2020-10-02] MEDS: ACETAMINOPHEN 325 MG TABLET PO PRN (20:20)
[2020-10-02] MEDS ORDERED: CARBAMAZEPINE 100 MG/5 ML PEG SCH (22:00)
[2020-10-02] MEDS: CARBAMAZEPINE SUSP 200 MG/10 ML UDCUP PEG SCH (22:42)
[2020-10-02] MEDS ORDERED: RINGERS SOLUTION,LACTATED 1,000 ML IV ONE (23:45)
[2020-10-03] MEDS: INSULIN REG, HUMAN 100 UNIT/ML 3 ML VIAL (PYX) SUBCUT SCH ×3 (00:51→12:21)
[2020-10-03] MEDS: METOCLOPRAMIDE HCL INJ/PF 10 MG/2 ML SDV IV SCH ×4 (00:55→17:07)
[2020-10-03] MEDS: IPRATROPIUM/ALBUTEROL 0.5-2.5 MG/3 ML AMPUL NEB SCH ×4 (02:23→20:53)
[2020-10-03] MEDS: VANCOMYCIN HCL 750 MG in DEXTROSE 5%-WATER 250 ML IV SCH ×3 (02:34→18:42)
[2020-10-03 05:14] LABS: ABSOLUTE EOSINOPHILS # (AUTO) 0.2 10^3/uL (0.0-0.6); ABSOLUTE LYMPHOCYTES (AUTO) 1.7 10^3/uL (0.5-4.7); ABSOLUTE MONOCYTES (AUTO) 0.8 10^3/uL (0.1-1.4); ABSOLUTE NEUT (AUTO) 2.9 10^3/uL (1.7-8.2); BASOPHILS % (AUTO) 0.7 % (0-2); EOSINOPHILS % (AUTO) 2.7 % (0-6); HEMATOCRIT 31.2 % (37.9-51.0); HEMOGLOBIN 10.7 g/dL (13.5-17.0); LYMPHOCYTES % (AUTO) 30.7 % (13-45); MEAN CORPUSCULAR HEMOGLOBIN 30.1 pg (27.0-33.4); MEAN CORPUSCULAR HGB CONC 34.3 g/dL (32.0-36.0); MEAN CORPUSCULAR VOLUME 88 fl (80-97); MONOCYTES % (AUTO) 14.2 % (3-13); PLATELET COUNT 390 10^3/uL (150-450); RED BLOOD COUNT 3.55 10^6/uL (4.35-5.55); SEGMENTED NEUTROPHILS % (AUTO) 51.7 % (42-78); TOTAL CELLS COUNTED % (AUTO) 100 %; WHITE BLOOD COUNT 5.6 10^3/uL (4.0-10.5)
[2020-10-03] MEDS: PIPERACILLIN SODIUM/TAZOBACTAM 3.375 GM in NORMAL SALINE 100 ML IV SCH ×3 (05:33→22:07)
[2020-10-03] MEDS: ACETYLCYSTEINE 10% NEB 400 MG/4 ML VIAL NEB SCH ×2 (09:10→20:53)
[2020-10-03] MEDS: CARBAMAZEPINE SUSP 200 MG/10 ML UDCUP PEG SCH ×2 (10:02→22:07)
[2020-10-03] MEDS: OXCARBAZEPINE 300 MG/5 ML SUSP 250ML/BOTTLE PEG SCH ×3 (10:02→17:07)
[2020-10-03] MEDS: DOCUSATE SODIUM 100 MG/10 ML UDC PO SCH (10:02)
[2020-10-03] MEDS: ENOXAPARIN SODIUM INJ 40 MG/0.4 ML DISP.SYRIN SUBCUT SCH (10:02)
[2020-10-03] MEDS ORDERED: NORMAL SALINE 10 ML SDV (AFTER EACH USE) IV PRN (12:00)
--- NOTE | 2020-10-03 16:18 | PDOC PROGRESS REPORT ---
Subjective Subjective:: Per Previous Physician: "Patient was seen and examined at bedside. Per previous provider note, patient was transferred back from the ICU last night. When I saw him this morning, the patient is tachypneic with a RR of 40s, O2 sat 72%. Patient has coarse crackles. Attempt was made to suction him orally and nasally but was unable to adequately suction him. ICU was called and I spoke to Dr. Stoner who agreed to take the pa tient back to the ICU 09/27/20 The patient was seen and examined at bedside. HE was transferred back from the ICU last night after staying there for 2 days due to desaturation and tachypnea. Patient was continued on abx and was provided frequent suctioning, O2 sats improved to low 90s however still has copious secretions requiring frequent suctioning. I have spoken to his mom regarding his risk for frequent aspiration and risk of intubation. She understands this however wants him to remain full code. 09/28/20 The patient was seen and examined at bedside. He appears more comfortable today. Respiratory therapist was able to properly suction him which greatly helped with managing his secretions. Abx switched to zosyn and vanc. No seizure episode. I discussed the tracheostomy with his mom and she said she does not want to go thru it for now but is open to consider it if really needed. 09/29/20 The patient was seen and examined at bedside.Appears comfortable on the bed, not tachypneic. NO seizure episode, afebrile. On TPN. 09/30/20 The patient was seen and examined at bedside. According to his mom he seems to be breathing much better with his secretions more manageable. He is not t achypneic anymore ad ABC count has improved. I think his PEG tube feeding can be resumed tomorrow if he continues to improve. He has not had any seizure episode since admission. " 10/01/20 Patient seems to be more somnolent according to his mother and compared to my previous encounters I would agree with this assessment. 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 If EEG does not show ongoing seizure activity, he is likely on too many sedatives for seizure control and we can lower his Klonopin or Keppra. Will restart PEG tube feeds today as he is not vomiting and he is now having bowel movements. Discussed with RT to start CPT. We can stop TPN after tube feeding has been successfully restarted without vomiting for several hours. 10/02 Patient's PEG feeds were not restarted yesterday as I had instructed although nutrition was consulted and they did give recommendations. I discussed the plan with the new nurse today and she will be restarting tube feeding at a very slow rate with a very gradual increase as the patient tolerates it. Chest x-ray done shows approximately same congestion and infiltrates. Mother states patient is more alert today and more interactive. He seems to be improving. EEG showed no seizures. We will stop Keppra IV today and change him back to his oral antiseizure medications. Patient's mother states that she is willing to bring in the patient's home meds if we do not carry them in our formulary. 10/03 Patient continues to improve with regards to his alertness and pulmonary congestion. He still having a great deal of thick mucus which requires suctioning but this seems to be improving slowly. He would likely benefit from a nebulizer with Mucomyst at home in place for the next few weeks. I will get physical therapy and Occupational Therapy to see him given that the mother states he is significantly less active and weaker than his baseline which she states is walking and running frequently at home. I think would be beneficial to get him up and mobilize him prior to discharge. Continue antibiotics. Blood pressure was low overnight he was given a bolus of fluid. I asked nursing to increase his free water flushes of his PEG tube up to 300 cc each time. He can likely be discharged next 48 hours if he continues to improve. He is still having regular bowel movements daily. Tube feedings will be increased in rate gradually. Reason For Visit: METABOLIC ACIDOSIS,RESP FAILURE Physical Exam Vital Signs: Temp Pulse Resp BP Pulse Ox 97.4 F 86 18 93/62 L 96 10/03/20 12:12 10/03/20 14:21 10/03/20 14:21 10/03/20 12:12 10/03/20 14:21 Intake & Output 10/02/20 10/03/20 10/04/20 06:59 06:59 06:59 Intake Total 1200 1850 250 Balance 1200 1850 250 Weight 45.8 kg 46.2 kg Exam: General appearance: PRESENT: no acute distress, frail and chronically ill- appearing white male, continues to be more alert and interactive each day Head exam: PRESENT: atraumatic, normocephalic Eye exam: PRESENT: conjunctiva pink. ABSENT: scleral icterus Mouth exam: PRESENT: moist Respiratory exam: PRESENT: clear to auscultation ashu. ABSENT: rales, rhonchi, wheezes Cardiovascular exam: PRESENT: RRR. ABSENT: diastolic murmur, rubs, systolic murmur GI/Abdominal exam: PRESENT: Nontender, normal bowel sounds, soft, G-tube in left upper quadrant in good position, no skin breakdown around tube and no leakage noted. ABSENT: distended, guarding, mass, organolmegaly, rebound Neurological exam: PRESENT: alert, awake, nonverbal and cannot assess orientation Psychiatric exam: PRESENT: appropriate affect, normal mood Skin exam: PRESENT: dry, intact, warm Results Laboratory Results: 10/03/20 05:00 10/01/20 08:00 10/02/20 10/03/20 18:40 05:00 WBC 8.1 5.6 RBC 3.75 L 3.55 L Hgb 11.2 L 10.7 L Hct 32.9 L 31.2 L MCV 88 88 MCH 29.9 30.1 MCHC 34.2 34.3 RDW 13.3 13.0 Plt Count 448 390 Seg Neutrophils % 68.2 51.7 Impressions: KUB X-Ray 09/22/20 00:00 IMPRESSION: Nonspecific bowel gas pattern Abdomen/Pelvis CT 09/23/20 23:56 IMPRESSION: Limited study. No definite acute inflammatory process in the abdomen or pelvis. Left nephrolithiasis. Displaced heart and mediastinum into the left chest. PICC Line Insertion 09/28/20 00:00 IMPRESSION: SUCCESSFUL PLACEMENT OF A 5 FR DUAL LUMEN 31 CM PICC IN THE RIGHT BASILIC VEIN. Chest X-Ray 10/02/20 00:00 IMPRESSION: NO CHANGE IN APPEARANCE OF THE CHEST. Assessment and Plan - Diagnosis (1) Acute respiratory failure with hypoxia Is this a current diagnosis for this admission?: Yes (2) Aspiration pneumonia Qualifiers: Aspiration pneumonia type: due to gastric secretions Laterality: left Lung location: lower lobe of lung Qualified Code(s): J69.0 - Pneumonitis due to inhalation of food and vomit Is this a current diagnosis for this admission?: Yes (3) Mucus plugging of bronchi Is this a current diagnosis for this admission?: Yes (4) SBO (small bowel obstruction) Is this a current diagnosis for this admission?: Yes (5) Cerebral palsy Qualifiers: Cerebral palsy type: spastic quadriplegic Qualified Code(s): G80.0 - Spastic quadriplegic cerebral palsy Is this a current diagnosis for this admission?: Yes (6) Hypokalemia Is this a current diagnosis for this admission?: Yes (7) Seizure disorder Is this a current diagnosis for this admission?: Yes - Plan Summary Summary: (1) Acute respiratory failure with hypoxia Is this a current diagnosis for this admission?: Yes Plan: Per Previous Physician: "- 2/2 aspiration pneumonia - D2 of Vanc and zosyn - he may benefit from tracheostomy for better suctioning of secretions. It does not prevent him from developing aspiration pneumonia but it may allow us to suction him better. mom opted not to have a tracheostomy for now. He may still need this in the future" Complete antibiotic course for total 10 to 14 days RT following, initiated CPT Gradual improvement (2) Mucus plugging of bronchi Is this a current diagnosis for this admission?: Yes Plan: Per Previous Physician: "- 2/2 copious secretions from pneumonia - caused left lung collapse which has since re expanded - continue suctioning - continue abx - Patients mom opted not to do tracheostomy for now." May benefit from Mucomyst and nebulizer at home (3) Aspiration pneumonia Qualifiers: Aspiration pneumonia type: due to gastric secretions Laterality: left Lung location: lower lobe of lung Qualified Code(s): J69.0 - Pneumonitis due to inhalation of food and vomit Is this a current diagnosis for this admission?: Yes Plan: Per Previous Physician: "- D2 of vanc and zosyn, before that received rocephin, levaquin and flagyl - no growth blood culture - with his CP he will always be at risk for aspiration pneumonia and he has already 4 bouts of this in the past year. With each bout it will get progressively harder to treat him. His mom is aware of this and has stated that "I know he's getting near" however he still wants him full code - keep HOB > 30 degrees - TPN for nutrition for now. If his secretions are much better tomorrow morning, he can be switched back to tube feeding." Antibiotics as above TPN stopped 10/02 after initiating PEG tube feeds successfully without vomiting; very slow gradual increase in tube feed rate PT/OT consult for recent severe change in activity/strength per mother (4) SBO (small bowel obstruction) Is this a current diagnosis for this admission?: Yes Plan: Per Previous Physician: "- has not had any tube feeding since admission which was 6 days ago due to aspiration risk -on tpn - no BM yet but he also has not been given anything by PEG. His abdomen is soft and he is not vomiting. PEG tube feeding can likely be resumed tomorrow. " Having regular bowel movements as of overnight 09/30 Mother counseled to not allow patient to go more than 1 day without a bowel movement and to initiate laxatives when needed (5) Hypokalemia Is this a current diagnosis for this admission?: Yes Plan: Per Previous Physician: "K 2.6>2.9 replaced via IV - TPN potassium supplements also increased" (6) Cerebral palsy Qualifiers: Cerebral palsy type: spastic quadriplegic Qualified Code(s): G80.0 - Spastic quadriplegic cerebral palsy Is this a current diagnosis for this admission?: Yes Stable (7) Feverresolved Qualifiers: Fever type: unspecified Qualified Code(s): R50.9 - Fever, unspecified Is this a current diagnosis for this admission?: Yes Plan: - due aspiration pneumonia (8) Seizure disorder Is this a current diagnosis for this admission?: Yes Plan: On IV Keppra and Klonopin while n.p.o. as per multiple previous admissions Had a seizure prompting ICU admission and treatment of aspiration pneumonia, no further obvious grand mal seizure activity EEG did not show seizure activity Stop IV Keppra, restart home AEDs, mother agrees to bring in home meds if we do not carry them here - Time Time Spent with patient: 25-34 minutes Medications reviewed and adjusted accordingly: Yes Anticipated Discharge Disposition: Home with Home Health Anticipated Discharge Timeframe: within 48 hours - Inpatient Certification Based on my medical assessment, after consideration of the patient's comorbidit ies, presenting symptoms, or acuity I expect that the services needed warrant INPATIENT care.: Yes I certify that my determination is in accordance with my understanding of [employer]'s requirements for reasonable and necessary INPATIENT services [42 CFR 412.3e].: Yes Medical Necessity: Significant Comorbidiites Make Outpatient Treatment Too Risky, Need Close Monitoring Due to Risk of Patient Decompensation, Need for Nebulizer Therapy and Monitoring of Response, Risk of Complication if Not Cared For in Hospital, Risk of Diagnosis Which Will Require Inpatient Eval/Care/Monitoring
[2020-10-03 17:29] LABS: ABSOLUTE EOSINOPHILS # (AUTO) 0.1 10^3/uL (0.0-0.6); ABSOLUTE LYMPHOCYTES (AUTO) 1.4 10^3/uL (0.5-4.7); ABSOLUTE MONOCYTES (AUTO) 0.9 10^3/uL (0.1-1.4); ABSOLUTE NEUT (AUTO) 4.6 10^3/uL (1.7-8.2); BASOPHILS % (AUTO) 0.4 % (0-2); EOSINOPHILS % (AUTO) 1.5 % (0-6); HEMATOCRIT 32.1 % (37.9-51.0); MEAN CORPUSCULAR HEMOGLOBIN 29.9 pg (27.0-33.4); MEAN CORPUSCULAR HGB CONC 34.3 g/dL (32.0-36.0); MEAN CORPUSCULAR VOLUME 87 fl (80-97); MONOCYTES % (AUTO) 12.7 % (3-13); PLATELET COUNT 431 10^3/uL (150-450); RED BLOOD COUNT 3.68 10^6/uL (4.35-5.55); RED CELL DISTRIBUTION WIDTH 13.3 % (11.5-14.0); SEGMENTED NEUTROPHILS % (AUTO) 65.4 % (42-78); TOTAL CELLS COUNTED % (AUTO) 100 %
[2020-10-03 17:49] LABS: ANION GAP 6 (5-19); BLOOD UREA NITROGEN 7 mg/dL (7-20); CALCIUM 8.9 mg/dL (8.4-10.2); CARBON DIOXIDE 29 mmol/L (22-30); CHLORIDE 101 mmol/L (98-107); GLUCOSE 86 mg/dL (75-110); POTASSIUM 3.6 mmol/L (3.6-5.0)
[2020-10-03 17:53] LABS: VANCOMYCIN,TROUGH 8.8 ug/mL (5.0-20.0)
[2020-10-03] MEDS: NORMAL SALINE 10 ML SDV (SCHEDULED) IV SCH (22:08)
[2020-10-04] MEDS: METOCLOPRAMIDE HCL INJ/PF 10 MG/2 ML SDV IV SCH ×5 (00:06→23:58)
[2020-10-04] MEDS: CLONAZEPAM 1 MG TABLET PEG PRN (00:22)
[2020-10-04] MEDS: IPRATROPIUM/ALBUTEROL 0.5-2.5 MG/3 ML AMPUL NEB SCH ×4 (02:10→20:35)
[2020-10-04] MEDS: VANCOMYCIN HCL 1,000 MG in DEXTROSE 5%-WATER 250 ML IV SCH ×3 (02:42→18:03)
[2020-10-04] MEDS ORDERED: DEXTROSE 50%-WATER SYRINGE 12.5 GM/25 ML DOSE IV PRN (05:30)
[2020-10-04] MEDS ORDERED: DEXTROSE 50%-WATER SYRINGE 25 GM/50 ML DOSE IV PRN (05:30)
[2020-10-04] MEDS ORDERED: DEXTROSE 40% GEL 15 GM TUBE PO PRN (05:30)
[2020-10-04] MEDS ORDERED: DEXTROSE 40% GEL 15 GM TUBE X 2 PO PRN (05:30)
[2020-10-04] MEDS ORDERED: GLUCAGON,HUMAN RECOMB 1 MG INJ IM PRN (05:30)
[2020-10-04] MEDS: DEXTROSE 50%-WATER 25 GM/50 ML DISP.SYRIN IV PRN (05:32)
[2020-10-04] MEDS: PIPERACILLIN SODIUM/TAZOBACTAM 3.375 GM in NORMAL SALINE 100 ML IV SCH ×2 (05:59→13:32)
[2020-10-04] MEDS: ACETYLCYSTEINE 10% NEB 400 MG/4 ML VIAL NEB SCH ×2 (08:56→20:35)
[2020-10-04] MEDS: CARBAMAZEPINE SUSP 200 MG/10 ML UDCUP PEG SCH ×2 (10:19→23:09)
[2020-10-04] MEDS: NORMAL SALINE 10 ML SDV (SCHEDULED) IV SCH ×2 (10:19→23:10)
[2020-10-04] MEDS: DOCUSATE SODIUM 100 MG/10 ML UDC PO SCH (10:19)
[2020-10-04] MEDS: OXCARBAZEPINE 300 MG/5 ML SUSP 250ML/BOTTLE PEG SCH ×3 (10:20→17:20)
[2020-10-04] MEDS: ENOXAPARIN SODIUM INJ 40 MG/0.4 ML DISP.SYRIN SUBCUT SCH (10:20)
[2020-10-04] MEDS ORDERED: DOCUSATE SODIUM 100 MG/10 ML UDC PEG ONE (12:30)
[2020-10-04] MEDS ORDERED: LORAZEPAM 1 MG TABLET PEG SCH (13:00)
[2020-10-04] MEDS ORDERED: CLONAZEPAM 1 MG TABLET PEG SCH (13:00)
[2020-10-04] MEDS ORDERED: DOCUSATE SODIUM 100 MG CAPSULE PO ONE (13:00)
[2020-10-04] MEDS: LORAZEPAM 1 MG TABLET PEG SCH ×2 (13:27→17:47)
[2020-10-04] MEDS: CLONAZEPAM 1 MG TABLET PEG SCH ×2 (13:27→17:48)
--- NOTE | 2020-10-04 16:47 | PDOC PROGRESS REPORT ---
Subjective Subjective:: Per Previous Physician: "Patient was seen and examined at bedside. Per previous provider note, patient was transferred back from the ICU last night. When I saw him this morning, the patient is tachypneic with a RR of 40s, O2 sat 72%. Patient has coarse crackles. Attempt was made to suction him orally and nasally but was unable to adequately suction him. ICU was called and I spoke to Dr. Stoner who agreed to take the pa tient back to the ICU 09/27/20 The patient was seen and examined at bedside. HE was transferred back from the ICU last night after staying there for 2 days due to desaturation and tachypnea. Patient was continued on abx and was provided frequent suctioning, O2 sats improved to low 90s however still has copious secretions requiring frequent suctioning. I have spoken to his mom regarding his risk for frequent aspiration and risk of intubation. She understands this however wants him to remain full code. 09/28/20 The patient was seen and examined at bedside. He appears more comfortable today. Respiratory therapist was able to properly suction him which greatly helped with managing his secretions. Abx switched to zosyn and vanc. No seizure episode. I discussed the tracheostomy with his mom and she said she does not want to go thru it for now but is open to consider it if really needed. 09/29/20 The patient was seen and examined at bedside.Appears comfortable on the bed, not tachypneic. NO seizure episode, afebrile. On TPN. 09/30/20 The patient was seen and examined at bedside. According to his mom he seems to be breathing much better with his secretions more manageable. He is not t achypneic anymore ad ABC count has improved. I think his PEG tube feeding can be resumed tomorrow if he continues to improve. He has not had any seizure episode since admission. " 10/01/20 Patient seems to be more somnolent according to his mother and compared to my previous encounters I would agree with this assessment. 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 If EEG does not show ongoing seizure activity, he is likely on too many sedatives for seizure control and we can lower his Klonopin or Keppra. Will restart PEG tube feeds today as he is not vomiting and he is now having bowel movements. Discussed with RT to start CPT. We can stop TPN after tube feeding has been successfully restarted without vomiting for several hours. 10/02 Patient's PEG feeds were not restarted yesterday as I had instructed although nutrition was consulted and they did give recommendations. I discussed the plan with the new nurse today and she will be restarting tube feeding at a very slow rate with a very gradual increase as the patient tolerates it. Chest x-ray done shows approximately same congestion and infiltrates. Mother states patient is more alert today and more interactive. He seems to be improving. EEG showed no seizures. We will stop Keppra IV today and change him back to his oral antiseizure medications. Patient's mother states that she is willing to bring in the patient's home meds if we do not carry them in our formulary. 10/03 Patient continues to improve with regards to his alertness and pulmonary congestion. He still having a great deal of thick mucus which requires suctioning but this seems to be improving slowly. He would likely benefit from a nebulizer with Mucomyst at home in place for the next few weeks. I will get physical therapy and Occupational Therapy to see him given that the mother states he is significantly less active and weaker than his baseline which she states is walking and running frequently at home. I think would be beneficial to get him up and mobilize him prior to discharge. Continue antibiotics. Blood pressure was low overnight he was given a bolus of fluid. I asked nursing to increase his free water flushes of his PEG tube up to 300 cc each time. He can likely be discharged next 48 hours if he continues to improve. He is still having regular bowel movements daily. Tube feedings will be increased in rate gradually. 10/04 I personally went over the patient's AEDs with both patient's mother and the nurse today. We made sure that the patient is now on exactly the same AED regimen that he is on at home with very minor exceptions made for the timing of the doses each day. Patient seems to be significantly improved today although he has not had a bowel movement since yesterday. We will give additional dose of Colace now and another one in approximately 4 hours if he has not had a bowel movement by then. He must have a bowel movement every day to avoid further bowel obstructions. Tube feeding rate/volume is being advanced. Possibly can discharge in the next 48 hours if he continues to improve. Physical therapy following. Reason For Visit: METABOLIC ACIDOSIS,RESP FAILURE Physical Exam Vital Signs: Temp Pulse Resp BP Pulse Ox 97.6 F 102 H 14 99/75 L 96 10/04/20 12:14 10/04/20 14:00 10/04/20 13:46 10/04/20 12:14 10/04/20 13:46 Intake & Output 10/03/20 10/04/20 10/05/20 06:59 06:59 06:59 Intake Total 1453 559 2317 Balance 1243 536 9856 Weight 46.2 kg 45.7 kg 45.7 kg Exam: General appearance: PRESENT: no acute distress, frail and chronically ill- appearing white male, rather alert today and he appears to be almost back to his baseline Head exam: PRESENT: atraumatic, normocephalic Eye exam: PRESENT: conjunctiva pink. ABSENT: scleral icterus Mouth exam: PRESENT: moist Respiratory exam: PRESENT: clear to auscultation ashu. ABSENT: rales, rhonchi, wheezes Cardiovascular exam: PRESENT: RRR. ABSENT: diastolic murmur, rubs, systolic murmur GI/Abdominal exam: PRESENT: Nontender, normal bowel sounds, soft, G-tube in left upper quadrant in good position, no skin breakdown around tube and no leakage noted. ABSENT: distended, guarding, mass, organolmegaly, rebound Neurological exam: PRESENT: alert, awake, nonverbal and cannot assess orientation Psychiatric exam: PRESENT: appropriate affect, normal mood Skin exam: PRESENT: dry, intact, warm Results Laboratory Results: 10/03/20 17:10 10/03/20 17:10 10/03/20 10/03/20 17:10 17:10 WBC 7.0 RBC 3.68 L Hgb 11.0 L Hct 32.1 L MCV 87 MCH 29.9 MCHC 34.3 RDW 13.3 Plt Count 431 Seg Neutrophils % 65.4 Sodium 135.6 L Potassium 3.6 Chloride 101 Carbon Dioxide 29 Anion Gap 6 BUN 7 Creatinine 0.47 L Est GFR ( Amer) > 60 Glucose 86 Calcium 8.9 Impressions: KUB X-Ray 09/22/20 00:00 IMPRESSION: Nonspecific bowel gas pattern Abdomen/Pelvis CT 09/23/20 23:56 IMPRESSION: Limited study. No definite acute inflammatory process in the abdomen or pelvis. Left nephrolithiasis. Displaced heart and mediastinum into the left chest. PICC Line Insertion 09/28/20 00:00 IMPRESSION: SUCCESSFUL PLACEMENT OF A 5 FR DUAL LUMEN 31 CM PICC IN THE RIGHT BASILIC VEIN. Chest X-Ray 10/02/20 00:00 IMPRESSION: NO CHANGE IN APPEARANCE OF THE CHEST. Assessment and Plan - Diagnosis (1) Acute respiratory failure with hypoxia Is this a current diagnosis for this admission?: Yes (2) Aspiration pneumonia Qualifiers: Aspiration pneumonia type: due to gastric secretions Laterality: left Lung location: lower lobe of lung Qualified Code(s): J69.0 - Pneumonitis due to inhalation of food and vomit Is this a current diagnosis for this admission?: Yes (3) Mucus plugging of bronchi Is this a current diagnosis for this admission?: Yes (4) SBO (small bowel obstruction) Is this a current diagnosis for this admission?: Yes (5) Cerebral palsy Qualifiers: Cerebral palsy type: spastic quadriplegic Qualified Code(s): G80.0 - Spastic quadriplegic cerebral palsy Is this a current diagnosis for this admission?: Yes (6) Hypokalemia Is this a current diagnosis for this admission?: Yes (7) Seizure disorder Is this a current diagnosis for this admission?: Yes - Plan Summary Summary: (1) Acute respiratory failure with hypoxia Is this a current diagnosis for this admission?: Yes Plan: Per Previous Physician: "- 2/2 aspiration pneumonia - D2 of Vanc and zosyn - he may benefit from tracheostomy for better suctioning of secretions. It does not prevent him from developing aspiration pneumonia but it may allow us to suction him better. mom opted not to have a tracheostomy for now. He may still need this in the future" Complete antibiotic course for total 10 to 14 days RT following, initiated CPT Significant improvement (2) Mucus plugging of bronchi Is this a current diagnosis for this admission?: Yes Plan: Per Previous Physician: "- 2/2 copious secretions from pneumonia - caused left lung collapse which has since re expanded - continue suctioning - continue abx - Patients mom opted not to do tracheostomy for now." May benefit from Mucomyst and nebulizer at home (3) Aspiration pneumonia Qualifiers: Aspiration pneumonia type: due to gastric secretions Laterality: left Lung location: lower lobe of lung Qualified Code(s): J69.0 - Pneumonitis due to inhalation of food and vomit Is this a current diagnosis for this admission?: Yes Plan: Per Previous Physician: "- D2 of vanc and zosyn, before that received rocephin, levaquin and flagyl - no growth blood culture - with his CP he will always be at risk for aspiration pneumonia and he has already 4 bouts of this in the past year. With each bout it will get progressively harder to treat him. His mom is aware of this and has stated that "I know he's getting near" however he still wants him full code - keep HOB > 30 degrees - TPN for nutrition for now. If his secretions are much better tomorrow morning, he can be switched back to tube feeding." Antibiotics as above TPN stopped 10/02 after initiating PEG tube feeds successfully without vomiting; very slow gradual increase in tube feed rate PT/OT consult for recent severe change in activity/strength per mother (4) SBO (small bowel obstruction) Is this a current diagnosis for this admission?: Yes Plan: Per Previous Physician: "- has not had any tube feeding since admission which was 6 days ago due to aspiration risk -on tpn - no BM yet but he also has not been given anything by PEG. His abdomen is soft and he is not vomiting. PEG tube feeding can likely be resumed tomorrow. " Having regular bowel movements as of overnight 09/30 Mother counseled to not allow patient to go more than 1 day without a bowel movement and to initiate laxatives when needed Persistent recurrent constipation prompting additional doses of Colace (5) Hypokalemia Is this a current diagnosis for this admission?: Yes Plan: Per Previous Physician: "K 2.6>2.9 replaced via IV - TPN potassium supplements also increased" (6) Cerebral palsy Qualifiers: Cerebral palsy type: spastic quadriplegic Qualified Code(s): G80.0 - Spastic quadriplegic cerebral palsy Is this a current diagnosis for this admission?: Yes Stable (7) Feverresolved Qualifiers: Fever type: unspecified Qualified Code(s): R50.9 - Fever, unspecified Is this a current diagnosis for this admission?: Yes Plan: - due aspiration pneumonia (8) Seizure disorder Is this a current diagnosis for this admission?: Yes Plan: On IV Keppra and Klonopin while n.p.o. as per multiple previous admissions Had a seizure prompting ICU admission and treatment of aspiration pneumonia, no further obvious grand mal seizure activity EEG did not show seizure activity Stop IV Keppra, restart home AEDs, mother agrees to bring in home meds if we do not carry them here Confirmed all medications and their doses and frequencies with the patient's mother and the nurse. Patient was put back on his home regimen of medications at the same doses and frequencies - Time Time Spent with patient: 35 or more minutes Medications reviewed and adjusted accordingly: Yes Anticipated Discharge Disposition: Home with Home Health Anticipated Discharge Timeframe: within 48 hours - Inpatient Certification Based on my medical assessment, after consideration of the patient's comorbidities, presenting symptoms, or acuity I expect that the services needed warrant INPATIENT care.: Yes I certify that my determination is in accordance with my understanding of Medicare's requirements for reasonable and necessary INPATIENT services [42 CFR 412.3e].: Yes Medical Necessity: Significant Comorbidiites Make Outpatient Treatment Too Risky, Need Close Monitoring Due to Risk of Patient Decompensation, Need for IV Antibiotics, Risk of Complication if Not Cared For in Hospital, Risk of Diagnosis Which Will Require Inpatient Eval/Care/Monitoring
[2020-10-04] MEDS: ACETAMINOPHEN 650 MG SUPP.RECT PR PRN (23:11)
[2020-10-05] MEDS: IPRATROPIUM/ALBUTEROL 0.5-2.5 MG/3 ML AMPUL NEB SCH ×3 (01:30→14:28)
[2020-10-05] MEDS: VANCOMYCIN HCL 1,000 MG in DEXTROSE 5%-WATER 250 ML IV SCH ×2 (01:42→11:20)
[2020-10-05] MEDS: METOCLOPRAMIDE HCL INJ/PF 10 MG/2 ML SDV IV SCH (05:49)
[2020-10-05] MEDS ORDERED: PIPERACILLIN/TAZOBACTAM 3.375 GM VIAL IV SCH (07:45)
[2020-10-05] MEDS: DOCUSATE SODIUM 100 MG/10 ML UDC PO SCH ×3 (08:30→11:23)
[2020-10-05] MEDS: ACETYLCYSTEINE 10% NEB 400 MG/4 ML VIAL NEB SCH (09:20)
[2020-10-05] MEDS ORDERED: PIPERACILLIN SODIUM/TAZOBACTAM 3.375 GM in NORMAL SALINE 100 ML IV SCH (10:00)
[2020-10-05] MEDS: LORAZEPAM 1 MG TABLET PEG SCH (11:17)
[2020-10-05] MEDS: CARBAMAZEPINE SUSP 200 MG/10 ML UDCUP PEG SCH (11:17)
[2020-10-05] MEDS: CLONAZEPAM 1 MG TABLET PEG SCH (11:17)
[2020-10-05] MEDS: OXCARBAZEPINE 300 MG/5 ML SUSP 250ML/BOTTLE PEG SCH (11:18)
[2020-10-05] MEDS: NORMAL SALINE 10 ML SDV (SCHEDULED) IV SCH (11:18)
[2020-10-05] MEDS: ENOXAPARIN SODIUM INJ 40 MG/0.4 ML DISP.SYRIN SUBCUT SCH (11:19)
[2020-10-05 14:21] VITALS: BP 102/58
--- NOTE | 2020-10-05 15:37 | PDOC DISCHARGE SUMMARY ---
Impression - Admit/DC Date/PCP Admission Date/Primary Care Provider: 09/21/20 12:49 SAMIA MONTANO MD Discharge Date: 10/05/20 - Discharge Diagnosis (1) Acute respiratory failure with hypoxia Is this a current diagnosis for this admission?: Yes (2) Aspiration pneumonia Is this a current diagnosis for this admission?: Yes (3) Mucus plugging of bronchi Is this a current diagnosis for this admission?: Yes (4) SBO (small bowel obstruction) Is this a current diagnosis for this admission?: Yes (5) Cerebral palsy Is this a current diagnosis for this admission?: Yes (6) Hypokalemia Is this a current diagnosis for this admission?: Yes (7) Seizure disorder Is this a current diagnosis for this admission?: Yes - Assessment Summary: Per Previous Physician: "Patient was seen and examined at bedside. Per previous provider note, patient was transferred back from the ICU last night. When I saw him this morning, the patient is tachypneic with a RR of 40s, O2 sat 72%. Patient has coarse crackles. Attempt was made to suction him orally and nasally but was unable to adequately suction him. ICU was called and I spoke to Dr. Stoner who agreed to take the patient back to the ICU 09/27/20 The patient was seen and examined at bedside. HE was transferred back from the ICU last night after staying there for 2 days due to desaturation and tachypnea. Patient was continued on abx and was provided frequent suctioning, O2 sats improved to low 90s however still has copious secretions requiring frequent suctioning. I have spoken to his mom regarding his risk for frequent aspiration and risk of intubation. She understands this however wants him to remain full code. 09/28/20 The patient was seen and examined at bedside. He appears more comfortable today. Respiratory therapist was able to properly suction him which greatly helped with managing his secretions. Abx switched to zosyn and vanc. No seizure episode. I discussed the tracheostomy with his mom and she said she does not want to go thru it for now but is open to consider it if really needed. 09/29/20 The patient was seen and examined at bedside.Appears comfortable on the bed, not tachypneic. NO seizure episode, afebrile. On TPN. 09/30/20 The patient was seen and examined at bedside. According to his mom he seems to be breathing much better with his secretions more manageable. He is not tachypneic anymore ad ABC count has improved. I think his PEG tube feeding can be resumed tomorrow if he continues to improve. He has not had any seizure episode since admission. " 10/01/20 Patient seems to be more somnolent according to his mother and compared to my previous encounters I would agree with this assessment. 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 If EEG does not show ongoing seizure activity, he is likely on too many sedatives for seizure control and we can lower his Klonopin or Keppra. Will restart PEG tube feeds today as he is not vomiting and he is now having bowel movements. Discussed with RT to start CPT. We can stop TPN after tube feeding has been successfully restarted without vomiting for several hours. 10/02 Patient's PEG feeds were not restarted yesterday as I had instructed although nutrition was consulted and they did give recommendations. I discussed the plan with the new nurse today and she will be restarting tube feeding at a very slow rate with a very gradual increase as the patient tolerates it. Chest x-ray done shows approximately same congestion and infiltrates. Mother states patient is more alert today and more interactive. He seems to be improving. EEG showed no seizures. We will stop Keppra IV today and change him back to his oral antiseizure medications. Patient's mother states that she is willing to bring in the patient's home meds if we do not carry them in our formulary. 10/03 Patient continues to improve with regards to his alertness and pulmonary vinod estion. He still having a great deal of thick mucus which requires suctioning but this seems to be improving slowly. He would likely benefit from a nebulizer with Mucomyst at home in place for the next few weeks. I will get physical therapy and Occupational Therapy to see him given that the mother states he is significantly less active and weaker than his baseline which she states is walking and running frequently at home. I think would be beneficial to get him up and mobilize him prior to discharge. Continue antibiotics. Blood pressure was low overnight he was given a bolus of fluid. I asked nursing to increase his free water flushes of his PEG tube up to 300 cc each time. He can likely be discharged next 48 hours if he continues to improve. He is still having regular bowel movements daily. Tube feedings will be increased in rate gradually. 10/04 I personally went over the patient's AEDs with both patient's mother and the nurse today. We made sure that the patient is now on exactly the same AED regimen that he is on at home with very minor exceptions made for the timing of the doses each day. Patient seems to be significantly improved today although he has not had a bowel movement since yesterday. We will give additional dose of Colace now and another one in approximately 4 hours if he has not had a bowel movement by then. He must have a bowel movement every day to avoid further bowel obstructions. Tube feeding rate/volume is being advanced. Possibly can discharge in the next 48 hours if he continues to improve. Physical therapy following. On day of discharge, patient having regular bowel movements, tolerating advancement of tube feed volume without significant residuals or vomiting. No seizures. Mother counseled on avoidance of constipation and small bowel obstruction in the future. Patient was follow-up with PCP and GI. Physical therapy ordered for home health. Patient completed 8 days of broad-spectrum antibiotic therapy IV for aspiration pneumonia and his symptoms are completely resolved at this time, WBC normal, afebrile. Medical transport home. On discussion with mother who is in full agreement with the plan. (1) Acute respiratory failure with hypoxiaresolved Is this a current diagnosis for this admission?: Yes Plan: Per Previous Physician: "- 2/2 aspiration pneumonia - D2 of Vanc and zosyn - he may benefit from tracheostomy for better suctioning of secretions. It does not prevent him from developing aspiration pneumonia but it may allow us to suction him better. mom opted not to have a tracheostomy for now. He may still need this in the future" Complete antibiotic course for total 10 to 14 days RT following, initiated CPT Significant improvement (2) Mucus plugging of bronchiresolved Is this a current diagnosis for this admission?: Yes Plan: Per Previous Physician: "- 2/2 copious secretions from pneumonia - caused left lung collapse which has since re expanded - continue suctioning - continue abx - Patients mom opted not to do tracheostomy for now." May benefit from Mucomyst and nebulizer at home (3) Aspiration pneumoniaresolved Qualifiers: Aspiration pneumonia type: due to gastric secretions Laterality: left Lung location: lower lobe of lung Qualified Code(s): J69.0 - Pneumonitis due to inhalation of food and vomit Is this a current diagnosis for this admission?: Yes Plan: Per Previous Physician: "- D2 of vanc and zosyn, before that received rocephin, levaquin and flagyl - no growth blood culture - with his CP he will always be at risk for aspiration pneumonia and he has already 4 bouts of this in the past year. With each bout it will get progressively harder to treat him. His mom is aware of this and has stated that "I know he's getting near" however he still wants him full code - keep HOB > 30 degrees - TPN for nutrition for now. If his secretions are much better tomorrow morning, he can be switched back to tube feeding." Broad-spectrum antibiotics completed 8-day course. TPN stopped 10/02 after initiating PEG tube feeds successfully without vomiting; very slow gradual increase in tube feed rate PT/OT consult for recent severe change in activity/strength per mother (4) SBO (small bowel obstruction)resolved Is this a current diagnosis for this admission?: Yes Plan: Per Previous Physician: "- has not had any tube feeding since admission which was 6 days ago due to aspiration risk -on tpn - no BM yet but he also has not been given anything by PEG. His abdomen is soft and he is not vomiting. PEG tube feeding can likely be resumed tomorrow. " Having regular bowel movements as of overnight 09/30 Mother counseled to not allow patient to go more than 1 day without a bowel movement and to initiate laxatives when needed Persistent recurrent constipation prompting additional doses of Colace, had multiple bowel movements thereafter Instructed mother to use Colace daily and if no bowel movement after 24 hours give additional dose, if no bowel movement after 4 hours give additional Colace dose and call PCP (5) Hypokalemiaresolved Is this a current diagnosis for this admission?: Yes Plan: Per Previous Physician: "K 2.6>2.9 replaced via IV - TPN potassium supplements also increased" (6) Cerebral palsy Qualifiers: Cerebral palsy type: spastic quadriplegic Qualified Code(s): G80.0 - Spastic quadriplegic cerebral palsy Is this a current diagnosis for this admission?: Yes Stable, back to baseline (7) Feverresolved Qualifiers: Fever type: unspecified Qualified Code(s): R50.9 - Fever, unspecified Is this a current diagnosis for this admission?: Yes Plan: - due aspiration pneumonia (8) Seizure disorder Is this a current diagnosis for this admission?: Yes Plan: On IV Keppra and Klonopin while n.p.o. as per multiple previous admissions Had a seizure prompting ICU admission and treatment of aspiration pneumonia, no further obvious grand mal seizure activity EEG did not show seizure activity Stop IV Keppra, restart home AEDs, mother agrees to bring in home meds if we do not carry them here Confirmed all medications and their doses and frequencies with the patient's mother and the nurse. Patient was put back on his home regimen of medications at the same doses and frequencies Follow-up with neurology - Additional Information Resuscitation Status: Full Code Discharge Diet: As Tolerated Discharge Activity: Activity As Tolerated Referrals: SAMIA MONTANO MD [Primary Care Provider] - Follow up as needed Prescriptions: Docusate Sodium [Colace Udc 100 mg/10 ml Oral Soln] 100 mg PO DAILY #300 ml Home Medications: Clonazepam [Klonopin 1 mg Tablet] 2 mg PEG Q6HP PRN 10/31/19 Lorazepam [Ativan] 2 mg PEG Q6HP PRN 10/31/19 Oxcarbazepine [Trileptal Susp 300 mg/5 ml 250 ml/Bottle] 600 mg PEG TID 10/31/19 Ibuprofen [Motrin 800 mg Tablet] 800 mg PEG BIDP PRN 09/14/20 Docusate Sodium [Colace Udc 100 mg/10 ml Oral Soln] 100 mg PEG BID udc 09/16/20 Carbamazepine 10 ml PEG Q12 09/23/20 Docusate Sodium [Colace Udc 100 mg/10 ml Oral Soln] 100 mg PO DAILY #300 ml 10/05/20 History of Present Illiness History of Present Illness: RASHI TOMPKINS is a 29 year old male Physical Exam Vital Signs: Temp Pulse Resp BP Pulse Ox 97.7 F 99 14 102/58 L 97 10/05/20 14:16 10/05/20 14:28 10/05/20 14:28 10/05/20 14:16 10/05/20 14:28 Intake & Output 10/04/20 10/05/20 10/06/20 06:59 06:59 06:59 Intake Total 250 3450 Balance 250 3450 Weight 45.7 kg 40.9 kg 40.9 kg Exam: General appearance: PRESENT: no acute distress, frail and chronically ill-appear ing white male, very alert and interactive today and playing music on his cell phone Head exam: PRESENT: atraumatic, normocephalic Eye exam: PRESENT: conjunctiva pink. ABSENT: scleral icterus Mouth exam: PRESENT: moist Respiratory exam: PRESENT: clear to auscultation ashu. ABSENT: rales, rhonchi, wheezes Cardiovascular exam: PRESENT: RRR. ABSENT: diastolic murmur, rubs, systolic murmur GI/Abdominal exam: PRESENT: Nontender, normal bowel sounds, soft, G-tube in left upper quadrant in good position, no skin breakdown around tube and no leakage noted. ABSENT: distended, guarding, mass, organolmegaly, rebound Neurological exam: PRESENT: alert, awake, nonverbal and cannot assess orientation Psychiatric exam: PRESENT: appropriate affect, normal mood Skin exam: PRESENT: dry, intact, warm Results Laboratory Results: WBC 7.0 10^3/uL (4.0-10.5) 10/03/20 17:10 RBC 3.68 10^6/uL (4.35-5.55) L 10/03/20 17:10 Hgb 11.0 g/dL (13.5-17.0) L 10/03/20 17:10 Hct 32.1 % (37.9-51.0) L 10/03/20 17:10 MCV 87 fl (80-97) 10/03/20 17:10 MCH 29.9 pg (27.0-33.4) 10/03/20 17:10 MCHC 34.3 g/dL (32.0-36.0) 10/03/20 17:10 RDW 13.3 % (11.5-14.0) 10/03/20 17:10 Plt Count 431 10^3/uL (150-450) 10/03/20 17:10 Lymph % (Auto) 20.0 % (13-45) 10/03/20 17:10 [place] % (Auto) 12.7 % (3-13) 10/03/20 17:10 Eos % (Auto) 1.5 % (0-6) 10/03/20 17:10 Baso % (Auto) 0.4 % (0-2) 10/03/20 17:10 Absolute Neuts (auto) 4.6 10^3/uL (1.7-8.2) 10/03/20 17:10 Absolute Lymphs (auto) 1.4 10^3/uL (0.5-4.7) 10/03/20 17:10 Absolute Monos (auto) 0.9 10^3/uL (0.1-1.4) 10/03/20 17:10 Absolute Eos (auto) 0.1 10^3/uL (0.0-0.6) 10/03/20 17:10 Absolute Basos (auto) 0.0 10^3/uL (0.0-0.2) 10/03/20 17:10 Total Counted 100 09/24/20 05:05 Seg Neuts % (Manual) 87 % (42-78) H 09/24/20 05:05 Band Neutrophils % 6 % (3-5) H 09/24/20 05:05 Seg Neutrophils % 65.4 % (42-78) 10/03/20 17:10 Lymphocytes % (Manual) 4 % (13-45) L 09/24/20 05:05 Atypical Lymphs % 1 % (0) 09/24/20 05:05 Monocytes % (Manual) 2 % (3-13) L 09/24/20 05:05 Eosinophils % (Manual) 0 % (0-6) 09/24/20 05:05 Basophils % (Manual) 0 % (0-2) 09/24/20 05:05 Abs Neuts (Manual) 12.4 10^3/uL (1.7-8.2) H 09/24/20 05:05 Abs Lymphs (Manual) 0.7 10^3/uL (0.5-4.7) 09/24/20 05:05 Abs Monocytes (Manual) 0.3 10^3/uL (0.1-1.4) 09/24/20 05:05 Absolute Eos (Manual) 0.0 10^3/uL (0.0-0.6) 09/24/20 05:05 Abs Basophils (Manual) 0.0 10^3/uL (0.0-0.2) 09/24/20 05:05 Toxic Vacuolation PRESENT 09/23/20 22:53 Platelet Estimate Cancelled 10/01/20 06:15 Platelet Comment ADEQUATE 09/24/20 05:05 Polychromasia SLIGHT 09/24/20 05:05 Ovalocytes SLIGHT 09/23/20 22:53 [place] Cells SLIGHT 09/23/20 22:53 PT 14.0 SEC (11.4-15.4) 10/01/20 06:00 INR 1.06 10/01/20 06:00 Carbonic Acid 1.59 mmol/L (1.05-1.35) H 09/25/20 14:06 HCO3/H2CO3 Ratio 16:1 09/25/20 14:06 ABG pH 7.30 (7.35-7.45) L 09/25/20 14:06 ABG pCO2 52.8 mmHg (35-45) H 09/25/20 14:06 ABG pO2 203.8 mmHg (80-100) H 09/25/20 14:06 ABG HCO3 25.5 mmol/L (20-24) H 09/25/20 14:06 ABG Total CO2 27.1 mmol/L (23-27) H 09/25/20 14:06 ABG O2 Saturation 99.3 % (94-98) H 09/25/20 14:06 ABG Base Excess -1.6 mmol/L 09/25/20 14:06 FiO2 15L 09/25/20 14:06 Sodium 135.6 mmol/L (137-145) L 10/03/20 17:10 Potassium 3.6 mmol/L (3.6-5.0) 10/03/20 17:10 Chloride 101 mmol/L (98-107) 10/03/20 17:10 Carbon Dioxide 29 mmol/L (22-30) 10/03/20 17:10 Anion Gap 6 (5-19) 10/03/20 17:10 BUN 7 mg/dL (7-20) 10/03/20 17:10 Creatinine 0.47 mg/dL (0.52-1.25) L 10/03/20 17:10 Est GFR (Non-Af Amer) Cancelled 10/01/20 06:00 Est GFR ( Amer) > 60 (>60) 10/03/20 17:10 Est GFR (MDRD) Non-Af > 60 (>60) 10/03/20 17:10 Glucose 86 mg/dL (75-110) 10/03/20 17:10 POC Glucose 136 mg/dL (70-110) H 10/05/20 11:49 Lactic Acid 5.1 mmol/L (0.7-2.1) H 09/23/20 22:30 Calcium 8.9 mg/dL (8.4-10.2) 10/03/20 17:10 Phosphorus 2.8 mg/dL (2.5-4.5) 10/01/20 08:00 Magnesium 2.0 mg/dL (1.6-2.3) 10/01/20 08:00 Total Bilirubin 0.4 mg/dL (0.2-1.3) 10/01/20 08:00 Direct Bilirubin 0.2 mg/dL (0.0-0.4) 10/01/20 08:00 Neonat Total Bilirubin Not Reportable 10/01/20 08:00 Neonat Direct Bilirubin Not Reportable 10/01/20 08:00 Neonat Indirect Bili Not Reportable 10/01/20 08:00 AST 95 U/L (17-59) H 10/01/20 08:00 ALT 107 U/L (<50) H 10/01/20 08:00 Alkaline Phosphatase 41 U/L (38-126) 10/01/20 08:00 Total Protein 5.5 g/dL (6.3-8.2) L 10/01/20 08:00 Albumin 2.7 g/dL (3.5-5.0) L 10/01/20 08:00 Prealbumin 19.0 mg/dL (17.6-36.0) 10/01/20 08:00 Triglycerides 128 mg/dL (<150) 10/01/20 15:29 Cholesterol 75.95 mg/dL (0-200) 09/25/20 04:49 LDL Cholesterol Direct < 30 mg/dL (<100) 09/25/20 04:49 VLDL Cholesterol 13.0 mg/dL (10-31) 09/25/20 04:49 HDL Cholesterol 36 mg/dL (>40) L 09/25/20 04:49 EGFR Cancelled 10/01/20 06:00 Free T3 pg/mL 2.91 pg/mL (2.77-5.27) 09/25/20 04:49 Prolactin 5.3 ng/mL (4.0-15.2) 09/24/20 05:05 Urine Color DARK YELLOW 09/22/20 02:35 Urine Appearance CLEAR 09/22/20 02:35 Urine pH 8.0 (5.0-9.0) 09/22/20 02:35 Ur Specific [place] 1.026 09/22/20 02:35 Urine Protein 30 mg/dL (NEGATIVE) H 09/22/20 02:35 Urine Glucose (UA) NEGATIVE mg/dL (NEGATIVE) 09/22/20 02:35 Urine Ketones NEGATIVE mg/dL (NEGATIVE) 09/22/20 02:35 Urine Blood NEGATIVE (NEGATIVE) 09/22/20 02:35 Urine Nitrite NEGATIVE (NEGATIVE) 09/22/20 02:35 Urine Bilirubin NEGATIVE (NEGATIVE) 09/22/20 02:35 Urine Urobilinogen NEGATIVE mg/dL (<2.0) 09/22/20 02:35 Ur Leukocyte Esterase NEGATIVE (NEGATIVE) 09/22/20 02:35 Urine WBC (Auto) 2 /HPF 09/22/20 02:35 Urine RBC (Auto) 0 /HPF 09/22/20 02:35 Squamous Epi Cells Auto 1 /HPF 09/22/20 02:35 Urine Mucus (Auto) RARE /LPF 09/22/20 02:35 Urine Ascorbic Acid NEGATIVE (NEGATIVE) 09/22/20 02:35 Gastric Occult Blood NEGATIVE (NEGATIVE) 09/22/20 09:20 Stl C. Difficile GDH Ag NEGATIVE (NEGATIVE) 09/22/20 05:45 Stl C.difficile Tox A&B NEGATIVE (NEGATIVE) 09/22/20 05:45 Time Trough Drawn 1710 10/03/20 17:10 Vancomycin Trough 8.8 ug/mL (5.0-20.0) 10/03/20 17:10 Influenza A (RT-PCR) NEGATIVE (NEGATIVE) 09/20/20 20:19 Influenza B (RT-PCR) NEGATIVE (NEGATIVE) 09/20/20 20:19 RSV (RT-PCR) NEGATIVE (NEGATIVE) 09/20/20 20:19 SARS-CoV-2 Rap RNA(RT-PCR) NEGATIVE (NEGATIVE) 09/20/20 20:19 Slides for Path Review Cancelled 10/01/20 06:15 Impressions: Chest X-Ray 09/20/20 13:52 IMPRESSION: Cannot exclude a left lower lobe pneumonia. KUB X-Ray 09/20/20 13:52 IMPRESSION: Cannot exclude small bowel obstruction. KUB X-Ray 09/22/20 00:00 IMPRESSION: Nonspecific bowel gas pattern Chest X-Ray 09/23/20 00:00 IMPRESSION: No acute disease. Abdomen/Pelvis CT 09/23/20 23:56 IMPRESSION: Limited study. No definite acute inflammatory process in the abdomen or pelvis. Left nephrolithiasis. Displaced heart and mediastinum into the left chest. Chest X-Ray 09/24/20 06:00 IMPRESSION: Left lung collapse with shift of mediastinal structures towards the left. Chest X-Ray 09/24/20 15:41 IMPRESSION: Left lung is re-expanded there is persistent perihilar infiltrate and probable left upper lobe mass in or focal pneumonia. Chest CT is recommended for further evaluation. Chest X-Ray 09/25/20 00:00 IMPRESSION: STABLE APPEARANCE OF THE CHEST. PICC Line Insertion 09/28/20 00:00 IMPRESSION: SUCCESSFUL PLACEMENT OF A 5 FR DUAL LUMEN 31 CM PICC IN THE RIGHT BASILIC VEIN. Chest X-Ray 10/02/20 00:00 IMPRESSION: NO CHANGE IN APPEARANCE OF THE CHEST. Plan Plan of Treatment: Follow-up with PCP Follow-up with GI Do not go more than 24 hours with no BM, call PCP if constipation recurs Time Spent: Greater than 30 Minutes Stroke Is this a Stroke Patient?: No Acute Heart Failure Is this a Heart Failure Patient?: No
== END 2020-10-05 15:23 | disposition home health service (06) | DRG 177 ==
LOC: ER 13:17 → EH 18:33 → 4N 22:33 → OBSVTOIN 09-21 12:49 → ICU 09-24 00:25 → 3W 09-24 17:37 → ICU 09-25 13:00 → 3W 09-26 20:19
PROVIDERS: ADMIT Internal Medicine Critical Care Medicine; ATTEND Internal Medicine
PROC: 02HV33Z Insertion of Infusion Device into Superior Vena Cava, Percutaneous Approach (ICD-10-PCS; principal; 2020-09-28)
PROC: B518ZZA Fluoroscopy of Superior Vena Cava, Guidance (ICD-10-PCS; 2020-09-28)
PROC: B548ZZA Ultrasonography of Superior Vena Cava, Guidance (ICD-10-PCS; 2020-09-28)
DX: J69.0 Pneumonitis due to inhalation of food and vomit (principal); G80.0 Spastic quadriplegic cerebral palsy; J96.01 Acute respiratory failure with hypoxia; K56.699 Other intestinal obstruction unspecified as to partial versus complete obstruction; G80.9 Cerebral palsy, unspecified; E87.6 Hypokalemia; D72.829 Elevated white blood cell count, unspecified; G40.909 Epilepsy, unspecified, not intractable, without status epilepticus; R11.14 Bilious vomiting; J98.09 Other diseases of bronchus, not elsewhere classified; Z20.822 Contact with and (suspected) exposure to COVID-19; Z93.1 Gastrostomy status; Z88.1 Allergy status to other antibiotic agents; Z88.5 Allergy status to narcotic agent; Z88.0 Allergy status to penicillin; Z88.8 Allergy status to other drugs, medicaments and biological substances
CPT/HCPCS: 36415; 36573; 71045; 74018; 74176; 80048; 80053; 80061; 80202; 81001; 82271; 82803; 82962; 83605; 83735; 84100; 84134; 84146; 84478; 84481; 85025; 85027; 85610; 87040; 87077; 87150; 87186; 87324; 87449; 93005; 93010; 94640; 94667; 94668; 95819; 96365; 99285; 99291; 0241U; C9113; C9803; J0696; J1642; J1650; J1815; J1953; J1956; J2060; J2405; J2543; J2765; J3370; J3475; J3480; J3486; J3490; J7050; J7060; J7120; J7121; J7608